=== PATIENT | male | born 2000 | race Caucasian/White ===

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

== ENCOUNTER → 2018-01-06 10:05 | Outpatient (CLI) | payer BC, SELFPAY ==
[2018-01-06 10:36] LABS: INR 2.11 (0.9-1.1)
== END ==
PROVIDERS: Visit Provider Pediatrics Pediatric Cardiology
DX: Z79.01 Long term (current) use of anticoagulants (principal); Z51.81 Encounter for therapeutic drug level monitoring; Z45.2 Encounter for adjustment and management of vascular access device; I35.9 Nonrheumatic aortic valve disorder, unspecified
CPT/HCPCS: 36415; 85610

== ENCOUNTER → 2018-01-20 10:30 | Outpatient (CLI) | payer BC, SELFPAY ==
[2018-01-20 11:11] LABS: Prothrombin Time 17.4 seconds (9.4-11.8)
== END ==
PROVIDERS: Visit Provider Pediatrics Pediatric Cardiology
DX: Z79.01 Long term (current) use of anticoagulants (principal); Z51.81 Encounter for therapeutic drug level monitoring; Z95.2 Presence of prosthetic heart valve; I35.9 Nonrheumatic aortic valve disorder, unspecified
CPT/HCPCS: 36415; 85610

== ENCOUNTER → 2018-01-28 17:28 | Outpatient (CLI) | payer BC, SELFPAY ==
[2018-01-28 17:52] LABS: Prothrombin Time 22.8 seconds (9.4-11.8)
== END ==
PROVIDERS: Visit Provider Pediatrics Pediatric Cardiology
DX: Z79.01 Long term (current) use of anticoagulants (principal); Z51.81 Encounter for therapeutic drug level monitoring
CPT/HCPCS: 36415; 85610

== ENCOUNTER → 2018-02-08 14:43 | Outpatient (CLI) | payer BC, SELFPAY ==
[2018-02-08 15:35] LABS: INR 2.66 (0.9-1.1)
== END ==
PROVIDERS: Visit Provider Pediatrics Pediatric Cardiology
DX: Z79.01 Long term (current) use of anticoagulants (principal); Z51.81 Encounter for therapeutic drug level monitoring; Z95.2 Presence of prosthetic heart valve; I35.9 Nonrheumatic aortic valve disorder, unspecified
CPT/HCPCS: 36415; 85610

== ENCOUNTER → 2018-03-03 15:31 | Outpatient (CLI) | payer BC, SELFPAY ==
[2018-03-03 16:21] LABS: INR 1.18 (0.9-1.1); Prothrombin Time 12.8 seconds (9.4-11.8)
== END ==
PROVIDERS: Visit Provider Pediatrics Pediatric Cardiology
DX: Z79.01 Long term (current) use of anticoagulants (principal); Z51.81 Encounter for therapeutic drug level monitoring; Z95.2 Presence of prosthetic heart valve; I35.9 Nonrheumatic aortic valve disorder, unspecified
CPT/HCPCS: 36415; 85610

== ENCOUNTER → 2018-03-11 11:19 | Outpatient (CLI) | payer BC, SELFPAY ==
[2018-03-11 11:47] LABS: INR 1.99 (0.9-1.1); Prothrombin Time 21.6 seconds (9.4-11.8)
== END ==
PROVIDERS: Visit Provider Pediatrics Pediatric Cardiology
DX: Z79.01 Long term (current) use of anticoagulants (principal); Z51.81 Encounter for therapeutic drug level monitoring; Z95.2 Presence of prosthetic heart valve; I35.9 Nonrheumatic aortic valve disorder, unspecified
CPT/HCPCS: 36415; 85610

== ENCOUNTER → 2018-03-23 12:51 | Outpatient (CLI) | payer BC, SELFPAY ==
[2018-03-23 13:13] LABS: INR 3.16 (0.9-1.1); Prothrombin Time 34.5 seconds (9.4-11.8)
== END ==
PROVIDERS: Visit Provider Pediatrics Pediatric Cardiology
DX: Z79.01 Long term (current) use of anticoagulants (principal); Z51.81 Encounter for therapeutic drug level monitoring; Z95.2 Presence of prosthetic heart valve; I35.9 Nonrheumatic aortic valve disorder, unspecified
CPT/HCPCS: 36415; 85610

== ENCOUNTER → 2018-04-06 08:01 | Outpatient (CLI) | payer BC, SELFPAY ==
[2018-04-06 08:20] LABS: INR 2.84 (0.9-1.1); Prothrombin Time 28.4 seconds (9.4-11.8)
== END ==
PROVIDERS: Visit Provider Pediatrics Pediatric Cardiology
DX: Z79.01 Long term (current) use of anticoagulants (principal)
CPT/HCPCS: 36415; 85610

== ENCOUNTER → 2018-04-29 09:30 | Outpatient (CLI) | payer BC, SELFPAY ==
[2018-04-29 10:05] LABS: INR 2.14 (0.9-1.1); Prothrombin Time 21.6 seconds (9.4-11.8)
== END ==
PROVIDERS: Visit Provider Pediatrics Pediatric Cardiology
DX: Z79.01 Long term (current) use of anticoagulants (principal); Z51.81 Encounter for therapeutic drug level monitoring; Z95.2 Presence of prosthetic heart valve; I35.9 Nonrheumatic aortic valve disorder, unspecified
CPT/HCPCS: 36415; 85610

== ENCOUNTER → 2018-05-26 16:01 | Outpatient (CLI) | payer BC, SELFPAY ==
[2018-05-26 16:22] LABS: INR 1.35 (0.9-1.1); Prothrombin Time 13.8 seconds (9.4-11.8)
== END ==
PROVIDERS: Visit Provider Pediatrics Pediatric Cardiology
DX: Z79.01 Long term (current) use of anticoagulants (principal); Z51.81 Encounter for therapeutic drug level monitoring
CPT/HCPCS: 36415; 85610

== ENCOUNTER → 2018-06-01 16:07 | Outpatient (CLI) | payer BC, SELFPAY ==
[2018-06-01 16:32] LABS: INR 2.87 (0.9-1.1); Prothrombin Time 28.7 seconds (9.4-11.8)
== END ==
PROVIDERS: Visit Provider Pediatrics Pediatric Cardiology
DX: Z79.01 Long term (current) use of anticoagulants (principal); Z51.81 Encounter for therapeutic drug level monitoring; Z95.2 Presence of prosthetic heart valve; I35.9 Nonrheumatic aortic valve disorder, unspecified
CPT/HCPCS: 36415; 85610

== ENCOUNTER → 2018-06-16 12:04 | Outpatient (CLI) | payer BC, SELFPAY ==
[2018-06-16 13:22] LABS: INR 2.26 (0.9-1.1); Prothrombin Time 22.7 seconds (9.4-11.8)
== END ==
PROVIDERS: PCP Internal Medicine Adolescent Medicine; Visit Provider Internal Medicine Adolescent Medicine
DX: Z79.01 Long term (current) use of anticoagulants (principal); Z51.81 Encounter for therapeutic drug level monitoring; I35.9 Nonrheumatic aortic valve disorder, unspecified
CPT/HCPCS: 36415; 85610

== ENCOUNTER → 2018-07-07 17:18 | Outpatient (CLI) | payer BC, SELFPAY ==
[2018-07-07 17:41] LABS: INR 2.47 (0.9-1.1); Prothrombin Time 24.8 seconds (9.4-11.8)
== END ==
PROVIDERS: PCP Pediatrics Pediatric Cardiology; Visit Provider Pediatrics Pediatric Cardiology
DX: Z51.81 Encounter for therapeutic drug level monitoring (principal); Z79.01 Long term (current) use of anticoagulants; Z95.2 Presence of prosthetic heart valve; I35.9 Nonrheumatic aortic valve disorder, unspecified
CPT/HCPCS: 36415; 85610

== ENCOUNTER → 2018-09-02 13:55 | Outpatient (CLI) | payer OTHER, BC, SELFPAY ==
[2018-09-02 14:32] LABS: INR 1.18 (0.9-1.1); Prothrombin Time 12.1 seconds (9.4-11.8)
== END ==
PROVIDERS: Visit Provider Pediatrics Pediatric Cardiology
DX: Z51.81 Encounter for therapeutic drug level monitoring (principal); Z79.01 Long term (current) use of anticoagulants; Z95.2 Presence of prosthetic heart valve; I35.9 Nonrheumatic aortic valve disorder, unspecified
CPT/HCPCS: 36415; 85610

== ENCOUNTER → 2018-09-09 09:52 | Outpatient (CLI) | payer OTHER, BC, SELFPAY ==
[2018-09-09 10:26] LABS: INR 1.71 (0.9-1.1); Prothrombin Time 17.3 seconds (9.4-11.8)
== END ==
PROVIDERS: Visit Provider Pediatrics Pediatric Cardiology
DX: Z51.81 Encounter for therapeutic drug level monitoring (principal); Z79.01 Long term (current) use of anticoagulants; Z95.2 Presence of prosthetic heart valve; I35.9 Nonrheumatic aortic valve disorder, unspecified
CPT/HCPCS: 36415; 85610

== ENCOUNTER → 2018-09-16 12:55 | Outpatient (CLI) | payer OTHER, BC, SELFPAY ==
[2018-09-16 13:23] LABS: INR 1.06 (0.9-1.1); Prothrombin Time 10.9 seconds (9.4-11.8)
== END ==
PROVIDERS: Visit Provider Pediatrics Pediatric Cardiology
DX: Z51.81 Encounter for therapeutic drug level monitoring (principal); Z79.01 Long term (current) use of anticoagulants
CPT/HCPCS: 36415; 85610

== ENCOUNTER → 2018-09-23 13:58 | Outpatient (CLI) | payer OTHER, BC, SELFPAY ==
[2018-09-23 14:25] LABS: INR 2.56 (0.9-1.1); Prothrombin Time 25.7 seconds (9.4-11.8)
== END ==
PROVIDERS: Visit Provider Pediatrics Pediatric Cardiology
DX: Z51.81 Encounter for therapeutic drug level monitoring (principal); Z79.01 Long term (current) use of anticoagulants
CPT/HCPCS: 36415; 85610

== ENCOUNTER → 2018-10-04 12:40 | Outpatient (CLI) | payer BC, SELFPAY ==
[2018-10-04 13:01] LABS: INR 1.76 (0.9-1.1); Prothrombin Time 17.8 seconds (9.4-11.8)
== END ==
PROVIDERS: Visit Provider Pediatrics Pediatric Cardiology
DX: Z51.81 Encounter for therapeutic drug level monitoring (principal); Z79.01 Long term (current) use of anticoagulants; Z95.2 Presence of prosthetic heart valve; I35.9 Nonrheumatic aortic valve disorder, unspecified
CPT/HCPCS: 36415; 85610

== ENCOUNTER → 2018-10-20 16:33 | Outpatient (CLI) | payer BC, SELFPAY ==
[2018-10-20 17:12] LABS: INR 3.01 (0.9-1.1)
== END ==
PROVIDERS: Visit Provider Pediatrics Pediatric Cardiology
DX: Z51.81 Encounter for therapeutic drug level monitoring (principal); Z79.01 Long term (current) use of anticoagulants; I35.9 Nonrheumatic aortic valve disorder, unspecified; Z95.2 Presence of prosthetic heart valve
CPT/HCPCS: 36415; 85610

== ENCOUNTER → 2018-10-27 12:14 | Outpatient (CLI) | payer BC, SELFPAY ==
[2018-10-27 12:41] LABS: INR 1.59 (0.9-1.1); Prothrombin Time 16.2 seconds (9.4-11.8)
== END ==
PROVIDERS: Visit Provider Pediatrics Pediatric Cardiology
DX: Z51.81 Encounter for therapeutic drug level monitoring (principal); Z79.01 Long term (current) use of anticoagulants; Z95.2 Presence of prosthetic heart valve; I35.9 Nonrheumatic aortic valve disorder, unspecified
CPT/HCPCS: 36415; 85610

== ENCOUNTER → 2018-11-03 08:58 | Outpatient (CLI) | payer BC, SELFPAY ==
[2018-11-03 09:19] LABS: Prothrombin Time 43.5 seconds (9.4-11.8)
[2018-11-03 10:05] LABS: INR 4.41 (0.9-1.1)
== END ==
PROVIDERS: Visit Provider Pediatrics Pediatric Cardiology
DX: Z51.81 Encounter for therapeutic drug level monitoring (principal); Z79.01 Long term (current) use of anticoagulants; Z95.2 Presence of prosthetic heart valve; I35.9 Nonrheumatic aortic valve disorder, unspecified
CPT/HCPCS: 36415; 85610

== ENCOUNTER → 2018-11-04 11:34 | Outpatient (CLI) | payer BC, SELFPAY ==
[2018-11-04 12:15] LABS: INR 2.62 (0.9-1.1); Prothrombin Time 26.2 seconds (9.4-11.8)
== END ==
PROVIDERS: Visit Provider Pediatrics Pediatric Cardiology
DX: Z51.81 Encounter for therapeutic drug level monitoring (principal); Z79.01 Long term (current) use of anticoagulants; Z95.2 Presence of prosthetic heart valve; I35.9 Nonrheumatic aortic valve disorder, unspecified
CPT/HCPCS: 36415; 85610

== ENCOUNTER → 2018-11-25 17:00 | Outpatient (CLI) | payer BC, SELFPAY ==
[2018-11-25 17:23] LABS: INR 1.24 (0.9-1.1); Prothrombin Time 12.7 seconds (9.4-11.8)
== END ==
PROVIDERS: Visit Provider Pediatrics Pediatric Cardiology
DX: Z51.81 Encounter for therapeutic drug level monitoring (principal); Z79.01 Long term (current) use of anticoagulants; Z95.2 Presence of prosthetic heart valve; I35.9 Nonrheumatic aortic valve disorder, unspecified
CPT/HCPCS: 36415; 85610

== ENCOUNTER → 2018-12-02 11:49 | Outpatient (CLI) | payer BC, SELFPAY ==
[2018-12-02 12:15] LABS: INR 3.58 (0.9-1.1); Prothrombin Time 35.5 seconds (9.4-11.8)
== END ==
PROVIDERS: Visit Provider Pediatrics Pediatric Cardiology
DX: Z51.81 Encounter for therapeutic drug level monitoring (principal); Z79.01 Long term (current) use of anticoagulants; Z95.2 Presence of prosthetic heart valve; I35.9 Nonrheumatic aortic valve disorder, unspecified
CPT/HCPCS: 36415; 85610

== ENCOUNTER → 2018-12-22 12:29 | Outpatient (CLI) | payer BC, SELFPAY ==
[2018-12-22 12:52] LABS: INR 3.85 (0.9-1.1); Prothrombin Time 38.1 seconds (9.4-11.8)
== END ==
PROVIDERS: Visit Provider Pediatrics Pediatric Cardiology
DX: Z51.81 Encounter for therapeutic drug level monitoring (principal); Z79.01 Long term (current) use of anticoagulants; Z95.2 Presence of prosthetic heart valve; I35.9 Nonrheumatic aortic valve disorder, unspecified
CPT/HCPCS: 36415; 85610

== ENCOUNTER → 2018-12-29 12:45 | Outpatient (CLI) | payer BC, SELFPAY ==
[2018-12-29 14:04] LABS: Prothrombin Time 42.2 seconds (9.4-11.8)
[2018-12-29 15:01] LABS: INR 4.27 (0.9-1.1)
== END ==
PROVIDERS: Visit Provider Pediatrics Pediatric Cardiology
DX: Z79.01 Long term (current) use of anticoagulants (principal); Z95.2 Presence of prosthetic heart valve; I35.9 Nonrheumatic aortic valve disorder, unspecified
CPT/HCPCS: 36415; 85610

== ENCOUNTER → 2018-12-30 11:09 | Outpatient (CLI) | payer BC, SELFPAY ==
[2018-12-30 11:38] LABS: INR 3.18 (0.9-1.1); Prothrombin Time 31.7 seconds (9.4-11.8)
== END ==
PROVIDERS: Visit Provider Pediatrics Pediatric Cardiology
DX: Z51.81 Encounter for therapeutic drug level monitoring (principal); Z79.01 Long term (current) use of anticoagulants; Z95.2 Presence of prosthetic heart valve; I35.9 Nonrheumatic aortic valve disorder, unspecified
CPT/HCPCS: 36415; 85610

== ENCOUNTER → 2019-01-05 10:40 | Outpatient (CLI) | payer BC, SELFPAY ==
[2019-01-05 11:26] LABS: INR 3.29 (0.9-1.1); Prothrombin Time 32.7 seconds (9.4-11.8)
== END ==
PROVIDERS: Visit Provider Pediatrics Pediatric Cardiology
DX: Z51.81 Encounter for therapeutic drug level monitoring (principal); Z79.01 Long term (current) use of anticoagulants; Z95.2 Presence of prosthetic heart valve; I35.9 Nonrheumatic aortic valve disorder, unspecified
CPT/HCPCS: 36415; 85610

== ENCOUNTER → 2019-01-09 14:41 | Outpatient (CLI) | payer OTHER, BC, SELFPAY ==
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
== END ==
PROVIDERS: PCP Internal Medicine Adolescent Medicine; Visit Provider Internal Medicine Adolescent Medicine
DX: M54.5 Low back pain (principal); V89.2XXD Person injured in unspecified motor-vehicle accident, traffic, subsequent encounter
CPT/HCPCS: 72072; 72110

== ENCOUNTER → 2019-01-11 13:51 | Outpatient (CLI) | payer BC, SELFPAY ==
[2019-01-11 14:26] LABS: INR 3.08 (0.9-1.1); Prothrombin Time 30.7 seconds (9.4-11.8)
== END ==
PROVIDERS: Visit Provider Pediatrics Pediatric Cardiology
DX: Z51.81 Encounter for therapeutic drug level monitoring (principal); Z79.01 Long term (current) use of anticoagulants; Z95.2 Presence of prosthetic heart valve; I35.9 Nonrheumatic aortic valve disorder, unspecified
CPT/HCPCS: 36415; 85610

== ENCOUNTER → 2019-01-24 09:16 | Outpatient (CLI) | payer BC, SELFPAY ==
[2019-01-24 09:36] LABS: INR 1.16 (0.9-1.1); Prothrombin Time 11.9 seconds (9.4-11.8)
== END ==
PROVIDERS: Visit Provider Pediatrics Pediatric Cardiology
DX: Z51.81 Encounter for therapeutic drug level monitoring (principal); Z79.01 Long term (current) use of anticoagulants; Z95.2 Presence of prosthetic heart valve; I35.9 Nonrheumatic aortic valve disorder, unspecified
CPT/HCPCS: 36415; 85610

== ENCOUNTER → 2019-02-03 14:24 | Outpatient (CLI) | payer BC, SELFPAY ==
[2019-02-03 15:46] LABS: INR 1.51 (0.9-1.1); Prothrombin Time 15.4 seconds (9.4-11.8)
== END ==
PROVIDERS: PCP Internal Medicine Adolescent Medicine; Visit Provider Pediatrics Pediatric Cardiology
DX: Z51.81 Encounter for therapeutic drug level monitoring (principal); Z79.01 Long term (current) use of anticoagulants; Z95.2 Presence of prosthetic heart valve; I35.9 Nonrheumatic aortic valve disorder, unspecified
CPT/HCPCS: 36415; 85610

== ENCOUNTER → 2019-02-13 13:15 | Outpatient (CLI) | payer BC, SELFPAY ==
[2019-02-13 14:30] LABS: INR 1.66 (0.9-1.1); Prothrombin Time 16.9 seconds (9.4-11.8)
== END ==
PROVIDERS: Visit Provider Pediatrics Pediatric Cardiology
DX: Z51.81 Encounter for therapeutic drug level monitoring (principal); Z79.01 Long term (current) use of anticoagulants; I35.9 Nonrheumatic aortic valve disorder, unspecified; Z95.2 Presence of prosthetic heart valve
CPT/HCPCS: 36415; 85610

== ENCOUNTER → 2019-02-22 08:44 | Outpatient (CLI) | payer BC, SELFPAY ==
[2019-02-22 09:27] LABS: INR 2.23 (0.9-1.1); Prothrombin Time 22.4 seconds (9.4-11.8)
== END ==
PROVIDERS: Visit Provider Pediatrics Pediatric Cardiology
DX: Z51.81 Encounter for therapeutic drug level monitoring (principal); Z79.01 Long term (current) use of anticoagulants
CPT/HCPCS: 36415; 85610

== ENCOUNTER → 2019-03-07 15:49 | Outpatient (CLI) | payer BC, SELFPAY ==
[2019-03-07 16:13] LABS: Prothrombin Time 25.8 seconds (9.4-11.8)
== END ==
PROVIDERS: PCP Internal Medicine Adolescent Medicine; Visit Provider Pediatrics Pediatric Cardiology
DX: Z51.81 Encounter for therapeutic drug level monitoring (principal); Z79.01 Long term (current) use of anticoagulants; I35.9 Nonrheumatic aortic valve disorder, unspecified; Z95.2 Presence of prosthetic heart valve
CPT/HCPCS: 36415; 85610

== ENCOUNTER → 2019-04-06 17:12 | Outpatient (CLI) | payer BC, SELFPAY ==
[2019-04-06 17:43] LABS: INR 2.85 (0.9-1.1); Prothrombin Time 28.2 seconds (9.4-11.8)
== END ==
PROVIDERS: Visit Provider Pediatrics Pediatric Cardiology
DX: Z51.81 Encounter for therapeutic drug level monitoring (principal); Z79.01 Long term (current) use of anticoagulants; Z95.2 Presence of prosthetic heart valve; I35.9 Nonrheumatic aortic valve disorder, unspecified
CPT/HCPCS: 36415; 85610

== ENCOUNTER → 2019-05-10 17:50 | Outpatient (CLI) | payer BC, SELFPAY ==
[2019-05-10 18:26] LABS: INR 3.36 (0.9-1.1)
== END ==
PROVIDERS: Visit Provider Pediatrics Pediatric Cardiology
DX: Z51.81 Encounter for therapeutic drug level monitoring (principal); Z79.01 Long term (current) use of anticoagulants; Z95.2 Presence of prosthetic heart valve; I35.9 Nonrheumatic aortic valve disorder, unspecified
CPT/HCPCS: 36415; 85610

== ENCOUNTER → 2019-05-15 18:14 | Outpatient (CLI) | payer BC, SELFPAY ==
[2019-05-15 18:39] LABS: INR 2.24 (0.9-1.1); Prothrombin Time 22.4 seconds (9.4-11.8)
== END ==
PROVIDERS: Visit Provider Pediatrics Pediatric Cardiology
DX: Z51.81 Encounter for therapeutic drug level monitoring (principal); Z79.01 Long term (current) use of anticoagulants; Z95.2 Presence of prosthetic heart valve; I35.9 Nonrheumatic aortic valve disorder, unspecified
CPT/HCPCS: 36415; 85610

== ENCOUNTER → 2019-05-30 18:24 | Outpatient (CLI) | payer BC, SELFPAY ==
[2019-05-30 18:56] LABS: INR 1.26 (0.9-1.1)
== END ==
PROVIDERS: Visit Provider Pediatrics Pediatric Cardiology
DX: Z51.81 Encounter for therapeutic drug level monitoring (principal); Z79.01 Long term (current) use of anticoagulants; Z95.2 Presence of prosthetic heart valve
CPT/HCPCS: 36415; 85610

== ENCOUNTER → 2019-06-05 16:37 | Outpatient (CLI) | payer BC, SELFPAY ==
[2019-06-05 17:11] LABS: INR 2.95 (0.9-1.1); Prothrombin Time 29.1 seconds (9.4-11.8)
== END ==
PROVIDERS: Visit Provider Pediatrics Pediatric Cardiology
DX: Z51.81 Encounter for therapeutic drug level monitoring (principal); Z79.01 Long term (current) use of anticoagulants; Z95.2 Presence of prosthetic heart valve; I35.9 Nonrheumatic aortic valve disorder, unspecified
CPT/HCPCS: 36415; 85610

== ENCOUNTER → 2019-07-06 13:46 | Outpatient (CLI) | payer BC, SELFPAY ==
[2019-07-06 14:54] LABS: INR 1.59 (0.9-1.1); Prothrombin Time 16.2 seconds (9.4-11.8)
== END ==
PROVIDERS: Visit Provider Pediatrics Pediatric Cardiology
DX: Z51.81 Encounter for therapeutic drug level monitoring (principal); Z79.01 Long term (current) use of anticoagulants; Z95.2 Presence of prosthetic heart valve
CPT/HCPCS: 36415; 85610

== ENCOUNTER → 2019-07-18 12:23 | Outpatient (CLI) | payer BC, SELFPAY ==
[2019-07-18 13:13] LABS: INR 1.32 (0.9-1.1); Prothrombin Time 13.5 seconds (9.4-11.8)
== END ==
PROVIDERS: Visit Provider Pediatrics Pediatric Cardiology
DX: Z51.81 Encounter for therapeutic drug level monitoring (principal); Z79.01 Long term (current) use of anticoagulants; Z95.2 Presence of prosthetic heart valve; I35.9 Nonrheumatic aortic valve disorder, unspecified
CPT/HCPCS: 36415; 85610

== ENCOUNTER → 2019-07-21 15:50 | Outpatient (CLI) | payer BC, SELFPAY ==
[2019-07-21 16:17] LABS: INR 2.55 (0.9-1.1); Prothrombin Time 25.4 seconds (9.4-11.8)
== END ==
PROVIDERS: Visit Provider Pediatrics Pediatric Cardiology
DX: Z51.81 Encounter for therapeutic drug level monitoring (principal); Z79.01 Long term (current) use of anticoagulants; Z95.2 Presence of prosthetic heart valve; I35.9 Nonrheumatic aortic valve disorder, unspecified
CPT/HCPCS: 36415; 85610

== ENCOUNTER → 2019-08-07 14:29 | Outpatient (CLI) | payer BC, SELFPAY ==
[2019-08-07 15:28] LABS: INR 2.66 (0.9-1.1); Prothrombin Time 26.4 seconds (9.4-11.8)
== END ==
PROVIDERS: Visit Provider Pediatrics Pediatric Cardiology
DX: Z51.81 Encounter for therapeutic drug level monitoring (principal); Z79.01 Long term (current) use of anticoagulants; Z95.2 Presence of prosthetic heart valve; I35.9 Nonrheumatic aortic valve disorder, unspecified
CPT/HCPCS: 36415; 85610

== ENCOUNTER → 2019-09-08 08:15 | Outpatient (CLI) | payer BC, SELFPAY ==
[2019-09-08 09:20] LABS: INR 2.25 (0.9-1.1); Prothrombin Time 22.5 seconds (9.4-11.8)
== END ==
PROVIDERS: Visit Provider Pediatrics Pediatric Cardiology
DX: Z51.81 Encounter for therapeutic drug level monitoring (principal); Z79.01 Long term (current) use of anticoagulants; Z95.2 Presence of prosthetic heart valve; I35.9 Nonrheumatic aortic valve disorder, unspecified
CPT/HCPCS: 36415; 85610

== ENCOUNTER → 2019-10-06 17:58 | Outpatient (CLI) | payer BC, SELFPAY ==
[2019-10-06 18:19] LABS: INR 1.81 (0.9-1.1); Prothrombin Time 18.3 seconds (9.4-11.8)
== END ==
PROVIDERS: Visit Provider Pediatrics Pediatric Cardiology
DX: Z51.81 Encounter for therapeutic drug level monitoring (principal); Z79.01 Long term (current) use of anticoagulants; Z95.2 Presence of prosthetic heart valve
CPT/HCPCS: 36415; 85610

== ENCOUNTER → 2019-11-16 12:44 | Outpatient (CLI) | payer BC, SELFPAY ==
[2019-11-16 13:11] LABS: INR 3.91 (0.9-1.1); Prothrombin Time 38.1 seconds (9.4-11.8)
== END ==
PROVIDERS: Visit Provider Pediatrics Pediatric Cardiology
DX: Z51.81 Encounter for therapeutic drug level monitoring (principal); Z79.01 Long term (current) use of anticoagulants; Z95.2 Presence of prosthetic heart valve; I35.9 Nonrheumatic aortic valve disorder, unspecified
CPT/HCPCS: 36415; 85610

== ENCOUNTER → 2019-11-20 10:28 | Outpatient (CLI) | payer BC, SELFPAY ==
[2019-11-20 11:24] LABS: INR 3.27 (0.9-1.1); Prothrombin Time 32.1 seconds (9.4-11.8)
== END ==
PROVIDERS: Visit Provider Pediatrics Pediatric Cardiology
DX: Z51.81 Encounter for therapeutic drug level monitoring (principal); Z79.01 Long term (current) use of anticoagulants; Z95.2 Presence of prosthetic heart valve; I35.9 Nonrheumatic aortic valve disorder, unspecified
CPT/HCPCS: 36415; 85610

== ENCOUNTER → 2019-11-28 13:35 | Outpatient (CLI) | payer BC, SELFPAY ==
[2019-11-28 14:30] LABS: INR 3.91 (0.9-1.1); Prothrombin Time 38.1 seconds (9.4-11.8)
== END ==
PROVIDERS: Visit Provider Pediatrics Pediatric Cardiology
DX: Z51.81 Encounter for therapeutic drug level monitoring (principal); Z79.01 Long term (current) use of anticoagulants; Z95.2 Presence of prosthetic heart valve; I35.9 Nonrheumatic aortic valve disorder, unspecified
CPT/HCPCS: 36415; 85610

== ENCOUNTER → 2019-12-07 08:23 | Outpatient (CLI) | payer BC, SELFPAY ==
[2019-12-07 08:50] LABS: INR 2.87 (0.9-1.1); Prothrombin Time 28.4 seconds (9.4-11.8)
== END ==
PROVIDERS: Visit Provider Pediatrics Pediatric Cardiology
DX: Z51.81 Encounter for therapeutic drug level monitoring (principal); Z79.01 Long term (current) use of anticoagulants; Z95.2 Presence of prosthetic heart valve; I35.9 Nonrheumatic aortic valve disorder, unspecified
CPT/HCPCS: 36415; 85610

== ENCOUNTER → 2019-12-29 11:50 | Outpatient (CLI) | payer BC, SELFPAY ==
[2019-12-29 12:20] LABS: INR 1.11 (0.9-1.1); Prothrombin Time 11.5 seconds (9.4-11.8)
== END ==
PROVIDERS: Visit Provider Pediatrics Pediatric Cardiology
DX: Z51.81 Encounter for therapeutic drug level monitoring (principal); Z79.01 Long term (current) use of anticoagulants; Z95.2 Presence of prosthetic heart valve; I35.9 Nonrheumatic aortic valve disorder, unspecified
CPT/HCPCS: 36415; 85610

== ENCOUNTER → 2020-01-01 13:19 | Outpatient (CLI) | payer BC, SELFPAY ==
[2020-01-01 16:17] LABS: INR 1.79 (0.9-1.1); Prothrombin Time 18.1 seconds (9.4-11.8)
== END ==
PROVIDERS: Visit Provider Pediatrics Pediatric Cardiology
DX: Z51.81 Encounter for therapeutic drug level monitoring (principal); Z79.01 Long term (current) use of anticoagulants; Z95.2 Presence of prosthetic heart valve; I35.9 Nonrheumatic aortic valve disorder, unspecified
CPT/HCPCS: 36415; 85610

== ENCOUNTER → 2020-01-05 10:15 | Outpatient (CLI) | payer BC, SELFPAY ==
[2020-01-05 10:57] LABS: INR 2.21 (0.9-1.1); Prothrombin Time 22.1 seconds (9.4-11.8)
== END ==
PROVIDERS: Visit Provider Pediatrics Pediatric Cardiology
DX: Z51.81 Encounter for therapeutic drug level monitoring (principal); Z79.01 Long term (current) use of anticoagulants; Z95.2 Presence of prosthetic heart valve; I35.9 Nonrheumatic aortic valve disorder, unspecified
CPT/HCPCS: 36415; 85610

== ENCOUNTER → 2020-01-18 18:28 | Outpatient (CLI) | payer BC, SELFPAY ==
[2020-01-18 18:47] LABS: INR 1.97 (0.9-1.1); Prothrombin Time 19.8 seconds (9.4-11.8)
== END ==
PROVIDERS: Visit Provider Pediatrics Pediatric Cardiology
DX: Z51.81 Encounter for therapeutic drug level monitoring (principal); Z79.01 Long term (current) use of anticoagulants; Z95.2 Presence of prosthetic heart valve; I35.9 Nonrheumatic aortic valve disorder, unspecified
CPT/HCPCS: 36415; 85610

== ENCOUNTER → 2020-02-08 19:20 | Outpatient (CLI) | payer BC, SELFPAY ==
[2020-02-08 19:54] LABS: Prothrombin Time 19.2 seconds (9.4-11.8)
== END ==
PROVIDERS: PCP Internal Medicine Adolescent Medicine; Visit Provider Pediatrics Pediatric Cardiology
DX: Z51.81 Encounter for therapeutic drug level monitoring (principal); Z79.01 Long term (current) use of anticoagulants; Z95.2 Presence of prosthetic heart valve; I35.9 Nonrheumatic aortic valve disorder, unspecified
CPT/HCPCS: 36415; 85610

== ENCOUNTER → 2020-02-29 19:53 | Outpatient (CLI) | payer BC, SELFPAY ==
[2020-02-29 20:26] LABS: INR 1.93 (0.9-1.1); Prothrombin Time 19.5 seconds (9.4-11.8)
== END ==
LOC: LAB.DROPOF 19:54 → LAB 20:04
PROVIDERS: Visit Provider Pediatrics Pediatric Cardiology
DX: Z51.81 Encounter for therapeutic drug level monitoring (principal); Z79.01 Long term (current) use of anticoagulants
CPT/HCPCS: 36415; 85610

== ENCOUNTER → 2020-03-28 17:17 | Outpatient (CLI) | payer BC, SELFPAY ==
[2020-03-28 17:48] LABS: INR 1.24 (0.9-1.1); Prothrombin Time 12.6 seconds (9.4-11.8)
== END ==
PROVIDERS: Visit Provider Pediatrics Pediatric Cardiology
DX: Z51.81 Encounter for therapeutic drug level monitoring (principal); Z79.01 Long term (current) use of anticoagulants; I35.9 Nonrheumatic aortic valve disorder, unspecified; Z95.2 Presence of prosthetic heart valve
CPT/HCPCS: 36415; 85610

== ENCOUNTER → 2020-04-04 17:16 | Outpatient (CLI) | payer BC, SELFPAY ==
[2020-04-04 17:55] LABS: INR 1.37 (0.9-1.1); Prothrombin Time 13.8 seconds (9.4-11.8)
== END ==
PROVIDERS: Visit Provider Pediatrics Pediatric Cardiology
DX: Z51.81 Encounter for therapeutic drug level monitoring (principal); Z79.01 Long term (current) use of anticoagulants; I35.9 Nonrheumatic aortic valve disorder, unspecified; Z95.2 Presence of prosthetic heart valve
CPT/HCPCS: 36415; 85610

== ENCOUNTER → 2020-04-10 17:24 | Outpatient (CLI) | payer BC, SELFPAY ==
[2020-04-10 17:49] LABS: INR 1.93 (0.9-1.1); Prothrombin Time 19.1 seconds (9.4-11.8)
== END ==
PROVIDERS: Visit Provider Pediatrics Pediatric Cardiology
DX: Z51.81 Encounter for therapeutic drug level monitoring (principal); Z79.01 Long term (current) use of anticoagulants; I35.9 Nonrheumatic aortic valve disorder, unspecified; Z95.2 Presence of prosthetic heart valve
CPT/HCPCS: 36415; 85610

== ENCOUNTER → 2020-04-24 17:13 | Outpatient (CLI) | payer BC, SELFPAY ==
[2020-04-24 17:57] LABS: INR 2.22 (0.9-1.1); Prothrombin Time 21.7 seconds (9.4-11.8)
== END ==
PROVIDERS: Visit Provider Pediatrics Pediatric Cardiology
DX: Z51.81 Encounter for therapeutic drug level monitoring (principal); Z79.01 Long term (current) use of anticoagulants; Z95.2 Presence of prosthetic heart valve; I35.9 Nonrheumatic aortic valve disorder, unspecified
CPT/HCPCS: 36415; 85610

== ENCOUNTER → 2020-05-16 11:08 | Outpatient (CLI) | payer BC, SELFPAY ==
[2020-05-16 12:24] LABS: INR 3.66 (0.9-1.1); Prothrombin Time 34.6 seconds (9.4-11.8)
== END ==
PROVIDERS: Visit Provider Pediatrics Pediatric Cardiology
DX: Z51.81 Encounter for therapeutic drug level monitoring (principal); Z79.01 Long term (current) use of anticoagulants; Z95.2 Presence of prosthetic heart valve; I35.9 Nonrheumatic aortic valve disorder, unspecified
CPT/HCPCS: 36415; 85610

== ENCOUNTER → 2020-05-22 17:19 | Outpatient (CLI) | payer BC, SELFPAY ==
[2020-05-22 18:13] LABS: INR 3.93 (0.9-1.1)
== END ==
PROVIDERS: Visit Provider Pediatrics Pediatric Cardiology
DX: Z51.81 Encounter for therapeutic drug level monitoring (principal); Z79.01 Long term (current) use of anticoagulants; I35.9 Nonrheumatic aortic valve disorder, unspecified; Z95.2 Presence of prosthetic heart valve
CPT/HCPCS: 36415; 85610

== ENCOUNTER → 2020-05-27 19:06 | Outpatient (CLI) | payer BC, SELFPAY ==
[2020-05-27 20:20] LABS: Prothrombin Time 17.4 seconds (9.4-11.8)
[2020-05-27 20:21] LABS: INR 1.75 (0.9-1.1)
== END ==
PROVIDERS: PCP Internal Medicine Adolescent Medicine; Visit Provider Pediatrics Pediatric Cardiology
DX: Z51.81 Encounter for therapeutic drug level monitoring (principal); Z79.01 Long term (current) use of anticoagulants; I35.9 Nonrheumatic aortic valve disorder, unspecified; Z95.2 Presence of prosthetic heart valve
CPT/HCPCS: 36415; 85610

== ENCOUNTER → 2020-06-03 18:00 | Outpatient (CLI) | payer BC, SELFPAY ==
[2020-06-03 20:18] LABS: INR 1.75 (0.9-1.1); Prothrombin Time 17.4 seconds (9.4-11.8)
== END ==
PROVIDERS: Visit Provider Pediatrics Pediatric Cardiology
DX: Z79.01 Long term (current) use of anticoagulants (principal)
CPT/HCPCS: 36415; 85610

== ENCOUNTER → 2020-06-13 17:18 | Outpatient (CLI) | payer BC, SELFPAY ==
[2020-06-13 18:30] LABS: INR 2.57 (0.9-1.1); Prothrombin Time 24.9 seconds (9.4-11.8)
== END ==
PROVIDERS: Visit Provider Pediatrics Pediatric Cardiology
DX: Z79.01 Long term (current) use of anticoagulants (principal)
CPT/HCPCS: 36415; 85610

== ENCOUNTER → 2020-07-01 17:14 | Outpatient (CLI) | payer BC, SELFPAY ==
[2020-07-01 22:06] LABS: INR 2.92 (0.9-1.1); Prothrombin Time 28.9 seconds (9.4-11.8)
== END ==
PROVIDERS: Visit Provider Pediatrics Pediatric Cardiology
DX: Z79.01 Long term (current) use of anticoagulants (principal); Z95.2 Presence of prosthetic heart valve; I35.9 Nonrheumatic aortic valve disorder, unspecified
CPT/HCPCS: 36415; 85610

== ENCOUNTER → 2020-07-31 17:19 | Outpatient (CLI) | payer BC, SELFPAY ==
[2020-07-31 18:50] LABS: INR 2.49 (0.9-1.1); Prothrombin Time 25.4 seconds (9.4-11.8)
== END ==
PROVIDERS: Visit Provider Pediatrics Pediatric Cardiology
DX: Z51.81 Encounter for therapeutic drug level monitoring (principal); Z79.01 Long term (current) use of anticoagulants; I35.9 Nonrheumatic aortic valve disorder, unspecified; Z95.2 Presence of prosthetic heart valve
CPT/HCPCS: 36415; 85610

== ENCOUNTER → 2020-09-04 17:15 | Outpatient (CLI) | payer BC, SELFPAY ==
[2020-09-04 18:48] LABS: Prothrombin Time 13.9 seconds (9.4-11.8)
[2020-09-04 18:49] LABS: INR 1.28 (0.9-1.1)
== END ==
PROVIDERS: Visit Provider Pediatrics Pediatric Cardiology
DX: Z51.81 Encounter for therapeutic drug level monitoring (principal); Z79.01 Long term (current) use of anticoagulants
CPT/HCPCS: 36415; 85610

== ENCOUNTER → 2020-09-10 17:24 | Outpatient (CLI) | payer BC, SELFPAY ==
[2020-09-10 18:13] LABS: INR 2.02 (0.9-1.1)
== END ==
PROVIDERS: Visit Provider Pediatrics Pediatric Cardiology
DX: Z51.81 Encounter for therapeutic drug level monitoring (principal); Z79.01 Long term (current) use of anticoagulants
CPT/HCPCS: 36415; 85610

== ENCOUNTER 2020-09-10 20:48 | Emergency (ER) | payer OTHER, SELFPAY ==
--- NOTE | 2020-09-10 20:53 | XR_ITS ---
PROCEDURE: XR COCCYX 2V CLINICAL INDICATION: FALL Pain COMPARISON: CR [id number] XR lumbar spine min 4V from 01/09/2019 FINDINGS: No fracture or dislocation. No lytic or blastic change. There is normal mineralization. The joint spaces are well-preserved. No significant degenerative/arthritic changes. No erosive changes evident. Other findings:None. IMPRESSION: No acute findings. Dictated by: Hemant Koch MD 09/10/2020 22:54 Hemant Koch MD in [place] 09/10/2020 22:54
[2020-09-10 21:05] VITALS: BP 135/88; PULSE 83; RESP 18; TEMP 36.9; O2SAT 100; BMI 33.4
--- NOTE | 2020-09-10 21:11 | HMH.EDUTC ---
[facility] Disposition Clinical Impression: Acute buttock pain Cellulitis Qualifiers: Site of cellulitis: unspecified site Qualified Code(s): L03.90 - Cellulitis, unspecified Disposition: Home, Self-Care Condition on Discharge: Good Instructions: DI for Cellulitis -- Adult, Cellulitis, DI for Skin Abscess Additional Instructions: Call Dr Hartley's office in the morning after 8am and inform them that you need an appointment to be seen tomorrow Follow up with Dr Hartley as advised Take medication as prescribed Warm compresses may help with pain and swelling Straight to ER if any life threatening symptoms Prescriptions: clindamycin HCL [Cleocin HCl] 300 mg PO TID 5 Days #15 cap Transmission Status: Pending to [id number] Referrals: Juan Rogers MD [Primary Care Provider] - As needed Ronni Hartley MD [Staff Physician] - (Call office in the morning after 8am for appointment, inform them you was seen in [facility] and spoke with Dr Hartley and he advised you to call for appointment tomorrow 09/11/20) Forms: Work/School Release Time of Disposition: 21:44 Medical Decision Making - Kemar Inquiry Pt receiving controlled substance: No Kemar was queried for this patient: No Vital Signs: 09/10/20 21:05 09/10/20 21:14 Temperature 98.4 F 98.4 F Temperature Source Oral Pulse Rate 83 Pulse Rate [Right Brachial] 83 Respiratory Rate 18 18 Blood Pressure 135/88 Blood Pressure [Right Arm] 135/88 Blood Pressure Mean [Right Arm] 103 Blood Pressure Source [Right Arm] Automatic Cuff Blood Pressure Position [Right Arm] Sitting 02 Sat by Pulse Oximetry 100 Oxygen Delivery Method Room Air Orders (Tests/Meds): ED MEDICATIONS Discontinued Medications Generic Name Dose Route Start Last Admin Trade Name Freq PRN Reason Stop Dose Admin Clindamycin HCl 300 mg 09/10/20 21:39 09/10/20 21:42 Clindamycin 150mg Capsule PO 09/10/20 21:40 300 mg ONCE ONE Administration Protocol ORDERS Category Date Time Status Coccyx XR 2 view [XR coccyx 2V] Stat Exams 09/10/20 20:53 Ordered - Radiology Data #1 Image(s): Other (coccyx) Image Reviewed: Yes I reviewed the patient's radiology image w/the ED provider - Physician Consults Physician Consulted: Naeem Time: 21:30 Reason -: Surgical Eval/Care Comment/Response: Spoke with Dr Hartley and informed him of finding on examination, red warm hard area on left buttock area and he advised to have patient call the office in the morning after 8am for appointment tomorrow for further evaluation and treatment Medical Decision Narrative: upon examination of buttock area noted on left lower buttock appeared warm to the touch, hard area noted with redness Patient reports tender when palpated Recommended transfer to ED and patient declined Spoke with Dr Hartley and informed him of finding and concern for ?hematoma/abscess and he advised that he was in the office in the morning and could see patient to have them call office after 8am Patient denies any problems or swelling prior to falling on Wednesday, States that pain has continued to get worse. Patient started on oral antibiotics and will have him follow up in the surgical clinic tomorrow for further evaluation and treatment if needed [facility] HPI - General Stated complaint: AO 09/06/20 injury to tail bone Time Seen by Provider: 09/10/20 21:11 Mode of Arrival: Ambulatory Source of Information: Patient Limitations: No Limitations Description of Symptoms (Recalled from Triage Doc. by RN): PATIENT FELL ON CONVEYER BELT AT WORK ON WEDNESDAY. C/O WORSENING PAIN TO COCCYX HEENT Symptoms (Recalled from RN notes): No Resp Symptoms (Recalled from RN notes): No Skin Symptoms (Recalled from RN notes): No MS Symptoms (Recalled from RN notes): Yes Functional Status (Recalled from RN notes): WNL - History of Present Illness Provider Complaint: Patient states that he fell on Wednesday and landed on his buttock area on conveyer belt States t
[2020-09-10 21:14] VITALS: BP 135/88; PULSE 83; RESP 18; TEMP 36.9; O2SAT 100
== END 2020-09-10 21:49 | disposition home or self-care (01) ==
PROVIDERS: Emergency Provider Nurse Practitioner; PCP Internal Medicine Adolescent Medicine
DX: S30.0XXA Contusion of lower back and pelvis, initial encounter (principal); W01.0XXA Fall on same level from slipping, tripping and stumbling without subsequent striking against object, initial encounter; Y92.63 Factory as the place of occurrence of the external cause; Y99.0 Civilian activity done for income or pay
CPT/HCPCS: 72220; 99201

== ENCOUNTER → 2020-09-17 09:25 | Outpatient (CLI) | payer OTHER, SELFPAY ==
[2020-09-17 11:34] LABS: INR 2.58 (0.9-1.1); Prothrombin Time 26.3 seconds (9.4-11.8)
== END ==
PROVIDERS: Visit Provider Pediatrics Pediatric Cardiology
DX: Z51.81 Encounter for therapeutic drug level monitoring (principal); Z79.01 Long term (current) use of anticoagulants
CPT/HCPCS: 36415; 85610

== ENCOUNTER → 2020-10-22 17:32 | Outpatient (CLI) | payer OTHER, SELFPAY ==
[2020-10-22 18:09] LABS: INR 2.11 (0.9-1.1); Prothrombin Time 21.9 seconds (9.4-11.8)
== END ==
PROVIDERS: Visit Provider Pediatrics Pediatric Cardiology
DX: Z51.81 Encounter for therapeutic drug level monitoring (principal); Z79.01 Long term (current) use of anticoagulants
CPT/HCPCS: 36415; 85610

== ENCOUNTER → 2020-11-19 17:48 | Outpatient (CLI) | payer OTHER, SELFPAY ==
[2020-11-19 18:41] LABS: INR 1.77 (0.9-1.1); Prothrombin Time 18.7 seconds (9.4-11.8)
== END ==
LOC: LAB 17:48
PROVIDERS: Visit Provider Pediatrics Pediatric Cardiology
DX: Z51.81 Encounter for therapeutic drug level monitoring (principal); Z79.01 Long term (current) use of anticoagulants
CPT/HCPCS: 36415; 85610

== ENCOUNTER → 2020-11-27 16:29 | Outpatient (CLI) | payer OTHER, SELFPAY ==
[2020-11-27 17:28] LABS: INR 3.82 (0.9-1.1); Prothrombin Time 37.5 seconds (9.4-11.8)
== END ==
PROVIDERS: PCP Internal Medicine Adolescent Medicine; Visit Provider Pediatrics Pediatric Cardiology
DX: Z51.81 Encounter for therapeutic drug level monitoring (principal); Z79.01 Long term (current) use of anticoagulants
CPT/HCPCS: 85610

== ENCOUNTER → 2020-12-03 12:06 | Outpatient (CLI) | payer OTHER, SELFPAY ==
[2020-12-03 12:46] LABS: INR 2.08 (0.9-1.1); Prothrombin Time 21.6 seconds (9.4-11.8)
== END ==
LOC: LAB 12:10
PROVIDERS: Visit Provider Pediatrics Pediatric Cardiology
DX: Z51.81 Encounter for therapeutic drug level monitoring (principal); Z79.01 Long term (current) use of anticoagulants
CPT/HCPCS: 36415; 85610

== ENCOUNTER → 2020-12-12 17:14 | Outpatient (CLI) | payer OTHER, SELFPAY ==
[2020-12-12 17:59] LABS: INR 2.92 (0.9-1.1); Prothrombin Time 29.4 seconds (9.4-11.8)
== END ==
LOC: LAB 17:15
PROVIDERS: Visit Provider Pediatrics Pediatric Cardiology
DX: Z51.81 Encounter for therapeutic drug level monitoring (principal); Z79.01 Long term (current) use of anticoagulants
CPT/HCPCS: 36415; 85610

== ENCOUNTER → 2020-12-26 17:24 | Outpatient (CLI) | payer OTHER, SELFPAY ==
[2020-12-26 18:11] LABS: Prothrombin Time 20.3 seconds (9.4-11.8)
== END ==
LOC: LAB 17:24
PROVIDERS: Visit Provider Pediatrics Pediatric Cardiology
DX: Z51.81 Encounter for therapeutic drug level monitoring (principal); Z79.01 Long term (current) use of anticoagulants
CPT/HCPCS: 36415; 85610

== ENCOUNTER → 2021-01-09 17:15 | Outpatient (CLI) | payer OTHER, SELFPAY ==
[2021-01-09 17:53] LABS: INR 1.48 (0.9-1.1)
== END ==
LOC: LAB 17:15
PROVIDERS: Visit Provider Pediatrics Pediatric Cardiology
DX: Z51.81 Encounter for therapeutic drug level monitoring (principal); Z79.01 Long term (current) use of anticoagulants
CPT/HCPCS: 36415; 85610

== ENCOUNTER → 2021-01-15 17:15 | Outpatient (CLI) | payer OTHER, SELFPAY ==
[2021-01-15 18:12] LABS: INR 2.25 (0.9-1.1)
== END ==
LOC: LAB 17:15
PROVIDERS: Visit Provider Pediatrics Pediatric Cardiology
DX: Z51.81 Encounter for therapeutic drug level monitoring (principal); Z79.01 Long term (current) use of anticoagulants
CPT/HCPCS: 36415; 85610

== ENCOUNTER → 2021-01-31 18:01 | Outpatient (CLI) | payer OTHER, SELFPAY ==
[2021-01-31 19:09] LABS: Prothrombin Time 20.3 seconds (10.1-12.5)
== END ==
LOC: LAB 18:02
PROVIDERS: Visit Provider Pediatrics Pediatric Cardiology
DX: Z51.81 Encounter for therapeutic drug level monitoring (principal); Z79.01 Long term (current) use of anticoagulants
CPT/HCPCS: 36415; 85610

== ENCOUNTER → 2021-02-17 17:20 | Outpatient (CLI) | payer OTHER, SELFPAY ==
[2021-02-17 17:56] LABS: INR 1.31 (0.9-1.1); Prothrombin Time 15.2 seconds (10.1-12.5)
== END ==
LOC: LAB 17:20
PROVIDERS: Visit Provider Pediatrics Pediatric Cardiology
DX: Z51.81 Encounter for therapeutic drug level monitoring (principal); Z79.01 Long term (current) use of anticoagulants
CPT/HCPCS: 36415; 85610

== ENCOUNTER → 2021-02-24 17:20 | Outpatient (CLI) | payer OTHER, SELFPAY ==
[2021-02-24 17:59] LABS: Prothrombin Time 14.1 seconds (10.1-12.5)
[2021-02-24 18:00] LABS: INR 1.21 (0.9-1.1)
== END ==
LOC: LAB 17:21
PROVIDERS: Visit Provider Pediatrics Pediatric Cardiology
DX: Z51.81 Encounter for therapeutic drug level monitoring (principal); Z79.01 Long term (current) use of anticoagulants
CPT/HCPCS: 36415; 85610

== ENCOUNTER → 2021-03-07 12:52 | Outpatient (CLI) | payer OTHER, SELFPAY ==
[2021-03-07 13:18] LABS: Prothrombin Time 22.4 seconds (10.1-12.5)
== END ==
LOC: LAB 12:52
PROVIDERS: Visit Provider Pediatrics Pediatric Cardiology
DX: Z51.81 Encounter for therapeutic drug level monitoring (principal); Z79.01 Long term (current) use of anticoagulants
CPT/HCPCS: 36415; 85610

== ENCOUNTER → 2021-03-28 17:18 | Outpatient (CLI) | payer OTHER, SELFPAY ==
[2021-03-28 17:41] LABS: INR 1.73 (0.9-1.1); Prothrombin Time 19.6 seconds (10.1-12.5)
== END ==
LOC: LAB 17:19
PROVIDERS: Visit Provider Pediatrics Pediatric Cardiology
DX: Z51.81 Encounter for therapeutic drug level monitoring (principal); Z79.01 Long term (current) use of anticoagulants
CPT/HCPCS: 36415; 85610

== ENCOUNTER → 2021-04-04 18:44 | Outpatient (CLI) | payer OTHER, SELFPAY ==
[2021-04-04 19:10] LABS: Prothrombin Time 26.6 seconds (10.1-12.5)
[2021-04-04 19:30] LABS: INR 2.41 (0.9-1.1)
== END ==
LOC: LAB 18:44
PROVIDERS: Visit Provider Pediatrics Pediatric Cardiology
DX: Z51.81 Encounter for therapeutic drug level monitoring (principal); Z79.01 Long term (current) use of anticoagulants
CPT/HCPCS: 36415; 85610

== ENCOUNTER → 2021-04-28 15:46 | Outpatient (CLI) | payer SELFPAY ==
[2021-04-28 16:28] LABS: Prothrombin Time 27.4 seconds (10.1-12.5)
[2021-04-28 16:56] LABS: INR 2.48 (0.9-1.1)
== END ==
PROVIDERS: Visit Provider Pediatrics Pediatric Cardiology
DX: Z51.81 Encounter for therapeutic drug level monitoring (principal); Z79.01 Long term (current) use of anticoagulants
CPT/HCPCS: 36415; 85610

== ENCOUNTER → 2021-05-30 16:49 | Outpatient (CLI) | payer SELFPAY ==
[2021-05-30 18:51] LABS: INR 2.64 (0.9-1.1)
== END ==
PROVIDERS: Visit Provider Pediatrics Pediatric Cardiology
DX: Z51.81 Encounter for therapeutic drug level monitoring (principal); Z79.01 Long term (current) use of anticoagulants
CPT/HCPCS: 85610

== ENCOUNTER → 2021-07-02 16:10 | Outpatient (CLI) | payer BC, SELFPAY ==
[2021-07-02 16:49] LABS: Prothrombin Time 33.1 seconds (10.1-12.5)
[2021-07-02 17:20] LABS: INR 3.05 (0.9-1.1)
== END ==
PROVIDERS: Visit Provider Pediatrics Pediatric Cardiology
DX: Z51.81 Encounter for therapeutic drug level monitoring (principal); Z79.01 Long term (current) use of anticoagulants
CPT/HCPCS: 36415; 85610

== ENCOUNTER → 2021-08-04 15:53 | Outpatient (CLI) | payer BC, SELFPAY ==
[2021-08-04 21:02] LABS: Prothrombin Time 57.3 seconds (10.1-12.5)
[2021-08-04 21:03] LABS: INR 5.77 (0.9-1.1)
== END ==
PROVIDERS: Visit Provider Pediatrics Pediatric Cardiology
DX: Z51.81 Encounter for therapeutic drug level monitoring (principal); Z79.01 Long term (current) use of anticoagulants
CPT/HCPCS: 36415; 85610

== ENCOUNTER → 2021-08-05 12:15 | Outpatient (CLI) | payer BC, SELFPAY ==
[2021-08-05 12:42] LABS: INR 3.69 (0.9-1.1); Prothrombin Time 37.9 seconds (10.1-12.5)
== END ==
PROVIDERS: Visit Provider Pediatrics Pediatric Cardiology
DX: Z51.81 Encounter for therapeutic drug level monitoring (principal); Z79.01 Long term (current) use of anticoagulants
CPT/HCPCS: 36415; 85610

== ENCOUNTER → 2021-08-08 15:44 | Outpatient (CLI) | payer BC, SELFPAY ==
[2021-08-08 16:18] LABS: INR 2.22 (0.9-1.1); Prothrombin Time 23.6 seconds (10.1-12.5)
== END ==
PROVIDERS: Visit Provider Pediatrics Pediatric Cardiology
DX: Z51.81 Encounter for therapeutic drug level monitoring (principal); Z79.01 Long term (current) use of anticoagulants
CPT/HCPCS: 36415; 85610

== ENCOUNTER → 2021-08-18 15:41 | Outpatient (CLI) | payer BC, SELFPAY ==
[2021-08-18 16:53] LABS: INR 3.41 (0.9-1.1); Prothrombin Time 35.2 seconds (10.1-12.5)
== END ==
PROVIDERS: Visit Provider Pediatrics Pediatric Cardiology
DX: Z51.81 Encounter for therapeutic drug level monitoring (principal); Z79.01 Long term (current) use of anticoagulants
CPT/HCPCS: 36415; 85610

== ENCOUNTER → 2021-08-25 16:04 | Outpatient (CLI) | payer BC, SELFPAY ==
[2021-08-25 16:46] LABS: INR 2.13 (0.9-1.1); Prothrombin Time 22.8 seconds (10.1-12.5)
== END ==
PROVIDERS: Visit Provider Pediatrics Pediatric Cardiology
DX: Z51.81 Encounter for therapeutic drug level monitoring (principal); Z79.01 Long term (current) use of anticoagulants
CPT/HCPCS: 36415; 85610

== ENCOUNTER → 2021-09-08 15:44 | Outpatient (CLI) | payer BC, SELFPAY ==
[2021-09-08 16:43] LABS: INR 2.42 (0.9-1.1); Prothrombin Time 25.6 seconds (10.1-12.5)
== END ==
PROVIDERS: Visit Provider Pediatrics Pediatric Cardiology
DX: Z51.81 Encounter for therapeutic drug level monitoring (principal); Z79.01 Long term (current) use of anticoagulants
CPT/HCPCS: 36415; 85610

== ENCOUNTER → 2021-09-29 15:45 | Outpatient (CLI) | payer BC, SELFPAY ==
[2021-09-29 16:51] LABS: INR 5.52 (0.9-1.1)
== END ==
PROVIDERS: Visit Provider Pediatrics Pediatric Cardiology
DX: R79.1 Abnormal coagulation profile (principal); Z79.01 Long term (current) use of anticoagulants
CPT/HCPCS: 36415; 85610

== ENCOUNTER → 2021-10-01 15:41 | Outpatient (CLI) | payer BC, SELFPAY ==
[2021-10-01 16:29] LABS: INR 3.19 (0.9-1.1); Prothrombin Time 33.1 seconds (10.1-12.5)
== END ==
PROVIDERS: Visit Provider Pediatrics Pediatric Cardiology
DX: Z51.81 Encounter for therapeutic drug level monitoring (principal); Z79.01 Long term (current) use of anticoagulants
CPT/HCPCS: 36415; 85610

== ENCOUNTER → 2021-10-07 15:59 | Outpatient (CLI) | payer BC, SELFPAY ==
[2021-10-07 16:53] LABS: INR 4.09 (0.9-1.1); Prothrombin Time 41.6 seconds (10.1-12.5)
== END ==
PROVIDERS: Visit Provider Pediatrics Pediatric Cardiology
DX: Z51.81 Encounter for therapeutic drug level monitoring (principal); Z79.01 Long term (current) use of anticoagulants
CPT/HCPCS: 36415; 85610

== ENCOUNTER → 2021-10-14 15:40 | Outpatient (CLI) | payer BC, SELFPAY ==
[2021-10-14 16:44] LABS: INR 3.17 (0.9-1.1); Prothrombin Time 32.9 seconds (10.1-12.5)
== END ==
PROVIDERS: Visit Provider Pediatrics Pediatric Cardiology
DX: Z51.81 Encounter for therapeutic drug level monitoring (principal); Z79.01 Long term (current) use of anticoagulants
CPT/HCPCS: 36415; 85610

== ENCOUNTER → 2021-10-22 12:36 | Outpatient (CLI) | payer BC, SELFPAY ==
[2021-10-22 13:03] LABS: INR 4.39 (0.9-1.1); Prothrombin Time 44.5 seconds (10.1-12.5)
== END ==
PROVIDERS: Visit Provider Pediatrics Pediatric Cardiology
DX: Z51.81 Encounter for therapeutic drug level monitoring (principal); Z79.01 Long term (current) use of anticoagulants
CPT/HCPCS: 36415; 85610

== ENCOUNTER → 2021-10-23 10:30 | Outpatient (CLI) | payer BC, SELFPAY ==
[2021-10-23 10:52] LABS: INR 3.51 (0.9-1.1); Prothrombin Time 36.1 seconds (10.1-12.5)
== END ==
PROVIDERS: Visit Provider Pediatrics Pediatric Cardiology
DX: Z51.81 Encounter for therapeutic drug level monitoring (principal); Z79.01 Long term (current) use of anticoagulants
CPT/HCPCS: 36415; 85610

== ENCOUNTER → 2021-10-29 15:41 | Outpatient (CLI) | payer BC, SELFPAY ==
[2021-10-29 16:33] LABS: INR 2.27 (0.9-1.1); Prothrombin Time 24.1 seconds (10.1-12.5)
== END ==
PROVIDERS: PCP Internal Medicine Adolescent Medicine; Visit Provider Pediatrics Pediatric Cardiology
DX: Z51.81 Encounter for therapeutic drug level monitoring (principal); Z79.01 Long term (current) use of anticoagulants
CPT/HCPCS: 36415; 85610

== ENCOUNTER → 2021-11-13 15:46 | Outpatient (CLI) | payer BC, SELFPAY ==
[2021-11-13 16:19] LABS: INR 3.12 (0.9-1.1); Prothrombin Time 32.4 seconds (10.1-12.5)
== END ==
PROVIDERS: Visit Provider Pediatrics Pediatric Cardiology
DX: Z51.81 Encounter for therapeutic drug level monitoring (principal); Z79.01 Long term (current) use of anticoagulants
CPT/HCPCS: 36415; 85610

== ENCOUNTER → 2021-12-04 15:40 | Outpatient (CLI) | payer BC, SELFPAY ==
[2021-12-04 16:17] LABS: INR 2.58 (0.9-1.1); Prothrombin Time 27.2 seconds (10.1-12.5)
== END ==
PROVIDERS: PCP Internal Medicine Adolescent Medicine; Visit Provider Pediatrics Pediatric Cardiology
DX: Z51.81 Encounter for therapeutic drug level monitoring (principal); Z79.01 Long term (current) use of anticoagulants
CPT/HCPCS: 36415; 85610

== ENCOUNTER → 2022-01-02 15:57 | Outpatient (CLI) | payer BC, SELFPAY ==
[2022-01-02 17:14] LABS: Prothrombin Time 22.5 seconds (10.1-12.5)
== END ==
PROVIDERS: Visit Provider Pediatrics Pediatric Cardiology
DX: Z51.81 Encounter for therapeutic drug level monitoring (principal); Z79.01 Long term (current) use of anticoagulants
CPT/HCPCS: 36415; 85610

== ENCOUNTER → 2022-01-29 16:36 | Outpatient (CLI) | payer BC, SELFPAY ==
[2022-01-29 17:16] LABS: INR 2.99 (0.9-1.1); Prothrombin Time 31.2 seconds (10.1-12.5)
== END ==
PROVIDERS: PCP Internal Medicine Adolescent Medicine; Visit Provider Pediatrics Pediatric Cardiology
DX: Z51.81 Encounter for therapeutic drug level monitoring (principal); Z79.01 Long term (current) use of anticoagulants
CPT/HCPCS: 36415; 85610

== ENCOUNTER → 2022-02-26 15:50 | Outpatient (CLI) | payer BC, SELFPAY ==
[2022-02-26 16:44] LABS: INR 1.83 (0.9-1.1); Prothrombin Time 19.8 seconds (10.1-12.5)
== END ==
PROVIDERS: Pediatrics Pediatric Cardiology; PCP Internal Medicine Adolescent Medicine
DX: Z51.81 Encounter for therapeutic drug level monitoring (principal); Z79.01 Long term (current) use of anticoagulants
CPT/HCPCS: 36415; 85610

== ENCOUNTER → 2022-03-26 15:48 | Outpatient (CLI) | payer BC, SELFPAY ==
[2022-03-26 16:52] LABS: INR 1.76 (0.9-1.1); Prothrombin Time 19.1 seconds (10.1-12.5)
== END ==
PROVIDERS: PCP Internal Medicine Adolescent Medicine; Visit Provider Pediatrics Pediatric Cardiology
DX: Z51.81 Encounter for therapeutic drug level monitoring (principal); Z79.01 Long term (current) use of anticoagulants
CPT/HCPCS: 36415; 85610

== ENCOUNTER → 2022-04-03 08:43 | Outpatient (CLI) | payer BC, SELFPAY ==
[2022-04-03 09:20] LABS: INR 1.95 (0.9-1.1)
== END ==
PROVIDERS: PCP Internal Medicine Adolescent Medicine; Visit Provider Pediatrics Pediatric Cardiology
DX: Z51.81 Encounter for therapeutic drug level monitoring (principal); Z79.01 Long term (current) use of anticoagulants
CPT/HCPCS: 36415; 85610

== ENCOUNTER → 2022-04-16 19:59 | Outpatient (CLI) | payer BC, SELFPAY ==
[2022-04-16 21:05] LABS: INR 2.91 (0.9-1.1); Prothrombin Time 30.4 seconds (10.1-12.5)
== END ==
PROVIDERS: PCP Internal Medicine Adolescent Medicine; Visit Provider Pediatrics Pediatric Cardiology
DX: Z51.81 Encounter for therapeutic drug level monitoring (principal); Z79.01 Long term (current) use of anticoagulants
CPT/HCPCS: 36415; 85610

== ENCOUNTER → 2022-05-14 16:27 | Outpatient (CLI) | payer BC, SELFPAY ==
[2022-05-14 17:25] LABS: INR 3.34 (0.9-1.1); Prothrombin Time 34.5 seconds (10.1-12.5)
== END ==
PROVIDERS: PCP Internal Medicine Adolescent Medicine; Visit Provider Pediatrics Pediatric Cardiology
DX: Z51.81 Encounter for therapeutic drug level monitoring (principal); Z79.01 Long term (current) use of anticoagulants
CPT/HCPCS: 36415; 85610

== ENCOUNTER → 2022-05-21 19:32 | Outpatient (CLI) | payer BC, SELFPAY ==
[2022-05-21 20:31] LABS: INR 3.17 (0.9-1.1); Prothrombin Time 32.9 seconds (10.1-12.5)
== END ==
PROVIDERS: PCP Internal Medicine Adolescent Medicine; Visit Provider Pediatrics Pediatric Cardiology
DX: Z51.81 Encounter for therapeutic drug level monitoring (principal); Z79.01 Long term (current) use of anticoagulants
CPT/HCPCS: 36415; 85610

== ENCOUNTER → 2022-06-04 15:46 | Outpatient (CLI) | payer BC, SELFPAY ==
[2022-06-04 17:25] LABS: INR 1.69 (0.9-1.1); Prothrombin Time 18.4 seconds (10.1-12.5)
== END ==
PROVIDERS: PCP Internal Medicine Adolescent Medicine; Visit Provider Pediatrics Pediatric Cardiology
DX: Z51.81 Encounter for therapeutic drug level monitoring (principal); Z79.01 Long term (current) use of anticoagulants; Z95.2 Presence of prosthetic heart valve
CPT/HCPCS: 36415; 85610

== ENCOUNTER → 2022-06-11 17:07 | Outpatient (CLI) | payer BC, SELFPAY ==
[2022-06-11 19:31] LABS: INR 2.56 (0.9-1.1)
== END ==
PROVIDERS: PCP Pediatrics Pediatric Cardiology; Visit Provider Pediatrics Pediatric Cardiology
DX: Z51.81 Encounter for therapeutic drug level monitoring (principal); Z79.01 Long term (current) use of anticoagulants; Z95.2 Presence of prosthetic heart valve
CPT/HCPCS: 36415; 85610

== ENCOUNTER → 2022-06-25 19:24 | Outpatient (CLI) | payer BC, SELFPAY ==
[2022-06-25 20:20] LABS: INR 3.28 (0.9-1.1); Prothrombin Time 33.1 seconds (10.1-12.5)
== END ==
PROVIDERS: PCP Internal Medicine Adolescent Medicine; Visit Provider Pediatrics Pediatric Cardiology
DX: Z51.81 Encounter for therapeutic drug level monitoring (principal); Z79.01 Long term (current) use of anticoagulants
CPT/HCPCS: 36415; 85610

== ENCOUNTER → 2022-07-02 20:56 | Outpatient (CLI) | payer BC, SELFPAY ==
[2022-07-02 21:37] LABS: INR 3.25 (0.9-1.1); Prothrombin Time 32.8 seconds (10.1-12.5)
== END ==
PROVIDERS: Pediatrics Pediatric Cardiology; PCP Internal Medicine Adolescent Medicine; Visit Provider Pediatrics Pediatric Cardiology
DX: Z51.81 Encounter for therapeutic drug level monitoring (principal); Z79.01 Long term (current) use of anticoagulants; Z95.2 Presence of prosthetic heart valve
CPT/HCPCS: 36415; 85610

== ENCOUNTER → 2022-07-09 15:48 | Outpatient (CLI) | payer BC, SELFPAY ==
[2022-07-09 16:50] LABS: INR 3.11 (0.9-1.1); Prothrombin Time 31.5 seconds (10.1-12.5)
== END ==
PROVIDERS: PCP Internal Medicine Adolescent Medicine; Visit Provider Pediatrics Pediatric Cardiology
DX: Z51.81 Encounter for therapeutic drug level monitoring (principal); Z79.01 Long term (current) use of anticoagulants
CPT/HCPCS: 36415; 85610

== ENCOUNTER → 2022-07-23 19:15 | Outpatient (CLI) | payer BC, SELFPAY ==
[2022-07-23 19:57] LABS: INR 3.17 (0.9-1.1); Prothrombin Time 32.1 seconds (10.1-12.5)
== END ==
PROVIDERS: PCP Internal Medicine Adolescent Medicine; Visit Provider Pediatrics Pediatric Cardiology
DX: Z51.81 Encounter for therapeutic drug level monitoring (principal); Z79.01 Long term (current) use of anticoagulants
CPT/HCPCS: 36415; 85610

== ENCOUNTER → 2022-08-03 18:24 | Outpatient (CLI) | payer BC, SELFPAY ==
[2022-08-03 18:59] LABS: INR 2.75 (0.9-1.1)
== END ==
PROVIDERS: Pediatrics Pediatric Cardiology; PCP Internal Medicine Adolescent Medicine; Visit Provider Pediatrics Pediatric Cardiology
DX: Z51.81 Encounter for therapeutic drug level monitoring (principal); Z79.01 Long term (current) use of anticoagulants
CPT/HCPCS: 36415; 85610

== ENCOUNTER → 2022-08-24 18:19 | Outpatient (CLI) | payer BC, SELFPAY ==
[2022-08-24 18:49] LABS: INR 1.88 (0.9-1.1); Prothrombin Time 19.6 seconds (10.1-12.5)
== END ==
PROVIDERS: PCP Internal Medicine Adolescent Medicine; Visit Provider Pediatrics Pediatric Cardiology
DX: Z51.81 Encounter for therapeutic drug level monitoring (principal); Z79.01 Long term (current) use of anticoagulants
CPT/HCPCS: 36415; 85610

== ENCOUNTER → 2022-09-21 19:37 | Outpatient (CLI) | payer BC, SELFPAY ==
[2022-09-21 20:13] LABS: INR 2.11 (0.9-1.1); Prothrombin Time 21.8 seconds (10.1-12.5)
== END ==
PROVIDERS: PCP Internal Medicine Adolescent Medicine; Visit Provider Pediatrics Pediatric Cardiology
DX: Z51.81 Encounter for therapeutic drug level monitoring (principal); Z79.01 Long term (current) use of anticoagulants
CPT/HCPCS: 36415; 85610

== ENCOUNTER → 2022-10-21 19:31 | Outpatient (CLI) | payer BC, SELFPAY ==
[2022-10-21 20:09] LABS: INR 1.87 (0.9-1.1); Prothrombin Time 19.5 seconds (10.1-12.5)
== END ==
PROVIDERS: PCP Internal Medicine Adolescent Medicine; Visit Provider Pediatrics Pediatric Cardiology
DX: Z51.81 Encounter for therapeutic drug level monitoring (principal); Z79.01 Long term (current) use of anticoagulants
CPT/HCPCS: 36415; 85610

== ENCOUNTER → 2022-11-18 15:45 | Outpatient (CLI) | payer BC, SELFPAY ==
[2022-11-18 17:57] LABS: INR 1.38 (0.9-1.1); Prothrombin Time 14.6 seconds (10.1-12.5)
== END ==
PROVIDERS: PCP Internal Medicine Adolescent Medicine; Visit Provider Pediatrics Pediatric Cardiology
DX: Z51.81 Encounter for therapeutic drug level monitoring (principal); Z79.01 Long term (current) use of anticoagulants
CPT/HCPCS: 36415; 85610

== ENCOUNTER → 2022-11-20 14:42 | Outpatient (CLI) | payer BC, SELFPAY ==
--- NOTE | 2022-11-20 14:42 | CT_ITS ---
FINAL REPORT CLINICAL HISTORY: scalp cyst FINDINGS: Axial images of the head were obtained without contrast. Coronal reformatted images were also obtained.This study was performed with techniques to keep radiation doses as low as reasonably achievable (ALARA). Individualized dose reduction techniques using automated exposure control or adjustment of mA and/or kV according to the patient''s size were employed. There is no evidence of intracranial hemorrhage or mass. The ventricular size is within normal limits. There is no evidence of shift of the midline structures. No abnormal extra axial fluid collection is identified. No skull abnormality is seen on the bone window images. There is a frontal scalp subcutaneous nodule in the midline measuring 13 mm. There is calcification within it centrally, may represent benign neoplasm versus complex fluid collection. IMPRESSION: No acute intracranial abnormality. Subcutaneous nodule in the frontal scalp as above. Reviewed, Interpreted and Dictated by Carson Jeffries III, MD Transcribed by Carol Palacios Authenticated and [facility]
== END ==
LOC: RAD 14:42
PROVIDERS: PCP Internal Medicine Adolescent Medicine; Visit Provider Surgery
DX: L72.9 Follicular cyst of the skin and subcutaneous tissue, unspecified (principal)
CPT/HCPCS: 70450

== ENCOUNTER → 2022-11-25 19:27 | Outpatient (CLI) | payer BC, SELFPAY ==
[2022-11-25 20:03] LABS: INR 2.24 (0.9-1.1); Prothrombin Time 23.1 seconds (10.1-12.5)
== END ==
PROVIDERS: PCP Internal Medicine Adolescent Medicine; Visit Provider Pediatrics Pediatric Cardiology
DX: Z51.81 Encounter for therapeutic drug level monitoring (principal); Z79.01 Long term (current) use of anticoagulants
CPT/HCPCS: 36415; 85610

== ENCOUNTER → 2022-12-07 19:10 | Outpatient (CLI) | payer BC, SELFPAY ==
[2022-12-07 19:36] LABS: Prothrombin Time 18.8 seconds (10.1-12.5)
== END ==
PROVIDERS: PCP Internal Medicine Adolescent Medicine; Visit Provider Pediatrics Pediatric Cardiology
DX: Z51.81 Encounter for therapeutic drug level monitoring (principal); Z79.01 Long term (current) use of anticoagulants
CPT/HCPCS: 36415; 85610

== ENCOUNTER → 2022-12-21 21:28 | Outpatient (CLI) | payer BC, SELFPAY ==
[2022-12-21 22:27] LABS: INR 1.95 (0.9-1.1); Prothrombin Time 20.3 seconds (10.1-12.5)
== END ==
PROVIDERS: PCP Internal Medicine Adolescent Medicine; Visit Provider Pediatrics Pediatric Cardiology
DX: Z51.81 Encounter for therapeutic drug level monitoring (principal); Z79.01 Long term (current) use of anticoagulants
CPT/HCPCS: 36415; 85610

== ENCOUNTER → 2023-01-18 20:30 | Outpatient (CLI) | payer BC, SELFPAY ==
[2023-01-18 21:04] LABS: INR 2.68 (0.9-1.1); Prothrombin Time 27.4 seconds (10.1-12.5)
== END ==
PROVIDERS: PCP Internal Medicine Adolescent Medicine; Visit Provider Internal Medicine
DX: Z51.81 Encounter for therapeutic drug level monitoring (principal); Z79.01 Long term (current) use of anticoagulants
CPT/HCPCS: 36415; 85610

== ENCOUNTER → 2023-01-26 13:34 | Outpatient (CLI) | payer BC, SELFPAY ==
[2023-01-26 14:19] LABS: Basophils % 0.6 % (0.1-2.0); Eosinophils % 0.7 % (0.1-12.0); Hematocrit 48.2 % (42.0-52.0); Lymphocytes # 1.7 K/mm3 (0.7-4.5); Lymphocytes % 26.8 % (10-50); Mean Corpuscular HGB Conc 33.3 g/dL (31.8-35.4); Mean Corpuscular Hemoglobin 29.7 pg (27.0-31.2); Mean Corpuscular Volume 89.3 fl (80-94); Mean Platelet Volume 8.4 fl (7.4-10.4); Monocytes # 0.4 K/mm3 (0.1-1.0); Neutrophils # 4.1 K/mm3 (1.8-7.8); Neutrophils % 66.1 % (37.0-80.0); Platelet Count 222 K/mm3 (142-424); Red Blood Count 5.39 M/mm3 (4.60-6.20); Red Cell Distribution Width 14.4 % (11.5-17.5); White Blood Count 6.3 K/mm3 (4.8-10.8)
[2023-01-26 14:52] LABS: Chloride 106 mmol/L (98-107)
[2023-01-26 14:53] LABS: Potassium 3.8 mmoL/L (3.5-5.1); Sodium 141 mmol/L (136-145)
[2023-01-26 14:55] LABS: Blood Urea Nitrogen 13 mg/dl (9-20); Estimated Glomerular Filt Rate 104 ml/min (>60); GFR (African American) 125 ML/MIN (>60)
[2023-01-26 14:56] LABS: Anion Gap 10.8 mEq/L (5-15); Calcium 9.1 mg/dl (8.4-10.2); Carbon Dioxide 28 mmol/L (22.0-30.0); Glucose 95 mg/dl (74-100)
== END ==
LOC: LAB 13:35
PROVIDERS: PCP Internal Medicine Adolescent Medicine; Visit Provider Surgery
DX: L72.9 Follicular cyst of the skin and subcutaneous tissue, unspecified (principal)
CPT/HCPCS: 36415; 80048; 85025

== ENCOUNTER 2023-02-01 06:08 | Day surgery (SDC) | payer BC, SELFPAY ==
[2023-01-29 14:07] VITALS: BMI 30.7
[2023-02-01] VITALS (9 sets, daily range): BP systolic 120–168; BP diastolic 72–91; PULSE 71–95; RESP 16–20; TEMP 36.3–36.6; O2SAT 93–98
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
--- NOTE | 2023-02-01 07:58 | EXP.OP.NOTE ---
Date of procedure: 02/01/23 Pre-op Diagnosis:: Scalp cyst Post-op Diagnosis:: Same Procedure performed:: Excision of cyst from the scalp (excisional length approximately 2.5 cm with simple closure Surgeon:: Carson Mckeon MD LEGAL EDITOR:: Other Anesthesia: LMA Estimated blood loss (mL): 20 Operative findings:: Consistent with well-circumscribed pilar cyst Operative note:: Patient was taken to the operating room. He was given preoperative intravenous antibiotic. In the operating room he was placed in a supine position. General anesthesia was induced via LMA. The area was prepped and draped. Boundaries of the palpable cyst at the frontal apex of the scalp were marked with a skin marker. Skin was marked with skin marker for planned incision. Local anesthetic consisting of Marcaine with epinephrine was infiltrated. Skin incision was made. Careful dissection was carried down to the cyst wall. This was dissected free from surrounding tissues with blunt and sharp scissor dissection. Cyst was passed off as a specimen. Hemostasis was achieved with liberal use of electrocautery. Wound was irrigated. Skin was closed with skin terrance. Dermabond and pressure dressing was applied. Condition: stable Disposition: PACU Complications:: None immediately apparent
--- NOTE | 2023-02-01 08:11 | P.PNANES_ITS ---
[facility] Anesthesia Record Part I Anesthesia Record I Intake, IV Amount: 600 Estimated blood loss (mL): 2 Urine output (mL): 0 Blood Products used (#): none Blood Pressure: 168/91 SaO2: 95 Pulse Rate: 95 Respiratory Rate: 20 Temperature: 97.3 F Patient is:: Drowsy and Stable Stable to PACU at:: 08:05
--- NOTE | 2023-02-01 09:36 | EXP.ANES.II ---
[facility] Anesthesia Record Part II Anesthesia Record Part II Discharge Time: 08:25 Destination: Surgical Day Care (OP Surgery) PACU nurse assessment reviewed?: Yes Patient Condition:: Good Anesthesia Complications:: None Swallowing reflex intact?: Yes Cyanosis?: No Blood Pressure: 162/78 Pulse Rate: 79 Temperature: 97.8 F Mental Status: Alert & Oriented Pain level:: 0 Nausea and/or vomitting:: None Intake, IV Amount: 0
== END 2023-02-01 09:00 | disposition home or self-care (01) ==
PROVIDERS: PCP Internal Medicine Adolescent Medicine; Visit Provider Surgery
PROC: (CPT 11422; principal; 2023-02-01 07:30)
DX: L72.12 Trichodermal cyst (principal); Z79.899 Other long term (current) drug therapy
CPT/HCPCS: 11422; 96374; J2405

== ENCOUNTER → 2023-02-09 11:16 | Outpatient (CLI) | payer BC, SELFPAY ==
[2023-02-09 11:54] LABS: Prothrombin Time 29.5 seconds (10.1-12.5)
== END ==
PROVIDERS: Internal Medicine; PCP Internal Medicine Adolescent Medicine; Visit Provider Pediatrics Pediatric Cardiology
DX: Z51.81 Encounter for therapeutic drug level monitoring (principal); Z79.01 Long term (current) use of anticoagulants
CPT/HCPCS: 36415; 85610

== ENCOUNTER → 2023-02-23 18:50 | Outpatient (CLI) | payer BC, SELFPAY ==
[2023-02-23 19:48] LABS: INR 1.95 (0.9-1.1); Prothrombin Time 20.3 seconds (10.1-12.5)
== END ==
LOC: INF 18:52 → LAB 18:55
PROVIDERS: PCP Internal Medicine Adolescent Medicine; Visit Provider Internal Medicine
DX: Z51.81 Encounter for therapeutic drug level monitoring (principal); Z79.01 Long term (current) use of anticoagulants
CPT/HCPCS: 36415; 85610

== ENCOUNTER → 2023-03-11 15:43 | Outpatient (CLI) | payer BC, SELFPAY ==
[2023-03-11 17:18] LABS: INR 2.52 (0.9-1.1); Prothrombin Time 25.8 seconds (10.1-12.5)
== END ==
PROVIDERS: PCP Internal Medicine Adolescent Medicine; Visit Provider Internal Medicine
DX: Z51.81 Encounter for therapeutic drug level monitoring (principal); Z79.01 Long term (current) use of anticoagulants
CPT/HCPCS: 36415; 85610

== ENCOUNTER → 2023-04-08 11:32 | Outpatient (CLI) | payer BC, SELFPAY ==
[2023-04-08 12:38] LABS: INR 2.23 (0.9-1.1)
== END ==
PROVIDERS: PCP Internal Medicine Adolescent Medicine; Visit Provider Internal Medicine
DX: Z51.81 Encounter for therapeutic drug level monitoring (principal); Z79.01 Long term (current) use of anticoagulants
CPT/HCPCS: 36415; 85610

== ENCOUNTER → 2023-05-06 16:23 | Outpatient (CLI) | payer BC, SELFPAY ==
[2023-05-06 17:27] LABS: INR 2.39 (0.9-1.1); Prothrombin Time 24.6 seconds (10.1-12.5)
== END ==
PROVIDERS: Internal Medicine; PCP Internal Medicine Adolescent Medicine; Visit Provider Pediatrics Pediatric Cardiology
DX: Z51.81 Encounter for therapeutic drug level monitoring (principal); Z79.01 Long term (current) use of anticoagulants
CPT/HCPCS: 36415; 85610

== ENCOUNTER → 2023-06-03 15:48 | Outpatient (CLI) | payer BC, SELFPAY ==
[2023-06-03 16:24] LABS: INR 2.05 (0.9-1.1); Prothrombin Time 21.1 seconds (10.1-12.5)
== END ==
PROVIDERS: Internal Medicine; PCP Internal Medicine Adolescent Medicine; Visit Provider Pediatrics Pediatric Cardiology
DX: Z51.81 Encounter for therapeutic drug level monitoring (principal); Z79.01 Long term (current) use of anticoagulants
CPT/HCPCS: 36415; 85610

== ENCOUNTER → 2023-07-06 15:40 | Outpatient (CLI) | payer BC, SELFPAY ==
[2023-07-06 16:28] LABS: INR 1.73 (0.9-1.1)
== END ==
PROVIDERS: PCP Internal Medicine Adolescent Medicine; Visit Provider Internal Medicine
DX: Z51.81 Encounter for therapeutic drug level monitoring (principal); Z79.01 Long term (current) use of anticoagulants
CPT/HCPCS: 85610

== ENCOUNTER → 2023-07-19 15:59 | Outpatient (CLI) | payer BC, SELFPAY ==
[2023-07-19 16:47] LABS: Prothrombin Time 17.7 seconds (10.1-12.5)
== END ==
PROVIDERS: Internal Medicine; PCP Internal Medicine Adolescent Medicine
DX: Z79.01 Long term (current) use of anticoagulants (principal)
CPT/HCPCS: 36415; 85610

== ENCOUNTER → 2023-07-29 12:39 | Outpatient (CLI) | payer BC, SELFPAY ==
[2023-07-29 13:42] LABS: INR 1.59 (0.9-1.1); Prothrombin Time 16.7 seconds (10.1-12.5)
== END ==
PROVIDERS: PCP Internal Medicine Adolescent Medicine; Visit Provider Pediatrics Pediatric Cardiology
DX: Z79.01 Long term (current) use of anticoagulants (principal)
CPT/HCPCS: 36415; 85610

== ENCOUNTER → 2023-08-06 15:37 | Outpatient (CLI) | payer BC, SELFPAY ==
[2023-08-06 17:20] LABS: INR 1.81 (0.9-1.1); Prothrombin Time 18.8 seconds (10.1-12.5)
== END ==
PROVIDERS: Internal Medicine; PCP Internal Medicine Adolescent Medicine; Visit Provider Pediatrics Pediatric Cardiology
DX: Z51.81 Encounter for therapeutic drug level monitoring (principal); Z79.01 Long term (current) use of anticoagulants
CPT/HCPCS: 36415; 85610

== ENCOUNTER → 2023-08-23 18:45 | Outpatient (CLI) | payer BC, SELFPAY ==
[2023-08-23 19:26] LABS: INR 2.72 (0.9-1.1); Prothrombin Time 27.5 seconds (10.1-12.5)
== END ==
PROVIDERS: Internal Medicine; PCP Internal Medicine Adolescent Medicine; Visit Provider Pediatrics Pediatric Cardiology
DX: Z51.81 Encounter for therapeutic drug level monitoring (principal); Z79.01 Long term (current) use of anticoagulants
CPT/HCPCS: 36415; 85610

== ENCOUNTER → 2023-09-20 15:41 | Outpatient (CLI) | payer BC, SELFPAY ==
[2023-09-20 16:23] LABS: INR 4.41 (0.9-1.1); Prothrombin Time 43.2 seconds (10.1-12.5)
== END ==
PROVIDERS: Internal Medicine; PCP Internal Medicine Adolescent Medicine; Visit Provider Pediatrics Pediatric Cardiology
DX: Z51.81 Encounter for therapeutic drug level monitoring (principal); Z79.01 Long term (current) use of anticoagulants
CPT/HCPCS: 85610

== ENCOUNTER → 2023-09-30 15:38 | Outpatient (CLI) | payer BC, SELFPAY ==
[2023-09-30 16:28] LABS: INR 2.61 (0.9-1.1); Prothrombin Time 26.5 seconds (10.1-12.5)
== END ==
PROVIDERS: Internal Medicine; PCP Internal Medicine Adolescent Medicine; Visit Provider Pediatrics Pediatric Cardiology
DX: Z51.81 Encounter for therapeutic drug level monitoring (principal); Z79.01 Long term (current) use of anticoagulants; Z95.2 Presence of prosthetic heart valve
CPT/HCPCS: 36415; 85610

== ENCOUNTER → 2023-10-14 13:37 | Outpatient (CLI) | payer BC, SELFPAY ==
[2023-10-14 14:44] LABS: INR 2.76 (0.9-1.1); Prothrombin Time 27.9 seconds (10.1-12.5)
== END ==
LOC: LAB 13:38
PROVIDERS: PCP Internal Medicine Adolescent Medicine; Visit Provider Pediatrics Pediatric Cardiology
DX: Z79.01 Long term (current) use of anticoagulants (principal)
CPT/HCPCS: 36415; 85610

== ENCOUNTER 2023-10-28 18:47 | Outpatient (CLI) | payer BC, SELFPAY ==
[2023-10-28 19:48] LABS: Prothrombin Time 18.9 seconds (10.1-12.5)
[2023-10-28 19:50] LABS: INR 1.82 (0.9-1.1)
== END 2023-10-28 23:59 ==
LOC: LAB 18:48
PROVIDERS: PCP Internal Medicine Adolescent Medicine; Visit Provider Pediatrics Pediatric Cardiology
DX: Z79.01 Long term (current) use of anticoagulants (principal)
CPT/HCPCS: 36415; 85610

== ENCOUNTER 2023-11-25 15:52 | Outpatient (CLI) | payer BC, SELFPAY ==
[2023-11-25 16:39] LABS: Prothrombin Time 24.5 seconds (10.1-12.5)
== END 2023-11-25 23:59 ==
LOC: LAB 15:54
PROVIDERS: Internal Medicine; PCP Internal Medicine Adolescent Medicine; Visit Provider Pediatrics Pediatric Cardiology
DX: Z79.01 Long term (current) use of anticoagulants (principal)
CPT/HCPCS: 36415; 85610

== ENCOUNTER 2023-12-14 08:24 | Outpatient (CLI) | payer BC, SELFPAY ==
[2023-12-14 08:54] LABS: INR 2.23 (0.9-1.1); Prothrombin Time 22.9 seconds (10.1-12.5)
== END 2023-12-14 23:59 ==
PROVIDERS: PCP Internal Medicine Adolescent Medicine; Visit Provider Internal Medicine
DX: Z51.81 Encounter for therapeutic drug level monitoring (principal); Z79.01 Long term (current) use of anticoagulants; Z95.2 Presence of prosthetic heart valve
CPT/HCPCS: 36415; 85610

== ENCOUNTER 2024-01-12 20:27 | Outpatient (CLI) | payer BC, SELFPAY ==
[2024-01-12 21:11] LABS: INR 2.38 (0.9-1.1); Prothrombin Time 24.3 seconds (10.1-12.5)
== END 2024-01-12 23:59 ==
LOC: LAB 20:31
PROVIDERS: PCP Internal Medicine Adolescent Medicine; Visit Provider Internal Medicine
DX: Z79.01 Long term (current) use of anticoagulants (principal)
CPT/HCPCS: 36415; 85610

== ENCOUNTER 2024-02-09 19:25 | Outpatient (CLI) | payer BC, SELFPAY ==
[2024-02-09 20:33] LABS: INR 1.86 (0.9-1.1); Prothrombin Time 19.3 seconds (10.1-12.5)
== END 2024-02-09 23:59 | disposition home or self-care (01) ==
LOC: LAB 19:29
PROVIDERS: Internal Medicine; PCP Internal Medicine Adolescent Medicine; Visit Provider Pharmacist
DX: Z51.81 Encounter for therapeutic drug level monitoring (principal); Z79.01 Long term (current) use of anticoagulants
CPT/HCPCS: 36415; 85610

== ENCOUNTER 2024-03-07 14:40 | Outpatient (CLI) | payer BC, SELFPAY ==
[2024-03-07 15:20] LABS: INR 2.08 (0.9-1.1); Prothrombin Time 21.4 seconds (10.1-12.5)
== END 2024-03-07 23:59 | disposition home or self-care (01) ==
PROVIDERS: PCP Internal Medicine Adolescent Medicine; Visit Provider Internal Medicine
DX: Z51.81 Encounter for therapeutic drug level monitoring (principal); Z79.01 Long term (current) use of anticoagulants
CPT/HCPCS: 36415; 85610

== ENCOUNTER 2024-04-05 13:17 | Outpatient (CLI) | payer BC, SELFPAY ==
[2024-04-05 14:09] LABS: Prothrombin Time 14.8 seconds (10.1-12.5)
== END 2024-04-05 23:59 | disposition home or self-care (01) ==
PROVIDERS: PCP Internal Medicine Adolescent Medicine; Visit Provider Internal Medicine
DX: Z51.81 Encounter for therapeutic drug level monitoring (principal); Z79.01 Long term (current) use of anticoagulants; R71.8 Other abnormality of red blood cells
CPT/HCPCS: 36415; 85610

== ENCOUNTER 2024-04-12 09:13 | Outpatient (CLI) | payer BC, SELFPAY ==
[2024-04-12 09:52] LABS: INR 2.48 (0.9-1.1); Prothrombin Time 25.2 seconds (10.1-12.5)
== END 2024-04-12 23:59 | disposition home or self-care (01) ==
PROVIDERS: PCP Internal Medicine Adolescent Medicine; Visit Provider Internal Medicine
DX: Z51.81 Encounter for therapeutic drug level monitoring (principal); Z79.01 Long term (current) use of anticoagulants
CPT/HCPCS: 36415; 85610

== ENCOUNTER 2024-05-11 15:44 | Outpatient (CLI) | payer BC, SELFPAY ==
[2024-05-11 16:14] LABS: INR 2.79 (0.9-1.1); Prothrombin Time 28.2 seconds (10.1-12.5)
== END 2024-05-11 23:59 | disposition home or self-care (01) ==
PROVIDERS: PCP Internal Medicine Adolescent Medicine; Visit Provider Pediatrics Pediatric Cardiology
DX: Z79.01 Long term (current) use of anticoagulants (principal)
CPT/HCPCS: 36415; 85610

== ENCOUNTER 2024-05-18 15:42 | Outpatient (CLI) | payer BC, SELFPAY ==
[2024-05-18 16:26] LABS: INR 2.75 (0.9-1.1); Prothrombin Time 27.9 seconds (10.1-12.5)
== END 2024-05-18 23:59 | disposition home or self-care (01) ==
LOC: LAB 15:44
PROVIDERS: PCP Internal Medicine Adolescent Medicine; Visit Provider Pediatrics Pediatric Cardiology
DX: Z79.01 Long term (current) use of anticoagulants (principal)
CPT/HCPCS: 36415; 85610

== ENCOUNTER 2024-05-25 13:53 | Outpatient (CLI) | payer BC, SELFPAY ==
[2024-05-25 14:25] LABS: INR 1.87 (0.9-1.1); Prothrombin Time 19.7 seconds (10.1-12.5)
== END 2024-05-25 23:59 | disposition home or self-care (01) ==
LOC: LAB 13:54
PROVIDERS: PCP Internal Medicine Adolescent Medicine; Visit Provider Pediatrics Pediatric Cardiology
DX: Z79.01 Long term (current) use of anticoagulants (principal); Z95.2 Presence of prosthetic heart valve
CPT/HCPCS: 36415; 85610

== ENCOUNTER 2024-06-06 15:52 | Outpatient (CLI) | payer BC, SELFPAY ==
[2024-06-06 16:34] LABS: INR 2.44 (0.9-1.1)
== END 2024-06-06 23:59 | disposition home or self-care (01) ==
LOC: LAB 15:54
PROVIDERS: PCP Internal Medicine Adolescent Medicine; Visit Provider Pediatrics Pediatric Cardiology
DX: Z79.01 Long term (current) use of anticoagulants (principal)
CPT/HCPCS: 36415; 85610

== ENCOUNTER 2024-07-04 15:42 | Outpatient (CLI) | payer BC, SELFPAY ==
[2024-07-04 16:14] LABS: INR 3.12 (0.9-1.1); Prothrombin Time 31.2 seconds (10.1-12.5)
== END 2024-07-04 23:59 | disposition home or self-care (01) ==
PROVIDERS: PCP Internal Medicine Adolescent Medicine; Visit Provider Pediatrics Pediatric Cardiology
DX: Z79.01 Long term (current) use of anticoagulants (principal)
CPT/HCPCS: 36415; 85610

== ENCOUNTER 2024-07-11 15:46 | Outpatient (CLI) | payer BC, SELFPAY ==
[2024-07-11 16:19] LABS: INR 2.38 (0.9-1.1); Prothrombin Time 24.5 seconds (10.1-12.5)
== END 2024-07-11 23:59 | disposition home or self-care (01) ==
LOC: LAB 15:47
PROVIDERS: PCP Internal Medicine Adolescent Medicine; Visit Provider Pediatrics Pediatric Cardiology
DX: Z79.01 Long term (current) use of anticoagulants (principal)
CPT/HCPCS: 36415; 85610

== ENCOUNTER 2024-08-01 15:40 | Outpatient (CLI) | payer BC, SELFPAY ==
[2024-08-01 16:25] LABS: INR 1.53 (0.9-1.1); Prothrombin Time 16.4 seconds (10.1-12.5)
== END 2024-08-01 23:59 | disposition home or self-care (01) ==
LOC: LAB 15:44
PROVIDERS: PCP Internal Medicine Adolescent Medicine; Visit Provider Pediatrics Pediatric Cardiology
DX: Z79.01 Long term (current) use of anticoagulants (principal)
CPT/HCPCS: 36415; 85610

== ENCOUNTER 2024-08-29 19:22 | Outpatient (CLI) | payer BC, SELFPAY ==
[2024-08-29 21:48] LABS: INR 2.07 (0.9-1.1); Prothrombin Time 21.6 seconds (10.1-12.5)
== END 2024-08-29 23:59 | disposition home or self-care (01) ==
LOC: LAB 19:33
PROVIDERS: PCP Internal Medicine Adolescent Medicine; Visit Provider Pharmacist
DX: Z79.01 Long term (current) use of anticoagulants (principal)
CPT/HCPCS: 85610

== ENCOUNTER 2024-09-26 15:38 | Outpatient (CLI) | payer BC, SELFPAY ==
[2024-09-26 16:27] LABS: INR 2.18 (0.9-1.1); Prothrombin Time 22.6 seconds (10.1-12.5)
== END 2024-09-26 23:59 | disposition home or self-care (01) ==
LOC: LAB 15:39
PROVIDERS: PCP Internal Medicine Adolescent Medicine; Visit Provider Pharmacist
DX: Z79.01 Long term (current) use of anticoagulants (principal)
CPT/HCPCS: 36415; 85610

== ENCOUNTER 2024-10-25 16:18 | Outpatient (CLI) | payer BC, SELFPAY ==
[2024-10-25 17:20] LABS: INR 1.58 (0.9-1.1); Prothrombin Time 16.9 seconds (10.1-12.5)
== END 2024-10-25 23:59 | disposition home or self-care (01) ==
LOC: LAB 16:19
PROVIDERS: PCP Internal Medicine Adolescent Medicine; Visit Provider Internal Medicine
DX: Z79.01 Long term (current) use of anticoagulants (principal); Z95.2 Presence of prosthetic heart valve
CPT/HCPCS: 36415; 85610

== ENCOUNTER 2024-11-24 11:26 | Outpatient (CLI) | payer BC, SELFPAY ==
[2024-11-24 11:57] LABS: INR 1.55 (0.9-1.1); Prothrombin Time 16.3 seconds (9.2-12.1)
== END 2024-11-24 23:59 | disposition home or self-care (01) ==
LOC: LAB 11:27
PROVIDERS: PCP Internal Medicine Adolescent Medicine; Visit Provider Internal Medicine
DX: Z79.01 Long term (current) use of anticoagulants (principal)
CPT/HCPCS: 36415; 85610

== ENCOUNTER 2024-12-22 09:41 | Outpatient (CLI) | payer BC, SELFPAY ==
[2024-12-22 10:32] LABS: Prothrombin Time 20.6 seconds (9.2-12.1)
== END 2024-12-22 23:59 | disposition home or self-care (01) ==
LOC: LAB 09:43
PROVIDERS: PCP Internal Medicine Adolescent Medicine; Visit Provider Internal Medicine
DX: Z79.01 Long term (current) use of anticoagulants (principal)
CPT/HCPCS: 36415; 85610

== ENCOUNTER 2025-01-18 21:22 | Outpatient (CLI) | payer BC, SELFPAY ==
[2025-01-18 21:56] LABS: INR 1.94 (0.9-1.1); Prothrombin Time 20.3 seconds (10.1-12.5)
== END 2025-01-18 23:59 | disposition home or self-care (01) ==
LOC: LAB 21:23
PROVIDERS: PCP Internal Medicine Adolescent Medicine; Visit Provider Internal Medicine Adolescent Medicine
DX: Z79.01 Long term (current) use of anticoagulants (principal)
CPT/HCPCS: 85610

== ENCOUNTER 2025-02-16 15:18 | Outpatient (CLI) | payer BC, SELFPAY ==
[2025-02-16 16:59] LABS: INR 1.87 (0.9-1.1); Prothrombin Time 19.7 seconds (10.1-12.5)
== END 2025-02-16 23:59 | disposition home or self-care (01) ==
LOC: LAB 15:19
PROVIDERS: PCP Internal Medicine Adolescent Medicine; Visit Provider Internal Medicine
DX: Z79.01 Long term (current) use of anticoagulants (principal)
CPT/HCPCS: 36415; 85610

== ENCOUNTER 2025-03-20 14:46 | Outpatient (CLI) | payer BC, SELFPAY ==
[2025-03-20 15:25] LABS: INR 2.89 (0.9-1.1); Prothrombin Time 29.7 seconds (10.1-12.5)
== END 2025-03-20 23:59 | disposition home or self-care (01) ==
LOC: LAB 14:48
PROVIDERS: PCP Internal Medicine Adolescent Medicine; Visit Provider Internal Medicine
DX: Z79.01 Long term (current) use of anticoagulants (principal)
CPT/HCPCS: 36415; 85610

== ENCOUNTER 2025-03-30 14:56 | Outpatient (CLI) | payer SELFPAY ==
--- OUTSIDE RECORDS SUMMARY | 2025-03-30 14:58 | XMS_ITS | Clinical Summary ---
Author Organization Healthcare Address [address] [place] [address] Care Team Providers Care Registered Dietetic Technician Name Role Phone Unavailable Primary Care Provider Unavailabl e Social History Tobacco Use Types Packs/Day Years Used Date Smoking Tobacco: Never Assessed Sex and Gender Information Value Date Recorded Sex Assigned at Not on file Legal Sex Male 6:46 PM EDT Gender Identity Not on file Sexual Orientation Not on file Plan of Treatment Not on file
[2025-03-30 15:38] LABS: INR 2.14 (0.9-1.1); Prothrombin Time 22.5 seconds (10.1-12.5)
== END 2025-03-30 23:59 | disposition home or self-care (01) ==
PROVIDERS: PCP Internal Medicine Adolescent Medicine; Visit Provider Internal Medicine
DX: Z79.01 Long term (current) use of anticoagulants (principal); Z95.2 Presence of prosthetic heart valve
CPT/HCPCS: 36415; 85610

== ENCOUNTER 2025-04-16 15:33 | Outpatient (CLI) | payer BC, SELFPAY ==
--- OUTSIDE RECORDS SUMMARY | 2025-04-16 15:36 | XMS_ITS | Clinical Summary ---
Author Organization Healthcare Address [address] [place] [address] Care Team Providers Care Welder Apprentice Arc Name Role Phone Unavailable Primary Care Provider [...]
[2025-04-16 16:17] LABS: INR 2.39 (0.9-1.1); Prothrombin Time 24.9 seconds (10.1-12.5)
== END 2025-04-16 23:59 | disposition home or self-care (01) ==
LOC: LAB 15:34
PROVIDERS: PCP Internal Medicine Adolescent Medicine; Visit Provider Internal Medicine
DX: Z79.01 Long term (current) use of anticoagulants (principal)
CPT/HCPCS: 36415; 85610

== ENCOUNTER 2025-05-15 14:28 | Outpatient (CLI) | payer BC, SELFPAY ==
--- OUTSIDE RECORDS SUMMARY | 2005-06-25 | XMS_ITS | Encounter Summary ---
Author Organization [facility] Address [address] [place] [address] Care Team Providers Care Motorcycle Mechanic Apprentice Name Role Phone Unavailable Primary Care Provider Unavailabl e Encounter Details Date Type Department Care Team (Late st Contact Info) Description 06/25/2005 Hospital Encounter [facility] Division of Cardiology [address] [place] [phone] Social History Tobacco Use Types Packs/Day [...]
--- OUTSIDE RECORDS SUMMARY | 2006-03-31 | XMS_ITS | Encounter Summary ---
Author Organization [facility] Address [address] [place] [address] Care Team Providers Care Rug Repairer Name Role Phone Unavailable Primary Care Provider Unavailabl e Encounter Details Date Type Department Care Team (Late st Contact Info) Description 03/31/2006 Hospital Encounter [facility] Division of Cardiology [address] [place] [phone] Social History Tobacco Use Types Packs/Day [...]
--- OUTSIDE RECORDS SUMMARY | 2006-09-15 01:00 | XMS_ITS | Encounter Summary ---
Author Organization [facility] Address [address] [place] [address] Care Team Providers Care Perfect Binder Operator Name Role Phone Unavailable Primary Care Provider Unavailabl e Encounter Details Date Type Department Care Team (Late st Contact Info) Description 09/15/2006 Hospital Encounter [facility] Division of Cardiology [address] [place] [phone] Social History Tobacco Use Types Packs/Day [...] this encounter Procedure Notes * Edt, Audit [place] - 01/28/2009 8:12 AM EDT documented in this encounter Plan of Treatment Not on file documented as of this encounter Visit Diagnoses Not on filedocumented in this encounter
--- OUTSIDE RECORDS SUMMARY | 2006-11-18 01:00 | XMS_ITS | Encounter Summary ---
Author Organization [facility] Address [address] [place] [address] Care Team Providers Care Workers Compensation Legal Secretary Name Role Phone Unavailable Primary Care Provider Unavailabl e Encounter Details Date Type Department Care Team (Late st Contact Info) Description 11/18/2006 Hospital Encounter [facility] Division of Cardiology [address] [place] [phone] Social History Tobacco Use Types Packs/Day [...]
--- OUTSIDE RECORDS SUMMARY | 2006-11-18 01:00 | XMS_ITS | Encounter Summary ---
Author Organization [facility] Address [address] [place] [address] Care Team Providers Care Surgery Specialist Name Role Phone Unavailable Primary Care Provider Unavailabl e Encounter Details Date Type Department Care Team (Late st Contact Info) Description 11/18/2006 Hospital Encounter [facility] Department of Radiology [address] [place] [phone] Social History Tobacco Use Types Packs/Day [...] Notes * Consent Other - Edt, Audit [place] - 05/02/2008 11:16 AM EDT documented in this encounter Plan of Treatment Not on file documented as of this encounter Visit Diagnoses Not on filedocumented in this encounter
--- OUTSIDE RECORDS SUMMARY | 2006-11-19 01:00 | XMS_ITS | Encounter Summary ---
Author Organization [facility] Address [address] [place] [address] Care Team Providers Care Fresh Foods Clerk Name Role Phone Unavailable Primary Care Provider Unavailabl e Encounter Details Date Type Department Care Team (Late st Contact Info) Description 11/19/2006 Hospital Encounter [facility] Division of Cardiology [address] [place] [phone] Social History Tobacco Use Types Packs/Day [...]
--- OUTSIDE RECORDS SUMMARY | 2007-03-16 | XMS_ITS | Encounter Summary ---
Author Organization [facility] Address [address] [place] [address] Care Team Providers Care Health Program Director Name Role Phone Unavailable Primary Care Provider Unavailabl e Encounter Details Date Type Department Care Team (Late st Contact Info) Description 03/16/2007 Hospital Encounter [facility] Division of Cardiology [address] [place] [phone] Social History Tobacco Use Types Packs/Day [...] Miscellaneous Notes * Orders - Edt, Audit [place] - 08/16/2011 5:45 PM EDT documented in this encounter Plan of Treatment Not on file documented as of this encounter Visit Diagnoses Not on filedocumented in this encounter
--- OUTSIDE RECORDS SUMMARY | 2025-05-15 14:30 | XMS_ITS | Clinical Summary ---
Author Organization Healthcare Address [address] [place] [address] Care Team Providers Care Harness Brusher Name Role Phone Unavailable Primary Care Provider [...]
--- OUTSIDE RECORDS SUMMARY | 2025-05-15 14:30 | XMS_ITS | Encounter Summary ---
Author Organization [facility] Address [address] [place] [address] Care Team Providers Care External Relations Director Name Role Phone Juan Rogers M.D. Primary Care Provider +1 [phone] Encounter Details Date Type Department Care Team (Late st Contact Info) Description 07/19/2019 Anticoag Therapy [facility] Division of Cardiology [address] [place] [phone] Roselia Poe, Pharm.D. Cardiology [address] [place] [phone] Social History Tobacco Use Types Packs/Day Years Used Date Smoking Tobacco: Never Smokeless Tobacco: Current Chew Alcohol Use Standard Drinks/Week Comments Yes 0 (1 standard drink = 0.6 oz pur e alcohol) weekend social Sex and Gender Information Value Date Recorded Sex Assigned at Not on file Legal Sex Male 5:17 AM EST Gender Identity Not on file Sexual Orientation Not on file documented as of this encounter Progress Notes * Roselia Adkins, Pharm.D. - 07/19/2019 1:19 PM EDT Spoke with Arnold during his clinic visit today. He informed me that he took warfarin 14 mg PO last night instead of the 15 mg PO as he was instructed because he did not stay at his house and only had access to warfarin 14 mg at the time. Confirmed plan for repeat INR on Wednesday (07/21). Arnold hadno further questions. Discussed with Audra Crain PharmD documented in this encounter Plan of Treatment Not on file documented as of this encounter Visit Diagnoses Not on filedocumented in this encounter Care Teams External Relations Director Relationship Specialty Start Date End Date Juan Rogers M.D. [address] [address] [address] [place] [address] PCP - General 04/18/08 documented as of this encounter
--- OUTSIDE RECORDS SUMMARY | 2025-05-15 14:30 | XMS_ITS | Encounter Summary ---
Author Organization [facility] Address [address] [place] [address] Care Team Providers Care Curing Finisher Name Role Phone Juan Rogers M.D. Primary Care Provider +1 [phone] Encounter Details Date Type Department Care Team (Latest Contact Info) Description 01/12/2019 Anticoag Therapy [facility] Division of Cardiology [address] [place] [phone] Carly Moore R.N. Anticoagulated on warfarin; S/P aortic valve replacement; Aortic valve disorder Social History Tobacco Use Types Packs/Day Years [...] on file documented as of this encounter Procedures Procedure Name Priority Date/Time Associated Diagnosis Comments PT & INR (PATIENT ON WARFARIN THERAPY) Routine 01/11/2019 documented in this encounter Results * PT & INR (Patient on Warfarin Therapy) (01/11/2019) INR EXT 3.08 Blood specimen (specimen) 01/11/2019 us Historical Provider HEMATOLOGY ORDERABLES Final Result documented in this encounter Visit Diagnoses Diagnosis Anticoagulated on warfarin Encounter for long-term (current) use of anticoagulants S/P aortic valve replacement Heart valve replaced by other means Aortic valve disorder Aortic valve disorders documented in this encounter Care Teams Curing Finisher Relationship Specialty Start Date End Date Juan Rogers M.D. [facility] [address] [address] [place] [address] PCP - General 04/18/08 documented as of this encounter
--- OUTSIDE RECORDS SUMMARY | 2025-05-15 14:30 | XMS_ITS | Encounter Summary ---
Author Organization [facility] Address [facility] [place] [address] Care Team Providers Care Client Experience Manager Name Role Phone Juan Rogers M.D. Primary Care Provider +1 [phone] Encounter Details Date Type Department Care Team (Late st Contact Info) Description 12/10/2011 Abstract [facility] Division of Pediatric General and Thoracic Surgery [address] [place] [phone] Provider, Historical Social History Tobacco Use Types Packs/Day Years [...] on filedocumented in this encounter Care Teams Client Experience Manager Relationship Specialty Start Date End Date Juan Rogers M.D. [facility] [address] [place] [address] PCP - General 04/18/08 documented as of this encounter
--- OUTSIDE RECORDS SUMMARY | 2025-05-15 14:30 | XMS_ITS | Encounter Summary ---
Author Organization [facility] Address [address] [place] [address] Care Team Providers Care Patient Financial Specialist Name Role Phone Juan Rogers M.D. Primary Care Provider +1 [phone] Reason for Visit * Reason Comments Medication Refill Encounter Details Date Type Department Care Team (Late st Contact Info) Description 10/12/2016 Refill [facility] Division of Cardiology [address] [place] [phone] Timbo Last II, M.D. Cardiology [address] [place] [address] [address] [place] [phone] Medication Refill Social History Tobacco Use Types Packs/Day Years Used Date Smoking Tobacco: Never Smokeless Tobacco: Former Alcohol Use Standard Drinks/Week Comments No 0 (1 standard drink = 0.6 oz pur e alcohol) Sex and Gender Information Value Date Recorded Sex Assigned at Not on file Legal Sex Male 5:17 AM EST Gender Identity Not on file Sexual Orientation Not on file documented as of this encounter Plan of Treatment Not on file documented as of this encounter Visit Diagnoses Diagnosis Anticoagulated on warfarin Encounter for long-term (current) use of anticoagulants S/P aortic valve replacement Heart valve replaced by other means Aortic valve disorder Aortic valve disorders documented in this encounter Care Teams Patient Financial Specialist Relationship Specialty Start Date End Date Juan Rogers M.D. [address] [facility] [address] [place] [id number] PCP - General 04/18/08 documented as of this encounter
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
--- OUTSIDE RECORDS SUMMARY | 2025-05-15 14:31 | XMS_ITS | Clinical Summary ---
Author Organization [facility] Address [address] [place] [address] Care Team Providers Care Procurement Analyst Name Role Phone Juan Rogers M.D. Primary Care Provider +1 -[phone] Source Comments [facility] is fully rolled out with thefollowing exceptions:General Clinical Research [facility] Allergies Active Allergy Reactions Criticality Noted Date Comments Acetic Acid Blisters 09/23/2023 Medications aspirin (ASA) 81 MG tablet Take 1 tablet by mouth 1 time a day. 04/16/2015 Active warfarin (COUMADIN) 5 MG tabletIndicatio ns:Aortic valve disorder,S/P aortic valve replacement,Ant icoagulated on warfarin Take 7.5 mg (1.5 x 5 mg tab) PO Wed/Wed and take 10 mg (2 x 5 mg tab) PO all other days of the week 60 tablet 11 08/09/2024 Active amoxicillin (AMOXIL) 500 MG capsule Take 1 capsule by mouth. Take 4 capsules by mouth 06/08/2024 Active Active Problems Problem Noted Date Diagnosed Date Anticoagulated on warfarin 09/27/2013 S/P aortic valve replacement 07/11/2013 Aortic valve disorder 10/29/2010 Overview (09/23/2023): CATH balloon valvuloplasty (11/19/2006) CATH repeat balloon valvuloplasty x2 (01/26/2013) SURG On-X aortic valve replacement (06/06/13, Greg) INR Goal 2.0-3.0 INR Goal adjusted to 1.5-2.5 (09/23/2023) Adult patient with history of congenital heart d isease Bicuspid aortic valve Anticoagulation goal of INR 1.5 to 2.5 Resolved Problems Problem Noted Date Diagnosed Date Resolved Date Aortic valve regurgitation 10/29/2010 0 01/03/2014 Encounters Date Type Department Care Team Description 04/18/2025 Anticoag Therapy [facility] Division of Cardiology [address] [place] [phone] Khushi Johnson R.N. S/P aortic valve replacement (Primary Dx); Anticoagulated on warfarin 04/09/2025 Orders Only [facility] Division of Cardiology [address] [place] [phone] Carly Moore, R.NVladimir Anticoagulated on warfarin (Primary Dx) 03/31/2025 Clinical Note [facility] Division of Cardiology [address] [place] [phone] Leilani Crain, Pharm.D. 03/30/2025 Anticoag Therapy [facility] Division of Cardiology [address] [place] [phone] Carly Moore, R.N. S/P aortic valve replacement (Primary Dx); Anticoagulated on warfarin 03/21/2025 Anticoag Therapy [facility] Division of Cardiology [address] [place] [phone] Khushi Johnson R.N. S/P aortic valve replacement (Primary Dx); Anticoagulated on warfarin 02/19/2025 Anticoag Therapy [facility] Division of Cardiology [address] [place] [phone] Carly Moore R.N. S/P aortic valve replacement (Primary Dx); Anticoagulated on warfarin 02/19/2025 Clinical Note [facility] Division of Cardiology [address] [place] [phone] Carly Moore R.N. Anticoagulation Management (Overdue labs) from Last 3 Months Immunizations Immunization Administration Dates Next Due Influenza Vaccine 0.5 mL - f or patients 6 months and older 07/20/2011 Family History Medical History Relation Name Comments Hypertension Father ismael Diabetes Mellitus Paternal Grandfather Arrhythmia Neg Hx Cerebrovascular Accident Neg Hx Congenital Heart Defect Neg Hx Heart Surgery Neg Hx Hypercholesterolemia Neg Hx ICD (Defibrillator) Neg Hx Irregular heartbeat Neg Hx Myocardial Infarction Neg Hx Pacemaker Neg Hx Sudden Neg Hx Relation Name Status Comments Father ismael Alive Maternal Grandfather Alive Maternal Grandmother Alive Mother lisa Alive Paternal Grandfather Alive Paternal Grandmother Alive Sister Alive Social History Tobacco Use Types Packs/Day Years [...] on file Sexual Orientation Not on file Last Filed Vital Signs Vital Sign Reading Time Taken Comments Blood Pressure 123/90 08/31/2024 12:31 PM EST Pulse 87 08/31/2024 12:31 PM EST Temperature 36.9 C (98.4 F) 06/10/2013 8:20 AM EDT Respiratory Rate 18 08/31/2024 12:3 1 PM EST Oxygen Saturation 97% 08/31/2024 12: 31 PM EST Inhaled Oxygen Concentration - - Weight 108.9 kg (240 lb 1.3 oz) 024 12:31 PM EST Height 177.8 cm (5' 10 ) 08/31/2024 12: 31 PM EST Body Mass Index 34.45 08/31/2024 12:31 PM EST Plan of Treatment Health Maintenance Due Date Last Done Comments MMR IMMUNIZATION (1 of 1 - Standard series) 1999 DTAP/Tdap/Td IMMUNIZATION (1 - Tdap) 2005 VARICELLA IMMUNIZATION (1 of 2 - 13+ 2-dose series) 2011 HEPATITIS B IMMUNIZATION (1 of 3 - 19+ 3-dose series) 2017 COVID-19 Vaccine (1 - 2023-2 5 season) 2024 HPV IMMUNIZATION (1 - 3-dose SCDM series) 2025 AMB SEASONAL FLU VACCINE (#1) 06/18/2025 07/20/2011 HIB IMMUNIZATION Aged Out No longer e ligible based on patient's age to complete this topic IPV IMMUNIZATION Aged Out No longer e ligible based on patient's age to complete this topic MCV4 IMMUNIZATION Aged Out No longer eligible based on patient's age to complete this topic MENINGOCOCCAL B VACCINE Aged Out No l onger eligible based on patient's age to complete this topic PNEUMOCOCCAL IMMUNIZATION Aged Out No longer eligible based on patient's age to complete this topic Respiratory Syncytial Virus (RSV) <20mo Aged Out No longer eligible b ased on patient's age to complete this topic Medical Devices Implanted Type Area Shipwright Apprentice Device Identifier Shelf Expiration Date Model / Serial / Lot Valve 21mm Ao W/Ext Hldr Cmft-X - [id number] Implanted:Qt y: 1 on 06/06/2013 by Patrick Garza III, M.D. at [facility] Cardiovascular N/A: Heart 10/06/2017 / [id number] / N/A [employer]ip Hem[employer] [place] - [id number] Implanted:Qt y: 1 on 06/06/2013 at [facility] Cardiovascular [facility] [employer] [facility] [id number] / / Procedures Procedure Name Priority Date/Time Associated Diagnosis Comments PT & INR (PATIENT ON WARFARIN THERAPY) Routine 04/16/2025 PT & INR (PATIENT ON WARFARIN THERAPY) Routine 03/30/2025 PT & INR (PATIENT ON WARFARIN THERAPY) Routine 03/20/2025 PT & INR (PATIENT ON WARFARIN THERAPY) Routine 02/16/2025 from Last 3 Months Results * PT & INR (Patient on Warfarin Therapy) (04/16/2025) Only the most recent of4 resultswithin the time period is included. INR EXT 2.39 Blood Historical Provider HEMATOLOGY ORDERABLES Final Result from Last 3 Months Insurance [employer]ANE NON-TRADITIONAL W [place] [id number] Care Teams Procurement Analyst Relationship Specialty Start Date End Date Juan Rogers M.D. [address] [address] [address] [place] [address] PCP - General 04/18/08
--- OUTSIDE RECORDS SUMMARY | 2025-05-15 14:31 | XMS_ITS | Encounter Summary ---
Author Organization [facility] Address [address] [place] [address] Care Team Providers Care Literacy Coordinator Name Role Phone Juan Rogers M.D. Primary Care Provider +1 [phone] Encounter Details Date Type Department Care Team (Late st Contact Info) Description 03/30/2025 Anticoag Therapy [facility] Division of Cardiology [address] [place] [phone] Carly Moore, RVladiimrN. S/P aortic valve replacement (Primary Dx); Anticoagulated on warfarin Social History Tobacco Use Types Packs/Day Years [...] No 08/31/2024 Adult hurting you or family (-) Not on file 08/31/2024 Someone touched you in a sexual way? (-) Not on file 08/31/2024 Is someone hurting [...] of this encounter Progress Notes * Roselia Poe, Pharm.D. - 03/30/2025 4:18 PM EDT Warfarin Management - Arnold Bryan Indication: On-X Aortic Valve Replacement Carburizer: Dr. Marr Lab Location: [facility] Current Dose: 7.5 mg PO Tue/Makayla and 10 mg PO AOD's Goal INR: 1.5 to 2.5 (goal changed 09/23/23) Previous INR: 2.89 (03/20/25) Current INR: 2.14 (03/30/25) Assessment: No changes in diet or medications reported. No illness or signs of bleeding reported. Confirmed current dose of warfarin and that he took decreased dose as advised on 03/21. Plan: INR is within goal range. Per Roselia Poe PharmD, continue current dose of warfarin. Repeat an INR in two weeks on 04/13. Arnold agreed with the plan via text message. I have discussed and reviewed the nurse's note for Arnold Bryan and agree with the assessment and plan as documented. Roselia Poe, Pharm.D. documented in this encounter Plan of Treatment Not on file documented as of this encounter Procedures Procedure Name Priority Date/Time Associated Diagnosis Comments PT & INR (PATIENT ON WARFARIN THERAPY) Routine 03/30/2025 documented in this encounter Results * PT & INR (Patient on Warfarin Therapy) (03/30/2025) INR EXT 2.14 Blood 03/30/2025 Historical Provider HEMATOLOGY ORDERABLES Final Result documented in this encounter Visit Diagnoses Diagnosis S/P aortic valve replacement- Primary Heart valve replaced by other means Anticoagulated on warfarin Encounter for long-term (current) use of anticoagulants documented in this encounter Care Teams Literacy Coordinator Relationship Specialty Start Date End Date Juan Rogers M.D. [address] [place] [address] [address] [place] [address] PCP - General 04/18/08 documented as of this encounter
--- OUTSIDE RECORDS SUMMARY | 2025-05-15 14:31 | XMS_ITS | Encounter Summary ---
Author Organization [facility] Address [address] [place] [address] Care Team Providers Care Microfilm Processor Name Role Phone Juan Rogers M.D. Primary Care Provider +1 -[phone] Encounter Details Date Type Department Care Team (Late st Contact Info) Description 04/18/2025 Anticoag Therapy [facility] Division of Cardiology [address] [place] [phone] Khushi Johnson, R.N. S/P aortic valve replacement (Primary Dx); [...] Progress Notes * Roselia Poe, Pharm.D. - 04/18/2025 8:43 AM EDT Warfarin Management - Arnold Bryan Indication: On-X Aortic Valve Replacement Trust Accounts Supervisor: Dr. Marr Lab Location: [facility] Current Dose: 7.5 mg PO Tue/Makayla and 10 mg PO AOD's Goal INR: 1.5 to 2.5 (goal changed 09/23/23) Previous INR: 2.14 (03/30/25) Current INR: 2.39 (04/16/25) Assessment: No changes in diet or medications reported. No illness or signs of bleeding reported. Confirmed current dose of warfarin. Plan: INR is within goal range. Per Roselia Poe PharmD, continue current dose of warfarin. Repeat an INR in 4 weeks on 05/14. Arnold agreed to plan via text message. I have discussed and reviewed the nurse's note for Arnold Bryan and agree with the assessment and plan as documented. Roselia Poe, Pharm.D. documented in this encounter Plan of Treatment Not on file documented as of this encounter Procedures Procedure Name Priority Date/Time Associated Diagnosis Comments PT & INR (PATIENT ON WARFARIN THERAPY) Routine 04/16/2025 documented in this encounter Results * PT & INR (Patient on Warfarin Therapy) (04/16/2025) INR EXT 2.39 Blood Historical Provider HEMATOLOGY ORDERABLES Final Result documented in this encounter Visit Diagnoses Diagnosis S/P aortic valve replacement- Primary Heart valve replaced by other means Anticoagulated on warfarin Encounter for long-term (current) use of anticoagulants documented in this encounter Care Teams Microfilm Processor Relationship Specialty Start Date End Date Juan Rogers M.D. [address] [place] [address] [address] [place] [address] PCP - General 04/18/08 documented as of this encounter
--- OUTSIDE RECORDS SUMMARY | 2025-05-15 14:31 | XMS_ITS | Encounter Summary ---
Author Organization [facility] Address [address] [place] [address] Care Team Providers Care Blade Groover Name Role Phone Juan Rogers M.D. Primary Care Provider +1 -[phone] Encounter Details Date Type Department Care Team (Late st Contact Info) Description 03/31/2025 Clinical Note [facility] Division of Cardiology [address] [place] [phone] Leilani Crain, Pharm.D. Cardiology [address] [place] [address] [address] [place] [address] Social History Tobacco Use Types Packs/Day [...] as of this encounter Progress Notes * Leilani Crain, Pharm.D. - 03/31/2025 7:00 AM EDT I will be ending my consult agreement with Arnold Bryan effective 04/12/25 and will not longer be prescribing and/or managing medications for this patient. Primary cardiology attending is aware. documented in this encounter Plan of Treatment Not on file documented as of this encounter Visit Diagnoses Not on filedocumented in this encounter Care Teams Blade Groover Relationship Specialty Start Date End Date Juan Rogers M.D. SHAN: [id number] [address] [place] [address] [address] [place] [id number] PCP - General 04/18/08 documented as of this encounter
--- OUTSIDE RECORDS SUMMARY | 2025-05-15 14:31 | XMS_ITS | Encounter Summary ---
Author Organization [facility] Address [address] [place] [address] Care Team Providers Care Director Life Sciences Name Role Phone Juan Rogers M.D. Primary Care Provider +1 -[phone] Encounter Details Date Type Department Care Team (Late st Contact Info) Description 03/21/2025 Anticoag Therapy [facility] Division of Cardiology [address] [place] [phone] Khushi Johnson, R.N. S/P aortic valve [...] Progress Notes * Roselia Poe, Pharm.D. - 03/21/2025 11:32 AM EDT Warfarin Management - Arnold Bryan Indication: On-X Aortic Valve Replacement Regulatory Internship: Dr. Marr Lab Location: [facility] Current Dose: 7.5 mg PO Tue/Makayla and 10 mg PO AOD's Goal INR: 1.5 to 2.5 (goal changed 09/23/23) Previous INR: 1.87 (02/16/25) Current INR: 2.89 (03/20/25) Assessment: No changes in diet or medications reported. No illness or signs of bleeding reported. Confirmed current dose of warfarin. Plan: INR is above goal range. Per Roselia Poe PharmD, take 5 mg tonight then resume normal dose tomorrow. Repeat an INR in one week on 03/28. Plan sent to Arnold via text message. I have discussed and reviewed the nurse's note for Arnold Bryan and agree with the assessment and plan as documented. Roselia Poe, Pharm.D. documented in this encounter Plan of Treatment Not on file documented as of this encounter Procedures Procedure Name Priority Date/Time Associated Diagnosis Comments PT & INR (PATIENT ON WARFARIN THERAPY) Routine 03/20/2025 documented in this encounter Results * PT & INR (Patient on Warfarin Therapy) (03/20/2025) INR EXT 2.89 Blood Historical Provider HEMATOLOGY ORDERABLES Final Result documented in this encounter Visit Diagnoses Diagnosis S/P aortic valve replacement- Primary Heart valve replaced by other means Anticoagulated on warfarin Encounter for long-term (current) use of anticoagulants documented in this encounter Care Teams Director Life Sciences Relationship Specialty Start Date End Date Juan Rogers M.D. JAIROI: [id number] [address] [place] [address] [address] [place] [address] PCP - General 04/18/08 documented as of this encounter
[2025-05-15 15:23] LABS: INR 2.91 (0.9-1.1); Prothrombin Time 29.8 seconds (10.1-12.5)
== END 2025-05-15 23:59 | disposition home or self-care (01) ==
LOC: LAB 14:28
PROVIDERS: PCP Internal Medicine Adolescent Medicine; Visit Provider Internal Medicine
DX: Z79.01 Long term (current) use of anticoagulants (principal)
CPT/HCPCS: 36415; 85610

== ENCOUNTER 2025-05-23 14:36 | Outpatient (CLI) | payer BC, SELFPAY ==
--- OUTSIDE RECORDS SUMMARY | 2005-06-25 | XMS_ITS | Encounter Summary ---
Author Organization [facility] Address [address] [place] [address] Care Team Providers Care Beater And Pulper Feeder Name Role Phone Unavailable Primary Care Provider Unavailabl e Encounter Details Date Type Department Care Team (Late st Contact Info) Description 06/25/2005 Hospital Encounter [facility] Division of Cardiology [address] [place] [phone] Social History Tobacco Use Types Packs/Day [...]
--- OUTSIDE RECORDS SUMMARY | 2006-03-31 | XMS_ITS | Encounter Summary ---
Author Organization [facility] Address [address] [place] [address] Care Team Providers Care Healthcare Sales Representative Name Role Phone Unavailable Primary Care Provider Unavailabl e Encounter Details Date Type Department Care Team (Late st Contact Info) Description 03/31/2006 Hospital Encounter [facility] Division of Cardiology [address] [place] [phone] Social History Tobacco Use Types Packs/Day [...]
--- OUTSIDE RECORDS SUMMARY | 2006-09-15 01:00 | XMS_ITS | Encounter Summary ---
Author Organization [facility] Address [address] [place] [address] Care Team Providers Care Plaster Tender Name Role Phone Unavailable Primary Care Provider Unavailabl e Encounter Details Date Type Department Care Team (Late st Contact Info) Description 09/15/2006 Hospital Encounter [facility] Division of Cardiology [address] [place] [phone] Social History Tobacco Use Types Packs/Day [...] this encounter Procedure Notes * Edt, Audit [place] - 01/28/2009 8:12 AM EDT documented in this encounter Plan of Treatment Not on file documented as of this encounter Visit Diagnoses Not on filedocumented in this encounter
--- OUTSIDE RECORDS SUMMARY | 2006-11-18 01:00 | XMS_ITS | Encounter Summary ---
Author Organization [facility] Address [address] [place] [address] Care Team Providers Care Airport Electrician Name Role Phone Unavailable Primary Care Provider Unavailabl e Encounter Details Date Type Department Care Team (Late st Contact Info) Description 11/18/2006 Hospital Encounter [facility] Division of Cardiology [address] [place] [phone] Social History Tobacco Use Types Packs/Day [...]
--- OUTSIDE RECORDS SUMMARY | 2006-11-18 01:00 | XMS_ITS | Encounter Summary ---
Author Organization [facility] Address [address] [place] [address] Care Team Providers Care Service Attendant Name Role Phone Unavailable Primary Care Provider Unavailabl e Encounter Details Date Type Department Care Team (Late st Contact Info) Description 11/18/2006 Hospital Encounter [facility] Department of Radiology [address] [place] [phone] Social History Tobacco Use Types Packs/Day [...] Notes * Consent Other - Edt, Audit [place] - 05/02/2008 11:16 AM EDT documented in this encounter Plan of Treatment Not on file documented as of this encounter Visit Diagnoses Not on filedocumented in this encounter
--- OUTSIDE RECORDS SUMMARY | 2006-11-19 01:00 | XMS_ITS | Encounter Summary ---
Author Organization [facility] Address [address] [place] [address] Care Team Providers Care Panel Machine Tender Name Role Phone Unavailable Primary Care Provider Unavailabl e Encounter Details Date Type Department Care Team (Late st Contact Info) Description 11/19/2006 Hospital Encounter [facility] Division of Cardiology [address] [place] [phone] Social History Tobacco Use Types Packs/Day [...]
--- OUTSIDE RECORDS SUMMARY | 2007-03-16 | XMS_ITS | Encounter Summary ---
Author Organization [facility] Address [address] [place] [address] Care Team Providers Care Mineral Engineer Name Role Phone Unavailable Primary Care Provider Unavailabl e Encounter Details Date Type Department Care Team (Late st Contact Info) Description 03/16/2007 Hospital Encounter [facility] Division of Cardiology [address] [place] [phone] Social History Tobacco Use Types Packs/Day [...] Miscellaneous Notes * Orders - Edt, Audit [place] - 08/16/2011 5:45 PM EDT documented in this encounter Plan of Treatment Not on file documented as of this encounter Visit Diagnoses Not on filedocumented in this encounter
--- OUTSIDE RECORDS SUMMARY | 2025-05-23 14:39 | XMS_ITS | Clinical Summary ---
Author Organization [facility] Address [address] [place] [address] Care Team Providers Care Hotel Maid Name Role Phone Unavailable Primary Care Provider [...]
--- OUTSIDE RECORDS SUMMARY | 2025-05-23 14:39 | XMS_ITS | Encounter Summary ---
Author Organization [facility] Address [address] [place] [address] Care Team Providers Care Tobacco Blender Name Role Phone Juan Rogers M.D. Primary Care Provider +1 -[phone] Encounter Details Date Type Department Care Team (Late st Contact Info) Description 03/31/2025 Clinical Note [facility] Division of Cardiology [address] [place] [phone] Leilani Crain, Pharm.D. Cardiology [address] [place] [address] [address] [place] [address] Social History Tobacco Use Types [...] on filedocumented in this encounter Care Teams Tobacco Blender Relationship Specialty Start Date End Date Juan Rogers M.D. SHAN: [id number] [address] [place] [address] [address] [place] [id number] PCP - General 04/18/08 documented as of this encounter
--- OUTSIDE RECORDS SUMMARY | 2025-05-23 14:39 | XMS_ITS | Encounter Summary ---
Author Organization [facility] Address [address] [place] [address] Care Team Providers Care Displayer Merchandise Name Role Phone Juan Rogers M.D. Primary Care Provider +1 -[phone] Encounter Details Date Type Department Care Team (Latest Contact Info) Description 01/12/2019 Anticoag Therapy [facility] Division of Cardiology [address] [place] [phone] Carly Moore R.N. Anticoagulated on warfarin; [...] disorders documented in this encounter Care Teams Displayer Merchandise Relationship Specialty Start Date End Date Juan Rogers M.D. Counts include 234 beds at the [facility] [address] [address] [place] [address] PCP - General 04/18/08 documented as of this encounter
--- OUTSIDE RECORDS SUMMARY | 2025-05-23 14:39 | XMS_ITS | Encounter Summary ---
Author Organization [facility] Address [address] [place] [address] Care Team Providers Care Photo Offset Printer Name Role Phone Juan Rogers M.D. Primary Care Provider +1 -[phone] Encounter Details Date Type Department Care Team (Late st Contact Info) Description 07/19/2019 Anticoag Therapy [facility] Division of Cardiology [address] [place] [phone] Roselia Poe, Pharm.D. Cardiology [address] [place] [phone] Social History Tobacco Use Types Packs/Day [...] on filedocumented in this encounter Care Teams Photo Offset Printer Relationship Specialty Start Date End Date Juan Rogers M.D. [address] [address] [address] [place] [address] PCP - General 04/18/08 documented as of this encounter
--- OUTSIDE RECORDS SUMMARY | 2025-05-23 14:39 | XMS_ITS | Clinical Summary ---
Author Organization [facility] Address [address] [place] [address] Care Team Providers Care Oyster Picker Name Role Phone Juan Rogers M.D. Primary Care Provider +1 -[phone] [facility] is fully rolled out with thefollowing exceptions:General Clinical Research [facility] Allergies Active Allergy Reactions Criticality Noted [...] Encounters Date Type Department Care Team Description 05/16/2025 Anticoag Therapy [facility] Division of Cardiology [address] [place] [phone] Khushi Johnson, R.N. S/P aortic valve replacement (Primary Dx); Anticoagulated on warfarin 04/18/2025 [address]ticoag [address] [facility] Division of Cardiology [address] [place] [phone] Khushi Johnson, R.N. S/P aortic valve replacement (Primary Dx); Anticoagulated on warfarin 04/09/2025 Orders Only [facility] Division of Cardiology [address] [place] [phone] Carly Moore, R.N. Anticoagulated on warfarin (Primary Dx) 03/31/[address] [facility] Division of Cardiology [address] [place] [phone] Leilani Crain, Pharm.D. 03/30/2025 Anticoag [address] [facility] Division of Cardiology [address] [place] [phone] Carly Moore, DioneN. S/P aortic valve replacement (Primary Dx); Anticoagulated on warfarin 03/21/2025 Anticoag Therapy [facility] Division of Cardiology [address] [place] [phone] Khushi Johnson RVladimirNVladimir S/P aortic valve replacement (Primary Dx); Anticoagulated on warfarin from Last 3 Months Immunizations Immunization Administration [...] this topic Medical Devices Implanted Type Area Decaler Device Identifier Shelf Expiration Date Model / Serial / Lot Valve 21mm Ao W/Ext Hldr Cmft-X - [id number] Implanted:Qt y: 1 on 06/06/2013 by Patrick Garza III, M.D. at [facility] Cardiovascular N/A: Heart 10/06/2017 / [id number] / N/A Clip Hemo Lg [place] - [id number] Implanted:Qt y: 1 on 06/06/2013 at [facility] [id number] / / Procedures Procedure Name Priority Date/Time Associated Diagnosis Comments PT & INR (PATIENT ON WARFARIN THERAPY) Routine 05/15/2025 PT & INR (PATIENT ON WARFARIN THERAPY) Routine 04/16/2025 PT & INR (PATIENT ON WARFARIN THERAPY) Routine 03/30/2025 PT & INR (PATIENT ON WARFARIN THERAPY) Routine 03/20/2025 from Last 3 Months Results * PT & INR (Patient on Warfarin Therapy) (05/15/2025) Only the most recent of4 resultswithin the time period is included. INR EXT 2.91 Blood us Historical Provider HEMATOLOGY ORDERABLES Final Result from Last 3 Months Insurance FRAN[employer] JANE NON-TRADITIONAL Care Teams Oyster Picker Relationship Specialty Start Date End Date Juan Rogers M.D. [address] [facility] [address] [place] [address] PCP - General 04/18/08
--- OUTSIDE RECORDS SUMMARY | 2025-05-23 14:39 | XMS_ITS | Encounter Summary ---
Author Organization [facility] Address [address] [place] [address] Care Team Providers Care Roll Icer Name Role Phone Juan Rogers M.D. Primary Care Provider +1 -[phone] Encounter Details Date Type Department Care Team (Late st Contact Info) Description 04/18/2025 Anticoag Therapy [facility] Division of Cardiology [address] [place] [phone] Khushi Johnson, R.N. S/P aortic valve [...] Arnold Bryan Indication: On-X Aortic Valve Replacement Leather Skinner: Dr. Marr Lab Location: [facility] Current Dose: 7.5 mg PO Tue/Makayla and [...] anticoagulants documented in this encounter Care Teams Roll Icer Relationship Specialty Start Date End Date Juan Rogers M.D. [address] [place] [address] [address] [place] [address] PCP - General 04/18/08 documented as of this encounter
--- OUTSIDE RECORDS SUMMARY | 2025-05-23 14:39 | XMS_ITS | Encounter Summary ---
Author Organization [facility] Address [facility] [place] [address] Care Team Providers Care Airplane Designer Name Role Phone Juan Rogers M.D. Primary Care Provider +1 -[phone] Encounter Details Date Type Department Care Team (Late st Contact Info) Description 12/10/2011 Abstract [facility] Division of Pediatric General and Thoracic Surgery [address] [place] [phone] Provider, Historical Social History Tobacco Use [...] on filedocumented in this encounter Care Teams Airplane Designer Relationship Specialty Start Date End Date Juan Rogers M.D. [facility] [address] [place] [address] PCP - General 04/18/08 documented as of this encounter
--- OUTSIDE RECORDS SUMMARY | 2025-05-23 14:39 | XMS_ITS | Encounter Summary ---
Author Organization [facility] Address [address] [place] [address] Care Team Providers Care Associate Juvenile Court Judge Name Role Phone Juan Rogers M.D. Primary Care Provider +1 -[phone] Reason for Visit * Reason Comments Medication Refill Encounter Details Date Type Department Care Team (Late st Contact Info) Description 10/12/2016 Refill [facility] Division of Cardiology [address] [place] [phone] Timbo Last II, M.D. Cardiology [address] [place] [address] [address] [place] [phone] Medication Refill Social History Tobacco [...] disorders documented in this encounter Care Teams Associate Juvenile Court Judge Relationship Specialty Start Date End Date Juan Rogers M.D. [address] [facility] [address] [place] [id number] PCP - General 04/18/08 documented as of this encounter
--- OUTSIDE RECORDS SUMMARY | 2025-05-23 14:39 | XMS_ITS | Encounter Summary ---
Author Organization [facility] Address [address] [place] [address] Care Team Providers Care Endocrinologist Name Role Phone Juan Rogers M.D. Primary Care Provider +1 -[phone] Encounter Details Date Type Department Care Team (Late st Contact Info) Description 05/16/2025 Anticoag Therapy [facility] Division of Cardiology [address] [place] [phone] Khushi Johnson, R.N. S/P aortic valve [...] Progress Notes * Roselia Poe, Pharm.D. - 05/16/2025 12:27 PM EDT Warfarin Management - Arnold Bryan Indication: On-X Aortic Valve Replacement Lime Boiler: Dr. Marr Lab Location: [facility] Current Dose: 7.5 mg PO Tue/Makayla and 10 mg PO AOD's Goal INR: 1.5 to 2.5 (goal changed 09/23/23) Previous INR: 2.39 (04/16/25) Current INR: 2.91 (04/16/25) Assessment: No changes in diet or medications reported. No illness or signs of bleeding reported. Confirmed current dose of warfarin. Arnold reports he can't remember if he's missed a dose or not. Plan: INR is above goal range. Per Roselia Poe PharmD, take 7.5 mg today and then resume normaldose tomorrow. Repeat an INR in one week on 05/23. Plan sent to Arnold via text message. I have discussed and reviewed the nurse's note for Arnold Bryan and agree with the assessment and plan as documented. Roselia Poe Pharm.D. documented in this encounter Plan of Treatment Not on file documented as of this encounter Procedures Procedure Name Priority Date/Time Associated Diagnosis Comments PT & INR (PATIENT ON WARFARIN THERAPY) Routine 05/15/2025 documented in this encounter Results * PT & INR (Patient on Warfarin Therapy) (05/15/2025) INR EXT 2.91 Blood [facility] Provider HEMATOLOGY ORDERABLES Final Result documented in this encounter Visit Diagnoses Diagnosis S/P aortic valve replacement- Primary Heart valve replaced by other means Anticoagulated on warfarin Encounter for long-term (current) use of anticoagulants documented in this encounter Care Teams Endocrinologist Relationship Specialty Start Date End Date Juan Rogers M.D. [address] [place] [address] [address] [place] [address] PCP - General 04/18/08 documented as of this encounter
--- OUTSIDE RECORDS SUMMARY | 2025-05-23 14:39 | XMS_ITS | Encounter Summary ---
Author Organization [facility] Address [facility] [place] [address] Care Team Providers Care Diamond Saw Operator Name Role Phone Juan Rogers M.D. Primary Care Provider +1 -[phone] Encounter Details Date Type Department Care Team (Late st Contact Info) Description 04/09/2025 Orders Only [facility] Division of Cardiology [address] [place] [phone] Carly Moore RAdri Anticoagulated on warfarin [...] anticoagulants documented in this encounter Care Teams Diamond Saw Operator Relationship Specialty Start Date End Date Juan Rogers M.D. JAIROI: [id number] [address] [place] [address] [address] [place] [address] PCP - General 04/18/08 documented as of this encounter
--- OUTSIDE RECORDS SUMMARY | 2025-05-23 14:39 | XMS_ITS | Encounter Summary ---
Author Organization [facility] Address [address] [place] [address] Care Team Providers Care Pig Breeder Name Role Phone Juan Rogers M.D. Primary Care Provider +1 -[phone] Encounter Details Date Type Department Care Team (Late st Contact Info) Description 03/30/2025 Anticoag Therapy [facility] Division of Cardiology [address] [place] [phone] Carly Moore, RVladimirN. S/P aortic valve replacement (Primary Dx); Anticoagulated [...] Arnold Bryan Indication: On-X Aortic Valve Replacement Log Hauler: Dr. Marr Lab Location: [facility] Current Dose: 7.5 mg PO [...] anticoagulants documented in this encounter Care Teams Pig Breeder Relationship Specialty Start Date End Date Juan Rogers M.D. [address] [place] [address] [address] [place] [address] PCP - General 04/18/08 documented as of this encounter
[2025-05-23 15:33] LABS: INR 1.38 (0.9-1.1); Prothrombin Time 15.0 seconds (10.1-12.5)
== END 2025-05-23 23:59 | disposition home or self-care (01) ==
LOC: LAB 14:37
PROVIDERS: PCP Internal Medicine Adolescent Medicine; Visit Provider Internal Medicine
DX: Z79.01 Long term (current) use of anticoagulants (principal)
CPT/HCPCS: 36415; 85610

== ENCOUNTER 2025-05-29 15:30 | Outpatient (CLI) | payer BC, SELFPAY ==
--- OUTSIDE RECORDS SUMMARY | 2005-06-25 | XMS_ITS | Encounter Summary ---
Author Organization [facility] Address [address] [place] [address] Care Team Providers Care Retail Pharmacy Technician Name Role Phone Unavailable Primary Care Provider Unavailabl e Encounter Details Date Type Department Care Team (Late st Contact Info) Description 06/25/2005 Hospital Encounter [facility] Division of Cardiology [address] [place] [phone] Social History Tobacco Use Types Packs/Day [...] as of this encounter Plan of Treatment Not on file documented as of this encounter Visit Diagnoses Not on filedocumented in this encounter
--- OUTSIDE RECORDS SUMMARY | 2006-03-31 | XMS_ITS | Encounter Summary ---
Author Organization [facility] Address [address] [place] [address] Care Team Providers Care Mails Supervisor Name Role Phone Unavailable Primary Care Provider Unavailabl e Encounter Details Date Type Department Care Team (Late st Contact Info) Description 03/31/2006 Hospital Encounter [facility] Division of Cardiology [address] [place] [phone] Social History Tobacco Use Types Packs/Day [...]
--- OUTSIDE RECORDS SUMMARY | 2006-09-15 01:00 | XMS_ITS | Encounter Summary ---
Author Organization [facility] Address [address] [place] [address] Care Team Providers Care Warning Analyst Name Role Phone Unavailable Primary Care Provider Unavailabl e Encounter Details Date Type Department Care Team (Late st Contact Info) Description 09/15/2006 Hospital Encounter [facility] [place] Division of Cardiology [address] [place] [phone] Social History Tobacco Use Types Packs/Day [...] this encounter Procedure Notes * Edt, Audit [place]ie - 01/28/2009 8:12 AM EDT documented in this encounter Plan of Treatment Not on file documented as of this encounter Visit Diagnoses Not on filedocumented in this encounter
--- OUTSIDE RECORDS SUMMARY | 2006-11-18 01:00 | XMS_ITS | Encounter Summary ---
Author Organization [facility] Address [address] [place] [address] Care Team Providers Care Machining Associate Name Role Phone Unavailable Primary Care Provider Unavailabl e Encounter Details Date Type Department Care Team (Late st Contact Info) Description 11/18/2006 Hospital Encounter [facility] Department of Radiology [address] [place] [phone] Social History Tobacco Use Types Packs/Day [...] Notes * Consent Other - Edt, Audit [place] - 05/02/2008 11:16 AM EDT documented in this encounter Plan of Treatment Not on file documented as of this encounter Visit Diagnoses Not on filedocumented in this encounter
--- OUTSIDE RECORDS SUMMARY | 2006-11-18 01:00 | XMS_ITS | Encounter Summary ---
Author Organization [facility] Address [address] [place] [address] Care Team Providers Care Drink Box Mechanic Name Role Phone Unavailable Primary Care Provider Unavailabl e Encounter Details Date Type Department Care Team (Late st Contact Info) Description 11/18/2006 Hospital Encounter [facility] Division of Cardiology [address] [place] [phone] Social History Tobacco Use Types Packs/Day [...]
--- OUTSIDE RECORDS SUMMARY | 2006-11-19 01:00 | XMS_ITS | Encounter Summary ---
Author Organization [facility] Address [address] [place] [address] Care Team Providers Care Business Practices Officer Name Role Phone Unavailable Primary Care Provider Unavailabl e Encounter Details Date Type Department Care Team (Late st Contact Info) Description 11/19/2006 Hospital Encounter [facility] Division of Cardiology [address] [place] [phone] Social History Tobacco Use Types Packs/Day [...]
--- OUTSIDE RECORDS SUMMARY | 2007-03-16 | XMS_ITS | Encounter Summary ---
Author Organization [facility] Address [address] [place] [address] Care Team Providers Care Metal Weigher Name Role Phone Unavailable Primary Care Provider Unavailabl e Encounter Details Date Type Department Care Team (Late st Contact Info) Description 03/16/2007 Hospital Encounter [facility] Division of Cardiology [address] [place] [phone] Social History Tobacco Use Types Packs/Day [...] Miscellaneous Notes * Orders - Edt, Audit [place] - 08/16/2011 5:45 PM EDT documented in this encounter Plan of Treatment Not on file documented as of this encounter Visit Diagnoses Not on filedocumented in this encounter
--- OUTSIDE RECORDS SUMMARY | 2025-05-29 15:32 | XMS_ITS | Encounter Summary ---
Author Organization [facility] Address [address] [place] [address] Care Team Providers Care Acute Care Nurse Practitioner Name Role Phone Juan Rogers M.D. Primary Care Provider +1 -[phone] Encounter Details Date Type Department Care Team (Late st Contact Info) Description 07/19/2019 Anticoag Therapy [facility] Division of Cardiology [address] [place] [phone] Roselia Poe, Pharm.D. Cardiology [address] [place] [phone] Social History Tobacco Use Types Packs/Day [...] on filedocumented in this encounter Care Teams Acute Care Nurse Practitioner Relationship Specialty Start Date End Date Juan Rogers M.D. [address] [address] [address] [place] [address] PCP - General 04/18/08 documented as of this encounter
--- OUTSIDE RECORDS SUMMARY | 2025-05-29 15:32 | XMS_ITS | Encounter Summary ---
Author Organization [facility] Address [address] [place] [address] Care Team Providers Care Legal Services Professional Name Role Phone Juan Rogers M.D. Primary Care Provider +1 -[phone] Encounter Details Date Type Department Care Team (Latest Contact Info) Description 01/12/2019 Anticoag Therapy [facility] Division of Cardiology [address] [place] [phone] Carly Moore R.N. Anticoagulated on warfarin; [...] disorders documented in this encounter Care Teams Legal Services Professional Relationship Specialty Start Date End Date Juan Rogers M.D. [facility] [address] [address] [place] [address] PCP - General 04/18/08 documented as of this encounter
--- OUTSIDE RECORDS SUMMARY | 2025-05-29 15:32 | XMS_ITS | Clinical Summary ---
Author Organization [facility] Address [address] [place] [address] Care Team Providers Care Safety Trainer Name Role Phone Unavailable Primary Care Provider [...]
--- OUTSIDE RECORDS SUMMARY | 2025-05-29 15:32 | XMS_ITS | Encounter Summary ---
Author Organization [facility] Address [facility] [place] [address] Care Team Providers Care Carbon Sequestration Plant Engineer Name Role Phone Juan Rogers M.D. Primary Care Provider +1 -[phone] Encounter Details Date Type Department Care Team (Late st Contact Info) Description 12/10/2011 Abstract [facility] Division of Pediatric General and Thoracic Surgery [address] [place] [phone] Provider, Historical Social History Tobacco Use [...] on filedocumented in this encounter Care Teams Carbon Sequestration Plant Engineer Relationship Specialty Start Date End Date Juan Rogers M.D. [facility] [address] [place] [address] PCP - General 04/18/08 documented as of this encounter
--- OUTSIDE RECORDS SUMMARY | 2025-05-29 15:32 | XMS_ITS | Encounter Summary ---
Author Organization [facility] Address [address] [place] [address] Care Team Providers Care Law Tutor Name Role Phone Juan Rogers M.D. Primary Care Provider +1 -[phone] Encounter Details Date Type Department Care Team (Late st Contact Info) Description 05/16/2025 Anticoag Therapy [facility] Division of Cardiology [address] [place] [phone] Khushi Johnson, R.N. S/P aortic valve [...] Arnold Bryan Indication: On-X Aortic Valve Replacement Carpenter Assistant Installer: Dr. Marr Lab Location: [facility] Current Dose: 7.5 mg PO Tue/Makayla [...] Warfarin Therapy) (05/15/2025) INR EXT 2.91 Blood [facility] Provider HEMATOLOGY ORDERABLES Final Result documented in this encounter Visit Diagnoses Diagnosis S/P aortic valve replacement- Primary Heart valve replaced by other means Anticoagulated on warfarin Encounter for long-term (current) use of anticoagulants documented in this encounter Care Teams Law Tutor Relationship Specialty Start Date End Date Juan Rogers M.D. [address] [place] [address] [address] [place] [address] PCP - General 04/18/08 documented as of this encounter
--- OUTSIDE RECORDS SUMMARY | 2025-05-29 15:32 | XMS_ITS | Encounter Summary ---
Author Organization [facility] Address [address] [place] [address] Care Team Providers Care Ball Points Inspector Name Role Phone Juan Rogers M.D. Primary Care Provider +1 -[phone] Reason for Visit * Reason Comments Medication Refill Encounter Details Date Type Department Care Team (Late st Contact Info) Description 10/12/2016 Refill [facility] Division of Cardiology [address] [place] [phone] Timbo Last II, M.D. Cardiology [address] [place] [address] [address] [place] [address] Medication Refill Social History Tobacco [...] disorders documented in this encounter Care Teams Ball Points Inspector Relationship Specialty Start Date End Date Juan Rogers M.D. [address] [facility] [address] [place] [id number] PCP - General 04/18/08 documented as of this encounter
--- OUTSIDE RECORDS SUMMARY | 2025-05-29 15:33 | XMS_ITS | Encounter Summary ---
Author Organization [facility] Address [address] [place] [address] Care Team Providers Care Associate Counsel Name Role Phone Juan Rogers M.D. Primary Care Provider +1 -[phone] Encounter Details Date Type Department Care Team (Late st Contact Info) Description 04/18/2025 Anticoag Therapy [facility] Division of Cardiology [address] [place] [phone] Khushi Johnson, R.N. S/P aortic valve [...] 04/18/2025 8:43 AM EDT Warfarin Management - Arnodl Bryan Indication: On-X Aortic Valve Replacement Type Copyist: Dr. Marr Lab Location: [facility] Current Dose: 7.5 mg PO Tue/Makayla [...] anticoagulants documented in this encounter Care Teams Associate Counsel Relationship Specialty Start Date End Date Juan Rogers M.D. [address] [place] [address] [address] [place] [address] PCP - General 04/18/08 documented as of this encounter
--- OUTSIDE RECORDS SUMMARY | 2025-05-29 15:33 | XMS_ITS | Encounter Summary ---
Author Organization [facility] Address [address] [place] [address] Care Team Providers Care Dispatch Machine Runner Name Role Phone Juan Rogers M.D. Primary Care Provider +1 -[phone] Encounter Details Date Type Department Care Team (Late st Contact Info) Description 05/24/2025 Anticoag Therapy [facility] Division of Cardiology [address] [place] [phone] Carly Moore, RVladimirN. S/P aortic valve [...] Progress Notes * Roselia Poe, Pharm.D. - 05/24/2025 11:02 AM EDT Warfarin Management - Arnold Bryan Indication: On-X Aortic Valve Replacement Industrial Hire Sales Assistant: Dr. Marr Lab Location: [facility] Current Dose: 7.5 mg PO Tue/Makayla and 10 mg PO AOD's Goal INR: 1.5 to 2.5 (goal changed 09/23/23) Previous INR: 2.91 (05/15/25) Current INR: 1.38 (05/23/25) Assessment: No changes in diet or medications. Arnold states, ???no changes?? . Confirmed current dose of warfarin and that he took 7.5 mg last Wednesday as advised. Arnold says that he can't remember if he has missed any doses of warfarin with the hours he has been working but it is quite possible that he has Plan: INR is below goal range. Per Roselia Poe PharmD, take 10 mg of warfarin of warfarin todayand resume current dose tomorrow. Repeat INR on 05/29. Plan sent to Arnold via text message. I have discussed and reviewed the nurse's note for Arnold Bryan and agree with the assessment and plan as documented. Roselia Poe, Pharm.D. documented in this encounter Plan of Treatment Not on file documented as of this encounter Procedures Procedure Name Priority Date/Time Associated Diagnosis Comments PT & INR (PATIENT ON WARFARIN THERAPY) Routine 05/23/2025 documented in this encounter Results * PT & INR (Patient on Warfarin Therapy) (05/23/2025) INR EXT 1.38 Blood 05/23/2025 Historical Provider HEMATOLOGY ORDERABLES Final Result documented in this encounter Visit Diagnoses Diagnosis S/P aortic valve replacement- Primary Heart valve replaced by other means Anticoagulated on warfarin Encounter for long-term (current) use of anticoagulants documented in this encounter Care Teams Dispatch Machine Runner Relationship Specialty Start Date End Date Juan Rogers M.D. [address] [address] [address] [place] [address] PCP - General 04/18/08 documented as of this encounter
--- OUTSIDE RECORDS SUMMARY | 2025-05-29 15:33 | XMS_ITS | Encounter Summary ---
Author Organization [facility] Address [address] [place] [address] Care Team Providers Care Whitewasher Name Role Phone Juan Rogers M.D. Primary Care Provider +1 -[phone] Encounter Details Date Type Department Care Team (Late st Contact Info) Description 03/31/2025 Clinical Note [facility] Division of Cardiology [address] [place] [phone] Leilani Crain, Pharm.D. Cardiology [address] [place] [address] [address] [place] [address] Social History Tobacco Use Types [...] on filedocumented in this encounter Care Teams Whitewasher Relationship Specialty Start Date End Date Juan Rogers M.D. SHAN: [id number] [address] [place] [address] [address] [place] [id number] PCP - General 04/18/08 documented as of this encounter
--- OUTSIDE RECORDS SUMMARY | 2025-05-29 15:33 | XMS_ITS | Encounter Summary ---
Author Organization [facility] Address [facility]ly [facility] [place] [address] Care Team Providers Care Band Salvager Name Role Phone Juan Rogers M.D. Primary Care Provider +1 -[phone] Encounter Details Date Type Department Care Team (Late st Contact Info) Description 04/09/2025 Orders Only [facility] Division of Cardiology [address] [place] [phone] Carly Moore RAdri Anticoagulated on warfarin [...] anticoagulants documented in this encounter Care Teams Band Salvager Relationship Specialty Start Date End Date Juan Rogers M.D. JAIROI: [id number] [address] [place] [address] [address] [place] [address] PCP - General 04/18/08 documented as of this encounter
--- OUTSIDE RECORDS SUMMARY | 2025-05-29 15:33 | XMS_ITS | Encounter Summary ---
Author Organization [facility] Address [address] [place] [address] Care Team Providers Care Sed Special Education Teacher Name Role Phone Juan Rogers M.D. Primary Care Provider +1 -[phone] Encounter Details Date Type Department Care Team (Late st Contact Info) Description 03/30/2025 Anticoag Therapy [facility] Division of Cardiology [address] [place] [phone] Carly Moore, RVladimirN. S/P aortic valve [...] Arnold Bryan Indication: On-X Aortic Valve Replacement Photographic Intelligence Officer: Dr. Marr Lab Location: [facility] Current Dose: 7.5 mg PO [...] anticoagulants documented in this encounter Care Teams Sed Special Education Teacher Relationship Specialty Start Date End Date Juan Rogers M.D. [address] [place] [address] [address] [place] [address] PCP - General 04/18/08 documented as of this encounter
--- OUTSIDE RECORDS SUMMARY | 2025-05-29 15:33 | XMS_ITS | Clinical Summary ---
Author Organization [facility] Address [address] [place] [address] Care Team Providers Care Oracle Applications Developer Name Role Phone Juan Rogers M.D. Primary Care Provider +1 -[phone] Source Comments [facility] is fully rolled out with thefollowing exceptions:General Clinical Research [facility] Allergies Active Allergy Reactions Criticality Noted [...] Encounters Date Type Department Care Team Description 05/24/2025 Anticoag Therapy [facility] Division of Cardiology [address] [place] [phone] Carly oMore, R.N. S/P aortic valve replacement (Primary Dx); Anticoagulated on warfarin 05/16/2025 Anticoag Therapy [facility] Division of Cardiology [address] [place] [phone] Khushi Johnson SVladimir, R.N. S/P aortic valve replacement (Primary Dx); Anticoagulated on warfarin 04/18/2025 Anticoag Therapy [facility] Division of Cardiology [address] [place] [phone] Khushi Johnson SVladimir, R.N. S/P aortic valve replacement (Primary Dx); Anticoagulated on warfarin 04/09/2025 Orders Only [facility] Division of Cardiology [address] [place] [phone] Carly Moore, R.N. Anticoagulated on warfarin (Primary Dx) 03/31/2025 Clinical Note [facility] Division of Cardiology [address] [place] [phone] Leilani Crain, Pharm.D. 03/30/2025 Anticoag Therapy [facility] Division of Cardiology [address] [place] [phone] Carly Moore R.N. S/P aortic valve replacement (Primary Dx); Anticoagulated on warfarin 03/21/2025 Anticoag Therapy [facility] Division of Cardiology [address] [place] [phone] Khushi Johnson R.N. S/P aortic valve replacement [...] - 19+ 3-dose series) 2017 COVID-19 Vaccine ( - 2023-2 5 season) 2024 HPV IMMUNIZATION [...] this topic Medical Devices Implanted Type Area Manufacturing Advisor Device Identifier Shelf Expiration Date Model / Serial / Lot Valve 21mm Ao W/Ext Hldr Cmft-X - [id number] Implanted:Qt y: 1 on 06/06/2013 by Patrick Garza III, M.D. at [facility] Cardiovascular N/A: Heart 10/06/2017 / [id number] / N/A Clip Hemo Lg [place] - [id number] Implanted:Qt y: 1 on 06/06/2013 at [facility] Cardiovascular [facility] [id number] [facility] [id number] / / Procedures Procedure Name Priority Date/Time Associated Diagnosis Comments PT & INR (PATIENT ON WARFARIN THERAPY) Routine 05/23/2025 PT & INR (PATIENT ON WARFARIN THERAPY) Routine 05/15/2025 PT & INR (PATIENT ON WARFARIN THERAPY) Routine 04/16/2025 PT & INR (PATIENT ON WARFARIN THERAPY) Routine 03/30/2025 PT & INR (PATIENT ON WARFARIN THERAPY) Routine 03/20/2025 from Last 3 Months Results * PT & INR (Patient on Warfarin Therapy) (05/23/2025) Only the most recent of5 resultswithin the time period is included. INR EXT 1.38 Blood 05/23/2025 Historical Provider HEMATOLOGY ORDERABLES Final Result from Last 3 Months Insurance FRAN[employer] [place] [id number] Care Teams Oracle Applications Developer Relationship Specialty Start Date End Date Juan Rogers M.D. [address] [address] [address] [place] [address] PCP - General 04/18/08
[2025-05-29 16:07] LABS: INR 2.44 (0.9-1.1); Prothrombin Time 25.4 seconds (10.1-12.5)
== END 2025-05-29 23:59 | disposition home or self-care (01) ==
LOC: LAB 15:31
PROVIDERS: PCP Internal Medicine Adolescent Medicine; Visit Provider Internal Medicine
DX: Z79.01 Long term (current) use of anticoagulants (principal)
CPT/HCPCS: 36415; 85610

== ENCOUNTER 2025-06-14 16:38 | Outpatient (CLI) | payer BC, SELFPAY ==
--- OUTSIDE RECORDS SUMMARY | 2005-06-25 | XMS_ITS | Encounter Summary ---
Author Organization [facility] Address [address] [place] [address] Care Team Providers Care Clinical Trials Data Coordinator Name Role Phone Unavailable Primary Care Provider Unavailabl e Encounter Details Date Type Department Care Team (Late st Contact Info) Description 06/25/2005 Hospital Encounter [facility] Division of Cardiology [address] [place] [phone] Social History Tobacco Use Types Packs/Day [...]
--- OUTSIDE RECORDS SUMMARY | 2006-03-31 | XMS_ITS | Encounter Summary ---
Author Organization [facility] Address [address] [place] [address] Care Team Providers Care Ice Cream Scooper Name Role Phone Unavailable Primary Care Provider Unavailabl e Encounter Details Date Type Department Care Team (Late st Contact Info) Description 03/31/2006 Hospital Encounter [facility] Division of Cardiology [address] [place] [phone] Social History Tobacco Use Types Packs/Day [...]
--- OUTSIDE RECORDS SUMMARY | 2006-09-15 01:00 | XMS_ITS | Encounter Summary ---
Author Organization [facility] Address [address] [place] [address] Care Team Providers Care Night Auditor Name Role Phone Unavailable Primary Care Provider Unavailabl e Encounter Details Date Type Department Care Team (Late st Contact Info) Description 09/15/2006 Hospital Encounter [facility] Division of Cardiology [address] [place] [phone] Social History Tobacco Use Types Packs/Day [...] this encounter Procedure Notes * Edt, Audit [place] - 01/28/2009 8:12 AM EDT documented in this encounter Plan of Treatment Not on file documented as of this encounter Visit Diagnoses Not on filedocumented in this encounter
--- OUTSIDE RECORDS SUMMARY | 2006-11-18 01:00 | XMS_ITS | Encounter Summary ---
Author Organization [facility] Address [address] [place] [address] Care Team Providers Care Astro Technician Name Role Phone Unavailable Primary Care Provider Unavailabl e Encounter Details Date Type Department Care Team (Late st Contact Info) Description 11/18/2006 Hospital Encounter [facility] Department of Radiology [address] [place] [phone] Social History Tobacco Use Types Packs/Day [...] Notes * Consent Other - Edt, Audit [place] - 05/02/2008 11:16 AM EDT documented in this encounter Plan of Treatment Not on file documented as of this encounter Visit Diagnoses Not on filedocumented in this encounter
--- OUTSIDE RECORDS SUMMARY | 2006-11-18 01:00 | XMS_ITS | Encounter Summary ---
Author Organization [facility] Address [address] [place] [address] Care Team Providers Care Board Machine Set Up Operator Name Role Phone Unavailable Primary Care Provider Unavailabl e Encounter Details Date Type Department Care Team (Late st Contact Info) Description 11/18/2006 Hospital Encounter [facility] Division of Cardiology [address] [place] [phone] Social History Tobacco Use Types Packs/Day [...]
--- OUTSIDE RECORDS SUMMARY | 2006-11-19 01:00 | XMS_ITS | Encounter Summary ---
Author Organization [facility] Address [address] [place] [address] Care Team Providers Care Inspector Toys Name Role Phone Unavailable Primary Care Provider Unavailabl e Encounter Details Date Type Department Care Team (Late st Contact Info) Description 11/19/2006 Hospital Encounter [facility] Division of Cardiology [address] [place] [phone] Social History Tobacco Use Types Packs/Day [...]
--- OUTSIDE RECORDS SUMMARY | 2007-03-16 | XMS_ITS | Encounter Summary ---
Author Organization [facility] Address [address] [place] [address] Care Team Providers Care Chief Accountant Name Role Phone Unavailable Primary Care Provider Unavailabl e Encounter Details Date Type Department Care Team (Late st Contact Info) Description 03/16/2007 Hospital Encounter [facility] Division of Cardiology [address] [place] [phone] Social History Tobacco Use Types Packs/Day [...] Miscellaneous Notes * Orders - Edt, Audit [place] - 08/16/2011 5:45 PM EDT documented in this encounter Plan of Treatment Not on file documented as of this encounter Visit Diagnoses Not on filedocumented in this encounter
--- OUTSIDE RECORDS SUMMARY | 2025-06-14 16:41 | XMS_ITS | Encounter Summary ---
Author Organization [facility] Address [address] [place] [address] Care Team Providers Care Street Commissioner Name Role Phone Juan Rogers M.D. Primary Care Provider +1 -[phone] Encounter Details Date Type Department Care Team (Late st Contact Info) Description 07/19/2019 Anticoag Therapy [facility] Division of Cardiology [address] [place] [phone] Roselia Poe, Pharm.D. Cardiology [address] [place] [phone] Social History Tobacco Use Types Packs/Day [...] on filedocumented in this encounter Care Teams Street Commissioner Relationship Specialty Start Date End Date Juan Rogers M.D. [address] [address] [address] [place] [address] PCP - General 04/18/08 documented as of this encounter
--- OUTSIDE RECORDS SUMMARY | 2025-06-14 16:41 | XMS_ITS | Clinical Summary ---
Author Organization [facility] Address [address] [place] [address] Care Team Providers Care Parker Name Role Phone Unavailable Primary Care Provider [...]
--- OUTSIDE RECORDS SUMMARY | 2025-06-14 16:42 | XMS_ITS | Encounter Summary ---
Author Organization [facility] Address [address] [place] [address] Care Team Providers Care Baggage Smasher Name Role Phone Juan Rogers M.D. Primary Care Provider +1 -[phone] Encounter Details Date Type Department Care Team (Late st Contact Info) Description 05/24/2025 Anticoag Therapy [facility] Division of Cardiology [address] [place] [phone] Carly Moore, RVladimirN. S/P aortic valve [...] Arnold Bryan Indication: On-X Aortic Valve Replacement Rubber Goods Inspector Tester: Dr. Marr Lab Location: [place] [facility] Current Dose: 7.5 mg PO Tue/Makayla [...] anticoagulants documented in this encounter Care Teams Baggage Smasher Relationship Specialty Start Date End Date Juan Rogers M.D. [address] [address] [address] [place] [address] PCP - General 04/18/08 documented as of this encounter
--- OUTSIDE RECORDS SUMMARY | 2025-06-14 16:42 | XMS_ITS | Clinical Summary ---
Author Organization [facility] Address [address] [place] [address] Care Team Providers Care Teller Supervisor Name Role Phone Juan Rogers M.D. Primary Care Provider +1 -[phone] Source Comments [facility] is fully rolled out with thefollowing exceptions:General Clinical Research [facility] Allergies Active Allergy Reactions Criticality Noted [...] Encounters Date Type Department Care Team Description 05/31/2025 Anticoag Therapy [facility] Division of Cardiology [address] [place] [phone] Carly Moore, Prakash.N. S/P aortic valve replacement (Primary Dx); Anticoagulated on warfarin 05/24/2025 Anticoag Therapy [facility] Division of Cardiology [address] [place] [phone] Carly Moore, R.N. S/P aortic valve replacement (Primary Dx); Anticoagulated on warfarin 05/16/2025 Anticoag Therapy [facility] Division of Cardiology [address] [place] [phone] Khushi Johnson S., R.N. S/P aortic valve replacement (Primary Dx); Anticoagulated on warfarin 04/18/2025 Anticoag Therapy [facility] Division of Cardiology [address] [place] [phone] Khushi Johnson S., R.N. S/P aortic valve replacement (Primary Dx); Anticoagulated on warfarin 04/09/2025 Orders Only [facility] Division of Cardiology [address] [place] [phone] Carly Moore, R.N. Anticoagulated on warfarin (Primary Dx) 03/31/2025 Clinical Note [facility] Division of Cardiology [address] [place] [phone] Leilani Crain, Pharm.D. 03/30/2025 Anticoag Therapy [facility] Division of Cardiology [address] [place] [phone] Carly Moore R.N. S/P aortic valve replacement (Primary Dx); Anticoagulated on warfarin 03/21/2025 Anticoag Therapy [facility] Division of Cardiology [address] [place] [phone] Khushi Johnson R.N. S/P aortic valve replacement [...] series) 2025 AMB SEASONAL FLU VACCINE (#1) 08/18/2025 07/20/2011 HIB IMMUNIZATION Aged Out No longer [...] this topic Medical Devices Implanted Type Area Senior Bioinformatics Scientist Device Identifier Shelf Expiration Date Model / Serial / Lot Valve 21mm Ao W/Ext Hldr Cmft-X - [id number] Implanted:Qt y: 1 on 06/06/2013 by Patrick Garza III, M.D. at [facility] Cardiovascular N/A: Heart 10/06/2017 / [id number] / N/A Clip Hemo Lg [place] - [id number] Implanted:Qt y: 1 on 06/06/2013 at [facility] Cardiovascular [employer] [id number] / / Procedures Procedure Name Priority Date/Time Associated Diagnosis Comments PT & INR (PATIENT ON WARFARIN THERAPY) Routine 05/29/2025 PT & INR (PATIENT ON WARFARIN THERAPY) Routine 05/23/2025 PT & INR (PATIENT ON WARFARIN THERAPY) Routine 05/15/2025 PT & INR (PATIENT ON WARFARIN THERAPY) Routine 04/16/2025 PT & INR (PATIENT ON WARFARIN THERAPY) Routine 03/30/2025 PT & INR (PATIENT ON WARFARIN THERAPY) Routine 03/20/2025 from Last 3 Months Results * PT & INR (Patient on Warfarin Therapy) (05/29/2025) Only the most recent of6 resultswithin the time period is included. INR EXT 2.44 Blood 05/29/2025 us Historical Provider HEMATOLOGY ORDERABLES Final Result from Last 3 Months Insurance FRANCO JANE NON-TRADITIONAL [facility] Address: [facility] [id number] [place] [address] [place] [id number] Care Teams Teller Supervisor Relationship Specialty Start Date End Date Juan Rogers M.D. [address] [address] [address] [place] [address] PCP - General 04/18/08
--- OUTSIDE RECORDS SUMMARY | 2025-06-14 16:42 | XMS_ITS | Encounter Summary ---
Author Organization [facility] Address [facility] [place] [address] Care Team Providers Care Orchestra Conductor Name Role Phone Juan Rogers M.D. Primary Care Provider +1 -[phone] Encounter Details Date Type Department Care Team (Late st Contact Info) Description 12/10/2011 Abstract [facility] Division of Pediatric General and Thoracic Surgery [address] [place] [phone] Provider, Historical Social History Tobacco Use [...] on filedocumented in this encounter Care Teams Orchestra Conductor Relationship Specialty Start Date End Date Juan Rogers M.D. [facility] [address] [place] [address] PCP - General 04/18/08 documented as of this encounter
--- OUTSIDE RECORDS SUMMARY | 2025-06-14 16:42 | XMS_ITS | Encounter Summary ---
Author Organization [facility] Address [address] [place] [address] Care Team Providers Care Polymer Specialist Name Role Phone Juan Rogers M.D. Primary Care Provider +1 -[phone] Reason for Visit * Reason Comments Medication Refill Encounter Details Date Type Department Care Team (Late st Contact Info) Description 10/12/2016 Refill [facility] Division of Cardiology [address] [place] [phone] Timbo Last II, M.D. Cardiology [address] [place] [address] [address] [place] [address] Medication Refill Social History Tobacco [...] disorders documented in this encounter Care Teams Polymer Specialist Relationship Specialty Start Date End Date Juan Rogers M.D. [address] [facility] [address] [place] [id number] PCP - General 04/18/08 documented as of this encounter
--- OUTSIDE RECORDS SUMMARY | 2025-06-14 16:42 | XMS_ITS | Encounter Summary ---
Author Organization [facility] Address [address] [place] [address] Care Team Providers Care Cap Parts Cutter Name Role Phone Juan Rogers M.D. Primary Care Provider +1 -[phone] Encounter Details Date Type Department Care Team (Late st Contact Info) Description 04/18/2025 Anticoag Therapy [facility] Division of Cardiology [address] [place] [phone] Khushi Johnson, R.N. S/P aortic valve [...] Arnold Bryan Indication: On-X Aortic Valve Replacement Towboat Engineer: Dr. Marr Lab Location: [facility] Current Dose: 7.5 mg PO Tue/Makayla [...] anticoagulants documented in this encounter Care Teams Cap Parts Cutter Relationship Specialty Start Date End Date Juan Rogers M.D. [address] [place] [address] [address] [place] [address] PCP - General 04/18/08 documented as of this encounter
--- OUTSIDE RECORDS SUMMARY | 2025-06-14 16:42 | XMS_ITS | Encounter Summary ---
Author Organization [facility] Address [address] [place] [address] Care Team Providers Care Fuel Dock Attendant Name Role Phone Juan Rogers M.D. Primary Care Provider +1 -[phone] Encounter Details Date Type Department Care Team (Late st Contact Info) Description 05/31/2025 Anticoag Therapy [facility] Division of Cardiology [address] [place] [phone] Carly Moore, RVladimirN. S/P aortic valve [...] Progress Notes * Roselia Poe, Pharm.D. - 05/31/2025 8:32 AM EDT Warfarin Management - Arnold Bryan Indication: On-X Aortic Valve Replacement Cooker Cleaner: Dr. Marr Lab Location: [facility] Current Dose: 7.5 mg PO Tue/Makayla and 10 mg PO AOD's Goal INR: 1.5 to 2.5 (goal changed 09/23/23) Previous INR: 1.38 (05/23/25) Current INR: 2.44 (05/29/25) Assessment: No changes in diet or medications reported. Arnold confirmed current dose of warfarin and that he took 10 mg last as advised. Plan: INR is within goal range. Per Roselia Poe PharmD, continue current dose of warfarin. Repeat INR in 2 weeks on 06/13. Arnold agreed with the plan via text message. I have discussed and reviewed the nurse's note for Arnold Bryan and agree with the assessment and plan as documented. Roselia Poe, Pharm.D. documented in this encounter Plan of Treatment Not on file documented as of this encounter Procedures Procedure Name Priority Date/Time Associated Diagnosis Comments PT & INR (PATIENT ON WARFARIN THERAPY) Routine 05/29/2025 documented in this encounter Results * PT & INR (Patient on Warfarin Therapy) (05/29/2025) INR EXT 2.44 Blood 05/29/2025 us Historical Provider HEMATOLOGY ORDERABLES Final Result documented in this encounter Visit Diagnoses Diagnosis S/P aortic valve replacement- Primary Heart valve replaced by other means Anticoagulated on warfarin Encounter for long-term (current) use of anticoagulants documented in this encounter Care Teams Fuel Dock Attendant Relationship Specialty Start Date End Date Juan Rogers M.D. [address] [place] [address] [address] [place] [address] PCP - General 04/18/08 documented as of this encounter
--- OUTSIDE RECORDS SUMMARY | 2025-06-14 16:42 | XMS_ITS | Encounter Summary ---
Author Organization [facility] Address [address] [place] [address] Care Team Providers Care Seo Engineer Name Role Phone Juan Rogers M.D. Primary Care Provider +1 -[phone] Encounter Details Date Type Department Care Team (Late st Contact Info) Description 05/16/2025 Anticoag Therapy [facility] Division of Cardiology [address] [place] [phone] Khushi Johnson, R.N. S/P aortic valve [...] Arnold Bryan Indication: On-X Aortic Valve Replacement Concrete Block Layer: Dr. Marr Lab Location: [facility] Current Dose: 7.5 mg PO [...] anticoagulants documented in this encounter Care Teams Seo Engineer Relationship Specialty Start Date End Date Juan Rogers M.D. [address] [place] [address] [address] [place] [address] PCP - General 04/18/08 documented as of this encounter
--- OUTSIDE RECORDS SUMMARY | 2025-06-14 16:42 | XMS_ITS | Encounter Summary ---
Author Organization [facility] Address [address] [place] [address] Care Team Providers Care Rn Neonatal Name Role Phone Juan Rogers M.D. Primary Care Provider +1 -[phone] Encounter Details Date Type Department Care Team (Latest Contact Info) Description 01/12/2019 Anticoag Therapy [facility] Division of Cardiology [address] [place] [phone] Carly Moore R.N. Anticoagulated on warfarin; [...] disorders documented in this encounter Care Teams Rn Neonatal Relationship Specialty Start Date End Date Juan Rogers M.D. [facility] [address] [address] [place] [address] PCP - General 04/18/08 documented as of this encounter
[2025-06-14 17:33] LABS: INR 1.31 (0.9-1.1); Prothrombin Time 14.3 seconds (10.1-12.5)
== END 2025-06-14 23:59 | disposition home or self-care (01) ==
LOC: LAB 16:39
PROVIDERS: PCP Internal Medicine Adolescent Medicine; Visit Provider Internal Medicine
DX: Z79.01 Long term (current) use of anticoagulants (principal)
CPT/HCPCS: 36415; 85610

== ENCOUNTER 2025-06-21 16:33 | Outpatient (CLI) | payer BC, SELFPAY ==
--- OUTSIDE RECORDS SUMMARY | 2005-06-25 | XMS_ITS | Encounter Summary ---
Author Organization [facility] Address [address] [place] [address] Care Team Providers Care Field Property Loss Specialist Name Role Phone Unavailable Primary Care Provider Unavailabl e Encounter Details Date Type Department Care Team (Late st Contact Info) Description 06/25/2005 Hospital Encounter [facility] Division of Cardiology [address] [place] [phone] Social History Tobacco Use Types Packs/Day [...]
--- OUTSIDE RECORDS SUMMARY | 2006-03-31 | XMS_ITS | Encounter Summary ---
Author Organization [facility] Address [address] [place] [address] Care Team Providers Care Snow Blower Name Role Phone Unavailable Primary Care Provider Unavailabl e Encounter Details Date Type Department Care Team (Late st Contact Info) Description 03/31/2006 Hospital Encounter [facility] Division of Cardiology [address] [place] [phone] Social History Tobacco Use Types Packs/Day [...]
--- OUTSIDE RECORDS SUMMARY | 2006-09-15 01:00 | XMS_ITS | Encounter Summary ---
Author Organization [facility] Address [address] [place] [address] Care Team Providers Care Kindergartner Name Role Phone Unavailable Primary Care Provider Unavailabl e Encounter Details Date Type Department Care Team (Late st Contact Info) Description 09/15/2006 Hospital Encounter [facility] Division of Cardiology [address] [place] [phone] Social History Tobacco Use Types Packs/Day [...] this encounter Procedure Notes * Edt, Audit [place] - 01/28/2009 8:12 AM EDT documented in this encounter Plan of Treatment Not on file documented as of this encounter Visit Diagnoses Not on filedocumented in this encounter
--- OUTSIDE RECORDS SUMMARY | 2006-11-18 01:00 | XMS_ITS | Encounter Summary ---
Author Organization [facility] Address [address] [place] [address] Care Team Providers Care Pvc Loader Name Role Phone Unavailable Primary Care Provider Unavailabl e Encounter Details Date Type Department Care Team (Late st Contact Info) Description 11/18/2006 Hospital Encounter [facility] Division of Cardiology [address] [place] [phone] Social History Tobacco Use Types Packs/Day [...]
--- OUTSIDE RECORDS SUMMARY | 2006-11-18 01:00 | XMS_ITS | Encounter Summary ---
Author Organization [facility] Address [address] [place] [address] Care Team Providers Care Industrial Arts Teacher Name Role Phone Unavailable Primary Care Provider Unavailabl e Encounter Details Date Type Department Care Team (Late st Contact Info) Description 11/18/2006 Hospital Encounter [facility] Department of Radiology [address] [place] [phone] Social History Tobacco Use Types Packs/Day [...] Notes * Consent Other - Edt, Audit [place] - 05/02/2008 11:16 AM EDT documented in this encounter Plan of Treatment Not on file documented as of this encounter Visit Diagnoses Not on filedocumented in this encounter
--- OUTSIDE RECORDS SUMMARY | 2006-11-19 01:00 | XMS_ITS | Encounter Summary ---
Author Organization [facility] Address [address] [place] [address] Care Team Providers Care Parts Delivery Driver Name Role Phone Unavailable Primary Care Provider Unavailabl e Encounter Details Date Type Department Care Team (Late st Contact Info) Description 11/19/2006 Hospital Encounter [facility] Division of Cardiology [address] [place] [phone] Social History Tobacco Use Types Packs/Day [...]
--- OUTSIDE RECORDS SUMMARY | 2007-03-16 | XMS_ITS | Encounter Summary ---
Author Organization [facility] Address [address] [place] [address] Care Team Providers Care Car Spotter Name Role Phone Unavailable Primary Care Provider Unavailabl e Encounter Details Date Type Department Care Team (Late st Contact Info) Description 03/16/[address] [facility] Division of Cardiology [address] [place] [phone] Social History Tobacco Use Types Packs/Day [...] Miscellaneous Notes * Orders - Edt, Audit [place] - 08/16/2011 5:45 PM EDT documented in this encounter Plan of Treatment Not on file documented as of this encounter Visit Diagnoses Not on filedocumented in this encounter
--- OUTSIDE RECORDS SUMMARY | 2025-06-21 16:35 | XMS_ITS | Clinical Summary ---
Author Organization [facility] Address [address] [place] [address] Care Team Providers Care Armature Repairer Name Role Phone Unavailable Primary Care [...]
--- OUTSIDE RECORDS SUMMARY | 2025-06-21 16:36 | XMS_ITS | Encounter Summary ---
Author Organization [facility] Address [address] [place] [address] Care Team Providers Care Mail Distribution Clerk Name Role Phone Juan Rogers M.D. Primary Care Provider +1 -[phone] Encounter Details Date Type Department Care Team (Late st Contact Info) Description 05/24/2025 Anticoag Therapy [facility] Division of Cardiology [address] [place] [phone] Carly Moore, RVladimirN. S/P aortic valve [...] Arnold Bryan Indication: On-X Aortic Valve Replacement Supervisor Case Loading: Dr. Marr Lab Location: [facility] Current Dose: 7.5 mg PO [...] discussed and reviewed the nurse's note for Arnlod Bryan and agree with the assessment and [...] anticoagulants documented in this encounter Care Teams Mail Distribution Clerk Relationship Specialty Start Date End Date Juan Rogers M.D. [address] [address] [address] [place] [address] PCP - General 04/18/08 documented as of this encounter
--- OUTSIDE RECORDS SUMMARY | 2025-06-21 16:36 | XMS_ITS | Encounter Summary ---
Author Organization [facility] Address [address] [place] [address] Care Team Providers Care Forming Press Operator Name Role Phone Juan Rogers M.D. Primary Care Provider +1 -[phone] Encounter Details Date Type Department Care Team (Late st Contact Info) Description 07/19/2019 Anticoag Therapy [facility] Division of Cardiology [address] [place] [phone] Roselia Poe, Pharm.D. Cardiology [address] [place] [phone] Social History Tobacco Use Types Packs/Day [...] on filedocumented in this encounter Care Teams Forming Press Operator Relationship Specialty Start Date End Date Juan [place] M.D. [address] [address] [address] [place] [address] PCP - General 04/18/08 documented as of this encounter
--- OUTSIDE RECORDS SUMMARY | 2025-06-21 16:36 | XMS_ITS | Encounter Summary ---
Author Organization [facility] Address [address] [place] [address] Care Team Providers Care Academic Affairs Specialist Name Role Phone Juan Rogers M.D. Primary Care Provider +1 -[phone] Encounter Details Date Type Department Care Team (Late st Contact Info) Description 05/16/2025 Anticoag Therapy [facility] Division of Cardiology [address] [place] [phone] Khushi Johnson, R.N. S/P aortic valve [...] Arnold Bryan Indication: On-X Aortic Valve Replacement Sap Portal Architect: Dr. Marr Lab Location: [facility] Current Dose: 7.5 mg PO [...] Warfarin Therapy) (05/15/2025) INR EXT 2.91 Blood [facility] Provider HEMATOLOGY ORDERABLES Final Result documented in this encounter Visit Diagnoses Diagnosis S/P aortic valve replacement- Primary Heart valve replaced by other means Anticoagulated on warfarin Encounter for long-term (current) use of anticoagulants documented in this encounter Care Teams Academic Affairs Specialist Relationship Specialty Start Date End Date Juan [place] M.D. [address] [place] [address] [address] [place] [address] PCP - General 04/18/08 documented as of this encounter
--- OUTSIDE RECORDS SUMMARY | 2025-06-21 16:36 | XMS_ITS | Encounter Summary ---
Author Organization [facility] Address [address] [place] [address] Care Team Providers Care Asbestos Surveyor Name Role Phone Juan [place] M.D. Primary Care Provider +1 -[phone] Encounter Details Date Type Department Care Team (Latest Contact Info) Description 01/12/2019 Anticoag Therapy [facility] Division of Cardiology [address] [place] [phone] Carly Moore R.N. Anticoagulated on warfarin; [...] disorders documented in this encounter Care Teams Asbestos Surveyor Relationship Specialty Start Date End Date Juan [place] M.D. [facility] [address] [address] [place] [address] PCP - General 04/18/08 documented as of this encounter
--- OUTSIDE RECORDS SUMMARY | 2025-06-21 16:36 | XMS_ITS | Encounter Summary ---
Author Organization [facility] Address [address] [place] [address] Care Team Providers Care Film Rental Clerk Name Role Phone Juan [place] M.D. Primary Care Provider +1 -[phone] Reason for Visit * Reason Comments Medication Refill Encounter Details Date Type Department Care Team (Late st Contact Info) Description 10/12/2016 Refill [facility] Division of Cardiology [address] [place] [phone] Timbo Last II, M.D. Cardiology [address] [place] [address] [address] [place] [address] Medication Refill Social History Tobacco [...] disorders documented in this encounter Care Teams Film Rental Clerk Relationship Specialty Start Date End Date Juan [place] M.D. [address] [facility] [address] [place] [id number] PCP - General 04/18/08 documented as of this encounter
--- OUTSIDE RECORDS SUMMARY | 2025-06-21 16:36 | XMS_ITS | Encounter Summary ---
Author Organization [facility] Address [address] [place] [address] Care Team Providers Care Rooms Director Name Role Phone Juan [place] M.D. Primary Care Provider +1 -[phone] Encounter Details Date Type Department Care Team (Late st Contact Info) Description 05/31/2025 Anticoag Therapy [facility] Division of Cardiology [address] [place] [phone] Carly Moore, RVladimirN. S/P aortic valve [...] Arnold Bryan Indication: On-X Aortic Valve Replacement Business Operations Coordinator: Dr. Marr Lab Location: [facility] Current Dose: 7.5 mg PO Tue/Makayla and [...] anticoagulants documented in this encounter Care Teams Rooms Director Relationship Specialty Start Date End Date Juan [place] M.D. [address] [place] [address] [address] [place] [address] PCP - General 04/18/08 documented as of this encounter
--- OUTSIDE RECORDS SUMMARY | 2025-06-21 16:36 | XMS_ITS | Clinical Summary ---
Author Organization [facility] Address [address] [place] [address] Care Team Providers Care Engineering Patternmaker Name Role Phone Juan [place] M.D. Primary Care Provider +1 -[phone] Source Comments [facility] is fully rolled out with thefollowing exceptions:General Clinical Research [facility] Allergies Active Allergy Reactions Criticality Noted [...] Encounters Date Type Department Care Team Description 06/15/2025 Anticoag Therapy [facility] Division of Cardiology [address] [place] [phone] Carly Moore, Prakash.N. S/P aortic valve replacement (Primary Dx); Anticoagulated on warfarin 05/31/2025 Anticoag Therapy [facility] Division of Cardiology [address] [place] [phone] Carly Moore, Prakash.N. S/P aortic valve replacement (Primary Dx); Anticoagulated on warfarin 05/24/2025 Anticoag Therapy [facility] Division of Cardiology [address] [place] [phone] Carly Moore, Prakash.N. S/P aortic valve replacement (Primary Dx); Anticoagulated on warfarin 05/16/2025 Anticoag Therapy [facility] Division of Cardiology [address] [place] [phone] Khushi Johnson S., R.N. S/P aortic valve replacement (Primary Dx); Anticoagulated on warfarin 04/18/2025 Anticoag Therapy [facility] Division of Cardiology [address] [place] [phone] Khushi Johnson S., R.N. S/P aortic valve replacement (Primary Dx); Anticoagulated on warfarin 04/09/2025 Orders Only [facility] Division of Cardiology [address] [place] [phone] Carly Moore, R.Eyal. Anticoagulated on warfarin (Primary Dx) 03/31/2025 Clinical Note [facility] Division of Cardiology [address] [place] [phone] Leilani Crain, Pharm.D. 03/30/2025 Anticoag Therapy [facility] Division of Cardiology [address] [place] [phone] Carly Moore, RVladimirN. S/P aortic valve replacement (Primary Dx); Anticoagulated on warfarin 03/21/2025 Anticoag Therapy [facility] Division of Cardiology [address] [place] [phone] Khushi Johnson, RVladimirN. S/P aortic valve replacement (Primary Dx); [...] of 3 - 19+ 3-dose series) 2017 HPV IMMUNIZATION (1 - 3-dose SCDM series) 2025 COVID-19 Vaccine (1 - 2023-2 5 season) 2025 AMB SEASONAL FLU VACCINE (#1) 08/18/2025 [...] this topic Medical Devices Implanted Type Area Metaphysics Teacher Device Identifier Shelf Expiration Date Model / Serial / Lot Valve 21mm Ao W/Ext Hldr Cmft-X - [id number] Implanted:Qt y: 1 on 06/06/2013 by Patrick Garza III, M.D. at [facility] Cardiovascular N/A: Heart 10/06/2017 / [id number] / N/A Clip Hemo Lg Cooper - [id number] Implanted:Qt y: 1 on 06/06/2013 at [facility] Cardiovascular [employer] [id number] / / Procedures Procedure Name Priority Date/Time Associated Diagnosis Comments PT & INR (PATIENT ON WARFARIN THERAPY) Routine 06/14/2025 PT & INR (PATIENT ON WARFARIN THERAPY) Routine 05/29/2025 PT & INR (PATIENT ON WARFARIN THERAPY) Routine 05/23/2025 PT & INR (PATIENT ON WARFARIN THERAPY) Routine 05/15/2025 PT & INR (PATIENT ON WARFARIN THERAPY) Routine 04/16/2025 PT & INR (PATIENT ON WARFARIN THERAPY) Routine 03/30/2025 from Last 3 Months Results * PT & INR (Patient on Warfarin Therapy) (06/14/2025) Only the most recent of6 resultswithin the time period is included. INR EXT 1.31 Blood 06/14/2025 us Historical Provider HEMATOLOGY ORDERABLES Final Result from Last 3 Months Insurance [employer]-TRADITIONAL [place] [employer] [id number] Care Teams Engineering Patternmaker Relationship Specialty Start Date End Date Juan [place] M.D. [address] [address] [address] [place] [address] PCP - General 04/18/08
--- OUTSIDE RECORDS SUMMARY | 2025-06-21 16:36 | XMS_ITS | Encounter Summary ---
Author Organization [facility] Address [address] [place] [address] Care Team Providers Care Dray Truck Driver Name Role Phone Juan [place] M.D. Primary Care Provider +1 -[phone] Encounter Details Date Type Department Care Team (Late st Contact Info) Description 06/15/2025 Anticoag Therapy [facility] Division of Cardiology [address] [place] [phone] Carly Moore, RVladimirN. S/P aortic valve [...] Progress Notes * Roselia Poe, Pharm.D. - 06/15/2025 11:30 AM EDT Warfarin Management - Arnold Bryan Indication: On-X Aortic Valve Replacement Pharmacy Informatics Manager: Dr. Marr Lab Location: [facility] Current Dose: 7.5 mg PO Tue/Makayla and 10 mg PO AOD's Goal INR: 1.5 to 2.5 (goal changed 09/23/23) Previous INR: 2.44 (05/29/25) Current INR: 1.31 ) Assessment: No changes in diet or medications reported. No recent illness or signs of bleeding. Arnold reports that he thinks he missed his dose of warfarin on 06/11, so he took 10 mg of warfarin on 06/12. Confirmed current dose of warfarin. Plan: INR is below goal range. Per Roselia Poe PharmD, take 12.5 mg of warfarin today and resume current dose tomorrow. Repeat INR on 06/20. Plan sent to Arnold via text message. I have discussed and reviewed the nurse's note for Arnold Bryan and agree with the assessment and plan as documented. Rsoelia Poe, Pharm.D. documented in this encounter Plan of Treatment Not on file documented as of this encounter Procedures Procedure Name Priority Date/Time Associated Diagnosis Comments PT & INR (PATIENT ON WARFARIN THERAPY) Routine 06/14/2025 documented in this encounter Results * PT & INR (Patient on Warfarin Therapy) (06/14/2025) INR EXT 1.31 Blood 06/14/2025 [facility] Provider HEMATOLOGY ORDERABLES Final Result documented in this encounter Visit Diagnoses Diagnosis S/P aortic valve replacement- Primary Heart valve replaced by other means Anticoagulated on warfarin Encounter for long-term (current) use of anticoagulants documented in this encounter Care Teams Dray Truck Driver Relationship Specialty Start Date End Date Juan [place] M.D. [address] [address] [address] [place] [id number] PCP - General 04/18/08 documented as of this encounter
--- OUTSIDE RECORDS SUMMARY | 2025-06-21 16:36 | XMS_ITS | Encounter Summary ---
Author Organization [facility] Address [facility] [place] [address] Care Team Providers Care Box Builder Name Role Phone Juan [place] M.D. Primary Care Provider +1 -[phone] Encounter Details Date Type Department Care Team (Late st Contact Info) Description 12/10/2011 Abstract [facility] Division of Pediatric General and Thoracic Surgery [address] [place] [phone] Provider, Historical Social History Tobacco Use [...] on filedocumented in this encounter Care Teams Box Builder Relationship Specialty Start Date End Date Juan [place] M.D. [facility] [address] [place] [address] PCP - General 04/18/08 documented as of this encounter
[2025-06-21 17:42] LABS: INR 1.92 (0.9-1.1); Prothrombin Time 20.3 seconds (10.1-12.5)
== END 2025-06-21 23:59 | disposition home or self-care (01) ==
LOC: LAB 16:34
PROVIDERS: PCP Internal Medicine Adolescent Medicine; Visit Provider Internal Medicine
DX: Z79.01 Long term (current) use of anticoagulants (principal)
CPT/HCPCS: 36415; 85610

== ENCOUNTER 2025-07-12 15:38 | Outpatient (CLI) | payer BC, SELFPAY ==
[2025-07-12 17:00] LABS: INR 2.56 (0.9-1.1); Prothrombin Time 26.5 seconds (10.1-12.5)
== END 2025-07-12 23:59 | disposition home or self-care (01) ==
LOC: LAB 15:39
PROVIDERS: PCP Internal Medicine Adolescent Medicine; Visit Provider Internal Medicine
DX: Z79.01 Long term (current) use of anticoagulants (principal)
CPT/HCPCS: 36415; 85610

== ENCOUNTER 2025-08-03 13:50 | Outpatient (CLI) | payer BC, SELFPAY ==
--- OUTSIDE RECORDS SUMMARY | 2005-06-25 | XMS_ITS | Encounter Summary ---
Author Organization [facility] Address [address] [place] [address] Care Team Providers Care Scarfer Name Role Phone Unavailable Primary Care Provider Unavailabl e Encounter Details Date Type Department Care Team (Late st Contact Info) Description 06/25/2005 Hospital Encounter [facility] Division of Cardiology [address] [place] [phone] Social History Tobacco Use Types Packs/Day [...] Info) Description 11/12/2025 9:00 AM EST Appointment [facility] Division of Cardiology [address] [place] [phone] Ulises Marr MD/MPH Cardiology [facility] Roni Christine [address] [place] [phone] 11/12/2025 10:10 AM EST Cardiology Testing [facility] Division of Cardiology [address] [place] [phone] Ulises Marr MD/MPH Cardiology [facility] Roni Christine [address] [place] [address] Discharge Disposition: Home or Self Care 11/12/2025 10:45 AM EST Appointment [facility] Division of Cardiology [address] [place] [phone] Ulises Marr MD/MPH Cardiology [facility] Roni Christine [address] [place] [address] Discharge Disposition: Home or Self Care documented as of this encounter Visit Diagnoses Not on filedocumented in this encounter
--- OUTSIDE RECORDS SUMMARY | 2006-03-31 | XMS_ITS | Encounter Summary ---
Author Organization [facility] Address [address] [place] [address] Care Team Providers Care Color Drum Worker Name Role Phone Unavailable Primary Care Provider Unavailabl e Encounter Details Date Type Department Care Team (Late st Contact Info) Description 03/31/2006 Hospital Encounter [facility] Division of Cardiology [address] [place] [phone] Social History Tobacco Use Types Packs/Day [...] Info) Description 11/12/2025 9:00 AM EST Appointment [facility] Division of Cardiology [address] [place] [phone] Ulises Marr MD/MPH Cardiology [facility] Roni [address] [place] [address] 11/12/2025 10:10 AM EST Cardiology Testing [facility] Division of Cardiology [address] [place] [phone] Ulises Marr MD/MPH Cardiology [facility] Roni Christine [address] [place] [address] Discharge Disposition: Home or Self Care 11/12/2025 10:45 AM EST Appointment [facility] Division of Cardiology [address] [place] [phone] Ulises Marr MD/MPH Cardiology [facility] Roni Christine [address] [place] [address] Discharge Disposition: Home or Self Care documented as of this encounter Visit Diagnoses Not on filedocumented in this encounter
--- OUTSIDE RECORDS SUMMARY | 2006-09-15 01:00 | XMS_ITS | Encounter Summary ---
Author Organization [facility] Address [address] [place] [address] Care Team Providers Care Quality Control Auditor Name Role Phone Unavailable Primary Care Provider Unavailabl e Encounter Details Date Type Department Care Team (Late st Contact Info) Description 09/15/2006 Hospital Encounter [facility] Division of Cardiology [address] [place] [phone] Social History Tobacco Use Types Packs/Day [...] this encounter Procedure Notes * Edt, Audit [place] - 01/28/2009 8:12 AM EDT documented in this encounter Plan of Treatment Upcoming Encounters Date Type Department Care Team (Late st Contact Info) Description 11/12/2025 9:00 AM EST Appointment [facility] Division of Cardiology [address] [place] [phone] Ulises Marr MD/MPH Cardiology [facility] Roni Christine [address] [place] [phone] 11/12/2025 10:10 AM EST Cardiology Testing [facility] Division of Cardiology [address] [place] [phone] Ulises Marr MD/MPH [facility] [address] [place] [phone] Discharge Disposition: Home or Self Care 11/12/2025 10:45 AM EST Appointment [facility] Division of Cardiology [address] [place] [phone] Ulises Marr MD/MPH [facility] [address] [place] [phone] Discharge Disposition: Home or Self Care documented as of this encounter Visit Diagnoses Not on filedocumented in this encounter
--- OUTSIDE RECORDS SUMMARY | 2006-11-18 01:00 | XMS_ITS | Encounter Summary ---
Author Organization [facility] Address [address] [place] [address] Care Team Providers Care Nutrition Services Manager Name Role Phone Unavailable Primary Care Provider Unavailabl e Encounter Details Date Type Department Care Team (Late st Contact Info) Description 11/18/2006 Hospital Encounter [facility] Division of Cardiology [address] [place] [phone] Social History Tobacco Use Types Packs/Day [...] [facility] Division of Cardiology [address] [place] [phone] Ulises Marr MD/MPH Cardiology [facility] Roni Christine [address] [place] [address] 11/12/2025 10:10 AM EST Cardiology Testing [facility] Division of Cardiology [address] [place] [phone] Ulises Marr MD/MPH Cardiology [facility] Roni Christine [address] [place] [address] Discharge Disposition: Home or Self Care 11/12/2025 10:45 AM EST Appointment [facility] Division of Cardiology [address] [place] [phone] Ulises Marr MD/MPH Cardiology [facility] Roni Christine [address] [place] [address] Discharge Disposition: Home or Self Care documented as of this encounter Visit Diagnoses Not on filedocumented in this encounter
--- OUTSIDE RECORDS SUMMARY | 2006-11-18 01:00 | XMS_ITS | Encounter Summary ---
Author Organization [facility] Address [address] [place] [address] Care Team Providers Care Hitcher Name Role Phone Unavailable Primary Care Provider Unavailabl e Encounter Details Date Type Department Care Team (Late st Contact Info) Description 11/18/[address] En[address] [facility] Department of Radiology [address] [place] [phone] Social History Tobacco Use Types Packs/Day [...] Notes * Consent Other - Edt, Audit [place] - 05/02/2008 11:16 AM EDT documented in this encounter Plan of Treatment Upcoming Encounters Date Type Department Care Team (Late st Contact Info) Description 11/12/2025 9:00 AM EST Appointment [facility] Division of Cardiology [address] [place] [phone] Ulises Marr MD/MPH Cardiology NATALIE Alexandra [address] [place] [phone] 11/12/2025 10:10 AM EST Cardiology Testing [facility] Division of Cardiology [address] [place] [phone] Ulises Marr MD/MPH Cardiology [address] [place] [address] Discharge Disposition: Home or Self Care 11/12/2025 10:45 AM EST Appointment [facility] Division of Cardiology [address] [place] [phone] Ulises Marr MD/MPH Cardiology [address] [place] [phone] Discharge Disposition: Home or Self Care documented as of this encounter Visit Diagnoses Not on filedocumented in this encounter
--- OUTSIDE RECORDS SUMMARY | 2006-11-19 01:00 | XMS_ITS | Encounter Summary ---
Author Organization [facility] Address [address] [place] [address] Care Team Providers Care Aircraft Mechanic Structures Name Role Phone Unavailable Primary Care Provider Unavailabl e Encounter Details Date Type Department Care Team (Late st Contact Info) Description 11/19/2006 Hospital Encounter [facility] Division of Cardiology [address] [place] [phone] Social History Tobacco Use Types Packs/Day [...] Info) Description 11/12/2025 9:00 AM EST Appointment [facility] Division of Cardiology [address] [place] [phone] Ulises Marr MD/MPH Cardiology [facility], [facility] [address] [place] [address] 11/12/2025 10:10 AM EST Cardiology Testing [facility] Division of Cardiology [address] [place] [phone] Ulises Marr MD/MPH Cardiology [facility] [address] [place] [phone] Discharge Disposition: Home or Self Care 11/12/2025 10:45 AM EST Appointment [facility] Division of Cardiology [address] [place] [phone] Ulises Marr MD/MPH Cardiology [facility] [address] [place] [phone] Discharge Disposition: Home or Self Care documented as of this encounter Visit Diagnoses Not on filedocumented in this encounter
--- OUTSIDE RECORDS SUMMARY | 2007-03-16 | XMS_ITS | Encounter Summary ---
Author Organization [facility] Address [address] [place] [address] Care Team Providers Care Dish Up Person Name Role Phone Unavailable Primary Care Provider Unavailabl e Encounter Details Date Type Department Care Team (Late st Contact Info) Description 03/16/2007 Hospital Encounter [facility] Division of Cardiology [address] [place] [phone] Social History Tobacco Use Types Packs/Day [...] Miscellaneous Notes * Orders - Edt, Audit [place] - 08/16/2011 5:45 PM EDT documented in this encounter Plan of Treatment Upcoming Encounters Date Type Department Care Team (Late st Contact Info) Description 11/12/2025 9:00 AM EST Appointment [facility] Division of Cardiology [address] [place] [phone] Ulises Marr MD/MPH Cardiology NATALIE Alex[address] [place] [phone] 11/12/2025 10:10 AM EST Cardiology Testing [facility] Division of Cardiology [address] [place] [phone] Ulises Marr MD/MPH Cardiology NATALIE [address] [place] [phone] Discharge Disposition: Home or Self Care 11/12/2025 10:45 AM EST Appointment [facility] Division of Cardiology [address] [place] [phone] Ulises Marr MD/MPH Cardiology [address] [place] [phone] Discharge Disposition: Home or Self Care documented as of this encounter Visit Diagnoses Not on filedocumented in this encounter
--- OUTSIDE RECORDS SUMMARY | 2025-08-03 13:52 | XMS_ITS | Encounter Summary ---
Author Organization [facility] Address [address] [place] [address] Care Team Providers Care Application Security Architect Name Role Phone Juan [place] MD Primary Care Provider Encounter Details Date Type Department Care Team (Late st Contact Info) Description 12/10/[address] [facility] Division of Pediatric General and Thoracic Surgery [address] [place] [phone] Provider, Historical Social History Tobacco Use Types Packs/Day Years Used Date Smoking Tobacco: Never Assessed Intimate Partner Violence Answer Date R ecorded [...] 9:00 AM EST Appointment [facility] Division of Cardiology [address] [place] [phone] Ulises Marr MD/MPH Cardiology [facility] [address] [place] [phone] 11/12/2025 10:10 AM EST Cardiology Testing [facility] Division of Cardiology [address] [place] [phone] Ulises Marr MD/MPH Cardiology [facility] [address] [place] [address] Discharge Disposition: Home or Self Care 11/12/2025 10:45 AM EST Appointment [facility] Division of Cardiology [address] [place] [phone] Ulises Marr MD/MPH Cardiology [facility] [address] [place] [address] Discharge Disposition: Home or Self Care documented as of this encounter Visit Diagnoses Not on filedocumented in this encounter Care Teams Application Security Architect Relationship Specialty Start Date End Date Juan [place] MD [address] [place] [address] [address] [place] [address] PCP - General 04/18/08 documented as of this encounter
--- OUTSIDE RECORDS SUMMARY | 2025-08-03 13:52 | XMS_ITS | Encounter Summary ---
Author Organization [facility] Address [address] [place] [address] Care Team Providers Care Analysis Analyst Name Role Phone Juan [place] MD Primary Care Provider +1 [phone] Encounter Details Date Type Department Care Team (Late st Contact Info) Description 07/19/2019 Anticoag Therapy [facility] Division of Cardiology [address] [place] [phone] Roselia Poe, PHARMD Cardiology [address] [place] [phone] Social History Tobacco Use Types Packs/Day [...] this encounter Progress Notes * Roselia Adkins, PHARMD - 07/19/2019 1:19 PM EDT Spoke with [...] 11/12/2025 9:00 AM EST Appointment [facility] Division of Cardiology [address] [place] [phone] Ulises Marr MD/MPH Cardiology [address] [place] [phone] 11/12/2025 10:10 AM EST Cardiology Testing [facility] Division of Cardiology [address] [place] [phone] Ulises Marr MD/MPH Cardiology [address] [place] [phone] Discharge Disposition: Home or Self Care 11/12/2025 10:45 AM EST Appointment [facility] Division of Cardiology [address] [place] [phone] Ulises Marr MD/MPH Cardiology [address] [place] [phone] Discharge Disposition: Home or Self Care documented as of this encounter Visit Diagnoses Not on filedocumented in this encounter Care Teams Analysis Analyst Relationship Specialty Start Date End Date Juan [place] MD [facility] [address] [place] [address] PCP - General 04/18/08 documented as of this encounter
--- OUTSIDE RECORDS SUMMARY | 2025-08-03 13:52 | XMS_ITS | Encounter Summary ---
Author Organization [facility] Address [address] [place] [address] Care Team Providers Care Manager Physical Name Role Phone Juan [place] MD Primary Care Provider Reason for Visit * Reason Comments Medication Refill Encounter Details Date Type Department Care Team (Late st Contact Info) Description 10/12/2016 Refill [facility] Division of Cardiology [address] [place] [phone] Timbo Last II, MD Cardiology [address] [place] [phone] Medication Refill Social History Tobacco Use [...] Description 11/12/2025 9:[address] [facility] Division of Cardiology [address] [place] [phone] Ulises Marr MD/MPH Cardiology [address] [place] [address] 11/12/2025 10:10 AM EST Cardiology Testing [facility] Division of Cardiology [address] [place] [address] Ulises Marr MD/MPH Cardiology [facility] [place] [address] Discharge Disposition: Home or Self Care 11/12/2025 10:[address] [facility] Division of Cardiology [address] [place] [address] Ulises Marr MD/MPH Cardiology [facility] [address], [address] [place] [address] Discharge Disposition: Home or Self Care documented as of this encounter Visit Diagnoses Diagnosis Anticoagulated on warfarin Encounter for long-term (current) use of anticoagulants S/P aortic valve replacement Heart valve replaced by other means Aortic valve disorder Aortic valve disorders documented in this encounter Care Teams Manager Physical Relationship Specialty Start Date End Date Juan [place] MD [address] [place] [address] [address] [place] [address] PCP - General 04/18/08 documented as of this encounter
--- OUTSIDE RECORDS SUMMARY | 2025-08-03 13:52 | XMS_ITS | Clinical Summary ---
Author Organization [facility] Address [address] [place] [address] Care Team Providers Care Cuff Setter Lockstitch Name Role Phone Unavailable Primary Care Provider [...]
--- OUTSIDE RECORDS SUMMARY | 2025-08-03 13:52 | XMS_ITS | Encounter Summary ---
Author Organization [facility] Address [address] [place] [address] Care Team Providers Care Ribbon Inker Name Role Phone Juan [place] MD Primary Care Provider +1 [phone] Encounter Details Date Type Department Care Team (Late st Contact Info) Description 06/25/2025 Anticoag Therapy [facility] Division of Cardiology [address] [place] [phone] Carly Moore RN S/P aortic valve replacement (Primary Dx); Anticoagulated [...] this encounter Progress Notes * Roselia Poe, PHARMD - 06/25/2025 3:42 PM EDT Warfarin Management - Arnold Bryan Indication: On-X Aortic Valve Replacement Rug Repairer: Dr. Marr Lab Location: [facility] Current Dose: 7.5 mg PO Tue/Makayla and 10 mg PO AOD's Goal INR: 1.5 to 2.5 (goal changed 09/23/23) Previous INR: 1.31 (06/14/25) Current INR: 1.92 (06/21/25) Assessment: No changes in diet or medications. No recent illness or signs of bleeding. No missed doses of warfarin. Confirmed current dose of warfarin. Plan: INR is within goal range. Per Roselia Poe PharmD, continue current dose of warfarin. Repeat INR on 07/12. Plan sent to Arnold via text message. I have discussed and reviewed the nurse's note for Arnold Bryan and agree with the assessment and plan as documented. Roselia Poe, Pharm.D. documented in this encounter Plan of Treatment Upcoming Encounters Date Type Department Care Team (Late st Contact Info) Description 11/12/2025 9:00 AM EST Appointment [facility] Division of Cardiology [address] [place] [phone] Ulises Marr MD/MPH Cardiology [address] [place] [address] 11/12/2025 10:10 AM EST Cardiology Testing [facility] Division of Cardiology [address] [place] [phone] Ulises Marr MD/MPH Cardiology [address] [place] [address] Discharge Disposition: Home or Self Care 11/12/2025 10:45 AM EST Appointment [facility] Division of Cardiology [address] [place] [phone] Ulises Marr MD/MPH Cardiology [address] [place] [phone] Discharge Disposition: Home or Self Care documented as of this encounter Procedures Procedure Name Priority Date/Time Associated Diagnosis Comments PT & INR (PATIENT ON WARFARIN THERAPY) Routine 06/21/2025 documented in this encounter Results * PT & INR (Patient on Warfarin Therapy) (06/21/2025) INR EXT 1.92 Blood 06/21/2025 us Historical Provider HEMATOLOGY ORDERABLES Final Result documented in this encounter Visit Diagnoses Diagnosis S/P aortic valve replacement- Primary Heart valve replaced by other means Anticoagulated on warfarin Encounter for long-term (current) use of anticoagulants documented in this encounter Care Teams Ribbon Inker Relationship Specialty Start Date End Date Juan [place] MD [address] [facility] [address] [place] [id number] PCP - General 04/18/08 documented as of this encounter
--- OUTSIDE RECORDS SUMMARY | 2025-08-03 13:53 | XMS_ITS | Encounter Summary ---
Author Organization [facility] Address [address] [place] [address] Care Team Providers Care Child Caregiver Name Role Phone Juan Rogers MD Primary Care Provider [phone] Encounter Details Date Type Department Care Team (Late st Contact Info) Description 07/13/2025 Anticoag Therapy [facility] Division of Cardiology [address] [place] [phone] Maureen Rodas, ANOOP S/P aortic valve replacement (Primary Dx); Anticoagulated [...] this encounter Progress Notes * Roselia Poe, MADAYD - 07/13/2025 12:17 PM EDT Warfarin Management - Arnold Bryan Indication: On-X Aortic Valve Replacement Post Acute Care Nurse: Dr. Marr Lab Location: [facility] Current Dose: 7.5 mg PO Tue/Makayla and 10 mg PO AOD's Goal INR: 1.5 to 2.5 (goal changed 09/23/23) Previous INR: 1.92 (06/21/25) Current INR: 2.56 (07/12/25) Assessment: No changes in diet or medications. No recent illness or signs of bleeding. No missed doses of warfarin. Confirmed current dose of warfarin. Plan: INR is within goal range. Per Roselia Poe PharmD, continue current dose and recheck in 3 weeks on 08/02. Plan sent to Arnold via text. I have discussed and reviewed the nurse's note for Arnold Bryan and agree with the assessment and plan as documented. Roselia Poe, Pharm.D. documented in this encounter Plan of Treatment Upcoming Encounters Date Type Department Care Team (Late st Contact Info) Description 11/12/2025 9:00 AM EST Appointment [facility] Division of Cardiology [address] [place] [phone] Ulises Marr MD/MPH Cardiology [address] [place] [address] 11/12/2025 10:10 AM EST Cardiology Testing [facility] Division of Cardiology [address] [place] [phone] Ulises Marr MD/MPH Cardiology [address] [place] [address] Discharge Disposition: Home or Self Care 11/12/2025 10:45 AM EST Appointment [facility] Division of Cardiology [address] [place] [phone] Ulises Marr MD/MPH Cardiology [address] [place] [phone] Discharge Disposition: Home or Self Care documented as of this encounter Procedures Procedure Name Priority Date/Time Associated Diagnosis Comments PT & INR (PATIENT ON WARFARIN THERAPY) Routine 07/12/2025 documented in this encounter Results * PT & INR (Patient on Warfarin Therapy) (07/12/2025) INR EXT 2.56 Blood us Historical Provider HEMATOLOGY ORDERABLES Final Result documented in this encounter Visit Diagnoses Diagnosis S/P aortic valve replacement- Primary Heart valve replaced by other means Anticoagulated on warfarin Encounter for long-term (current) use of anticoagulants documented in this encounter Care Teams Child Caregiver Relationship Specialty Start Date End Date Juan Rogers MD [address] [address] [address] [place] [address] PCP - General 04/18/08 documented as of this encounter
--- OUTSIDE RECORDS SUMMARY | 2025-08-03 13:53 | XMS_ITS | Encounter Summary ---
Author Organization [facility] Address [address] [place] [address] Care Team Providers Care Chronic Care Nurse Name Role Phone Juan oRgers MD Primary Care Provider [phone] Encounter Details Date Type Department Care Team (Latest Contact Info) Description 01/12/2019 Anticoag Therapy [facility] Division of Cardiology [address] [place] [phone] Carly Moore RN Anticoagulated on warfarin; S/P aortic valve replacement; [...] Description 11/12/2025 9:00 AM EST Appointment [facility] Division of Cardiology [address] [place] [address] Ulises Marr MD/MPH Cardiology [address] [place] [address] [address] [place] [phone] 11/12/2025 10:10 AM EST Cardiology Testing [facility] Division of Cardiology [address] [place] [address] Ulises Marr MD/MPH Cardiology [address] [place] [address] Discharge Disposition: Home or Self Care 11/12/2025 10:45 AM EST Appointment [facility] Division of Cardiology [address] [place] [address] Ulises Marr MD/MPH Cardiology [address] [place] [address] Discharge Disposition: Home or Self Care documented as of this encounter Procedures Procedure Name Priority Date/Time Associated Diagnosis Comments PT & INR (PATIENT ON WARFARIN THERAPY) Routine 01/11/2019 documented in this encounter Results * PT & INR (Patient on Warfarin Therapy) (01/11/2019) INR EXT 3.08 Blood specimen (specimen) 01/11/2019 Historical Provider HEMATOLOGY ORDERABLES Final Result documented in this encounter Visit Diagnoses Diagnosis Anticoagulated on warfarin Encounter for long-term (current) use of anticoagulants S/P aortic valve replacement Heart valve replaced by other means Aortic valve disorder Aortic valve disorders documented in this encounter Care Teams Chronic Care Nurse Relationship Specialty Start Date End Date Juan Rogers MD [address] [place] [address] [address] [place] [address] PCP - General 04/18/08 documented as of this encounter
--- OUTSIDE RECORDS SUMMARY | 2025-08-03 13:53 | XMS_ITS | Encounter Summary ---
Author Organization [facility] Address [address] [place] [address] Care Team Providers Care Heavy Forging Machine Operator Name Role Phone Juan Rogers MD Primary Care Provider [phone] Encounter Details Date Type Department Care Team (Late st Contact Info) Description 06/15/2025 Anticoag Therapy [facility] Division of Cardiology [address] [place] [phone] Carly Moore RN S/P aortic valve [...] Progress Notes * Roselia Poe, PHARMD - 06/15/2025 11:30 AM EDT Warfarin Management - Arnold Bryan Indication: On-X Aortic Valve Replacement Physician Primary Care Sports Medicine: Dr. Marr Lab Location: [facility] Current Dose: 7.5 mg PO [...] assessment and plan as documented. Roselia Poe PharmVladimirD. documented in this encounter Plan of Treatment Upcoming Encounters Date Type Department Care Team (Late st Contact Info) Description 11/12/2025 9:00 AM EST Appointment [facility] Division of Cardiology [address] [place] [phone] Ulises Marr MD/MPH Cardiology [facility] [address] [place] [phone] 11/12/2025 10:10 AM EST Cardiology Testing [facility] Division of Cardiology [address] [place] [phone] Ulises Marr MD[facility]MPH [facility] [address] [place] [phone] Discharge Disposition: Home or Self Care 11/12/2025 10:45 AM EST Appointment [facility] Division of Cardiology [address] [place] [phone] Ulises Marr MD/MPH Cardiology [facility] [address] [place] [phone] Discharge Disposition: Home or Self Care documented as of this encounter Procedures Procedure Name Priority Date/Time Associated Diagnosis Comments PT & INR (PATIENT ON WARFARIN THERAPY) Routine 06/14/2025 documented in this encounter Results * PT & INR (Patient on Warfarin Therapy) (06/14/2025) INR EXT 1.31 Blood 06/14/2025 us Historical Provider HEMATOLOGY ORDERABLES Final Result documented in this encounter Visit Diagnoses Diagnosis S/P aortic valve replacement- Primary Heart valve replaced by other means Anticoagulated on warfarin Encounter for long-term (current) use of anticoagulants documented in this encounter Care Teams Heavy Forging Machine Operator Relationship Specialty Start Date End Date Juan Rogers MD [address] [address] [address] [place] [address] PCP - General 04/18/08 documented as of this encounter
--- OUTSIDE RECORDS SUMMARY | 2025-08-03 13:53 | XMS_ITS | Patient Health Record ---
Author Organization [facility] Address [address] [place] [id number] Care Team Providers Care Wringer Operator Name Role Phone Freddy Reid Primary Care Provider Medications Medication SIG (Take, Route, Frequency, Duration) Notes Start Date End Date Status predniSONE 5 MG 1 tab(s) orally tid 05/21/2007 Active Childrens Chewable Multi Vits MULTIPLE VITAMINS 1 TAB(S) CHEWED ONCE A DAY *Please review and pick correct strength-formulation from Medispan options. If intended option is not shown, discontinue and re-order from Quick Search* Active Plan Of Treatment No Information Insurance Providers Payer Name Payer Address Payer Phone Subscriber Number Group Number Insured Name Patient Relationship to Insured Coverage Start Date Coverage End Date [employer] [address] [address] [place] [address] [id number] COTY VERAS Child - Insured has Financial Responsibility Medications Administered Medication Instructions Date of Administration Dosage Notes Bicillin LA 1,200,000 12/31/2005 0.5 mL Medical (General) History Medical History History ICD Code heart murmur Aortic Valve Stenosis Surgical History Surgery Date(Month/Year) Stent placed in heart for aortic valve s tenosis 11/2006 Hospitalization History Reason Date(Month/Year) none
--- OUTSIDE RECORDS SUMMARY | 2025-08-03 13:53 | XMS_ITS | Clinical Summary ---
Author Organization [facility] Address [address] [place] [address] Care Team Providers Care Printed Circuit Boards Laminator Name Role Phone Juan Rogers MD Primary Care Provider Source Comments [facility] is fully rolled out with thefollowing exceptions:General Clinical Research [facility] Allergies Active Allergy Reactions Criticality Noted Date [...] Encounters Date Type Department Care Team Description 07/27/2025 Telephone [facility] Division of Cardiology [address] [place] [phone] Ulises Marr MD/MPH Scheduling Appointment (Spoke withFran and Transferred call to complete scheduling request ) 07/13/2025 Anticoag Therapy [facility] Division of Cardiology [address] [place] [phone] Maureen Rodas RN S/P aortic valve replacement (Primary Dx); Anticoagulated on warfarin 06/25/2025 Anticoag Therapy [facility] Division of Cardiology [address] [place] [phone] Carly Moore RN S/P aortic valve replacement (Primary Dx); Anticoagulated on warfarin 06/15/2025 Anticoag Therapy [facility] Division of Cardiology [address] [place] [phone] Carly Moore RN S/P aortic valve replacement (Primary Dx); Anticoagulated on warfarin 05/31/2025 Anticoag Therapy [facility] Division of Cardiology [address] [place] [phone] Carly Moore RN S/P aortic valve replacement (Primary Dx); Anticoagulated on warfarin 05/24/2025 Anticoag Therapy [facility] Division of Cardiology [address] [place] [phone] Carly Moore RN S/P aortic valve replacement (Primary Dx); Anticoagulated on warfarin 05/16/2025 Anticoag Therapy [facility] Division of Cardiology [address] [place] [phone] Khushi Johnson RN S/P aortic valve replacement (Primary Dx); [...] 08/31/2024 12:31 PM EST Plan of Treatment Upcoming Encounters Date Type Department Care Team (Late st Contact Info) Description 11/12/2025 9:00 AM EST Appointment [facility] Division of Cardiology [address] [place] [phone] Ulises Marr MD/MPH Cardiology [address] [place] [phone] 11/12/2025 10:10 AM EST Cardiology Testing [facility] Division of Cardiology [address] [place] [phone] Ulises Marr MD/MPH Cardiology [address] [place] [phone] Discharge Disposition: Home or Self Care 11/12/2025 10:45 AM EST Appointment [facility] Division of Cardiology [address] [place] [address] Ulises Marr MD/MPH Cardiology [address] [place] [phone] Discharge Disposition: Home or Self Care Health Maintenance Due Date Last Done Comments MMR IMMUNIZATION (1 of 1 - Standard series) 1999 DTAP/Tdap/Td IMMUNIZATION (1 - Tdap) 2005 VARICELLA IMMUNIZATION (1 of 2 - 13+ 2-dose series) 2011 HEPATITIS B IMMUNIZATION (1 of 3 - 19+ 3-dose series) 2017 HPV IMMUNIZATION (1 - 3-dose SCDM series) 2025 AMB SEASONAL FLU VACCINE (#1) 06/18/2025 07/20/2011 COVID-19 Vaccine (1 - 2023-2 5 season) 2025 HIB IMMUNIZATION Aged Out No longer e [...] this topic Medical Devices Implanted Type Area Mother'S Helper Device Identifier Shelf Expiration Date Model / Serial / Lot Valve 21mm Ao W/Ext Hldr Cmft-X - [id number] Implanted:Qt y: 1 on 06/06/2013 by Patrick Garza III, MD at [facility] Cardiovascular N/A: Heart 10/06/2017 / [id number] / N/A Clip Hemo Lg [place] - [id number] Implanted:Qt y: 1 on 06/06/2013 at [facility] Cardiovascular Studio Bloomed [id number] / / Procedures Procedure Name Priority Date/Time Associated Diagnosis Comments PT & INR (PATIENT ON WARFARIN THERAPY) Routine 07/12/2025 PT & INR (PATIENT ON WARFARIN THERAPY) Routine 06/21/2025 PT & INR (PATIENT ON WARFARIN THERAPY) Routine 06/14/2025 PT & INR (PATIENT ON WARFARIN THERAPY) Routine 05/29/2025 PT & INR (PATIENT ON WARFARIN THERAPY) Routine 05/23/2025 PT & INR (PATIENT ON WARFARIN THERAPY) Routine 05/15/2025 from Last 3 Months Results * PT & INR (Patient on Warfarin Therapy) (07/12/2025) Only the most recent of6 resultswithin the time period is included. INR EXT 2.56 Blood Historical Provider HEMATOLOGY ORDERABLES Final Result from Last 3 Months Insurance [employer] JANE NON-TRADITIONAL W [place] [id number] Care Teams Printed Circuit Boards Laminator Relationship Specialty Start Date End Date Juan Rogers MD [address] [address] [address] [place] [address] [facility] - General 04/18/08
--- OUTSIDE RECORDS SUMMARY | 2025-08-03 13:53 | XMS_ITS | Encounter Summary ---
Author Organization [facility] Address [address] [place] [address] Care Team Providers Care Termite Exterminator Helper Name Role Phone Juan Rogers MD Primary Care Provider [phone] Reason for Visit * Reason Onset Date Comments Scheduling Appointment 07/27/2025 Spoke anny Wilson and Transferred call to complete scheduling request Encounter Details Date Type Department Care Team (Late st Contact Info) Description 07/27/[address] [facility] Division of Cardiology [address] [place] [phone] Ulises Marr MD/MPH Cardiology [address] [place] [phone] Scheduling Appointment (Spoke withJaciel and Transferred call to complete scheduling request ) Social History Tobacco Use Types Packs/Day Years [...] as of this encounter Miscellaneous Notes * Telephone Encounter - Candace Guido - 07/27/2025 12:00 PM EDT Reached out to Arnold Bryan to get scheduled with Tejinder as patient is due for follow up. Last visit was with Tejinder on 09/01/2024. Spoke with patient requesting follow-up visit be scheduled with Ulises Marr MD . Informed patient that follow-up visit with shortage worker is required to remain enrolled in the [place] [facility]tico[facility]. Call was transferred to scheduling ( Jaciel) to schedule appointment with testing Candace Guido documented in this encounter Plan of Treatment Upcoming Encounters Date Type Department Care Team (Late st Contact Info) Description 11/12/2025 9:00 AM EST Appointment [facility] Division of Cardiology [address] [place] [address] Ulises Marr MD/MPH Cardiology [facility] [address] [place] [phone] 11/12/2025 10:10 AM EST Cardiology Testing [facility] Division of Cardiology [address] [place] [address] Ulises Marr MD/MPH Cardiology [address] [place], [place] [address] [place] [address] Discharge Disposition: Home or Self Care 11/12/2025 10:45 AM EST Appointment [facility] Division of Cardiology [address] [place] [address] Ulises Marr MD/MPH Cardiology [facility] [address] [place] [address] Discharge Disposition: Home or Self Care documented as of this encounter Visit Diagnoses Not on filedocumented in this encounter Care Teams Termite Exterminator Helper Relationship Specialty Start Date End Date Juan Rogers MD [address] [place] [address] [address] [place] [address] PCP - General 04/18/08 documented as of this encounter
[2025-08-03 14:25] LABS: INR 1.30 (0.9-1.1); Prothrombin Time 14.2 seconds (10.1-12.5)
== END 2025-08-03 23:59 | disposition home or self-care (01) ==
LOC: LAB 13:51
PROVIDERS: PCP Internal Medicine Adolescent Medicine; Visit Provider Internal Medicine
DX: Z79.01 Long term (current) use of anticoagulants (principal)
CPT/HCPCS: 36415; 85610

== ENCOUNTER 2025-08-08 20:05 | Outpatient (CLI) | payer BC, SELFPAY ==
--- OUTSIDE RECORDS SUMMARY | 2005-06-25 | XMS_ITS | Encounter Summary ---
Author Organization [facility] Address [address] [place] [address] Care Team Providers Care Telecom Specialist Name Role Phone Unavailable Primary Care Provider Unavailabl e Encounter Details Date Type Department Care Team (Late st Contact Info) Description 06/25/2005 Hospital Encounter [facility] Division of Cardiology [address] [place] [phone] Social History Tobacco Use Types Packs/Day [...] 11/12/2025 9:00 AM EST Appointment [facility] Division of Cardiology [address] [place] [phone] Ulises Marr MD/MPH Cardiology [facility] Roni Christine [address] [place] [phone] 11/12/2025 10:10 AM EST Cardiology Testing [facility] Division of Cardiology [address] [place] [phone] Ulises Marr MD/MPH Cardiology [facility] Roni Christnie [address] [place] [address] Discharge Disposition: Home or Self Care 11/12/2025 10:45 AM EST Appointment [facility] Division of Cardiology [address] [place] [phone] Ulises Marr MD/MPH Cardiology [facility] Roni Christine [address] [place] [phone] Discharge Disposition: Home or Self Care documented as of this encounter Visit Diagnoses Not on filedocumented in this encounter
--- OUTSIDE RECORDS SUMMARY | 2006-03-31 | XMS_ITS | Encounter Summary ---
Author Organization [facility] Address [address] [place] [address] Care Team Providers Care Senior Piping Designer Name Role Phone Unavailable Primary Care Provider Unavailabl e Encounter Details Date Type Department Care Team (Late st Contact Info) Description 03/31/2006 Hospital Encounter [facility] Division of Cardiology [address] [place] [phone] Social History Tobacco Use Types Packs/Day [...] Description 11/12/2025 9:00 AM EST Appointment [facility] Division of Cardiology [address] [place] [phone] Ulises Marr MD/MPH Cardiology [facility] Roni Christine [address] [place] [address] 11/12/2025 10:10 AM EST Cardiology Testing [facility] Division of Cardiology [address] [place] [phone] Ulises Marr MD/MPH Cardiology [facility] Roni Christine [address] [place] [address] Discharge Disposition: Home or Self Care 11/12/2025 10:45 AM EST Appointment [facility] Division of Cardiology [address] [place] [phone] Ulises Marr MD/MPH Cardiology [facility] Roni Christine [address] [place] [phone] Discharge Disposition: Home or Self Care documented as of this encounter Visit Diagnoses Not on filedocumented in this encounter
--- OUTSIDE RECORDS SUMMARY | 2006-09-15 01:00 | XMS_ITS | Encounter Summary ---
Author Organization [facility] Address [address] [place] [address] Care Team Providers Care Stain Sprayer Name Role Phone Unavailable Primary Care Provider Unavailabl e Encounter Details Date Type Department Care Team (Late st Contact Info) Description 09/15/2006 Hospital Encounter [facility] Division of Cardiology [address] [place] [phone] Social History Tobacco Use Types Packs/Day [...] this encounter Procedure Notes * Edt, Audit [place] - 01/28/2009 8:12 AM EDT documented in this encounter Plan of Treatment Upcoming Encounters Date Type Department Care Team (Late st Contact Info) Description 11/12/2025 9:00 AM EST Appointment [facility] Division of Cardiology [address] [place] [phone] Ulises Marr MD/MPH Cardiology [facility] Roni Christine [address] [place] [address] 11/12/2025 10:10 AM EST Cardiology Testing [facility] Division of Cardiology [address] [place] [phone] Ulises Marr MD/MPH [facility] [address] [place] [address] Discharge Disposition: Home or Self Care 11/12/2025 10:45 AM EST Appointment [facility] Division of Cardiology [address] [place] [phone] Ulises Marr MD/MPH [facility] [address] [place] [phone] Discharge Disposition: Home or Self Care documented as of this encounter Visit Diagnoses Not on filedocumented in this encounter
--- OUTSIDE RECORDS SUMMARY | 2006-11-18 01:00 | XMS_ITS | Encounter Summary ---
Author Organization [facility] Address [address] [place] [address] Care Team Providers Care Knife Setter Grinder Machine Name Role Phone Unavailable Primary Care Provider Unavailabl e Encounter Details Date Type Department Care Team (Late st Contact Info) Description 11/18/2006 Hospital Encounter [facility] Division of Cardiology [address] [place] [phone] Social History Tobacco Use Types Packs/Day [...] [facility] Division of Cardiology [address] [place] [phone] Ulises Marr MD/MPH Cardiology [facility] [address]oni [address] [place] [address] 11/12/2025 10:10 AM EST Cardiology Testing [facility] Division of Cardiology [address] [place] [phone] Ulises Marr MD/MPH Cardiology [facility] [address]oni Christine [address] [place] [address] Discharge Disposition: Home or Self Care 11/12/2025 10:45 AM EST Appointment [facility] Division of Cardiology [address] [place] [phone] Ulises Marr MD/MPH Cardiology [facility] [address]oni Christine [address] [place] [address] Discharge Disposition: Home or Self Care documented as of this encounter Visit Diagnoses Not on filedocumented in this encounter
--- OUTSIDE RECORDS SUMMARY | 2006-11-18 01:00 | XMS_ITS | Encounter Summary ---
Author Organization [facility] Address [address] [place] [address] Care Team Providers Care Software Clerk Name Role Phone Unavailable Primary Care Provider Unavailabl e Encounter Details Date Type Department Care Team (Late st Contact Info) Description 11/18/[address] [facility] Department of Radiology [address] [place] [phone] Social History Tobacco Use Types Packs/Day [...] Notes * Consent Other - Edt, Audit [place] - 05/02/2008 11:16 AM EDT documented in this encounter Plan of Treatment Upcoming Encounters Date Type Department Care Team (Late st Contact Info) Description 11/12/2025 9:00 AM EST Appointment [facility] Division of Cardiology [address] [place] [phone] Ulises Marr MD/MPH Cardiology NATALIE Alexandra [address] [place] [phone] 11/12/2025 10:10 AM EST Cardiology Testing [facility] Division of Cardiology [address] [place] [phone] Ulises Marr MD/MPH Cardiology [address] [place] [address] Discharge Disposition: Home or Self Care 11/12/2025 10:45 AM EST Appointment [facility] Division of Cardiology [address] [place] [phone] Ulises Marr MD/MPH Cardiology [address] [place] [phone] Discharge Disposition: Home or Self Care documented as of this encounter Visit Diagnoses Not on filedocumented in this encounter
--- OUTSIDE RECORDS SUMMARY | 2006-11-19 01:00 | XMS_ITS | Encounter Summary ---
Author Organization [facility] Address [address] [place] [address] Care Team Providers Care Teletypewriter Operator Name Role Phone Unavailable Primary Care Provider Unavailabl e Encounter Details Date Type Department Care Team (Late st Contact Info) Description 11/19/[address] [facility] Division of Cardiology [address] [place] [phone] Social History Tobacco Use Types Packs/Day [...] Info) Description 11/12/2025 9:00 AM EST Appointment [facility] Division of Cardiology [address] [place] [phone] Ulises Marr MD/MPH Cardiology [facility] [address] [place] [phone] 11/12/2025 10:10 AM EST Cardiology Testing [facility] Division of Cardiology [address] [place] [phone] Ulises Marr MD/MPH Cardiology [facility] [address] [place] [phone] Discharge Disposition: Home or Self Care 11/12/2025 10:45 AM EST Appointment [facility] Division of Cardiology [address] [place] [phone] Ulises Marr MD/MPH Cardiology [facility] [address] [place] [phone] Discharge Disposition: Home or Self Care documented as of this encounter Visit Diagnoses Not on filedocumented in this encounter
--- OUTSIDE RECORDS SUMMARY | 2007-03-16 | XMS_ITS | Encounter Summary ---
Author Organization [facility] Address [address] [place] [address] Care Team Providers Care Metal Moulder Name Role Phone Unavailable Primary Care Provider Unavailabl e Encounter Details Date Type Department Care Team (Late st Contact Info) Description 03/16/2007 Hospital Encounter [facility] Division of Cardiology [address] [place] [phone] Social History Tobacco Use Types Packs/Day [...] Miscellaneous Notes * Orders - Edt, Audit [place] - 08/16/2011 5:45 PM EDT documented in this encounter Plan of Treatment Upcoming Encounters Date Type Department Care Team (Late st Contact Info) Description 11/12/2025 9:00 AM EST Appointment [facility] Division of Cardiology [address] [place] [phone] Ulises Marr MD/MPH Cardiology NATALIE Alexandra [address] [place] [phone] 11/12/2025 10:10 AM EST Cardiology Testing [facility] Division of Cardiology [address] [place] [phone] Ulises Marr MD/MPH Cardiology NATALIE [address] [place] [phone] Discharge Disposition: Home or Self Care 11/12/2025 10:45 AM EST Appointment [facility] Division of Cardiology [address] [place] [phone] Ulises Marr MD/MPH Cardiology [address] [place] [phone] Discharge Disposition: Home or Self Care documented as of this encounter Visit Diagnoses Not on filedocumented in this encounter
--- OUTSIDE RECORDS SUMMARY | 2025-08-08 20:09 | XMS_ITS | Encounter Summary ---
Author Organization [facility] Address [address] [place] [address] Care Team Providers Care Paint Stock Clerk Name Role Phone Juan Rogers MD Primary Care Provider [phone] Encounter Details Date Type Department Care Team (Late st Contact Info) Description 07/19/2019 Anticoag Therapy [facility] Division of Cardiology [address] [place] [phone] Roselia Poe, PHARMD Cardiology [address] [place] [phone] Social History Tobacco Use Types Packs/Day [...] Info) Description 11/12/2025 9:00 AM EST Appointment [facility] Division of Cardiology [address] [place] [phone] Ulises Marr MD/MPH Cardiology [address] [place] [phone] 11/12/2025 10:10 AM EST Cardiology Testing [facility] Division of Cardiology [address] [place] [phone] Ulises Marr MD/MPH Cardiology [address] [place] [phone] Discharge Disposition: Home or Self Care 11/12/2025 10:45 AM EST Appointment [facility] Division of Cardiology [address] [place] [phone] Ulises Marr MD/MPH Cardiology [address] [place] [phone] Discharge Disposition: Home or Self Care documented as of this encounter Visit Diagnoses Not on filedocumented in this encounter Care Teams Paint Stock Clerk Relationship Specialty Start Date End Date Juan Rogers MD Replaced by [facility] [address] [place] [address] PCP - General 04/18/08 documented as of this encounter
--- OUTSIDE RECORDS SUMMARY | 2025-08-08 20:09 | XMS_ITS | Clinical Summary ---
Author Organization [facility] Address [address] [place] [address] Care Team Providers Care Manufacturing Accountant Name Role Phone Unavailable Primary Care [...]
--- OUTSIDE RECORDS SUMMARY | 2025-08-08 20:09 | XMS_ITS | Encounter Summary ---
Author Organization [facility] Address [address] [place] [address] Care Team Providers Care Fabric Stretcher Name Role Phone Juan Rogers MD Primary Care Provider [phone] Encounter Details Date Type Department Care Team (Late st Contact Info) Description 06/25/2025 Anticoag Therapy [facility] Division of Cardiology [address] [place] [phone] Carly Moore RN S/P aortic valve [...] Arnold Bryan Indication: On-X Aortic Valve Replacement Facilities Locator: Dr. Marr Lab Location: [facility] Current Dose: 7.5 mg PO [...] [facility] Division of Cardiology [address] [place] [phone] Ulises Marr MD/MPH Cardiology [address] [place] [address] 11/12/2025 10:10 AM EST Cardiology Testing [facility] Division of Cardiology [address] [place] [phone] Ulises Marr MD/MPH Cardiology [address] [place] [address] Discharge Disposition: Home or Self Care 11/12/2025 10:[address] [facility] Division of Cardiology [address] [place] [phone] Ulises Marr MD/MPH Cardiology [address] [place] [phone] Discharge Disposition: Home or Self Care documented [...] anticoagulants documented in this encounter Care Teams Fabric Stretcher Relationship Specialty Start Date End Date Juan Rogers MD [address] [facility] [address] [place] [id number] PCP - General 04/18/08 documented as of this encounter
--- OUTSIDE RECORDS SUMMARY | 2025-08-08 20:09 | XMS_ITS | Encounter Summary ---
Author Organization [facility] Address [address] [place] [address] Care Team Providers Care Pipe Insulator Helper Name Role Phone Juan Rogers MD Primary Care Provider Reason for Visit * Reason Comments Medication Refill Encounter Details Date Type Department Care Team (Late st Contact Info) Description 10/12/2016 Refill [facility] Division of Cardiology [address] [place] [phone] Timbo Last II, MD Cardiology [address] [place] [phone] Medication Refill Social History Tobacco Use [...] Appointment [facility] Division of Cardiology [address] [place] [phone] Ulises Marr MD/MPH Cardiology [address] [place] [address] 11/12/2025 10:10 AM EST Cardiology Testing [facility] Division of Cardiology [address] [place] [address] Ulises Marr MD/MPH Cardiology [facility] [place] [address] Discharge Disposition: Home or Self Care 11/12/2025 10:45 AM EST Appointment [facility] Division of Cardiology [address] [place] [address] Ulises Marr MD/MPH Cardiology [facility] [place] [address] Discharge Disposition: Home or Self Care documented as of this encounter Visit Diagnoses Diagnosis Anticoagulated on warfarin Encounter for long-term (current) use of anticoagulants S/P aortic valve replacement Heart valve replaced by other means Aortic valve disorder Aortic valve disorders documented in this encounter Care Teams Pipe Insulator Helper Relationship Specialty Start Date End Date Juan Rogers MD [address] [place] [address] [address] [place] [address] PCP - General 04/18/08 documented as of this encounter
--- OUTSIDE RECORDS SUMMARY | 2025-08-08 20:10 | XMS_ITS | Encounter Summary ---
Author Organization [facility] Address [address] [place] [address] Care Team Providers Care Well Puller Name Role Phone Juan Rogers MD Primary Care Provider [phone] Encounter Details Date Type Department Care Team (Late st Contact Info) Description 07/13/2025 Anticoag Therapy [facility] Division of Cardiology [address] [place] [phone] Maureen Rodas, ANOOP S/P aortic valve [...] Arnold Bryan Indication: On-X Aortic Valve Replacement Air Brake Tester: Dr. Marr Lab Location: [facility] Current Dose: 7.5 mg PO Tue/Makayla [...] Info) Description 11/12/2025 9:00 AM EST Appointment [facility] Division of Cardiology [address] [place] [phone] Ulises Marr MD/MPH Cardiology [address] [place] [address] 11/12/2025 10:10 AM EST Cardiology Testing [facility] Division of Cardiology [address] [place] [phone] Ulises Marr MD/MPH Cardiology [address] [place] [address] Discharge Disposition: Home or Self Care 11/12/2025 10:45 AM EST Appointment [facility] Division of Cardiology [address] [place] [phone] Ulises Marr MD/MPH Cardiology [address] [place] [phone] Discharge Disposition: Home or Self Care documented [...] anticoagulants documented in this encounter Care Teams Well Puller Relationship Specialty Start Date End Date Juan Rogers MD [address] [address] [address] [place] [address] PCP - General 04/18/08 documented as of this encounter
--- OUTSIDE RECORDS SUMMARY | 2025-08-08 20:10 | XMS_ITS | Encounter Summary ---
Author Organization [facility] Address [address] [place] [address] Care Team Providers Care Intellectual Property Lawyer Name Role Phone Juan Rogers MD Primary Care Provider [phone] Encounter Details Date Type Department Care Team (Latest Contact Info) Description 01/12/2019 Anticoag Therapy [facility] Division of Cardiology [address] [place] [phone] Carly Moore RN Anticoagulated on warfarin; [...] EST Appointment [facility] Division of Cardiology [address] [place] [address] Ulises Marr MD/MPH Cardiology [address] [place] [address] [address] [place] [phone] 11/12/2025 10:10 AM EST Cardiology Testing [facility] Division of Cardiology [address] [place] [address] Ulises Marr MD/MPH Cardiology [address] [place] [address] Discharge Disposition: Home or Self Care 11/12/2025 10:45 AM EST Appointment [facility] Division of Cardiology [address] [place] [address] Ulises Marr MD/MPH Cardiology [address] [place] [address] Discharge Disposition: Home or Self [...] disorders documented in this encounter Care Teams Intellectual Property Lawyer Relationship Specialty Start Date End Date Juan Rogers MD [address] [place] [address] [address] [place] [address] PCP - General 04/18/08 documented as of this encounter
--- OUTSIDE RECORDS SUMMARY | 2025-08-08 20:10 | XMS_ITS | Patient Health Record ---
[facility] Organization [facility] Address [address] [place] [id number] Care Team Providers Care Customer Service Technician Name Role Phone Freddy Reid Primary Care [...] Coverage End Date [employer] [address] [address] [place] [address] [phone] [id number] COTY VERAS Child - Insured has Financial Responsibility Medications Administered Medication Instructions Date of Administration Dosage Notes Bicillin LA 1,200,000 12/31/2005 0.5 mL Medical (General) History Medical History History ICD Code heart murmur Aortic Valve Stenosis Surgical History Surgery Date(Month/Year) Stent placed in heart for aortic valve s tenosis 11/2006 Hospitalization History Reason Date(Month/Year) none
--- OUTSIDE RECORDS SUMMARY | 2025-08-08 20:10 | XMS_ITS | Encounter Summary ---
Author Organization [facility] Address [address] [place] [address] Care Team Providers Care Tyre Builder Name Role Phone Juan Rogers MD Primary Care Provider [phone] Reason for Visit * Reason Onset Date Comments Scheduling Appointment 07/27/2025 Spoke anny Wilson and Transferred call to complete scheduling request Encounter Details Date Type Department Care Team (Late st Contact Info) Description 07/27/2025 Telephone [facility] Division of Cardiology [address] [place] [phone] Ulises Marr MD/MPH Cardiology [address] [place] [phone] Scheduling Appointment (Spoke withJaciel and Transferred [...] encounter Miscellaneous Notes * Telephone Encounter - Candcae Guido - 07/27/2025 12:00 PM EDT Reached out to Arnold Bryan to get scheduled with Tejinder as patient is due for follow up. Last visit was with Tejinder on 09/01/2024. Spoke with patient requesting follow-up visit be scheduled with Ulises Marr MD . Informed patient that follow-up visit with sql engineer is required to remain enrolled in the [place] [facility]. Call was transferred to scheduling ( Jaciel) to schedule appointment with testing Candace Guido documented in this encounter Plan of Treatment Upcoming Encounters Date Type Department Care Team (Late st Contact Info) Description 11/12/2025 9:00 AM EST Appointment [facility] Division of Cardiology [address] [place] [address] Ulises Marr MD/MPH Cardiology [facility] NATALIE Vega [address] [place] [address] 11/12/2025 10:10 AM EST Cardiology Testing [facility] Division of Cardiology [address] [place] [address] Ulises Marr MD/MPH Cardiology [address] [place], [place] [address]jose g Christine [address] [place] [address] Discharge Disposition: Home or Self Care 11/12/2025 10:45 AM EST Appointment [facility] Division of Cardiology [address] [place] [address] Ulises Marr MD/MPH Cardiology [facility] Roni [address] [place] [address] Discharge Disposition: Home or Self Care documented as of this encounter Visit Diagnoses Not on filedocumented in this encounter Care Teams Tyre Builder Relationship Specialty Start Date End Date Juan Rogers MD [address] [place] [address] [address] [place] [address] PCP - General 04/18/08 documented as of this encounter
--- OUTSIDE RECORDS SUMMARY | 2025-08-08 20:10 | XMS_ITS | Encounter Summary ---
Author Organization [facility] Address [address] [place] [address] Care Team Providers Care Documentation Spec Name Role Phone Juan Rogers MD Primary Care Provider [phone] Encounter Details Date Type Department Care Team (Late st Contact Info) Description 06/15/2025 Anticoag Therapy [facility] Division of Cardiology [address] [place] [phone] Carly Moore RN S/P aortic valve [...] Arnold Bryan Indication: On-X Aortic Valve Replacement Housekeeping Manager: Dr. Marr Lab Location: [facility] Current Dose: 7.5 mg [...] 11/12/2025 9:00 AM EST Appointment [facility] Division of Cardiology [address] [place] [phone] Ulises Marr MD/MPH Cardiology [facility] [address] [place] [phone] 11/12/2025 10:10 AM EST Cardiology Testing [facility] Division of Cardiology [address] [place] [phone] Ulises Marr MD/MPH [facility] [address] [place] [phone] Discharge Disposition: Home or Self Care 11/12/2025 10:45 AM EST Appointment [facility] Division of Cardiology [address] [place] [phone] Ulises Marr MD/MPH Cardiology [facility] NATALIE Vega [address] [place] [phone] Discharge Disposition: Home or Self Care documented [...] anticoagulants documented in this encounter Care Teams Documentation Spec Relationship Specialty Start Date End Date Juan Rogers MD [address] [address] [address] [place] [address] PCP - General 04/18/08 documented as of this encounter
--- OUTSIDE RECORDS SUMMARY | 2025-08-08 20:10 | XMS_ITS | Clinical Summary ---
Author Organization [facility] Address [address] [place] [address] Care Team Providers Care Varnish Maker Helper Name Role Phone Juan Rogers MD Primary Care Provider [phone] Source Comments [facility] is fully rolled out with thefollowing exceptions:General Clinical Research [facility] Allergies Active Allergy Reactions Criticality Noted [...] Encounters Date Type Department Care Team Description 08/03/2025 Anticoag Therapy [facility] Division of Cardiology [address] [place] [phone] Carly Moore RN 07/27/2025 Telephone [facility] Division of Cardiology [address] [place] [phone] Ulises Marr MD/MPH Scheduling Appointment (Spoke withFran and Transferred call to complete scheduling request ) 07/13/2025 Anticoag Therapy [facility] Division of Cardiology [address] [place] [phone] Maureen Rodas RN S/P aortic valve replacement (Primary Dx); Anticoagulated on warfarin 06/25/2025 Anticoag Therapy [facility] Division of Cardiology [address] [place] [phone] Carly Moore, ANOOP S/P aortic valve replacement (Primary Dx); Anticoagulated on warfarin 06/15/2025 Anticoag Therapy [facility] Division of Cardiology [address] [place] [phone] Carly Moore, ANOOP S/P aortic valve replacement (Primary Dx); Anticoagulated on warfarin 05/31/2025 Anticoag Therapy [facility] Division of Cardiology [address] [place] [phone] Carly Moore, ANOOP S/P aortic valve replacement (Primary Dx); Anticoagulated on warfarin 05/24/2025 Anticoag Therapy [facility] Division of Cardiology [address] [place] [phone] Carly Moore RN S/P aortic valve replacement (Primary Dx); Anticoagulated on warfarin 05/16/2025 Anticoag Therapy [facility] Division of Cardiology [address] [place] [phone] Khushi Johnson RN S/P aortic valve [...] 11/12/2025 9:00 AM EST Appointment [facility] Division of Cardiology [address] [place] [phone] Ulises Marr MD/MPH Cardiology [address] [place] [address] 11/12/2025 10:10 AM EST Cardiology Testing [facility] Division of Cardiology [address] [place] [phone] Ulises Marr MD/MPH Cardiology NATALIE Alexandra [address] [place] [address] Discharge Disposition: Home or Self Care 11/12/2025 10:45 AM EST Appointment [facility] Division of Cardiology [address] [place] [address] Ulises Marr MD/MPH Cardiology [address], [address] [place] [address] Discharge Disposition: Home or Self [...] this topic Medical Devices Implanted Type Area Reinsurance Accountant Device Identifier Shelf Expiration Date Model / Serial / Lot Valve 21mm Ao W/Ext Hldr Cmft-X - [id number] Implanted:Qt y: 1 on 06/06/2013 by Patrick Garza III, MD at [facility] [place] [facility] Cardiovascular N/A: Heart 10/06/2017 / [id number] / N/A Clip Hemo Lg [place] - [id number] Implanted:Qt y: 1 on 06/06/[address] [facility] [place] Cardiovascular [facility] [id number] / / Procedures Procedure Name Priority Date/Time Associated Diagnosis Comments PT & INR (PATIENT ON WARFARIN THERAPY) Routine 08/03/2025 PT & INR (PATIENT ON WARFARIN THERAPY) [...] PT & INR (Patient on Warfarin Therapy) (08/03/2025) Only the most recent of7 resultswithin the time period is included. INR EXT 1.30 Blood 08/03/2025 Historical Provider HEMATOLOGY ORDERABLES Final Result from Last 3 Months Insurance [id number] Care Teams Varnish Maker Helper Relationship Specialty Start Date End Date Juan Rogers MD [address] [address] [address] [place] [address] PCP - General 04/18/08
--- OUTSIDE RECORDS SUMMARY | 2025-08-08 20:10 | XMS_ITS | Encounter Summary ---
Author Organization [facility] Address [address] [place] [address] Care Team Providers Care Management Professionals Name Role Phone Juan Rogers MD Primary Care Provider [phone] Encounter Details Date Type Department Care Team (Late st Contact Info) Description 12/10/2011 Abstract [facility] Division of Pediatric General and Thoracic Surgery [address] [place] [phone] Provider, Historical Social History Tobacco Use [facility] [address] [place] [phone] Ulises Marr MD/MPH Cardiology [facility] Roni Christine [address] [place] [address] 11/12/2025 10:10 AM EST Cardiology Testing [facility] Division of Cardiology [address] [place] [phone] Ulises Marr MD[facility]MPH [facility] [address] [place] [address] Discharge Disposition: Home or Self Care 11/12/2025 10:45 AM EST Appointment [facility] Division of Cardiology [address] [place] [phone] Ulises Marr MD/MPH [facility] [address] [place] [address] Discharge Disposition: Home or Self Care documented as of this encounter Visit Diagnoses Not on filedocumented in this encounter Care Teams Management Professionals Relationship Specialty Start Date End Date Juan Rogers MD [address] [place] [address] [address] [place] [address] PCP - General 04/18/08 documented as of this encounter
--- OUTSIDE RECORDS SUMMARY | 2025-08-08 20:10 | XMS_ITS | Encounter Summary ---
Author Organization [facility] Address [address] [place] [address] Care Team Providers Care Planning Rn Name Role Phone Juan Rogers MD Primary Care Provider [phone] Encounter Details Date Type Department Care Team (Late st Contact Info) Description 08/03/2025 Anticoag Therapy [facility] Division of Cardiology [address] [place] [phone] Carly Moore RN Social History Tobacco Use Types Packs/Day Years [...] Progress Notes * Roselia Poe, PHARMD - 08/03/2025 4:10 PM EDT Warfarin Management - Arnold Bryan Indication: On-X Aortic Valve Replacement Senior Product Engineer: Dr. Marr Lab Location: [facility] Current Dose: 7.5 mg PO Tue/Makayla and 10 mg PO AOD's Goal INR: 1.5 to 2.5 (goal changed 09/23/23) Previous INR: 2.56 (07/12/25) Current INR: 1.30 (08/03/25) Assessment: No changes in diet or medications. No recent illness or signs of bleeding. Arnold reports that he missed his warfarin dose last night. Confirmed current dose of warfarin. Plan: INR is below goal range. Per Roselia Poe PharmD, take 12.5 mg of warfarin tonight and resume current dose tomorrow. Repeat INR on 08/08. Arnold agreed with the plan via text message. I have discussed and reviewed the nurse's note for Arnold Bryan and agree with the assessment and plan as documented. Roselia Poe PHARMD documented in this encounter Plan of Treatment Upcoming Encounters Date Type Department Care Team (Late st Contact Info) Description 11/12/2025 9:00 AM EST Appointment [facility] Division of Cardiology [address] [place] [phone] Ulises Marr MD/MPH Cardiology [facility] [address] [place] [address] 11/12/2025 10:10 AM EST Cardiology Testing [facility] Division of Cardiology [address] [place] [phone] Ulises Marr MD/MPH Cardiology [address] [place] [address] Discharge Disposition: Home or Self Care 11/12/2025 10:45 AM EST Appointment [facility] Division of Cardiology [address] [place] [phone] Ulises Marr MD/MPH Cardiology [facility] [place] [phone] Discharge Disposition: Home or Self Care documented as of this encounter Procedures Procedure Name Priority Date/Time Associated Diagnosis Comments PT & INR (PATIENT ON WARFARIN THERAPY) Routine 08/03/2025 documented in this encounter Results * PT & INR (Patient on Warfarin Therapy) (08/03/2025) INR EXT 1.30 Blood 08/03/2025 us Historical Provider HEMATOLOGY ORDERABLES Final Result documented in this encounter Visit Diagnoses Not on filedocumented in this encounter Care Teams Planning Rn Relationship Specialty Start Date End Date Juan Rogers MD [address] [facility] [address] [place] [address] PCP - General 04/18/08 documented as of this encounter
[2025-08-08 20:37] LABS: INR 1.40 (0.9-1.1); Prothrombin Time 15.2 seconds (10.1-12.5)
== END 2025-08-08 23:59 | disposition home or self-care (01) ==
LOC: LAB 20:07
PROVIDERS: PCP Internal Medicine Adolescent Medicine; Visit Provider Internal Medicine
DX: Z79.01 Long term (current) use of anticoagulants (principal)
CPT/HCPCS: 36415; 85610

== ENCOUNTER 2025-08-16 12:04 | Outpatient (CLI) | payer BC, SELFPAY ==
--- OUTSIDE RECORDS SUMMARY | 2025-08-16 12:06 | XMS_ITS | Patient Health Record ---
[facility] Address [address] [place] [id number] Care Team Providers Care Cork Molder Name Role Phone Freddy Reid Primary Care [...] Coverage End Date [employer] [address] [address] [place] [address] [id number] COTY VERAS Child - Insured has Financial Responsibility Medications Administered Medication Instructions Date of Administration Dosage Notes Bicillin LA 1,200,000 12/31/2005 0.5 mL Medical (General) History Medical History History ICD Code heart murmur Aortic Valve Stenosis Surgical History Surgery Date(Month/Year) Stent placed in heart for aortic valve s tenosis 11/2006 Hospitalization History Reason Date(Month/Year) none
--- OUTSIDE RECORDS SUMMARY | 2025-08-16 12:06 | XMS_ITS | Clinical Summary ---
Author Organization [facility] Address [address] [place] [address] Care Team Providers Care Bear Keeper Name Role Phone Unavailable Primary Care Provider [...]
[2025-08-16 12:44] LABS: INR 1.57 (0.9-1.1); Prothrombin Time 16.9 seconds (10.1-12.5)
== END 2025-08-16 23:59 | disposition home or self-care (01) ==
LOC: LAB 12:04
PROVIDERS: PCP Internal Medicine Adolescent Medicine; Visit Provider Internal Medicine
DX: Z79.01 Long term (current) use of anticoagulants (principal)
CPT/HCPCS: 36415; 85610

== ENCOUNTER 2025-08-28 15:47 | Outpatient (CLI) | payer BC, SELFPAY ==
--- OUTSIDE RECORDS SUMMARY | 2005-06-24 23:00 | XMS_ITS | Encounter Summary ---
Author Organization [facility] Address [address] [place] [address] Care Team Providers Care Floor Person Name Role Phone Unavailable Primary Care Provider Unavailabl e Encounter Details Date Type Department Care Team (Late st Contact Info) Description 06/25/2005 Hospital Encounter [facility] Division of Cardiology [address] [place] [phone] Social History Tobacco Use Types Packs/Day Years Used Date Smoking Tobacco: Never Passive Smoke Exposure: Current Smokeless Tobacco: Current Chew Comments:3-4x daily Alcohol Use Standard Drinks/Week Comments Yes 0 (1 standard drink = 0.6 oz pur e alcohol) weekend social Intimate Partner Violence Answer Date R ecorded If you are in a relationship , do you feel safe in that relationship? Not currently in a relationship 08/31/2024 If you are in a relationship , do you feel safe in that relationship? Not currently in a relationship 08/31/2024 Financial Resource Strain Answer Date R ecorded Financial benefits problems Not on file 01/17 Trouble paying for things you need Not on file 02/09/2023 Trouble paying for things you need (Other) Not o n file 02/09/2023 Safety and Environment Answer Date Kvng rded Do you have any concerns of physical abuse, sexual abuse, or neglect of your child? No 08/31/2024 Adult hurting you or family (11-18) Not on file 08/31/2024 Someone touched you in a sexual way? (11-18) Not on file 08/31/2024 Is someone hurting your or your family? No 08/31/2024 Historical abuse worry Not on file If you have firearms in the home, are they all in locked storage AND unloaded? Not on file 08/31/2024 Sex and Gender Information Value Date Recorded Sex Assigned at Not on file Legal Sex Male 5:17 AM EST Gender Identity Not on file Sexual Orientation Not on file documented as of this encounter Plan of Treatment Upcoming Encounters Date Type Department Care Team (Late st Contact Info) Description 11/12/2025 9:00 AM EST Appointment [facility] Division of Cardiology [address] [place] [phone] Ulises Marr MD/MPH Cardiology [facility] [address] [place] [phone] 11/12/2025 10:10 AM EST Cardiology Testing [facility] Division of Cardiology [address] [place] [phone] Ulises Marr MD/MPH Cardiology [facility] Roni Christine [address] [place] [address] Discharge Disposition: Home or Self Care 11/12/2025 10:45 AM EST Appointment [facility] Division of Cardiology [address] [place] [phone] Ulises Marr MD/MPH Cardiology [facility] Roni Christine [address] [place] [address] Discharge Disposition: Home or Self Care documented as of this encounter Visit Diagnoses Not on filedocumented in this encounter
--- OUTSIDE RECORDS SUMMARY | 2006-03-30 23:00 | XMS_ITS | Encounter Summary ---
Author Organization [facility] Address [address] [place] [address] Care Team Providers Care Burial Vault Maker Name Role Phone Unavailable Primary Care Provider Unavailabl e Encounter Details Date Type Department Care Team (Late st Contact Info) Description 03/31/2006 Hospital Encounter [facility] Division of Cardiology [address] [place] [phone] Social History Tobacco Use Types Packs/Day [...] Info) Description 11/12/2025 9:00 AM EST Appointment [facility] Division of Cardiology [address] [place] [phone] Ulises Marr MD/MPH Cardiology [facility] Roni Christine [address] [place] [phone] 11/12/2025 10:10 AM EST Cardiology Testing [facility] Division of Cardiology [address] [place] [phone] Ulises Marr MD/MPH Cardiology [facility] Roni Christine [address] [place] [address] Discharge Disposition: Home or Self Care 11/12/2025 10:45 AM EST Appointment [facility] Division of Cardiology [address] [place] [phone] Ulises Marr MD/MPH Cardiology [facility] Roni Christine [address] [place] [phone] Discharge Disposition: Home or Self Care documented as of this encounter Visit Diagnoses Not on filedocumented in this encounter
--- OUTSIDE RECORDS SUMMARY | 2006-09-15 | XMS_ITS | Encounter Summary ---
Author Organization [facility] Address [address] [place] [address] Care Team Providers Care Machine Farmworker Name Role Phone Unavailable Primary Care Provider Unavailabl e Encounter Details Date Type Department Care Team (Late st Contact Info) Description 09/15/2006 Hospital Encounter [facility] Division of Cardiology [address] [place] [phone] Social History Tobacco Use Types Packs/Day [...] this encounter Procedure Notes * Edt, Audit [place] - 01/28/2009 8:12 AM EDT documented in this encounter Plan of Treatment Upcoming Encounters Date Type Department Care Team (Late st Contact Info) Description 11/12/2025 9:00 AM EST Appointment [facility] Division of Cardiology [address] [place] [phone] Ulises Marr MD/MPH Cardiology [facility] Roni Christine [address] [place] [address] 11/12/2025 10:10 AM EST Cardiology Testing [facility] Division of Cardiology [address] [place] [phone] Ulises Marr MD/MPH [facility]iology [facility] [address] [place] [phone] Discharge Disposition: Home or Self Care 11/12/2025 10:45 AM EST Appointment [facility] Division of Cardiology [address] [place] [phone] Ulises Marr MD/MPH Cardiology [facility] [address] [place] [phone] Discharge Disposition: Home or Self Care documented as of this encounter Visit Diagnoses Not on filedocumented in this encounter
--- OUTSIDE RECORDS SUMMARY | 2006-11-18 | XMS_ITS | Encounter Summary ---
Author Organization [facility] Address [address] [place] [address] Care Team Providers Care Tax Appraiser Name Role Phone Unavailable Primary Care Provider Unavailabl e Encounter Details Date Type Department Care Team (Late st Contact Info) Description 11/18/2006 Hospital Encounter [facility] Department of Radiology [address] [place] [phone] Social History Tobacco Use Types Packs/Day [...] on file documented as of this encounter Miscellaneous Notes * Consent Other - Edt, Audit [place] - 05/02/2008 11:16 AM EDT documented in this encounter Plan of Treatment Upcoming Encounters Date Type Department Care Team (Late st Contact Info) Description 11/12/2025 9:00 AM EST Appointment [facility] Division of Cardiology [address] [place] [phone] Ulises Marr MD/MPH Cardiology NATALIE Alexandra [address] [place] [address] 11/12/2025 10:10 AM EST Cardiology Testing [facility] Division of Cardiology [address] [place] [phone] Ulises Marr MD/MPH Cardiology [address] [place] [address] Discharge Disposition: Home or Self Care 11/12/2025 10:45 AM EST Appointment [facility] Division of Cardiology [address] [place] [phone] Ulises Marr MD/MPH Cardiology [address] [place] [phone] Discharge Disposition: Home or Self Care documented as of this encounter Visit Diagnoses Not on filedocumented in this encounter
--- OUTSIDE RECORDS SUMMARY | 2006-11-18 | XMS_ITS | Encounter Summary ---
Author Organization [facility] Address [address] [place] [address] Care Team Providers Care Sourcing Intern Name Role Phone Unavailable Primary Care Provider Unavailabl e Encounter Details Date Type Department Care Team (Late st Contact Info) Description 11/18/2006 Hospital Encounter [facility] Division of Cardiology [address] [place] [phone] Social History Tobacco Use Types Packs/Day [...] 11/12/2025 9:00 AM EST Appointment [facility] Division of Cardiology [address] [place] [phone] Ulises Marr MD/MPH Cardiology [facility] Roni Christine [address] [place] [address] 11/12/2025 10:10 AM EST Cardiology Testing [facility] Division of Cardiology [address] [place] [phone] Ulises Marr MD/MPH Cardiology [facility] [address]oni [address] [place] [address] Discharge Disposition: Home or Self Care 11/12/2025 10:45 AM EST Appointment [facility] Division of Cardiology [address] [place] [phone] Ulises Marr MD/MPH Cardiology [facility] Roni Christine [address] [place] [address] Discharge Disposition: Home or Self Care documented as of this encounter Visit Diagnoses Not on filedocumented in this encounter
--- OUTSIDE RECORDS SUMMARY | 2006-11-19 | XMS_ITS | Encounter Summary ---
Author Organization [facility] Address [address] [place] [address] Care Team Providers Care System Planning Engineer Name Role Phone Unavailable Primary Care Provider Unavailabl e Encounter Details Date Type Department Care Team (Late st Contact Info) Description 11/19/2006 Hospital Encounter [facility] Division of Cardiology [address] [place] [phone] Social History Tobacco Use Types Packs/Day [...] Info) Description 11/12/2025 9:00 AM EST Appointment [facility] Division of Cardiology [address] [place] [phone] Ulises Marr MD/MPH Cardiology [facility] Roni Christine [address] [place] [address] 11/12/2025 10:10 AM EST Cardiology Testing [facility] Division of Cardiology [address] [place] [phone] Ulises Marr MD/MPH Cardiology [facility] Roni Christine [address] [place] [address] Discharge Disposition: Home or Self Care 11/12/2025 10:45 AM EST Appointment [facility] Division of Cardiology [address] [place] [phone] Ulises Marr MD/MPH Cardiology [facility] Roni [address] [place] [address] Discharge Disposition: Home or Self Care documented as of this encounter Visit Diagnoses Not on filedocumented in this encounter
--- OUTSIDE RECORDS SUMMARY | 2007-03-15 23:00 | XMS_ITS | Encounter Summary ---
Author Organization [facility] Address [address] [place] [address] Care Team Providers Care Executive Secretary Name Role Phone Unavailable Primary Care Provider Unavailabl e Encounter Details Date Type Department Care Team (Late st Contact Info) Description 03/16/2007 Hospital Encounter [place] [facility] Division of Cardiology [address] [place] [phone] Social History Tobacco Use Types Packs/Day [...] Miscellaneous Notes * Orders - Edt, Audit [place] - 08/16/2011 5:45 PM EDT documented in this encounter Plan of Treatment Upcoming Encounters Date Type Department Care Team (Late st Contact Info) Description 11/12/2025 9:[address] [facility] Division of Cardiology [address] [place] [phone] Ulises Marr MD/MPH Cardiology [address] [place] [phone] 11/12/2025 10:10 AM EST Cardiology Testing [facility] Division of Cardiology [address] [place] [phone] Ulises Marr MD/MPH Cardiology [address] [place] [phone] Discharge Disposition: Home or Self Care 11/12/2025 10:[address] [facility] Division of Cardiology [address] [place] [phone] Ulises Marr MD/MPH Cardiology [address] [place] [phone] Discharge Disposition: Home or Self Care documented as of this encounter Visit Diagnoses Not on filedocumented in this encounter
--- OUTSIDE RECORDS SUMMARY | 2025-08-28 15:49 | XMS_ITS | Encounter Summary ---
Author Organization [facility] Address [address] [place] [address] Care Team Providers Care Banquet Line Cook Name Role Phone Juan Rogers MD Primary Care Provider [phone] Encounter Details Date Type Department Care Team (Latest Contact Info) Description 01/12/2019 Anticoag Therapy [facility] Division of Cardiology [address] [place] [phone] Carly Moore RN Anticoagulated on warfarin; [...] Info) Description 11/12/2025 9:00 AM EST Appointment [facility] Division of Cardiology [address] [place] [address] Ulises Marr MD/MPH Cardiology [address] [place] [address] [address] [place] [phone] 11/12/2025 10:10 AM EST Cardiology Testing [facility] Division of Cardiology [address] [place] [address] Ulises Marr MD/MPH Cardiology [address] [place] [address] Discharge Disposition: Home or Self Care 11/12/2025 10:45 AM EST Appointment [facility] Division of Cardiology [address] [place] [address] Ulises Marr MD/MPH Cardiology [address], [address] [place] [address] Discharge Disposition: Home or Self [...] disorders documented in this encounter Care Teams Banquet Line Cook Relationship Specialty Start Date End Date Juan Rogers MD [address] [place] [address] [address] [place] [address] PCP - General 04/18/08 documented as of this encounter
--- OUTSIDE RECORDS SUMMARY | 2025-08-28 15:49 | XMS_ITS | Encounter Summary ---
Author Organization [facility] Address [address] [place] [address] Care Team Providers Care Fast Brim Pouncer Name Role Phone Juan Rogers MD Primary Care Provider [phone] Encounter Details Date Type Department Care Team (Late st Contact Info) Description 07/19/2019 Anticoag Therapy [facility] Division of Cardiology [address] [place] [phone] Roselia Poe, PHARMD Cardiology [address] [place] [phone] Social History Tobacco Use Types Packs/Day [...] [facility] Division of Cardiology [address] [place] [phone] Ulises Marr MD/MPH Cardiology [address], [address] [place] [phone] 11/12/2025 10:10 AM EST Cardiology Testing [facility] Division of Cardiology [address] [place] [phone] Ulises Marr MD/MPH Cardiology [address], [address] [place] [phone] Discharge Disposition: Home or Self Care 11/12/2025 10:45 AM EST Appointment [facility] Division of Cardiology [address] [place] [phone] Ulises Marr MD/MPH Cardiology [address], [address] [place] [phone] Discharge Disposition: Home or Self Care documented as of this encounter Visit Diagnoses Not on filedocumented in this encounter Care Teams Fast Brim Pouncer Relationship Specialty Start Date End Date Juan Rogers MD [facility] [address] [place] [address] PCP - General 04/18/08 documented as of this encounter
--- OUTSIDE RECORDS SUMMARY | 2025-08-28 15:49 | XMS_ITS | Clinical Summary ---
Author Organization [facility] Address [address] [place] [address] Care Team Providers Care Quality Control Auditor Name Role Phone Juan Rogers MD Primary Care Provider Source Comments [facility] is fully rolled out with thefollowing exceptions:General Clinical Research [facility] Allergies Active Allergy Reactions Criticality Noted Date [...] Encounters Date Type Department Care Team Description 08/16/2025 Anticoag Therapy [facility] Division of Cardiology [address] [place] [phone] Carly Moore, ANOOP S/P aortic valve replacement (Primary Dx); Anticoagulated on warfarin 08/09/2025 Anticoag Therapy [facility] Division of Cardiology [address] [place] [phone] Carly Moore RN 08/03/2025 Anticoag Therapy [facility] Division of Cardiology [address] [place] [phone] Carly Moore RN 07/27/2025 Telephone [facility] Division of Cardiology [address] [place] [phone] Ulises Marr MD/MPH Scheduling Appointment (Spoke withFran and Transferred call to complete scheduling request ) 07/13/2025 Anticoag Therapy [facility] Division of Cardiology [address] [place] [phone] Maureen Rodas RN S/P aortic valve replacement (Primary Dx); Anticoagulated on warfarin 06/25/2025 Anticoag Therapy [facility] Division of Cardiology [address] [place] [phone] Carly Moore, ANOOP S/P aortic valve replacement (Primary Dx); Anticoagulated on warfarin 06/15/2025 Anticoag Therapy [facility] Division of Cardiology [address] [place] [phone] Carly Moore RN S/P aortic valve replacement (Primary Dx); Anticoagulated on warfarin 05/31/2025 Anticoag Therapy [facility] Division of Cardiology [address] [place] [phone] Carly Moore RN S/P aortic valve replacement [...] Info) Description 11/12/2025 9:00 AM EST Appointment [facility] Division of Cardiology [address] [place] [address] Ulises Marr MD/MPH Cardiology [address] [place] [address] 11/12/2025 10:10 AM EST Cardiology Testing [facility] Division of Cardiology [address] [place] [address] Ulises aMrr MD/MPH Cardiology NATALIE Alexandra [address] [place] [address] Discharge Disposition: Home or Self Care 11/12/2025 10:45 AM EST Appointment [facility] Division of Cardiology [address] [place] [address] Ulises Marr MD/MPH Cardiology [address] [place] [address] Discharge Disposition: Home or Self [...] this topic Medical Devices Implanted Type Area Computer Hardware Engineer Device Identifier Shelf Expiration Date Model / Serial / Lot Valve 21mm Ao W/Ext Hldr Cmft-X - [id number] Implanted:Qt y: 1 on 06/06/2013 by Patrick Garza III, MD at [facility] Cardiovascular N/A: Heart 10/06/2017 / [id number] / N/A Clip Hemo Lg [place] - [id number] Implanted:Qt y: 1 on 06/06/2013 at [facility] Cardiovascular [facility] [place] [facility] [id number] / / Procedures Procedure Name Priority Date/Time Associated Diagnosis Comments PT & INR (PATIENT ON WARFARIN THERAPY) Routine 08/16/2025 PT & INR (PATIENT ON WARFARIN THERAPY) Routine 08/08/2025 PT & INR (PATIENT ON WARFARIN THERAPY) Routine 08/03/2025 PT & INR (PATIENT ON WARFARIN THERAPY) Routine 07/12/2025 PT & INR (PATIENT ON WARFARIN THERAPY) Routine 06/21/2025 PT & INR (PATIENT ON WARFARIN THERAPY) Routine 06/14/2025 PT & INR (PATIENT ON WARFARIN THERAPY) Routine 05/29/2025 from Last 3 Months Results * PT & INR (Patient on Warfarin Therapy) (08/16/2025) Only the most recent of7 resultswithin the time period is included. INR EXT 1.57 Blood 08/16/2025 Historical Provider HEMATOLOGY ORDERABLES Final Result from Last 3 Months Insurance [place] [id number] Care Teams Quality Control Auditor Relationship Specialty Start Date End Date Juan Rogers MD [address] [address] [address] [place] [address] PCP - General 04/18/08
--- OUTSIDE RECORDS SUMMARY | 2025-08-28 15:49 | XMS_ITS | Encounter Summary ---
Author Organization [facility] Address [address] [place] [address] Care Team Providers Care Inspector Shells Name Role Phone Juan Rogers MD Primary Care Provider +1 [phone] Encounter Details Date Type Department Care Team (Late st Contact Info) Description 08/09/2025 Anticoag Therapy [facility] Division of Cardiology [address] [place] [phone] Carly Moore RN Social History Tobacco [...] as of this encounter Progress Notes * Vanessa Boston PHARMD - 08/09/2025 9:57 AM EDT Warfarin Management - Arnold Bryan Indication: On-X Aortic Valve Replacement Cardiovascular Disease Specialist: Dr. Marr Lab Location: [facility] Current Dose: 7.5 mg PO Tue/Makayla and 10 mg PO AOD's Goal INR: 1.5 to 2.5 (goal changed 09/23/23) Previous INR: 1.30 (08/03/25) Current INR: 1.40 (08/08/25) Assessment: No changes in diet or medications reported. No recent illness or signs of bleeding. Confirmed current dose of warfarin and that he took boost dose as advised on 08/03. Plan: INR is below goal range. Per Vanessa JonesD, take 10 mg of warfarin tonight and resume current dose tomorrow. Repeat INR on 08/14. Plan sent to Arnold via text message. I have discussed and reviewed the nurse's note for Arnold Bryan and agree with the assessment and plan as documented. Vanessa Boston PHARMD documented in this encounter Plan of Treatment Upcoming Encounters Date Type Department Care Team (Late st Contact Info) Description 11/12/2025 9:00 AM EST Appointment [facility] Cardiology [address] [place] [phone] Ulises Marr MD/MPH Cardiology [facility] Roni Christine, [address] [place] [address] 11/12/2025 10:10 AM EST Cardiology Testing [facility] Cardiology [address] [place] [phone] Ulises Marr MD/MPH Cardiology [facility] Roni Christine [address] [place] [address] Discharge Disposition: Home or Self Care 11/12/2025 10:45 AM EST Appointment [facility] Division of Cardiology [address] [place] [phone] Ulises Marr MD/MPH Cardiology [facility] Roni Christine [address] [place] [address] Discharge Disposition: Home or Self Care documented as of this encounter Procedures Procedure Name Priority Date/Time Associated Diagnosis Comments PT & INR (PATIENT ON WARFARIN THERAPY) Routine 08/08/2025 documented in this encounter Results * PT & INR (Patient on Warfarin Therapy) (08/08/2025) INR EXT 1.40 Blood 08/08/2025 us Historical Provider HEMATOLOGY ORDERABLES Final Result documented in this encounter Visit Diagnoses Not on filedocumented in this encounter Care Teams Inspector Shells Relationship Specialty Start Date End Date Juan Rogers MD [address] [facility] [address] [place] [address] PCP - General 04/18/08 documented as of this encounter
--- OUTSIDE RECORDS SUMMARY | 2025-08-28 15:49 | XMS_ITS | Encounter Summary ---
Author Organization [facility] Address [address] [place] [address] Care Team Providers Care Wheat Buyer Name Role Phone Juan Rogers MD Primary Care Provider Reason for Visit * Reason Comments Medication Refill Encounter Details Date Type Department Care Team (Late st Contact Info) Description 10/12/[address] [facility] Division of Cardiology [address] [place] [phone] Timbo Last II, MD Cardiology [address] [place] [phone] Medication Refill Social History Tobacco Use [...] Info) Description 11/12/2025 9:00 AM EST Appointment [facility] Division of Cardiology [address] [place] [phone] Ulises Marr MD/MPH Cardiology [address] [place] [address] 11/12/2025 10:10 AM EST Cardiology Testing [facility] Division of Cardiology [address] [place] [address] Ulises Marr MD/MPH Cardiology [facility] [place] [address] Discharge Disposition: Home or Self Care 11/12/2025 10:45 AM EST Appointment [facility] Division of Cardiology [address] [place] [address] Ulises Marr MD/MPH Cardiology [facility] Roni Christine, [address] [place] [address] Discharge Disposition: Home or Self Care documented as of this encounter Visit Diagnoses Diagnosis Anticoagulated on warfarin Encounter for long-term (current) use of anticoagulants S/P aortic valve replacement Heart valve replaced by other means Aortic valve disorder Aortic valve disorders documented in this encounter Care Teams Wheat Buyer Relationship Specialty Start Date End Date Juan Rogers MD [address] [place] [address] [address] [place] [address] PCP - General 04/18/08 documented as of this encounter
--- OUTSIDE RECORDS SUMMARY | 2025-08-28 15:49 | XMS_ITS | Encounter Summary ---
Author Organization [facility] Address [address] [place] [address] Care Team Providers Care Public Opinion Survey Taker Name Role Phone Juan Rogers MD Primary Care Provider [phone] Encounter Details Date Type Department Care Team (Late st Contact Info) Description 08/03/2025 Anticoag Therapy [facility] Division of Cardiology [address] [place] [phone] Carly Moore RN Social History Tobacco [...] Bryan Indication: On-X Aortic Valve Replacement Post Office Clerk: Dr. Marr Lab Location: [facility] Current Dose: 7.5 mg PO Tue/Makayla [...] Info) Description 11/12/2025 9:00 AM EST Appointment [facility] Division of Cardiology [address] [place] [phone] Ulises Marr MD/MPH Cardiology [facility] [address]oni [address] [place] [address] 11/12/2025 10:10 AM EST Cardiology Testing [facility] Division of Cardiology [address] [place] [phone] Ulises Marr MD/MPH Cardiology [address] [place] [address] Discharge Disposition: Home or Self Care 11/12/2025 10:45 AM EST Appointment [facility] Division of Cardiology [address] [place] [phone] Ulises Marr MD/MPH Cardiology [facility] [address] [place] [phone] Discharge Disposition: Home or Self Care documented [...] on filedocumented in this encounter Care Teams Public Opinion Survey Taker Relationship Specialty Start Date End Date Juan Rogers MD 12[address] [facility] [address] [place] [address] PCP - General 04/18/08 documented as of this encounter
--- OUTSIDE RECORDS SUMMARY | 2025-08-28 15:49 | XMS_ITS | Encounter Summary ---
Author Organization [facility] Address [address] [place] [address] Care Team Providers Care Black Top Raker Name Role Phone Juan Rogers MD Primary Care Provider Reason for Visit * Reason Onset Date Comments Scheduling Appointment 07/27/2025 Spoke anny Wilson and Transferred call to complete scheduling request Encounter Details Date Type Department Care Team (Late st Contact Info) Description 07/27/2025 Telephone [facility] Division of Cardiology [address] [place] [phone] Ulises Marr MD/MPH Cardiology [address] [place] [phone] Scheduling Appointment (Spoke withJaciel and Transferred [...] . Informed patient that follow-up visit with core winding operator is required to remain [place]. Call was transferred to scheduling ( Jaciel) to schedule appointment with testing Candace Guido documented in this encounter Plan of Treatment Upcoming Encounters Date Type Department Care Team (Late st Contact Info) Description 11/12/2025 9:00 AM EST Appointment [facility] Division of Cardiology [address] [place] [address] Ulises Marr MD/MPH Cardiology [facility] NATALIE Vega [address] [place] [address] 11/12/2025 10:10 AM EST Cardiology Testing [facility] Division of Cardiology [address] [place] [address] Ulises Marr MD/MPH Cardiology [address] [place], [place] [address]jose g Christine [address] [place] [address] Discharge Disposition: Home or Self Care 11/12/2025 10:45 AM EST Appointment [facility] Division of Cardiology [address] [place] [address] Ulises Marr MD/MPH Cardiology [facility] Roni Christine [address] [place] [address] Discharge Disposition: Home or Self Care documented as of this encounter Visit Diagnoses Not on filedocumented in this encounter Care Teams Black Top Raker Relationship Specialty Start Date End Date Juan Rogers MD [address] [place] [address] [address] [place] [address] PCP - General 04/18/08 documented as of this encounter
--- OUTSIDE RECORDS SUMMARY | 2025-08-28 15:49 | XMS_ITS | Patient Health Record ---
Author [facility] Address [address] [place] [id number] Care Team Providers Care Clerk Telegraph Service Name Role Phone Freddy Reid Primary Care Provider [phone] Medications Medication SIG (Take, Route, Frequency, Duration) [...] Coverage End Date [employer] [address] [address] [place] [address] [phone] [id number] COTY VERAS Child - Insured has Financial Responsibility Medications Administered Medication Instructions Date of Administration Dosage Notes Bicillin LA 1,200,000 12/31/2005 0.5 mL Medical (General) History Medical History History ICD Code heart murmur Aortic Valve Stenosis Surgical History Surgery Date(Month/Year) Stent placed in heart for aortic valve s tenosis 11/2006 Hospitalization History Reason Date(Month/Year) none
--- OUTSIDE RECORDS SUMMARY | 2025-08-28 15:49 | XMS_ITS | Encounter Summary ---
Author Organization [facility] Address [address] [place] [address] Care Team Providers Care Rubber Engraver Name Role Phone Juan Rogers MD Primary Care Provider [phone] Encounter Details Date Type Department Care Team (Late st Contact Info) Description 07/13/2025 Anticoag Therapy [facility] Division of Cardiology [address] [place] [phone] Maureen Rodas, ANOOP S/P aortic valve [...] Arnold Bryan Indication: On-X Aortic Valve Replacement Architect Marine: Dr. Marr Lab Location: [facility] Current Dose: 7.5 mg PO Tue/Makayla and [...] EST Appointment [facility] Division of Cardiology [address] [place] [phone] Ulises Marr MD/MPH Cardiology [address] [place] [address] 11/12/2025 10:10 AM EST Cardiology Testing [facility] Division of Cardiology [address] [place] [phone] Ulises Marr MD/MPH Cardiology [address] [place] [address] Discharge Disposition: Home or Self Care 11/12/2025 10:45 AM EST Appointment [facility] Division of Cardiology [address] [place] [phone] Ulises Marr MD/MPH Cardiology [address] [place] [phone] Discharge Disposition: Home or Self Care documented [...] anticoagulants documented in this encounter Care Teams Rubber Engraver Relationship Specialty Start Date End Date Juan Rogers MD [address] [place] [address] [address] [place] [address] PCP - General 04/18/08 documented as of this encounter
--- OUTSIDE RECORDS SUMMARY | 2025-08-28 15:49 | XMS_ITS | Encounter Summary ---
Author Organization [facility] Address [address] [place] [address] Care Team Providers Care Senior Java J2Ee Developer Name Role Phone Juan Rogers MD Primary Care Provider [phone] Encounter Details Date Type Department Care Team (Late st Contact Info) Description 08/16/2025 Anticoag Therapy [facility] Division of Cardiology [address] [place] [phone] Carly Moore RN S/P aortic valve [...] Progress Notes * Roselia Poe, PHARMD - 08/16/2025 3:25 PM EDT Warfarin Management - Arnold Bryan Indication: On-X Aortic Valve Replacement Grader Meat: Dr. Marr Lab Location: [facility] Current Dose: 7.5 mg PO Tue/Maakyla and 10 mg PO AOD's Goal INR: 1.5 to 2.5 (goal changed 09/23/23) Previous INR: 1.40 (08/08/25) Current INR: 1.57 (08/16/25) Assessment: No changes in diet or medications reported. No recent illness or signs of bleeding. Confirmed current dose of warfarin and that he took boost dose as advised on 08/09 Plan: INR is within goal range. Per Roselia Poe PharmD, continue current dose of warfarin. Repeat INR on 08/28. Arnold agreed with the plan via text message. I have discussed and reviewed the nurse's note for Arnold Bryan and agree with the assessment and plan as documented. Roselia Poe, MADAYD documented in this encounter Plan of Treatment Upcoming Encounters Date Type Department Care Team (Late st Contact Info) Description 11/12/2025 9:00 AM EST Appointment [facility] Division of Cardiology [address] [place] [address] Ulises Marr MD/MPH Cardiology [address] [place] [address] 11/12/2025 10:10 AM EST Cardiology Testing [facility] Division Cardiology [address] [place] [phone] Ulises Marr MD/MPH Cardiology [address] [place] [address] Discharge Disposition: Home or Self Care 11/12/2025 10:45 AM EST Appointment [facility] Division of Cardiology [address] [place] [phone] Ulises Marr MD/MPH Cardiology [address] [place] [phone] Discharge Disposition: Home or Self Care documented as of this encounter Procedures Procedure Name Priority Date/Time Associated Diagnosis Comments PT & INR (PATIENT ON WARFARIN THERAPY) Routine 08/16/2025 documented in this encounter Results * PT & INR (Patient on Warfarin Therapy) (08/16/2025) INR EXT 1.57 Blood 08/16/2025 us Historical Provider HEMATOLOGY ORDERABLES Final Result documented in this encounter Visit Diagnoses Diagnosis S/P aortic valve replacement- Primary Heart valve replaced by other means Anticoagulated on warfarin Encounter for long-term (current) use of anticoagulants documented in this encounter Care Teams Senior Java J2Ee Developer Relationship Specialty Start Date End Date Juan Rogers MD 1210 [facility] [address] [place] [id number] PCP - General 04/18/08 documented as of this encounter
--- OUTSIDE RECORDS SUMMARY | 2025-08-28 15:49 | XMS_ITS | Encounter Summary ---
Author Organization [facility] Address [address] [place] [address] Care Team Providers Care Knockout Machine Operator Name Role Phone Juan Rogers MD Primary Care Provider [phone] Encounter Details Date Type Department Care Team (Late st Contact Info) Description 12/10/2011 Abstract [facility] Division of Pediatric General and Thoracic Surgery [address] [place] [phone] Provider, Historical Social History Tobacco Use [...] Info) Description 11/12/2025 9:00 AM EST Appointment [facility] Division of Cardiology [address] [place] [phone] Ulises Marr MD/MPH Cardiology [facility] Roni Christine [address] [place] [address] 11/12/2025 10:10 AM EST Cardiology Testing [facility] Division of Cardiology [address] [place] [phone] Ulises Marr MD/MPH [facility] [address] [place] [address] Discharge Disposition: Home or Self Care 11/12/2025 10:45 AM EST Appointment [facility] Division of Cardiology [address] [place] [phone] Ulises Marr MD/MPH [facility] [address] [place] [address] Discharge Disposition: Home or Self Care documented as of this encounter Visit Diagnoses Not on filedocumented in this encounter Care Teams Knockout Machine Operator Relationship Specialty Start Date End Date Juan Rogers MD [address] [place] [address] [address] [place] [address] PCP - General 04/18/08 documented as of this encounter
--- OUTSIDE RECORDS SUMMARY | 2025-08-28 15:49 | XMS_ITS | Clinical Summary ---
Author Organization [facility] Address [address] [place] [address] Care Team Providers Care Air Antisubmarine Officer Name Role Phone Unavailable Primary Care [...]
[2025-08-28 17:42] LABS: INR 2.01 (0.9-1.1); Prothrombin Time 21.2 seconds (10.1-12.5)
== END 2025-08-28 23:59 | disposition home or self-care (01) ==
LOC: LAB 15:47
PROVIDERS: PCP Internal Medicine Adolescent Medicine; Visit Provider Internal Medicine
DX: Z79.01 Long term (current) use of anticoagulants (principal)
CPT/HCPCS: 36415; 85610

== ENCOUNTER 2025-09-11 11:41 | Outpatient (CLI) | payer BC, SELFPAY ==
--- OUTSIDE RECORDS SUMMARY | 2005-06-24 23:00 | XMS_ITS | Encounter Summary ---
Author Organization [facility] Address [address] [place] [address] Care Team Providers Care Soft Shoe Dancer Name Role Phone Unavailable Primary Care Provider Unavailabl e Encounter Details Date Type Department Care Team (Late st Contact Info) Description 06/25/2005 Hospital Encounter [facility] Division of Cardiology [address] [place] [phone] Social History Tobacco Use Types Packs/Day [...] Info) Description 11/12/2025 9:00 AM EST Appointment [facility] Division of Cardiology [address] [place] [phone] Ulises Marr MD/MPH Cardiology [facility] Roni Christine [address] [place] [address] 11/12/2025 10:10 AM EST Cardiology Testing [facility] Division of Cardiology [address] [place] [phone] Ulises Marr MD/MPH Cardiology [facility] Roni Christine [address] [place] [address] Discharge Disposition: Home or Self Care 11/12/2025 10:45 AM EST Appointment [facility] Division of Cardiology [address] [place] [phone] Ulises Marr MD/MPH Cardiology [facility] Roni Christine [address] [place] [address] Discharge Disposition: Home or Self Care documented as of this encounter Visit Diagnoses Not on filedocumented in this encounter
--- OUTSIDE RECORDS SUMMARY | 2006-03-30 23:00 | XMS_ITS | Encounter Summary ---
Author Organization [facility] Address [address] [place] [address] Care Team Providers Care Car Rental Manager Name Role Phone Unavailable Primary Care Provider Unavailabl e Encounter Details Date Type Department Care Team (Late st Contact Info) Description 03/31/2006 Hospital Encounter [facility] Division of Cardiology [address] [place] [phone] Social History Tobacco Use Types Packs/Day [...] Info) Description 11/12/2025 9:00 AM EST Appointment [facility] Division of Cardiology [address] [place] [phone] Ulises Marr MD/MPH Cardiology [facility] Roni Christine [address] [place] [address] 11/12/2025 10:10 AM EST Cardiology Testing [facility] Division of Cardiology [address] [place] [phone] Ulises Marr MD/MPH Cardiology [facility] Roni Christine [address] [place] [address] Discharge Disposition: Home or Self Care 11/12/2025 10:45 AM EST Appointment [facility] Division of Cardiology [address] [place] [phone] Ulises Marr MD/MPH Cardiology [facility] Roni Christine [address] [place] [address] Discharge Disposition: Home or Self Care documented as of this encounter Visit Diagnoses Not on filedocumented in this encounter
--- OUTSIDE RECORDS SUMMARY | 2006-09-15 | XMS_ITS | Encounter Summary ---
Author Organization [facility] Address [address] [place] [address] Care Team Providers Care Auto Service Dispatcher Name Role Phone Unavailable Primary Care Provider Unavailabl e Encounter Details Date Type Department Care Team (Late st Contact Info) Description 09/15/2006 Hospital Encounter [facility] Division of Cardiology [address] [place] [phone] Social History Tobacco Use Types Packs/Day [...] this encounter Procedure Notes * Edt, Audit [place] - 01/28/2009 8:12 AM EDT documented in this encounter Plan of Treatment Upcoming Encounters Date Type Department Care Team (Late st Contact Info) Description 11/12/2025 9:00 AM EST Appointment [facility] Division of Cardiology [address] [place] [phone] Ulises Marr MD/MPH Cardiology [facility] Roni Christine [address] [place] [address] 11/12/2025 10:10 AM EST Cardiology Testing [facility] Division of Cardiology [address] [place] [phone] Ulises Marr MD/MPH Cardiology [facility] Roni Christine [address] [place] [address] Discharge Disposition: Home or Self Care 11/12/2025 10:45 AM EST Appointment [facility] Division of Cardiology [address] [place] [phone] Ulises Marr MD/MPH Cardiology [facility] Roni Christine [address] [place] [address] Discharge Disposition: Home or Self Care documented as of this encounter Visit Diagnoses Not on filedocumented in this encounter
--- OUTSIDE RECORDS SUMMARY | 2006-11-18 | XMS_ITS | Encounter Summary ---
Author Organization [facility] Address [address] [place] [address] Care Team Providers Care Occupational Therapist Aide Name Role Phone Unavailable Primary Care Provider Unavailabl e Encounter Details Date Type Department Care Team (Late st Contact Info) Description 11/18/2006 Hospital Encounter [facility] Department of Radiology [address] [place] [phone] Social History Tobacco Use Types Packs/Day [...] Notes * Consent Other - Edt, Audit [place] - 05/02/2008 11:16 AM EDT documented in this encounter Plan of Treatment Upcoming Encounters Date Type Department Care Team (Late st Contact Info) Description 11/12/2025 9:00 AM EST Appointment [facility] Division of Cardiology [address] [place] [phone] Ulises Marr MD/MPH Cardiology [address] [place] [address] 11/12/2025 10:10 AM EST Cardiology Testing [facility] Division of Cardiology [address] [place] [phone] Ulises Marr MD/MPH Cardiology [address] [place] [address] Discharge Disposition: Home or Self Care 11/12/2025 10:45 AM EST Appointment [facility] Division of Cardiology [address] [place] [phone] Ulises Marr MD/MPH Cardiology [address] [place] [address] Discharge Disposition: Home or Self Care documented as of this encounter Visit Diagnoses Not on filedocumented in this encounter
--- OUTSIDE RECORDS SUMMARY | 2006-11-18 | XMS_ITS | Encounter Summary ---
Author Organization [facility] [place] [facility] Address [address] [place] [address] Care Team Providers Care Feed Management Advisor Name Role Phone Unavailable Primary Care Provider Unavailabl e Encounter Details Date Type Department Care Team (Late st Contact Info) Description 11/18/2006 Hospital Encounter [facility] Division of Cardiology [address] [place] [phone] Social History Tobacco Use Types Packs/Day [...] Info) Description 11/12/2025 9:00 AM EST Appointment [facility] Division of Cardiology [address] [place] [phone] Ulises Marr MD/MPH Cardiology [facility] Roni Christine [address] [place] [address] 11/12/2025 10:10 AM EST Cardiology Testing [facility] Division of Cardiology [address] [place] [phone] Ulises Marr MD/MPH Cardiology [facility] Roni Christine [address] [place] [address] Discharge Disposition: Home or Self Care 11/12/2025 10:45 AM EST Appointment [facility] Division of Cardiology [address] [place] [phone] Ulises Marr MD/MPH Cardiology [facility] Roin Christine [address] [place] [address] Discharge Disposition: Home or Self Care documented as of this encounter Visit Diagnoses Not on filedocumented in this encounter
--- OUTSIDE RECORDS SUMMARY | 2006-11-19 | XMS_ITS | Encounter Summary ---
Author Organization [facility] Address [address] [place] [address] Care Team Providers Care Beer Cooler Name Role Phone Unavailable Primary Care Provider Unavailabl e Encounter Details Date Type Department Care Team (Late st Contact Info) Description 11/19/2006 Hospital Encounter [facility] Division of Cardiology [address] [place] [phone] Social History Tobacco Use Types Packs/Day [...] Info) Description 11/12/2025 9:00 AM EST Appointment [facility] Division of Cardiology [address] [place] [phone] Ulises Marr MD/MPH Cardiology [facility] Roni [address] [place] [address] 11/12/2025 10:10 AM EST Cardiology Testing [facility] Division of Cardiology [address] [place] [phone] Ulises Marr MD/MPH Cardiology [facility] Roni Christine [address] [place] [address] Discharge Disposition: Home or Self Care 11/12/2025 10:45 AM EST Appointment [facility] Division of Cardiology [address] [place] [phone] Ulises Marr MD/MPH Cardiology [facility] Roni [address] [place] [address] Discharge Disposition: Home or Self Care documented as of this encounter Visit Diagnoses Not on filedocumented in this encounter
--- OUTSIDE RECORDS SUMMARY | 2007-03-15 23:00 | XMS_ITS | Encounter Summary ---
Author Organization [facility] Address [address] [place] [address] Care Team Providers Care Oceanology Teacher Name Role Phone Unavailable Primary Care Provider Unavailabl e Encounter Details Date Type Department Care Team (Late st Contact Info) Description 03/16/2007 Hospital Encounter [facility] Division of Cardiology [address] [place] [phone] Social History Tobacco Use Types Packs/Day [...] Miscellaneous Notes * Orders - Edt, Audit [place] - 08/16/2011 5:45 PM EDT documented in this encounter Plan of Treatment Upcoming Encounters Date Type Department Care Team (Late st Contact Info) Description 11/12/2025 9:00 AM EST Appointment [facility] Division of Cardiology [address] [place] [phone] Ulises Marr MD/MPH Cardiology [address] [place] [address] 11/12/2025 10:10 AM EST Cardiology Testing [facility] Division of Cardiology [address] [place] [phone] Ulises Marr MD/MPH Cardiology [address] [place] [address] Discharge Disposition: Home or Self Care 11/12/2025 10:45 AM EST Appointment [facility] Division of Cardiology [address] [place] [phone] Ulises Marr MD/MPH Cardiology [address] [place] [address] Discharge Disposition: Home or Self Care documented as of this encounter Visit Diagnoses Not on filedocumented in this encounter
--- OUTSIDE RECORDS SUMMARY | 2025-09-11 11:43 | XMS_ITS | Clinical Summary ---
Author Organization [facility] Address [address] [place] [address] Care Team Providers Care Terrazzo Supervisor Name Role Phone Unavailable Primary Care [...]
--- OUTSIDE RECORDS SUMMARY | 2025-09-11 11:43 | XMS_ITS | Encounter Summary ---
Author Organization [facility] Address [address] [place] [address] Care Team Providers Care Mathematician Name Role Phone Juan Rogers MD Primary Care Provider Encounter Details Date Type Department Care Team (Late st Contact Info) Description 12/10/2011 Abstract [facility] Division of Pediatric General and Thoracic Surgery [address] [place] [phone] Provider, Historical Social History Tobacco Use [...] 11/12/2025 9:00 AM EST Appointment [facility] Division of Cardiology [address] [place] [phone] Ulises Marr MD/MPH [facility]iology [facility] [address] [place] [address] 11/12/2025 10:10 AM EST Cardiology Testing [facility] Division of Cardiology [address] [place] [phone] Ulises Marr MD/MPH [facility]iology [facility] [address] [place] [address] Discharge Disposition: Home or Self Care 11/12/2025 10:45 AM EST Appointment [facility] Division of Cardiology [address] [place] [phone] Ulises Marr MD/MPH Cardiology NATALIE Alexandra [address] [place] [address] Discharge Disposition: Home or Self Care documented as of this encounter Visit Diagnoses Not on filedocumented in this encounter Care Teams Mathematician Relationship Specialty Start Date End Date Juan Rogers MD [address] [place] [address] [address] [place] [address] PCP - General 04/18/08 documented as of this encounter
--- OUTSIDE RECORDS SUMMARY | 2025-09-11 11:43 | XMS_ITS | Encounter Summary ---
Author Organization [facility] Address [address] [place] [address] Care Team Providers Care Goat Farmer Name Role Phone Juan Rogers MD Primary Care Provider [phone] [phone] Encounter Details Date Type Department Care Team (Late st Contact Info) Description 08/09/2025 Anticoag Therapy [facility] Division of Cardiology [address] [place] [phone] Carly Moore RN Social History Tobacco [...] Arnold Bryan Indication: On-X Aortic Valve Replacement Timber Repairer: Dr. Marr Lab Location: [facility] Current Dose: 7.5 mg PO Tue/Makayla [...] Repeat INR on 08/14. Plan sent to Arnodl via text message. I have discussed and reviewed the nurse's note for Arnold Bryan and agree with the assessment and plan as documented. Vanessa Boston PHARMD documented in this encounter Plan of Treatment Upcoming Encounters Date Type Department Care Team (Late st Contact Info) Description 11/12/2025 9:00 AM EST Appointment [facility] Cardiology [address] [place] [phone] Ulises Marr MD/MPH Cardiology [facility] Roni Christine [address] [place] [address] 11/12/2025 10:10 AM EST Cardiology Testing [facility] Division of Cardiology [address] [place] [phone] Ulises Marr MD/MPH Cardiology [facility] Roni Christine [address] [place] [address] Discharge Disposition: Home or Self Care 11/12/2025 10:45 AM EST Appointment [facility] Division of Cardiology [address] [place] [phone] Ulises Marr MD/MPH Cardiology [facility] Roni Christine [address] [place] [address] Discharge Disposition: Home or Self Care documented [...] on filedocumented in this encounter Care Teams Goat Farmer Relationship Specialty Start Date End Date Juan Rogers MD [address] [facility] [address] [place] [address] PCP - General 04/18/08 documented as of this encounter
--- OUTSIDE RECORDS SUMMARY | 2025-09-11 11:43 | XMS_ITS | Encounter Summary ---
Author Organization [facility] Address [address] [place] [address] Care Team Providers Care Printer'S Devil Name Role Phone Juan Rogers MD Primary Care Provider [phone] Encounter Details Date Type Department Care Team (Latest Contact Info) Description 01/12/[address] [facility] Division of Cardiology [address] [place] [phone] Carly Moore RN Anticoagulated on warfarin; [...] Info) Description 11/12/2025 9:00 AM EST Appointment [facility] Division of Cardiology [address] [place] [address] Ulises Marr MD/MPH Cardiology [address] [place] [address] 11/12/2025 10:10 AM EST Cardiology Testing [facility] Division of Cardiology [address] [place] [address] Ulises Marr MD/MPH Cardiology [address] [place] [address] Discharge Disposition: Home or Self Care 11/12/2025 10:45 AM EST Appointment [facility] Division Cardiology [address] [place] [address] Ulises Marr MD/MPH Cardiology [address] [place] [address] Discharge Disposition: Home or Self Care documented [...] disorders documented in this encounter Care Teams Printer'S Devil Relationship Specialty Start Date End Date Juan Rogers MD [facility] [address] [place] [address] PCP - General 04/18/08 documented as of this encounter
--- OUTSIDE RECORDS SUMMARY | 2025-09-11 11:43 | XMS_ITS | Encounter Summary ---
Author Organization [facility] Address [address] [place] [address] Care Team Providers Care Door Closer Name Role Phone Juan Rogers MD Primary Care Provider Reason for Visit * Reason Comments Medication Refill Encounter Details Date Type Department Care Team (Late st Contact Info) Description 10/12/2016 Refill [facility] Division of Cardiology [address] [place] [phone] Timbo Last II, MD Cardiology [address] [place] [address] [address] [place] [address] Medication Refill Social History Tobacco Use Types [...] Info) Description 11/12/2025 9:00 AM EST Appointment [facility] Division of Cardiology [address] [place] [phone] Ulises Marr MD/MPH Cardiology [address], [address] [place] [address] 11/12/2025 10:10 AM EST Cardiology Testing [facility] Division of Cardiology [address] [place] [address] Ulises Marr MD/MPH Cardiology [facility] Christine, [address] [place] [address] Discharge Disposition: Home or Self Care 11/12/2025 10:45 AM EST Appointment [facility] Division of Cardiology [address] [place] [address] Ulises Marr MD/MPH Cardiology [facility] Roni Christine [address] [place] [address] Discharge Disposition: Home or Self Care documented as of this encounter Visit Diagnoses Diagnosis Anticoagulated on warfarin Encounter for long-term (current) use of anticoagulants S/P aortic valve replacement Heart valve replaced by other means Aortic valve disorder Aortic valve disorders documented in this encounter Care Teams Door Closer Relationship Specialty Start Date End Date Juan Rogers MD [address] [place] [address] [address] [place] [address] PCP - General 04/18/08 documented as of this encounter
--- OUTSIDE RECORDS SUMMARY | 2025-09-11 11:43 | XMS_ITS | Encounter Summary ---
Author Organization [facility] Address [address] [place] [address] Care Team Providers Care Airbrush Artist Photography Name Role Phone Juan Rogers MD Primary Care Provider [phone] [phone] Encounter Details Date Type Department Care Team (Late st Contact Info) Description 07/19/2019 Anticoag Therapy [facility] Division of Cardiology [address] [place] [phone] Roselia Poe, PHARMD Cardiology [address] [place] [phone] Social History Tobacco Use Types Packs/Day [...] Description 11/12/2025 9:00 AM EST Appointment [facility] Division of Cardiology [address] [place] [phone] Ulises Marr MD/MPH Cardiology [facility], [address] [place] [address] 11/12/2025 10:10 AM EST Cardiology Testing [facility] Division of Cardiology [address] [place] [phone] Ulises Marr MD/MPH Cardiology [facility] [place] [address] Discharge Disposition: Home or Self Care 11/12/2025 10:45 AM EST Appointment [facility] Division of Cardiology [address] [place] [phone] Ulises Marr MD/MPH Cardiology [address], [address] [place] [address] Discharge Disposition: Home or Self Care documented as of this encounter Visit Diagnoses Not on filedocumented in this encounter Care Teams Airbrush Artist Photography Relationship Specialty Start Date End Date Juan Rogers MD [address] [facility] [address] [place] [address] PCP - General 04/18/08 documented as of this encounter
--- OUTSIDE RECORDS SUMMARY | 2025-09-11 11:44 | XMS_ITS | Encounter Summary ---
Author Organization [facility] Address [address] [place] [address] Care Team Providers Care Otolaryngology Teacher Name Role Phone Juan Rogers MD Primary Care Provider [phone] Encounter Details Date Type Department Care Team (Late st Contact Info) Description 08/16/2025 Anticoag Therapy [facility] Division of Cardiology [address] [place] [phone] Carly Moore RN S/P aortic valve [...] Arnold Bryan Indication: On-X Aortic Valve Replacement Health Lead: Dr. Marr Lab Location: [facility] Current [...] Info) Description 11/12/2025 9:00 AM EST Appointment [facility] Division of Cardiology [address] [place] [phone] Ulises Marr MD/MPH Cardiology [facility] Roni Christine [address] [place] [address] 11/12/2025 10:10 AM EST Cardiology Testing [facility] Division of Cardiology [address] [place] [phone] Ulises Marr MD/MPH Cardiology [facility] Roni Christine [address] [place] [address] Discharge Disposition: Home or Self Care 11/12/2025 10:45 AM EST Appointment [facility] Division Cardiology [address] [place] [phone] Ulises Marr MD/MPH Cardiology [facility] Roni Christine [address] [place] [address] Discharge Disposition: Home or Self Care documented [...] anticoagulants documented in this encounter Care Teams Otolaryngology Teacher Relationship Specialty Start Date End Date Juan Rogers MD [address] [facility] [address] [place] [address] PCP - General 04/18/08 documented as of this encounter
--- OUTSIDE RECORDS SUMMARY | 2025-09-11 11:44 | XMS_ITS | Encounter Summary ---
Author Organization [facility] Address [address] [place] [address] Care Team Providers Care Car Oiler Name Role Phone Juan Rogers MD Primary Care Provider [phone] Encounter Details Date Type Department Care Team (Late st Contact Info) Description 08/29/2025 Anticoag Therapy [facility] Division of Cardiology [address] [place] [phone] Khushi Johnson RN S/P aortic valve [...] of this encounter Progress Notes * Vanessa Boston, JESI - 08/29/2025 9:50 AM EST Warfarin Management - Arnold Bryan Indication: On-X Aortic Valve Replacement Post Doc Fellowship: Dr. Marr Lab Location: [facility] Current Dose: 7.5 mg PO Tue/Makayla and 10 mg PO AOD's Goal INR: 1.5 to 2.5 (goal changed 09/23/23) Previous INR: 1.57 (08/16/25) Current INR: 2.01 (08/28/25) Assessment: No changes in diet or medications reported. No recent illness or signs of bleeding. Confirmed current dose of warfarin. Plan: INR is within goal range. Per Vanessa Boston PharmD, continue current dose of warfarin. Repeat INR in 2 weeks on 09/11. Arnold agreed to plan via text message. I have discussed and reviewed the nurse's note for Arnold Bryan and agree with the assessment and plan as documented. Vanessa Boston PHARMD documented in this encounter Plan of Treatment Upcoming Encounters Date Type Department Care Team (Late st Contact Info) Description 11/12/2025 9:00 AM EST Appointment [facility] Cardiology [address] [place] [phone] Ulises Marr MD/MPH Cardiology [address] [place] [address] Vincent [address] [place] [address] 11/12/2025 10:10 AM EST Cardiology Testing [facility] Division of Cardiology [address] [place] [phone] Ulises Marr MD/MPH Cardiology [address] [place] [address] Nanci [address] [place] [address] Discharge Disposition: Home or Self Care 11/12/2025 10:45 AM EST Appointment [facility] Division of Cardiology [address] [place] [phone] Ulises Marr MD/MPH Cardiology [address] [place] [address] Nanci [address] [place] [address] Discharge Disposition: Home or Self Care documented as of this encounter Procedures Procedure Name Priority Date/Time Associated Diagnosis Comments PT & INR (PATIENT ON WARFARIN THERAPY) Routine 08/28/2025 documented in this encounter Results * PT & INR (Patient on Warfarin Therapy) (08/28/2025) INR EXT 2.01 Blood us Historical Provider HEMATOLOGY ORDERABLES Final Result documented in this encounter Visit Diagnoses Diagnosis S/P aortic valve replacement- Primary Heart valve replaced by other means Anticoagulated on warfarin Encounter for long-term (current) use of anticoagulants documented in this encounter Care Teams Car Oiler Relationship Specialty Start Date End Date Juan Rogers MD [address] [facility] [address] [place] [address] PCP - General 04/18/08 documented as of this encounter
--- OUTSIDE RECORDS SUMMARY | 2025-09-11 11:44 | XMS_ITS | Patient Health Record ---
Author Organization [facility] Address [address] [place] [id number] Care Team Providers Care Cardiology Consultants Name Role Phone Freddy Reid Primary Care Provider [phone] Medications Medication SIG (Take, Route, Frequency, Duration) [...] Coverage End Date [employer] [address] [address] [place] [address] [phone] [id number] COTY VERAS Child - Insured has Financial Responsibility Medications Administered Medication Instructions Date of Administration Dosage Notes Bicillin LA 1,200,000 12/31/2005 0.5 mL Medical (General) History Medical History History ICD Code heart murmur Aortic Valve Stenosis Surgical History Surgery Date(Month/Year) Stent placed in heart for aortic valve s tenosis 11/2006 Hospitalization History Reason Date(Month/Year) none
--- OUTSIDE RECORDS SUMMARY | 2025-09-11 11:44 | XMS_ITS | Encounter Summary ---
Author Organization [facility] Address [address] [place] [address] Care Team Providers Care Histologist Technologist Name Role Phone Juan Rogers MD Primary Care Provider [phone] Reason for Visit * Reason Onset Date Comments Medication Refill 09/11/2025 Encounter Details Date Type Department Care Team (Late st Contact Info) Description 09/11/2025 Refill [facility] Division of Cardiology [address] [place] [phone] Khushi Johnson RN Medication Refill Social History Tobacco Use Types [...] Description 11/12/2025 9:00 AM EST Appointment [facility] Division of Cardiology [address] [place] [phone] Ulises Marr MD/MPH Cardiology NATALIE Alexandra [address] [place] [address] 11/12/2025 10:10 AM EST Cardiology Testing [facility] Division of Cardiology [address] [place] [phone] Ulises Marr MD/MPH Cardiology NATALIE Alexandra [address] [place] [address] Discharge Disposition: Home or Self Care 11/12/2025 10:45 AM EST Appointment [facility] Division of Cardiology [address] [place] [phone] Ulises Marr MD/MPH Cardiology NATALIE Alexandra [address] [place] [address] Discharge Disposition: Home or Self Care documented as of this encounter Visit Diagnoses Not on filedocumented in this encounter Care Teams Histologist Technologist Relationship Specialty Start Date End Date Juan Rogers MD 12[address] [facility] [address] [place] [address] PCP - General 04/18/08 documented as of this encounter
--- OUTSIDE RECORDS SUMMARY | 2025-09-11 11:44 | XMS_ITS | Encounter Summary ---
Author Organization [facility] Address [address] [place] [address] Care Team Providers Care Cna Caregiver Name Role Phone Juan Rogers MD Primary Care Provider [phone] Encounter Details Date Type Department Care Team (Late st Contact Info) Description 07/13/2025 Anticoag Therapy [facility] Division of Cardiology [address] [place] [phone] Maureen Rodas, ANOOP S/P aortic valve [...] Arnold Bryan Indication: On-X Aortic Valve Replacement Cathode Builder: Dr. Marr Lab Location: [facility] [...] Info) Description 11/12/2025 9:00 AM EST Appointment [facility] Division of Cardiology [address] [place] [phone] Ulises Marr MD/MPH Cardiology [facility] Roni Christine [address] [place] [address] 11/12/2025 10:10 AM EST Cardiology Testing [facility] Division of Cardiology [address] [place] [phone] Ulises Marr MD/MPH Cardiology [facility] Roni Christine [address] [place] [address] Discharge Disposition: Home or Self Care 11/12/2025 10:45 AM EST Appointment [facility] Division of Cardiology [address] [place] [phone] Ulises Marr MD/MPH Cardiology [facility] Roni Christine [address] [place] [address] Discharge Disposition: Home or Self Care documented [...] anticoagulants documented in this encounter Care Teams Cna Caregiver Relationship Specialty Start Date End Date Juan Rogers MD [address] [facility] [address] [place] [address] PCP - General 04/18/08 documented as of this encounter
--- OUTSIDE RECORDS SUMMARY | 2025-09-11 11:44 | XMS_ITS | Encounter Summary ---
Author Organization [facility] Address [address] [place] [address] Care Team Providers Care Emergency Medical Services Coordinator Name Role Phone Juan Rogers MD Primary Care Provider [phone] Reason for Visit * Reason Comments Medication Refill Encounter Details Date Type Department Care Team (Late st Contact Info) Description 09/11/2025 Refill [facility] Division of Cardiology [address] [place] [phone] Ulises Marr MD/MPH Cardiology [address] [place] [address] Medication Refill Social History Tobacco Use Types [...] [facility] Division of Cardiology [address] [place] [phone] Ulises Marr MD/MPH Cardiology NATALIE Alexandra [address] [place] [address] 11/12/2025 10:10 AM EST Cardiology Testing [facility] Division of Cardiology [address] [place] [phone] Ulises Marr MD/MPH Cardiology NATALIE Alexandra [address] [place] [address] Discharge Disposition: Home or Self Care 11/12/2025 10:45 AM EST Appointment [facility] Division of Cardiology [address] [place] [phone] Ulises Marr MD/MPH Cardiology NATALIE Alexandra [address] [place] [address] Discharge Disposition: Home or Self Care documented as of this encounter Visit Diagnoses Diagnosis Aortic valve disorder Aortic valve disorders S/P aortic valve replacement Heart valve replaced by other means Anticoagulated on warfarin Encounter for long-term (current) use of anticoagulants documented in this encounter Care Teams Emergency Medical Services Coordinator Relationship Specialty Start Date End Date Juan Rogers MD [facility] [address] [address] [address] [place] [address] PCP - General 04/18/08 documented as of this encounter
--- OUTSIDE RECORDS SUMMARY | 2025-09-11 11:44 | XMS_ITS | Encounter Summary ---
Author Organization [facility] Address [address] [place] [address] Care Team Providers Care Quantitative Developer Name Role Phone Juan Rogers MD Primary Care Provider Reason for Visit * Reason Onset Date Comments Scheduling Appointment 07/27/2025 Spoke anny Wilson and Transferred call to complete scheduling request Encounter Details Date Type Department Care Team (Late st Contact Info) Description 07/27/2025 Telephone [facility] Division of Cardiology [address] [place] [phone] Ulises Marr MD/MPH Cardiology [address] [place] [address] Scheduling Appointment (Spoke Jesus and Transferred call to complete scheduling request [...] . Informed patient that follow-up visit with wild life manager is required to remain enrolled in the [place] [facility]tico[facility] Program. Call was transferred to scheduling ( Jaciel) to schedule appointment with testing Candace Guido documented in this encounter Plan of Treatment Upcoming Encounters Date Type Department Care Team (Late st Contact Info) Description 11/12/2025 9:00 AM EST Appointment [facility] Division of Cardiology [address] [place] [phone] Ulises Marr MD/MPH Cardiology [facility] NATALIE Vega [address] [place] [address] 11/12/2025 10:10 AM EST Cardiology Testing [facility] Division of Cardiology [address] [place] [address] Ulises Marr MD/MPH Cardiology [facility] Roni Christine [address] [place] [address] Discharge Disposition: Home or Self Care 11/12/2025 10:45 AM EST Appointment [facility] Division of Cardiology [address] [place] [address] Ulises Marr MD/MPH Cardiology [facility] Roni Christine [address] [place] [address] Discharge Disposition: Home or Self Care documented as of this encounter Visit Diagnoses Not on filedocumented in this encounter Care Teams Quantitative Developer Relationship Specialty Start Date End Date Juan Rogers MD [address] [place] [address] [address] [place] [address] PCP - General 04/18/08 documented as of this encounter
--- OUTSIDE RECORDS SUMMARY | 2025-09-11 11:44 | XMS_ITS | Clinical Summary ---
Author Organization [facility] Address [address] [place] [address] Care Team Providers Care Automatic Lehr Operator Name Role Phone Juan Rogers MD Primary Care Provider Source Comments [facility] is fully rolled out with thefollowing exceptions:General Clinical Research [facility] Allergies Active Allergy Reactions Criticality Noted [...] Encounters Date Type Department Care Team Description 09/11/2025 Refill [facility] Division of Cardiology [address] [place] [phone] Khushi Johnson, reporting consultant Refill 09/11/2025 Refill [facility] Division of Cardiology [address] [place] [phone] Ulises Marr MD/MPH Medication Refill 08/29/2025 Anticoag Therapy [facility] Division of Cardiology [address] [place] [phone] Khushi Johnson RN S/P aortic valve replacement (Primary Dx); Anticoagulated on warfarin 08/16/2025 Anticoag Therapy [facility] Division of Cardiology [address] [place] [phone] Carly Moore, ANOOP S/P aortic valve replacement (Primary Dx); Anticoagulated on warfarin 08/09/2025 Anticoag Therapy [facility] Division of Cardiology [address] [place] [phone] Carly Moore RN 08/03/2025 Anticoag Therapy [facility] Division of Cardiology [address] [place] [phone] Carly Moore RN 07/27/2025 Telephone [facility] Division of Cardiology [address] [place] [phone] Ulises Marr MD/MPH Scheduling Appointment (Spoke withFran and Transferred call to complete scheduling request ) 07/13/2025 Anticoag Therapy [facility] Division of Cardiology [address] [place] [phone] Maureen Rodas RN S/P aortic valve replacement (Primary Dx); Anticoagulated on warfarin 06/25/2025 Anticoag Therapy [facility] Division of Cardiology [address] [place] [phone] Carly Moore RN S/P aortic valve replacement (Primary Dx); Anticoagulated on warfarin 06/15/2025 Anticoag Therapy [facility] Division of Cardiology [address] [place] [phone] Carly Moore RN S/P aortic valve replacement [...] 11/12/2025 9:00 AM EST Appointment [facility] Division of Cardiology [address] [place] [phone] Ulises Marr MD/MPH Cardiology [address] [place], [place] [id number] 11/12/2025 10:10 AM EST Cardiology Testing [facility] Division of Cardiology [address] [place] [phone] Ulises Marr MD/MPH Cardiology [address] [place] [address], [address] [place] [address] Discharge Disposition: Home or Self Care 11/12/2025 10:45 AM EST Appointment [facility] Division of Cardiology [address] [place] [phone] Ulises Marr MD/MPH Cardiology [address] [place] [address] Nanci, [address] [place] [address] Discharge Disposition: Home or Self Care Health [...] FLU VACCINE (#1) 06/18/2025 07/20/2011 COVID-19 Vaccine ( - 2024-2 6 season) 2025 HIB IMMUNIZATION Aged Out No [...] this topic Medical Devices Implanted Type Area Ply Splicer Device Identifier Shelf Expiration Date Model / Serial / Lot Valve 21mm Ao W/Ext Hldr Cmft-X - [id number] Implanted:Qt y: 1 on 06/06/2013 by Patrick Garza III, MD at [facility] Cardiovascular N/A: Heart 10/06/2017 / [id number] / N/A Clip Hemo Lg [place] - [id number] Implanted:Qt y: 1 on 06/06/2013 at [facility] [employer] [facility] [id number] / / Procedures Procedure Name Priority Date/Time Associated Diagnosis Comments PT & INR (PATIENT ON WARFARIN THERAPY) Routine 08/28/2025 PT & INR (PATIENT ON WARFARIN THERAPY) Routine 08/16/2025 PT & INR (PATIENT ON WARFARIN THERAPY) Routine 08/08/2025 PT & INR (PATIENT ON WARFARIN THERAPY) Routine 08/03/2025 PT & INR (PATIENT ON WARFARIN THERAPY) Routine 07/12/2025 PT & INR (PATIENT ON WARFARIN THERAPY) Routine 06/21/2025 PT & INR (PATIENT ON WARFARIN THERAPY) Routine 06/14/2025 from Last 3 Months Results * PT & INR (Patient on Warfarin Therapy) (08/28/2025) Only the most recent of7 resultswithin the time period is included. INR EXT 2.01 Blood us Historical Provider HEMATOLOGY ORDERABLES Final Result from Last 3 Months Insurance [place] [id number] Care Teams Automatic Lehr Operator Relationship Specialty Start Date End Date Juan Rogers MD [address] [address] [address] [place] [address] PCP - General 04/18/08
--- OUTSIDE RECORDS SUMMARY | 2025-09-11 11:44 | XMS_ITS | Encounter Summary ---
Author Organization [facility] Address [address] [place] [address] Care Team Providers Care Switchgear Repairer Name Role Phone Juan Rogers MD Primary Care Provider [phone] [phone] Encounter Details Date Type Department Care Team (Late st Contact Info) Description 08/03/2025 Anticoag Therapy [facility] Division of Cardiology [address] [place] [phone] Carly Moore RN Social History Tobacco [...] Arnold Bryan Indication: On-X Aortic Valve Replacement Hop Farm Worker: Dr. Marr Lab Location: [facility] [...] Appointment [facility] Division of Cardiology [address] [place] [phone] Ulises Marr MD/MPH Cardiology [facility] Roni Christine [address] [place] [address] 11/12/2025 10:10 AM EST Cardiology Testing [facility] Division of Cardiology [address] [place] [phone] Ulises Marr MD/MPH Cardiology [facility] Roni Christine [address] [place] [address] Discharge Disposition: Home or Self Care 11/12/2025 10:45 AM EST Appointment [facility] Division of Cardiology [address] [place] [phone] Ulises Marr MD/MPH Cardiology [facility] Roni Christine [address] [place] [address] Discharge Disposition: Home or Self Care documented [...] on filedocumented in this encounter Care Teams Switchgear Repairer Relationship Specialty Start Date End Date Juan Rogers MD [address] [facility] [address] [place] [address] PCP - General 04/18/08 documented as of this encounter
[2025-09-11 12:17] LABS: INR 2.79 (0.9-1.1); Prothrombin Time 28.7 seconds (10.1-12.5)
== END 2025-09-11 23:59 | disposition home or self-care (01) ==
LOC: LAB 11:41
PROVIDERS: PCP Internal Medicine Adolescent Medicine; Visit Provider Internal Medicine
DX: Z79.01 Long term (current) use of anticoagulants (principal)
CPT/HCPCS: 36415; 85610

== ENCOUNTER 2025-09-18 13:23 | Outpatient (CLI) | payer BC, SELFPAY ==
--- OUTSIDE RECORDS SUMMARY | 2025-09-18 13:26 | XMS_ITS | Clinical Summary ---
Author Organization [facility] Address [address] [place] [address] Care Team Providers Care Judicial Clerk Name Role Phone Unavailable Primary Care [...]
[2025-09-18 14:07] LABS: INR 1.26 (0.9-1.1); Prothrombin Time 13.7 seconds (10.1-12.5)
== END 2025-09-18 23:59 | disposition home or self-care (01) ==
LOC: LAB 13:24
PROVIDERS: PCP Internal Medicine Adolescent Medicine; Visit Provider Internal Medicine
DX: Z79.01 Long term (current) use of anticoagulants (principal)
CPT/HCPCS: 36415; 85610

== ENCOUNTER 2025-09-26 10:06 | Outpatient (CLI) | payer BC, SELFPAY ==
[2025-09-26 11:07] LABS: INR 3.40 (0.9-1.1); Prothrombin Time 34.5 seconds (10.1-12.5)
== END 2025-09-26 23:59 | disposition home or self-care (01) ==
LOC: LAB 10:06
PROVIDERS: PCP Internal Medicine Adolescent Medicine; Visit Provider Internal Medicine
DX: Z79.01 Long term (current) use of anticoagulants (principal)
CPT/HCPCS: 36415; 85610

== ENCOUNTER 2025-10-03 16:08 | Outpatient (CLI) | payer BC, SELFPAY ==
[2025-10-03 16:47] LABS: INR 4.13 (0.9-1.1); Prothrombin Time 41.3 seconds (10.1-12.5)
--- OUTSIDE RECORDS SUMMARY | 2025-10-03 17:17 | XMS_ITS | Patient Health Record ---
Author Organization [facility] Address [address] [place] [id number] Care Team Providers Care Electrical Electronics Engineer Name Role Phone Freddy Reid Primary Care [...] Coverage End Date [employer] [address] [address] [place] [address] [id number] COTY VERAS Child - Insured has Financial Responsibility Medications Administered Medication Instructions Date of Administration Dosage Notes Bicillin LA 1,200,000 12/31/2005 0.5 mL Medical (General) History Medical History History ICD Code heart murmur Aortic Valve Stenosis Surgical History Surgery Date(Month/Year) Stent placed in heart for aortic valve s tenosis 11/2006 Hospitalization History Reason Date(Month/Year) none
--- OUTSIDE RECORDS SUMMARY | 2025-10-03 17:17 | XMS_ITS | Clinical Summary ---
Author Organization Healthcare Address [address] [place] [address] Care Team Providers Care Studio Technician Name Role Phone Unavailable Primary Care [...]
== END 2025-10-03 23:59 | disposition home or self-care (01) ==
LOC: LAB 16:09
PROVIDERS: PCP Internal Medicine Adolescent Medicine; Visit Provider Internal Medicine
DX: Z79.01 Long term (current) use of anticoagulants (principal)
CPT/HCPCS: 36415; 85610

== ENCOUNTER 2025-10-08 14:02 | Outpatient (CLI) | payer BC, SELFPAY ==
--- OUTSIDE RECORDS SUMMARY | 2005-06-24 23:00 | XMS_ITS | Encounter Summary ---
Author Organization [facility] Address [address] [place] [address] Care Team Providers Care Candy Butcher Name Role Phone Unavailable Primary Care Provider Unavailabl e Encounter Details Date Type Department Care Team (Late st Contact Info) Description 06/25/2005 Hospital Encounter [facility] Division of Cardiology [address] [place] [phone] Social History Tobacco Use Types Packs/Day [...] 11/12/2025 9:00 AM EST Appointment [facility] Division of Cardiology [address] [place] [phone] Ulises Marr MD/MPH Cardiology [facility] Roni Christine [address] [place] [address] 11/12/2025 10:10 AM EST Cardiology Testing [facility] Division of Cardiology [address] [place] [phone] Ulises Marr MD/MPH Cardiology [facility] Roni Christine [address] [place] [address] Discharge Disposition: Home or Self Care 11/12/2025 10:45 AM EST Appointment [facility] Division of Cardiology [address] [place] [phone] Ulises Marr MD/MPH Cardiology [facility] Roni Christine [address] [place] [address] Discharge Disposition: Home or Self Care documented as of this encounter Visit Diagnoses Not on filedocumented in this encounter
--- OUTSIDE RECORDS SUMMARY | 2006-03-30 23:00 | XMS_ITS | Encounter Summary ---
Author Organization [facility] Address [address] [place] [address] Care Team Providers Care Rig Hand Name Role Phone Unavailable Primary Care Provider Unavailabl e Encounter Details Date Type Department Care Team (Late st Contact Info) Description 03/31/2006 Hospital Encounter [facility] Division of Cardiology [address] [place] [phone] Social History Tobacco Use Types Packs/Day [...] Info) Description 11/12/2025 9:00 AM EST Appointment [facility] Division of Cardiology [address] [place] [phone] Ulises Marr MD/MPH Cardiology [facility] Roni Christine [address] [place] [address] 11/12/2025 10:10 AM EST Cardiology Testing [facility] Division of Cardiology [address] [place] [phone] Ulises Marr MD/MPH Cardiology [facility] Roni Christine [address] [place] [address] Discharge Disposition: Home or Self Care 11/12/2025 10:45 AM EST Appointment [facility] Division of Cardiology [address] [place] [phone] Ulises Marr MD/MPH Cardiology [facility] Roni Christine [address] [place] [address] Discharge Disposition: Home or Self Care documented as of this encounter Visit Diagnoses Not on filedocumented in this encounter
--- OUTSIDE RECORDS SUMMARY | 2006-09-15 | XMS_ITS | Encounter Summary ---
Author Organization [facility] Address [address] [place] [address] Care Team Providers Care Bowling Ball Weigher And Packer Name Role Phone Unavailable Primary Care Provider Unavailabl e Encounter Details Date Type Department Care Team (Late st Contact Info) Description 09/15/2006 Hospital Encounter [facility] Division of Cardiology [address] [place] [phone] Social History Tobacco Use Types Packs/Day [...] this encounter Procedure Notes * Edt, Audit [place] - 01/28/2009 8:12 AM EDT documented in this encounter Plan of Treatment Upcoming Encounters Date Type Department Care Team (Late st Contact Info) Description 11/12/2025 9:00 AM EST Appointment [facility] Division of Cardiology [address] [place] [phone] Ulises Marr MD/MPH Cardiology [facility] Roni Christine [address] [place] [address] 11/12/2025 10:10 AM EST Cardiology Testing [facility] Division of Cardiology [address] [place] [phone] Ulises Marr MD/MPH Cardiology [facility] Roni Christine [address] [place] [address] Discharge Disposition: Home or Self Care 11/12/2025 10:45 AM EST Appointment [facility] Division of Cardiology [address] [place] [phone] Ulises Marr MD/MPH Cardiology [facility] Roni Christine [address] [place] [address] Discharge Disposition: Home or Self Care documented as of this encounter Visit Diagnoses Not on filedocumented in this encounter
--- OUTSIDE RECORDS SUMMARY | 2006-11-18 | XMS_ITS | Encounter Summary ---
Author Organization [facility] Address [address] [place] [address] Care Team Providers Care Manager Pricing Name Role Phone Unavailable Primary Care Provider Unavailabl e Encounter Details Date Type Department Care Team (Late st Contact Info) Description 11/18/2006 Hospital Encounter [facility] Department of Radiology [address] [place] [phone] Social History Tobacco Use Types Packs/Day [...] Notes * Consent Other - Edt, Audit [place] - 05/02/2008 11:16 AM EDT documented in this encounter Plan of Treatment Upcoming Encounters Date Type Department Care Team (Late st Contact Info) Description 11/12/2025 9:00 AM EST Appointment [facility] Division of Cardiology [address] [place] [phone] Ulises Marr MD/MPH Cardiology [address] [place] [address] 11/12/2025 10:10 AM EST Cardiology Testing [facility] Division of Cardiology [address] [place] [phone] Ulises Marr MD/MPH Cardiology [address] [place] [address] Discharge Disposition: Home or Self Care 11/12/2025 10:45 AM EST Appointment [facility] Division of Cardiology [address] [place] [phone] Ulises Marr MD/MPH Cardiology [address] [place] [address] Discharge Disposition: Home or Self Care documented as of this encounter Visit Diagnoses Not on filedocumented in this encounter
--- OUTSIDE RECORDS SUMMARY | 2006-11-18 | XMS_ITS | Encounter Summary ---
Author Organization [facility] Address [address] [place] [address] Care Team Providers Care Safety Lead Name Role Phone Unavailable Primary Care Provider Unavailabl e Encounter Details Date Type Department Care Team (Late st Contact Info) Description 11/18/2006 Hospital Encounter [facility] Division of Cardiology [address] [place] [phone] Social History Tobacco Use Types Packs/Day [...] Info) Description 11/12/2025 9:00 AM EST Appointment [facility] Division of Cardiology [address] [place] [phone] Ulises Marr MD/MPH Cardiology [facility] Roni [address] [place] [address] 11/12/2025 10:10 AM EST Cardiology Testing [facility] Division of Cardiology [address] [place] [phone] Ulises Marr MD/MPH Cardiology [facility] [address]oni [address] [place] [address] Discharge Disposition: Home or Self Care 11/12/2025 10:45 AM EST Appointment [facility] Division of Cardiology [address] [place] [phone] Ulises Marr MD/MPH Cardiology [facility] Roni Christine [address] [place] [address] Discharge Disposition: Home or Self Care documented as of this encounter Visit Diagnoses Not on filedocumented in this encounter
--- OUTSIDE RECORDS SUMMARY | 2006-11-19 | XMS_ITS | Encounter Summary ---
Author Organization [facility] Address [address] [place] [address] Care Team Providers Care Planned Giving Officer Name Role Phone Unavailable Primary Care Provider Unavailabl e Encounter Details Date Type Department Care Team (Late st Contact Info) Description 11/19/2006 Hospital Encounter [facility] Division of Cardiology [address] [place] [phone] Social History Tobacco Use Types Packs/Day [...] Info) Description 11/12/2025 9:00 AM EST Appointment [facility] Division of Cardiology [address] [place] [phone] Ulises Marr MD/MPH Cardiology [facility] Roni Christine [address] [place] [address] 11/12/2025 10:10 AM EST Cardiology Testing [facility] Division of Cardiology [address] [place] [phone] Ulises Marr MD/MPH Cardiology [facility] Roni Christine [address] [place] [address] Discharge Disposition: Home or Self Care 11/12/2025 10:45 AM EST Appointment [facility] Division of Cardiology [address] [place] [phone] Ulises Marr MD/MPH Cardiology [facility] Roni Christine [address] [place] [address] Discharge Disposition: Home or Self Care documented as of this encounter Visit Diagnoses Not on filedocumented in this encounter
--- OUTSIDE RECORDS SUMMARY | 2007-03-15 23:00 | XMS_ITS | Encounter Summary ---
Author Organization [facility] Address [address] [place] [address] Care Team Providers Care Music Supervisor Name Role Phone Unavailable Primary Care Provider Unavailabl e Encounter Details Date Type Department Care Team (Late st Contact Info) Description 03/16/2007 Hospital Encounter [facility] Division of Cardiology [address] [place] [phone] Social History Tobacco Use Types Packs/Day [...] Miscellaneous Notes * Orders - Edt, Audit [place] - 08/16/2011 5:45 PM EDT documented in this encounter Plan of Treatment Upcoming Encounters Date Type Department Care Team (Late st Contact Info) Description 11/12/2025 9:00 AM EST Appointment [facility] Division of Cardiology [address] [place] [phone] Ulises Marr MD/MPH Cardiology [address] [place] [address] 11/12/2025 10:10 AM EST Cardiology Testing [facility] Division of Cardiology [address] [place] [phone] Ulises Marr MD/MPH Cardiology [address] [place] [address] Discharge Disposition: Home or Self Care 11/12/2025 10:45 AM EST Appointment [facility] Division of Cardiology [address] [place] [phone] Ulises Marr MD/MPH Cardiology [address] [place] [address] Discharge Disposition: Home or Self Care documented as of this encounter Visit Diagnoses Not on filedocumented in this encounter
--- OUTSIDE RECORDS SUMMARY | 2025-10-08 14:14 | XMS_ITS | Encounter Summary ---
Author Organization [facility] Address [address] [place] [address] Care Team Providers Care Lead Systems Developer Name Role Phone Juan Rogers MD Primary Care Provider +1 [phone] Encounter Details Date Type Department Care Team (Late st Contact Info) Description 08/09/2025 Anticoag Therapy [facility] Division of Cardiology [address] [place] [phone] Carly Moore RN Social History Tobacco [...] Arnold Bryan Indication: On-X Aortic Valve Replacement Yard Switcher: Dr. Marr Lab Location: [facility] [...] Info) Description 11/12/2025 9:00 AM EST Appointment [facility] Cardiology [address] [place] [phone] Ulises Marr MD/MPH Cardiology [facility] Roni Christine [address] [place] [address] 11/12/2025 10:10 AM EST Cardiology Testing [facility] Division of Cardiology [address] [place] [phone] Ulises Marr MD/MPH Cardiology [facility] Roni Christine [address] [place] [address] Discharge Disposition: Home or Self Care 11/12/2025 10:45 AM EST Appointment [facility] Division of Cardiology [address] [place] [phone] lUises Marr MD/MPH Cardiology [facility] Roni Christine [address] [place] [address] Discharge Disposition: Home or Self Care documented [...] on filedocumented in this encounter Care Teams Lead Systems Developer Relationship Specialty Start Date End Date Juan Rogers MD [address] [facility] [address] [place] [address] PCP - General 04/18/08 documented as of this encounter
--- OUTSIDE RECORDS SUMMARY | 2025-10-08 14:14 | XMS_ITS | Encounter Summary ---
Author Organization [facility] Address [address] [place] [address] Care Team Providers Care Registered Nurse Fetal Name Role Phone Juan Rogers MD Primary Care Provider Reason for Visit * Reason Onset Date Comments Anticoagulation Management 09/20/2025 Encounter Details Date Type Department Care Team (Latest Contact Info) Description 09/20/2025 Clinical Note [facility] Division of Cardiology [address] [place] [phone] Carly Moore RN Anticoagulation Management Social History Tobacco Use Types Packs/Day Years [...] this encounter Progress Notes * Carly Moore RN - 09/20/2025 2:36 PM EST Arnold notified the anticoagulation team that 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 I advised him per Roselia Poe PharmD, take 12.5 mg of warfarin tonight and tomorrow and then resume his current dose on 09/22. Repeat INR on 09/26. Arnold verbalized understanding of the plan. documented in this encounter Plan of Treatment Upcoming Encounters Date Type Department Care Team (Late st Contact Info) Description 11/12/2025 9:00 AM EST Appointment [facility] Division of Cardiology [address] [place] [phone] Ulises Marr MD/MPH [facility]iology [facility] [address] [place] [address] 11/12/2025 10:10 AM EST Cardiology Testing [facility] Division of Cardiology [address] [place] [phone] Ulises Marr MD/MPH Cardiology [address] [place] [address] Discharge Disposition: Home or Self Care 11/12/2025 10:45 AM EST Appointment [facility] Division of Cardiology [address] [place] [phone] Ulises Marr MD/MPH Cardiology [facility] NATALIE Vega [address] [place] [address] Discharge Disposition: Home or Self Care documented as of this encounter Visit Diagnoses Not on filedocumented in this encounter Care Teams Registered Nurse Fetal Relationship Specialty Start Date End Date Juan Rogers MD [address] [place] [address] [address] [place] [address] PCP - General 04/18/08 documented as of this encounter
--- OUTSIDE RECORDS SUMMARY | 2025-10-08 14:14 | XMS_ITS | Encounter Summary ---
Author Organization [facility] Address [address] [place] [address] Care Team Providers Care Deck And Hull Assembler Name Role Phone Juan Rogers MD Primary Care Provider +1 [phone] Encounter Details Date Type Department Care Team (Late st Contact Info) Description 08/29/2025 Anticoag Therapy [facility] Division of Cardiology [address] [place] [phone] Khushi Johnson RN S/P aortic valve [...] Arnold Bryan Indication: On-X Aortic Valve Replacement Childbirth And Infant Care Teacher: Dr. Marr Lab Location: [facility] [...] Info) Description 11/12/2025 9:00 AM EST Appointment [facility] Cardiology [address] [place] [phone] Ulises Marr MD/MPH Cardiology [address] [place] [address] Vincent [address] [place] [address] 11/12/2025 10:10 AM EST Cardiology Testing [facility] Division of Cardiology [address] [place] [phone] Ulises Marr MD/MPH Cardiology [address] [place] [address] Nanci [address] [place] [address] Discharge Disposition: Home or Self Care 11/12/2025 10:45 AM EST Appointment [facility] Division of Cardiology [address] [place] [phone] Ulises Marr MD/MPH Cardiology [address] [place] [address] Nanci [address] [place] [address] Discharge Disposition: Home or Self Care documented [...] anticoagulants documented in this encounter Care Teams Deck And Hull Assembler Relationship Specialty Start Date End Date Juan Rogers MD [address] [facility] [address] [place] [address] PCP - General 04/18/08 documented as of this encounter
--- OUTSIDE RECORDS SUMMARY | 2025-10-08 14:14 | XMS_ITS | Encounter Summary ---
Author Organization [facility] Address [address] [place] [address] Care Team Providers Care Equipment Lead Name Role Phone Juan Rogers MD Primary Care Provider Reason for Visit * Reason Onset Date Comments Medication Refill 09/11/2025 Encounter Details Date Type Department Care Team (Late st Contact Info) Description 09/11/2025 Refill [facility] Division of Cardiology [address] [place] [phone] Khushi Johnson RN Medication Refill Social [...] encounter Miscellaneous Notes * Telephone Encounter - Khushi Johnson RN - 09/11/2025 11:38 AM EST Warfarin refill request documented in this encounter Plan of Treatment Upcoming Encounters Date Type Department Care Team (Late st Contact Info) Description 11/12/2025 9:00 AM EST Appointment [facility] Division of Cardiology [address] [place] [phone] Ulises Marr MD/MPH [facility] [address] [place] [address] 11/12/2025 10:10 AM EST Cardiology Testing [facility] [place] [facility] Division of Cardiology [address] [place] [phone] Ulises Marr MD/MPH [facility] [address] [place] [address] Discharge Disposition: Home or Self Care 11/12/2025 10:45 AM EST Appointment [facility] Division of Cardiology [address] [place] [phone] Ulises Marr MD/MPH Cardiology [address] [place] [address] Discharge Disposition: Home or Self Care documented as of this encounter Visit Diagnoses Diagnosis Aortic valve disorder Aortic valve disorders S/P aortic valve replacement Heart valve replaced by other means Anticoagulated on warfarin Encounter for long-term (current) use of anticoagulants documented in this encounter Care Teams Equipment Lead Relationship Specialty Start Date End Date Juan Rogers MD On license of [facility] [place] [address] [address] [place] [address] PCP - General 04/18/08 documented as of this encounter
--- OUTSIDE RECORDS SUMMARY | 2025-10-08 14:14 | XMS_ITS | Encounter Summary ---
Author Organization [facility] Address [address] [place] [address] Care Team Providers Care Tearoom Host/Hostess Name Role Phone Juan Rogers MD Primary Care Provider [phone] Encounter Details Date Type Department Care Team (Late st Contact Info) Description 09/12/2025 Anticoag Therapy [facility] Division of Cardiology [address] [place] [phone] Khushi Johnson RN S/P aortic valve [...] this encounter Progress Notes * Roselia Poe, JESI - 09/12/2025 12:59 PM EST Warfarin Management - Arnold Bryan Indication: On-X Aortic Valve Replacement Control Systems Drafting Officer: Dr. Marr Lab Location: [facility] Current Dose: 7.5 mg PO Tue/Makayla and 10 mg PO AOD's Goal INR: 1.5 to 2.5 (goal changed 09/23/23) Previous INR: 2.01 (08/28/25) Current INR: 2.79 (09/11/25) Assessment: No changes in diet or medications reported. Confirmed current dose of warfarin. Plan: INR is above goal range. Per Roselia Poe PharmD, take 7.5 mg tonight then resume normal dose tomorrow. Repeat INR in one week on 09/18. Plan sent to Arnold via text message. I have discussed and reviewed the nurse's note for Arnold Bryan and agree with the assessment and plan as documented. Roselia Poe PHARMD documented in this encounter Plan of Treatment Upcoming Encounters Date Type Department Care Team (Late st Contact Info) Description 11/12/2025 9:00 AM EST Appointment [facility] Division of Cardiology [address] [place] [phone] Ulises Marr MD/MPH Cardiology [facility] Roni Christine [address] [place] [address] 11/12/2025 10:10 AM EST Cardiology Testing [facility] Division of Cardiology [address] [place] [phone] Ulises Marr MD/MPH Cardiology [facility] Roni Christine [address] [place] [address] Discharge Disposition: Home or Self Care 11/12/2025 10:45 AM EST Appointment [facility] Division of Cardiology [address] [place] [phone] Ulises Marr MD/MPH Cardiology [facility] Roni Christine [address] [place] [address] Discharge Disposition: Home or Self Care documented as of this encounter Procedures Procedure Name Priority Date/Time Associated Diagnosis Comments PT & INR (PATIENT ON WARFARIN THERAPY) Routine 09/11/2025 documented in this encounter Results * PT & INR (Patient on Warfarin Therapy) (09/11/2025) INR EXT 2.79 Blood us Historical Provider HEMATOLOGY ORDERABLES Final Result documented in this encounter Visit Diagnoses Diagnosis S/P aortic valve replacement- Primary Heart valve replaced by other means Anticoagulated on warfarin Encounter for long-term (current) use of anticoagulants documented in this encounter Care Teams Tearoom Host/Hostess Relationship Specialty Start Date End Date Juan Rogers MD 12[address] [facility] [address] [place] [address] PCP - General 04/18/08 documented as of this encounter
--- OUTSIDE RECORDS SUMMARY | 2025-10-08 14:14 | XMS_ITS | Encounter Summary ---
Author Organization [facility] Address [address] [place] [address] Care Team Providers Care Flare Maker Name Role Phone Juan Rogers MD Primary Care Provider [phone] Encounter Details Date Type Department Care Team (Late st Contact Info) Description 09/26/2025 Anticoag Therapy [facility] Division of Cardiology [address] [place] [phone] Khushi Johnson RN S/P aortic valve [...] Progress Notes * Roselia Poe, PHARMD - 09/26/2025 4:15 PM EST Warfarin Management - Arnold Bryan Indication: On-X Aortic Valve Replacement Laboratory Tech: Dr. Marr Lab Location: [facility] Current Dose: 7.5 mg PO e/Makayla and 10 mg PO AOD's Goal INR: 1.5 to 2.5 (goal changed 09/23/23) Previous INR: 1.26 (09/18/25) Current INR: 3.40 (09/26/25) Assessment: No changes in diet or medications reported. Arnold missed his warfarin dose last Wednesday. Confirmed current dose of warfarin and that he took 12.5 mg on and Wednesday as advised. Plan: INR is above goal range. Per Roselia Poe PharmD, take 7.5 mg tonight then resume normal dose tomorrow. Repeat INR in one week on 10/03. Plan sent to Arnold via text message. I have discussed and reviewed the nurse's note for Arnold Bryan and agree with the assessment and plan as documented. Roselia Poe PHARMD documented in this encounter Plan of Treatment Upcoming Encounters Date Type Department Care Team (Late st Contact Info) Description 11/12/2025 9:00 AM EST Appointment [facility] Division of Cardiology [address] [place] [phone] Ulises Marr MD/MPH Cardiology [facility] [address] [place] [address] 11/12/2025 10:10 AM EST Cardiology Testing [facility] Division of Cardiology [address] [place] [phone] Ulises Marr MD/MPH Cardiology [facility] [address] [place] [address] Discharge Disposition: Home or Self Care 11/12/2025 10:45 AM EST Appointment [facility] Division Cardiology [address] [place] [phone] Ulises Marr MD/MPH Cardiology [facility] Roni Christine [address] [place] [address] Discharge Disposition: Home or Self Care documented as of this encounter Procedures Procedure Name Priority Date/Time Associated Diagnosis Comments PT & INR (PATIENT ON WARFARIN THERAPY) Routine 09/26/2025 documented in this encounter Results * PT & INR (Patient on Warfarin Therapy) (09/26/2025) INR EXT 3.40 Blood Historical Provider HEMATOLOGY ORDERABLES Final Result documented in this encounter Visit Diagnoses Diagnosis S/P aortic valve replacement- Primary Heart valve replaced by other means Anticoagulated on warfarin Encounter for long-term (current) use of anticoagulants documented in this encounter Care Teams Flare Maker Relationship Specialty Start Date End Date Juan Rogers MD [address] [facility] [address] [place] [address] PCP - General 04/18/08 documented as of this encounter
--- OUTSIDE RECORDS SUMMARY | 2025-10-08 14:14 | XMS_ITS | Encounter Summary ---
Author Organization [facility] Address [address] [place] [address] Care Team Providers Care Crop Grain Or Livestock Farmer Name Role Phone Juan Rogers MD Primary Care Provider Reason for Visit * Reason Comments Medication Refill Encounter Details Date Type Department Care Team (Late st Contact Info) Description 10/12/2016 Refill [facility] Division of Cardiology [address] [place] [phone] Timbo Last II, MD Cardiology [address] [place] [address] [address] [place] [address] Medication Refill Social History Tobacco Use Types [...] Description 11/12/2025 9:[address] [facility] Division of Cardiology [address] [place] [phone] Ulsies Marr MD/MPH Cardiology [address], [address] [place] [address] 11/12/2025 10:10 AM EST Cardiology Testing [facility] Division of Cardiology [address] [place] [phone] Ulises Marr MD/MPH Cardiology [facility] Roni Christine, [address] [place] [address] Discharge Disposition: Home or Self Care 11/12/2025 10:[address] [facility] Division of Cardiology [address] [place] [address] Ulises Marr MD/MPH Cardiology [facility] Roni Christine [address] [place] [address] Discharge Disposition: Home or Self Care documented as of this encounter Visit Diagnoses Diagnosis Anticoagulated on warfarin Encounter for long-term (current) use of anticoagulants S/P aortic valve replacement Heart valve replaced by other means Aortic valve disorder Aortic valve disorders documented in this encounter Care Teams Crop Grain Or Livestock Farmer Relationship Specialty Start Date End Date Juan Rogers MD [address] [place] [address] [address] [place] [address] PCP - General 04/18/08 documented as of this encounter
--- OUTSIDE RECORDS SUMMARY | 2025-10-08 14:14 | XMS_ITS | Clinical Summary ---
Author Organization Healthcare Address [address] [place] [address] Care Team Providers Care Sap Mobility Architect Name Role Phone Unavailable Primary Care Provider [...]
--- OUTSIDE RECORDS SUMMARY | 2025-10-08 14:14 | XMS_ITS | Encounter Summary ---
Author Organization [facility] Address [address] [place] [address] Care Team Providers Care Educational Administration Teacher Name Role Phone Juan Rogers MD Primary Care Provider [phone] Encounter Details Date Type Department Care Team (Latest Contact Info) Description 01/12/2019 Anticoag Therapy [facility] Division of Cardiology [address] [place] [phone] Carly Moore RN Anticoagulated on warfarin; [...] Info) Description 11/12/2025 9:00 AM EST Appointment [facility] Division of Cardiology [address] [place] [phone] Ulises Marr MD/MPH Cardiology [address] [place] [address] 11/12/2025 10:10 AM EST Cardiology Testing [facility] Division of Cardiology [address] [place] [phone] Ulises Marr MD/MPH Cardiology [address] [place] [address] Discharge Disposition: Home or Self Care 11/12/2025 10:45 AM EST Appointment [facility] Division Cardiology [address] [place] [phone] Ulises Marr MD/MPH Cardiology [address] [place] [address] Discharge Disposition: Home or Self Care documented [...] disorders documented in this encounter Care Teams Educational Administration Teacher Relationship Specialty Start Date End Date Juan Rogers MD [facility] [address] [place] [address] PCP - General 04/18/08 documented as of this encounter
--- OUTSIDE RECORDS SUMMARY | 2025-10-08 14:14 | XMS_ITS | Encounter Summary ---
Author Organization [facility] Address [address] [place] [address] Care Team Providers Care Golf Ball Inspector Name Role Phone Juan Rogers MD Primary Care Provider [phone] Reason for Visit * Reason Comments Medication Refill Encounter Details Date Type Department Care Team (Late st Contact Info) Description 09/11/2025 Refill [facility] Division of Cardiology [address] [place] [phone] Ulises Marr MD/MPH Cardiology [address] [place] [address] [address] [place] [address] Medication Refill Social History Tobacco Use Types [...] 11/12/2025 9:00 AM EST Appointment [facility] Division of Cardiology [address] [place] [phone] Ulises Marr MD/MPH Cardiology NATALIE Alexandra [address] [place] [address] 11/12/2025 10:10 AM EST Cardiology Testing [facility] Division of Cardiology [address] [place] [phone] Ulises Marr MD/MPH Cardiology NATALIE Alexandra [address] [place] [address] Discharge Disposition: Home or Self Care 11/12/2025 10:45 AM EST Appointment [facility] Division of Cardiology [address] [place] [phone] Ulises Marr MD/MPH Cardiology NATALIE Alexandra [address] [place] [address] Discharge Disposition: Home or Self Care documented as of this encounter Visit Diagnoses Diagnosis Aortic valve disorder Aortic valve disorders S/P aortic valve replacement Heart valve replaced by other means Anticoagulated on warfarin Encounter for long-term (current) use of anticoagulants documented in this encounter Care Teams Golf Ball Inspector Relationship Specialty Start Date End Date Juan Rogers MD Replaced by [facility] [address] [address] [place] [address] PCP - General 04/18/08 documented as of this encounter
--- OUTSIDE RECORDS SUMMARY | 2025-10-08 14:14 | XMS_ITS | Encounter Summary ---
Author Organization [facility] Address [address] [place] [address] Care Team Providers Care Actuary Clerk Name Role Phone Juan Rogers MD Primary Care Provider [phone] Encounter Details Date Type Department Care Team (Late st Contact Info) Description 08/16/2025 Anticoag Therapy [facility] Division of Cardiology [address] [place] [phone] Carly Moore RN S/P aortic valve [...] Arnold Bryan Indication: On-X Aortic Valve Replacement Perfusionist: Dr. Marr Lab Location: [facility] Current Dose: 7.5 mg [...] Info) Description 11/12/2025 9:00 AM EST Appointment [facility] Division of Cardiology [address] [place] [phone] Ulises Marr MD/MPH Cardiology [facility] Roni Christine [address] [place] [address] 11/12/2025 10:10 AM EST Cardiology Testing [facility] Division of Cardiology [address] [place] [phone] Ulises Marr MD/MPH Cardiology [facility] Roni Christine [address] [place] [address] Discharge Disposition: Home or Self Care 11/12/2025 10:45 AM EST Appointment [facility] Division Cardiology [address] [place] [phone] Ulises Marr MD/MPH Cardiology [facility] Roni Christine [address] [place] [address] Discharge Disposition: Home or Self Care documented [...] anticoagulants documented in this encounter Care Teams Actuary Clerk Relationship Specialty Start Date End Date Juan Rogers MD [address] [facility] [address] [place] [address] PCP - General 04/18/08 documented as of this encounter
--- OUTSIDE RECORDS SUMMARY | 2025-10-08 14:14 | XMS_ITS | Encounter Summary ---
Author Organization [facility] Address [address] [place] [address] Care Team Providers Care Wearing Apparel Shaker Name Role Phone Juan Rogers MD Primary Care Provider [phone] Encounter Details Date Type Department Care Team (Late st Contact Info) Description 10/04/2025 Anticoag Therapy [facility] Division of Cardiology [address] [place] [phone] Carly Moore RN Aortic valve disorder; S/P aortic valve replacement; Anticoagulated on warfarin Social History Tobacco Use [...] Progress Notes * Roselia Poe, PHARMD - 10/04/2025 9:55 AM EST Warfarin Management - Arnold Bryan Indication: On-X Aortic Valve Replacement Chief Business Officer: Dr. Marr Lab Location: [facility] Current Dose: 7.5 mg PO Tue/Makayla and 10 mg PO AOD's Goal INR: 1.5 to 2.5 (goal changed 09/23/23) Previous INR: 3.40 (09/26/25) Current INR: 4.13 (10/03/25) Assessment: No changes in diet Arnold denies recent cranberry or alcohol consumption. No recent illness. No signs of bleeding. Confirmed current dose of warfarin and that he took 7.5 mg on 09/26 as advised. Plan: INR is above goal range. Per Roeslia Poe PharmD, 2.5 mg of warfarin tonight then change warfarin dose to 7.5 mg PO on and 10 mg PO AODS. Repeat INR on Wednesday, 10/08. Arnold agreed with the plan via text message. I have discussed and reviewed the nurse's note for Arnold Bryan and agree with the assessment and plan as documented. Roselia Poe PHARMD documented in this encounter Plan of Treatment Upcoming Encounters Date Type Department Care Team (Late st Contact Info) Description 11/12/2025 9:00 AM EST Appointment [facility] Division of Cardiology [address] [place] [phone] Ulises Marr MD/MPH Cardiology [facility] [address] [place] [address] 11/12/2025 10:10 AM EST Cardiology Testing [facility] Division of Cardiology [address] [place] [phone] Ulises Marr MD/MPH Cardiology [facility] [address] [place] [address] Discharge Disposition: Home or Self Care 11/12/2025 10:45 AM EST Appointment [facility] Division of Cardiology [address] [place] [phone] Ulises Marr MD/MPH Cardiology [facility] [address] [place] [address] Discharge Disposition: Home or Self Care documented as of this encounter Procedures Procedure Name Priority Date/Time Associated Diagnosis Comments PT & INR (PATIENT ON WARFARIN THERAPY) Routine 10/03/2025 documented in this encounter Results * PT & INR (Patient on Warfarin Therapy) (10/03/2025) INR EXT 4.13 Blood 10/03/2025 [facility] Provider HEMATOLOGY ORDERABLES Final Result documented in this encounter Visit Diagnoses Diagnosis Aortic valve disorder Aortic valve disorders S/P aortic valve replacement Heart valve replaced by other means Anticoagulated on warfarin Encounter for long-term (current) use of anticoagulants documented in this encounter Care Teams Wearing Apparel Shaker Relationship Specialty Start Date End Date Juan Rogers MD [address] [address] [address] [place] [address] PCP - General 04/18/08 documented as of this encounter
--- OUTSIDE RECORDS SUMMARY | 2025-10-08 14:14 | XMS_ITS | Encounter Summary ---
Author Organization [facility] Address [address] [place] [address] Care Team Providers Care Director Public Name Role Phone Juan Rogers MD Primary Care Provider [phone] Encounter Details Date Type Department Care Team (Late st Contact Info) Description 07/19/2019 Anticoag Therapy [facility] Division of Cardiology [address] [place] [phone] Roselia Poe, PHARMD Cardiology [address] [place] [phone] Social History Tobacco Use Types Packs/Day [...] Medical [facility] Division of Cardiology [address] [place] [phone] Ulises Marr MD/MPH Cardiology [facility], [address] [place] [address] 11/12/2025 10:10 AM EST Cardiology Testing [facility] Division of Cardiology [address] [place] [phone] Ulises Marr MD/MPH Cardiology [facility] [place] [address] Discharge Disposition: Home or Self Care 11/12/2025 10:45 AM EST Appointment [facility] Division of Cardiology [address] [place] [phone] Ulises Marr MD/MPH Cardiology [address], [address] [place] [address] Discharge Disposition: Home or Self Care documented as of this encounter Visit Diagnoses Not on filedocumented in this encounter Care Teams Director Public Relationship Specialty Start Date End Date Juan Rogers MD [address] [facility] [address] [place] [address] PCP - General 04/18/08 documented as of this encounter
--- OUTSIDE RECORDS SUMMARY | 2025-10-08 14:14 | XMS_ITS | Encounter Summary ---
Author Organization [facility] Address [address] [place] [address] Care Team Providers Care Power Plant Electrician Name Role Phone Juan Rogers MD Primary Care Provider [phone] Encounter Details Date Type Department Care Team (Late st Contact Info) Description 09/19/2025 Anticoag Therapy [facility] [place] [facility] Division of Cardiology [address] [place] [phone] Khushi Johnson RN S/P aortic valve [...] Progress Notes * Roselia Poe, PHARMD - 09/19/2025 11:28 AM EST Warfarin Management - Arnold Bryan Indication: On-X Aortic Valve Replacement Lace Burn Out Tender: Dr. Marr Lab Location: [facility] Current Dose: 7.5 mg PO Tue/Makayla and 10 mg PO AOD's Goal INR: 1.5 to 2.5 (goal changed 09/23/23) Previous INR: 2.79 (09/11/25) Current INR: 1.26 (09/18/25) Assessment: No changes in diet or medications reported. Confirmed current dose of warfarin and thathe took the reduced dose last Wednesday as advised. Plan: INR is below goal range. Per Roselia Poe PharmD, take 12.5 mg today and 10 mg tomorrow then resume normal dose on Wednesday. Repeat INR in one week on 09/25. Plan sent to Arnold via text message. I have discussed and reviewed the nurse's note for Arnold Bryan and agree with the assessment and plan as documented. Roselia Adkins O'Tam, PHARMD documented in this encounter Plan of Treatment Upcoming Encounters Date Type Department Care Team (Late st Contact Info) Description 11/12/2025 9:00 AM EST Appointment [facility] Division of Cardiology [address] [place] [phone] Ulises Marr MD/MPH Cardiology [address], [address] [place] [address] 11/12/2025 10:10 AM EST Cardiology Testing [facility] Division of Cardiology [address] [place] [phone] Ulises Marr MD/MPH Cardiology [address], [address] [place] [address] Discharge Disposition: Home or Self Care 11/12/2025 10:45 AM EST Appointment [facility] Division of Cardiology [address] [place] [phone] Ulises Marr MD/MPH Cardiology [address], [address] [place] [address] Discharge Disposition: Home or Self Care documented as of this encounter Procedures Procedure Name Priority Date/Time Associated Diagnosis Comments PT & INR (PATIENT ON WARFARIN THERAPY) Routine 09/18/2025 documented in this encounter Results * PT & INR (Patient on Warfarin Therapy) (09/18/2025) INR EXT 1.26 Blood Historical Provider HEMATOLOGY ORDERABLES Final Result documented in this encounter Visit Diagnoses Diagnosis S/P aortic valve replacement- Primary Heart valve replaced by other means Anticoagulated on warfarin Encounter for long-term (current) use of anticoagulants documented in this encounter Care Teams Power Plant Electrician Relationship Specialty Start Date End Date Juan Rogers MD 12[address] [facility] [address] [place] [address] PCP - General 04/18/08 documented as of this encounter
--- OUTSIDE RECORDS SUMMARY | 2025-10-08 14:14 | XMS_ITS | Clinical Summary ---
Author Organization [facility] Address [address] [place] [address] Care Team Providers Care A R Specialist Name Role Phone Juan Rogers MD Primary Care Provider Source Comments [facility] is fully rolled out with thefollowing exceptions:General Clinical Research [facility] Allergies Active Allergy Reactions Criticality Noted Date Comments Acetic Acid Blisters 09/23/2023 Medications aspirin (ASA) 81 MG tablet Take 1 tablet by mouth 1 time a day. 04/16/20 15 Active amoxicillin (AMOXIL) 500 MG capsule Take 1 capsule by mouth. Take 4 capsules by mouth 06/08/20 24 Active warfarin (COUMADIN) 5 MG tabletIndicati ons:Aortic valve disorder,S/P aortic valve replacement,An ticoagulated on warfarin Take 7.5 mg (1.5 x 5 mg tab) PO Mon/Wed/Fri and take 10 mg (2 x 5 mg tab) PO all other days of the week 60 tablet 11 10/04/20 25 Active warfarin (COUMADIN) 5 MG tabletIndicati ons:Aortic valve disorder,S/P aortic valve replacement,An ticoagulated on warfarin Take 7.5 mg (1.5 x 5 mg tab) PO Wed/Wed and take 10 mg (2 x 5 mg tab) PO all other days of the week 60 tablet 11 08/09/20 24 025 Discontinued(Ph ysician to reorder) warfarin (COUMADIN) 5 MG tabletIndicati ons:Aortic valve disorder,S/P aortic valve replacement,An ticoagulated on warfarin Take 7.5 mg (1.5 x 5 mg tab) PO Tue/Makayla and take 10 mg (2 x 5 mg tab) PO all other days of the week 60 tablet 11 09/11/20 25 025 Discontinued Active Problems Problem Noted Date Diagnosed Date [...] Encounters Date Type Department Care Team Description 10/04/2025 Anticoag Therapy [facility] Division of Cardiology [address] [place] [phone] Carly Moore RN Aortic valve disorder; S/P aortic valve replacement; Anticoagulated on warfarin 09/26/2025 Anticoag Therapy [facility] Division of Cardiology [address] [place] [phone] Khushi Johnson RN S/P aortic valve replacement (Primary Dx); Anticoagulated on warfarin 09/20/2025 Clinical Note [facility] Division of Cardiology [address] [place] [phone] Carly Moore, ANOOP Anticoagulation Management 09/19/2025 Anticoag Therapy [facility] Division of Cardiology [address] [place] [phone] Khushi Johnson RN S/P aortic valve replacement (Primary Dx); Anticoagulated on warfarin 09/12/2025 Anticoag Therapy [facility] Division of Cardiology [address] [place] [phone] Khushi Johnson RN S/P aortic valve replacement (Primary Dx); Anticoagulated on warfarin 09/11/2025 Refill [facility] Division of Cardiology [address] [place] [phone] Khushi Johnson RN Medication Refill 09/11/2025 Refill [facility] Division of Cardiology [address] [place] [phone] Ulises Marr MD/MPH Medication Refill 08/29/2025 Anticoag Therapy [facility] Division of Cardiology [address] [place] [phone] Khushi Johnson RN S/P aortic valve replacement (Primary Dx); Anticoagulated on warfarin 08/16/2025 Anticoag Therapy [facility] Division of Cardiology [address] [place] [phone] Carly Moore, ANOOP S/P aortic valve replacement (Primary Dx); Anticoagulated on warfarin 08/09/2025 Anticoag Therapy [facility] Division of Cardiology [address] [place] [phone] Carly Moore RN 08/03/2025 Anticoag Therapy [facility] Division of Cardiology [address] [place] [phone] Carly Moore RN 07/27/2025 Telephone [facility] Division of Cardiology [address] [place] [phone] Ulises Marr MD/MPH Scheduling Appointment (Spoke withFran and Transferred call to complete scheduling request ) 07/13/2025 Anticoag Therapy [facility] Division of Cardiology [address] [place] [phone] Maureen Rodas, ANOOP S/P aortic valve [...] Info) Description 11/12/2025 9:00 AM EST Appointment [facility] Division of Cardiology [address] [place] [phone] Ulises Marr MD/MPH Cardiology [address] [place] [address] 11/12/2025 10:10 AM EST Cardiology Testing [facility] Division of Cardiology [address] [place] [phone] Ulises Marr MD/MPH Cardiology [address] [place] [address] Discharge Disposition: Home or Self Care 11/12/2025 10:45 AM EST Appointment [facility] Division of Cardiology [address] [place] [phone] Ulises Marr MD/MPH Cardiology [address] [place] [address] Discharge Disposition: Home or Self Care Health Maintenance Due Date Last Done Comments MMR IMMUNIZATION (1 of 1 - Standard series) 1999 DTAP/Tdap/Td IMMUNIZATION (1 - Tdap) 2005 Yearly Physical Ages 3-18+ 2009 VARICELLA IMMUNIZATION (1 of 2 - 13+ 2-dose series) 2011 HEPATITIS B IMMUNIZATION (1 of 3 - 19+ 3-dose series) 2017 AMB SEASONAL FLU VACCINE (#1) 06/18/2025 07/20/2011 COVID-19 Vaccine ( - 2024-2 6 season) 2025 HIB IMMUNIZATION Aged Out No longer e ligible based on patient's age to complete this topic HPV IMMUNIZATION (No Doses Required) Completed IPV IMMUNIZATION Aged Out No longer e [...] this topic Medical Devices Implanted Type Area Certified Midwife Device Identifier Shelf Expiration Date Model / Serial / Lot Valve 21mm Ao W/Ext Hldr Cmft-X - [id number] Implanted:Qt y: 1 on 06/06/2013 by Patrick Garza III, MD at [facility] Cardiovascular N/A: Heart 10/06/2017 / [id number] / N/A Clip Hemo Lg [place] - [id number] Implanted:Qt y: 1 on 06/06/2013 at [facility] Cardiovascular [facility] [employer] [facility] [id number] / / Procedures Procedure Name Priority Date/Time Associated Diagnosis Comments PT & INR (PATIENT ON WARFARIN THERAPY) Routine 10/03/2025 PT & INR (PATIENT ON WARFARIN THERAPY) Routine 09/26/2025 PT & INR (PATIENT ON WARFARIN THERAPY) Routine 09/18/2025 PT & INR (PATIENT ON WARFARIN THERAPY) Routine 09/11/2025 PT & INR (PATIENT ON WARFARIN THERAPY) Routine 08/28/2025 PT & INR (PATIENT ON WARFARIN THERAPY) Routine 08/16/2025 PT & INR (PATIENT ON WARFARIN THERAPY) Routine 08/08/2025 PT & INR (PATIENT ON WARFARIN THERAPY) Routine 08/03/2025 PT & INR (PATIENT ON WARFARIN THERAPY) Routine 07/12/2025 from Last 3 Months Results * PT & INR (Patient on Warfarin Therapy) (10/03/2025) Only the most recent of9 resultswithin the time period is included. INR EXT 4.13 Blood 10/03/2025 Historical Provider HEMATOLOGY ORDERABLES Final Result from Last 3 Months Insurance [employer] [place]AD[place] [facility] [id number] Care Teams A R Specialist Relationship Specialty Start Date End Date Juan Rogers MD [address] [address] [address] [place] [address] PCP - General 04/18/08
--- OUTSIDE RECORDS SUMMARY | 2025-10-08 14:14 | XMS_ITS | Patient Health Record ---
Author Organization [facility] Address [address] [place] [id number] Care Team Providers Care Pie Cutter Name Role Phone Freddy Reid Primary Care Provider [phone] Medications Medication SIG (Take, Route, Frequency, Duration) [...] Coverage End Date [employer] [address] [address] [place] [address] [id number] COTY VERAS Child - Insured has Financial Responsibility Medications Administered Medication Instructions Date of Administration Dosage Notes Bicillin LA 1,200,000 12/31/2005 0.5 mL Medical (General) History Medical History History ICD Code heart murmur Aortic Valve Stenosis Surgical History Surgery Date(Month/Year) Stent placed in heart for aortic valve s tenosis 11/2006 Hospitalization History Reason Date(Month/Year) none
[2025-10-08 15:16] LABS: INR 2.62 (0.9-1.1); Prothrombin Time 27.1 seconds (10.1-12.5)
== END 2025-10-08 23:59 | disposition home or self-care (01) ==
LOC: LAB 14:03
PROVIDERS: PCP Internal Medicine Adolescent Medicine; Visit Provider Internal Medicine
DX: Z79.01 Long term (current) use of anticoagulants (principal); Z95.2 Presence of prosthetic heart valve; Z51.81 Encounter for therapeutic drug level monitoring
CPT/HCPCS: 36415; 85610

== ENCOUNTER 2025-10-15 12:44 | Outpatient (CLI) | payer BC, SELFPAY ==
--- OUTSIDE RECORDS SUMMARY | 2005-06-24 23:00 | XMS_ITS | Encounter Summary ---
Author Organization [facility] Address [address] [place] [address] Care Team Providers Care Electrician Crane Maintenance Name Role Phone Unavailable Primary Care Provider Unavailabl e Encounter Details Date Type Department Care Team (Late st Contact Info) Description 06/25/2005 Hospital Encounter [facility] Division of Cardiology [address] [place] [phone] Social History Tobacco Use Types Packs/Day [...] Info) Description 11/12/2025 9:00 AM EST Appointment [facility] Division of Cardiology [address] [place] [phone] Ulises Marr MD/MPH Cardiology [facility] Roni Christine [address] [place] [address] 11/12/2025 10:10 AM EST Cardiology Testing [facility] Division of Cardiology [address] [place] [phone] Ulises Marr MD/MPH Cardiology [facility] Roni Christine [address] [place] [address] Discharge Disposition: Home or Self Care 11/12/2025 10:45 AM EST Appointment [facility] Division of Cardiology [address] [place] [phone] Ulises Marr MD/MPH Cardiology [facility] Roni Christine [address] [place] [address] Discharge Disposition: Home or Self Care documented as of this encounter Visit Diagnoses Not on filedocumented in this encounter
--- OUTSIDE RECORDS SUMMARY | 2006-03-30 23:00 | XMS_ITS | Encounter Summary ---
Author Organization [facility] Address [address] [place] [address] Care Team Providers Care Sports Agent Name Role Phone Unavailable Primary Care Provider Unavailabl e Encounter Details Date Type Department Care Team (Late st Contact Info) Description 03/31/2006 Hospital Encounter [facility] Division of Cardiology [address] [place] [phone] Social History Tobacco Use Types Packs/Day [...] Info) Description 11/12/2025 9:00 AM EST Appointment [facility] Division of Cardiology [address] [place] [phone] Ulises Marr MD/MPH Cardiology [facility] Roni Christine [address] [place] [address] 11/12/2025 10:10 AM EST Cardiology Testing [facility] Division of Cardiology [address] [place] [phone] Ulises Marr MD/MPH Cardiology [facility] Roni Christine [address] [place] [address] Discharge Disposition: Home or Self Care 11/12/2025 10:45 AM EST Appointment [facility] Division of Cardiology [address] [place] [phone] Ulises Marr MD/MPH Cardiology [facility] Roni Christine [address] [place] [address] Discharge Disposition: Home or Self Care documented as of this encounter Visit Diagnoses Not on filedocumented in this encounter
--- OUTSIDE RECORDS SUMMARY | 2006-09-15 | XMS_ITS | Encounter Summary ---
Author Organization [facility] Address [address] [place] [address] Care Team Providers Care Paediatric Thoracic Physician Name Role Phone Unavailable Primary Care Provider Unavailabl e Encounter Details Date Type Department Care Team (Late st Contact Info) Description 09/15/2006 Hospital Encounter [facility] Division of Cardiology [address] [place] [phone] Social History Tobacco Use Types Packs/Day [...] on file documented as of this encounter Procedure Notes * Edt, Audit Laura - 01/28/2009 8:12 AM EDT documented in this encounter Plan of Treatment Upcoming Encounters Date Type Department Care Team (Late st Contact Info) Description 11/12/2025 9:00 AM EST Appointment [facility] Division of Cardiology [address] [place] [phone] Ulises Marr MD/MPH Cardiology [facility] Roni Christine [address] [place] [address] 11/12/2025 10:10 AM EST Cardiology Testing [facility] Division of Cardiology [address] [place] [phone] Ulises Marr MD/MPH Cardiology [facility] Roni Christine [address] [place] [address] Discharge Disposition: Home or Self Care 11/12/2025 10:45 AM EST Appointment [facility] Division of Cardiology [address] [place] [phone] Ulises Marr MD/MPH Cardiology [facility] Roni Christine [address] [place] [address] Discharge Disposition: Home or Self Care documented as of this encounter Visit Diagnoses Not on filedocumented in this encounter
--- OUTSIDE RECORDS SUMMARY | 2006-11-18 | XMS_ITS | Encounter Summary ---
Author Organization [facility] Address [address] [place] [address] Care Team Providers Care Ground Service Equipment Mechanic Name Role Phone Unavailable Primary Care Provider Unavailabl e Encounter Details Date Type Department Care Team (Late st Contact Info) Description 11/18/2006 Hospital Encounter [facility] Division of Cardiology [address] [place] [phone] Social History Tobacco Use Types Packs/Day [...] Info) Description 11/12/2025 9:00 AM EST Appointment [facility] Division of Cardiology [address] [place] [phone] Ulises Marr MD/MPH Cardiology [facility] Roni Christine [address] [place] [address] 11/12/2025 10:10 AM EST Cardiology Testing [facility] Division of Cardiology [address] [place] [phone] Ulises Marr MD/MPH Cardiology [facility] Roni Christine [address] [place] [address] Discharge Disposition: Home or Self Care 11/12/2025 10:45 AM EST Appointment [facility] Division of Cardiology [address] [place] [phone] Ulises Marr MD/MPH Cardiology [facility] Roni Christine [address] [place] [address] Discharge Disposition: Home or Self Care documented as of this encounter Visit Diagnoses Not on filedocumented in this encounter
--- OUTSIDE RECORDS SUMMARY | 2006-11-18 | XMS_ITS | Encounter Summary ---
Author Organization [facility] Address [address] [place] [address] Care Team Providers Care Paver Installer Name Role Phone Unavailable Primary Care Provider Unavailabl e Encounter Details Date Type Department Care Team (Late st Contact Info) Description 11/18/2006 Hospital Encounter [facility] Department of Radiology [address] [place] [phone] Social History Tobacco Use Types Packs/Day [...] Notes * Consent Other - Edt, Audit [place] - 05/02/2008 11:16 AM EDT documented in this encounter Plan of Treatment Upcoming Encounters Date Type Department Care Team (Late st Contact Info) Description 11/12/2025 9:00 AM EST Appointment [facility] Division of Cardiology [address] [place] [phone] Ulises Marr MD/MPH Cardiology [address] [place] [address] 11/12/2025 10:10 AM EST Cardiology Testing [facility] Division of Cardiology [address] [place] [phone] Ulises Marr MD/MPH Cardiology [address] [place] [address] Discharge Disposition: Home or Self Care 11/12/2025 10:45 AM EST Appointment [facility] Division of Cardiology [address] [place] [phone] Ulises Marr MD/MPH Cardiology [address] [place] [address] Discharge Disposition: Home or Self Care documented as of this encounter Visit Diagnoses Not on filedocumented in this encounter
--- OUTSIDE RECORDS SUMMARY | 2006-11-19 | XMS_ITS | Encounter Summary ---
Author Organization [facility] Address [address] [place] [address] Care Team Providers Care Rayon Tester Name Role Phone Unavailable Primary Care Provider Unavailabl e Encounter Details Date Type Department Care Team (Late st Contact Info) Description 11/19/2006 Hospital Encounter [facility] Division of Cardiology [address] [place] [phone] Social History Tobacco Use Types Packs/Day [...] Info) Description 11/12/2025 9:00 AM EST Appointment [facility] Division of Cardiology [address] [place] [phone] Ulises Marr MD/MPH Cardiology [facility] Roni Christine [address] [place] [address] 11/12/2025 10:10 AM EST Cardiology Testing [facility] Division of Cardiology [address] [place] [phone] Ulises Marr MD/MPH Cardiology [facility] Roni Christine [address] [place] [address] Discharge Disposition: Home or Self Care 11/12/2025 10:45 AM EST Appointment [facility] Division of Cardiology [address] [place] [phone] Ulises Marr MD/MPH Cardiology [facility] Roni Christine [address] [place] [address] Discharge Disposition: Home or Self Care documented as of this encounter Visit Diagnoses Not on filedocumented in this encounter
--- OUTSIDE RECORDS SUMMARY | 2007-03-15 23:00 | XMS_ITS | Encounter Summary ---
Author Organization [facility] Address [address] [place] [address] Care Team Providers Care Intelligence Operations Name Role Phone Unavailable Primary Care Provider Unavailabl e Encounter Details Date Type Department Care Team (Late st Contact Info) Description 03/16/2007 Hospital Encounter [facility] Division of Cardiology [address] [place] [phone] Social History Tobacco Use Types Packs/Day [...] as of this encounter Miscellaneous Notes * Orders - Edt, Audit [place] - 08/16/2011 5:45 PM EDT documented in this encounter Plan of Treatment Upcoming Encounters Date Type Department Care Team (Late st Contact Info) Description 11/12/2025 9:00 AM EST Appointment [facility] Division of Cardiology [address] [place] [phone] Ulises Marr MD/MPH Cardiology [address] [place] [address] 11/12/2025 10:10 AM EST Cardiology Testing [facility] Division of Cardiology [address] [place] [phone] Ulises Marr MD/MPH Cardiology [address] [place] [address] Discharge Disposition: Home or Self Care 11/12/2025 10:45 AM EST Appointment [facility] Division of Cardiology [address] [place] [phone] Ulises Marr MD/MPH Cardiology [address] [place] [address] Discharge Disposition: Home or Self Care documented as of this encounter Visit Diagnoses Not on filedocumented in this encounter
--- OUTSIDE RECORDS SUMMARY | 2025-10-15 12:50 | XMS_ITS | Clinical Summary ---
Author Organization [facility] Address [address] [place] [address] Care Team Providers Care Actor Understudy Name Role Phone Unavailable Primary Care Provider [...]
--- OUTSIDE RECORDS SUMMARY | 2025-10-15 12:50 | XMS_ITS | Encounter Summary ---
Author Organization [facility] Address [address] [place] [address] Care Team Providers Care Classified Advertising Clerk Name Role Phone Juan Rogers MD Primary Care Provider [phone] [phone] Encounter Details Date Type Department Care Team (Late st Contact Info) Description 08/16/2025 Anticoag Therapy [facility] Division of Cardiology [address] [place] [phone] Carly Moore RN S/P aortic valve [...] Arnold Bryan Indication: On-X Aortic Valve Replacement Tanner Rotary Drum Continuous Process: Dr. Marr Lab Location: [facility] Current Dose: 7.5 mg PO Tue/Makayla [...] [facility] Division of Cardiology [address] [place] [phone] Ulises Marr MD/MPH Cardiology [facility] [address] [place] [address] 11/12/2025 10:10 AM EST Cardiology Testing [facility] Division of Cardiology [address] [place] [phone] Ulises Marr MD/MPH Cardiology [facility] [address] [place] [address] Discharge Disposition: Home or Self Care 11/12/2025 10:45 AM EST Appointment [facility] Division Cardiology [address] [place] [phone] Ulises Marr MD/MPH Cardiology [facility] [address] [place] [address] Discharge Disposition: Home or Self Care documented [...] anticoagulants documented in this encounter Care Teams Classified Advertising Clerk Relationship Specialty Start Date End Date Juan Rogers MD [address] [facility] [address] [place] [address] PCP - General 04/18/08 documented as of this encounter
--- OUTSIDE RECORDS SUMMARY | 2025-10-15 12:50 | XMS_ITS | Encounter Summary ---
Author Organization [facility] Address [address] [place] [address] Care Team Providers Care Webbing Seamer Pound Net Name Role Phone Juan Rogers MD Primary Care Provider [phone] Encounter Details Date Type Department Care Team (Latest Contact Info) Description 01/12/2019 Anticoag Therapy [facility] Division of Cardiology [address] [place] [phone] Carly Moore RN Anticoagulated on warfarin; [...] Info) Description 11/12/2025 9:00 AM EST Appointment [facility] Division of Cardiology [address] [place] [phone] Ulises Marr MD/MPH Cardiology [address] [place] [address] 11/12/2025 10:10 AM EST Cardiology Testing [facility] Division of Cardiology [address] [place] [phone] Ulises Marr MD/MPH Cardiology [address], [address] [place] [address] Discharge Disposition: Home or Self Care 11/12/2025 10:45 AM EST Appointment [facility] Division Cardiology [address] [place] [phone] Ulises Marr MD/MPH Cardiology [address], [address] [place] [address] Discharge Disposition: Home or Self Care documented [...] disorders documented in this encounter Care Teams Webbing Seamer Pound Net Relationship Specialty Start Date End Date Juan Rogers MD [facility] [address] [place] [address] PCP - General 04/18/08 documented as of this encounter
--- OUTSIDE RECORDS SUMMARY | 2025-10-15 12:50 | XMS_ITS | Encounter Summary ---
Author Organization [facility] Address [address] [place] [address] Care Team Providers Care Turnaround Planner Name Role Phone Juan Rogers MD Primary Care Provider Reason for Visit * Reason Comments Medication Refill Encounter Details Date Type Department Care Team (Late st Contact Info) Description 10/12/2016 Refill [facility] Division of Cardiology [address] [place] [phone] Timbo Last II, MD Cardiology [address] [place] [address] [address] [place] [address] Medication Refill Social History Tobacco Use Types [...] Description 11/12/2025 9:00 AM EST Appointment [facility] Division of Cardiology [address] [place] [phone] Ulises Marr MD/MPH Cardiology [address], [address] [place] [address] 11/12/2025 10:10 AM EST Cardiology Testing [facility] Division of Cardiology [address] [place] [phone] Ulises Marr MD/MPH Cardiology [facility] [address], [address] [place] [address] Discharge Disposition: Home or Self Care 11/12/2025 10:45 AM EST Appointment [facility] Division of Cardiology [address] [place] [phone] Ulises Marr MD/MPH Cardiology [facility] [address] [place] [address] Discharge Disposition: Home or Self Care documented as of this encounter Visit Diagnoses Diagnosis Anticoagulated on warfarin Encounter for long-term (current) use of anticoagulants S/P aortic valve replacement Heart valve replaced by other means Aortic valve disorder Aortic valve disorders documented in this encounter Care Teams Turnaround Planner Relationship Specialty Start Date End Date Juan Rogers MD [address] [place] [address] [address] [place] [address] PCP - General 04/18/08 documented as of this encounter
--- OUTSIDE RECORDS SUMMARY | 2025-10-15 12:50 | XMS_ITS | Encounter Summary ---
Author Organization [facility] Address [address] [place] [address] Care Team Providers Care Safe And Vault Mechanic Name Role Phone Juan Rogers MD Primary Care Provider Reason for Visit * Reason Onset Date Comments Medication Refill 09/11/2025 Encounter Details Date Type Department Care Team (Late st Contact Info) Description 09/11/2025 Refill [facility] Division of Cardiology [address] [place] [phone] Khushi Johnson RN Medication Refill Social [...] Appointment [facility] Division of Cardiology [address] [place] [phone] Ulises Marr MD/MPH [facility] [address] [place] [address] 11/12/2025 10:10 AM EST Cardiology Testing [facility] Division of Cardiology [address] [place] [phone] Ulises Marr MD/MPH [facility] [address] [place] [address] Discharge Disposition: Home or Self Care 11/12/2025 10:45 AM EST Appointment [facility] Division of Cardiology [address] [place] [address] Ulises Marr MD/MPH Cardiology [address] [place] [address] Discharge Disposition: Home or Self Care documented as of this encounter Visit Diagnoses Diagnosis Aortic valve disorder Aortic valve disorders S/P aortic valve replacement Heart valve replaced by other means Anticoagulated on warfarin Encounter for long-term (current) use of anticoagulants documented in this encounter Care Teams Safe And Vault Mechanic Relationship Specialty Start Date End Date Juan Rogers MD Pending sale to [facility] [address] [address] [place] [address] PCP - General 04/18/08 documented as of this encounter
--- OUTSIDE RECORDS SUMMARY | 2025-10-15 12:50 | XMS_ITS | Encounter Summary ---
Author Organization [facility] Address [address] [place] [address] Care Team Providers Care Rope Laying Machine Operator Name Role Phone Juan Rogers MD Primary Care Provider [phone] Encounter Details Date Type Department Care Team (Late st Contact Info) Description 08/29/2025 Anticoag Therapy [facility] Division of Cardiology [address] [place] [phone] Khushi Johnson RN S/P aortic valve [...] Arnold Bryan Indication: On-X Aortic Valve Replacement Wedding Day Coordinator: Dr. Marr Lab Location: [facility] [...] Appointment [facility] Cardiology [address] [place] [phone] Ulises Marr MD/MPH Cardiology [address] [place] [address] [address] [place] [address] 11/12/2025 10:10 AM EST Cardiology Testing [facility] Division of Cardiology [address] [place] [phone] Ulises Marr MD/MPH Cardiology [address] [place] [address] Nanci [address] [place] [address] Discharge Disposition: Home or Self Care 11/12/2025 10:45 AM EST Appointment [facility] Division of Cardiology [address] [place] [phone] Ulises Marr MD/MPH Cardiology [address] [place] [address] Nanci [address] [place] [address] Discharge Disposition: Home or Self Care documented [...] anticoagulants documented in this encounter Care Teams Rope Laying Machine Operator Relationship Specialty Start Date End Date Juan Rogers MD [address] [facility] [address] [place] [address] PCP - General 04/18/08 documented as of this encounter
--- OUTSIDE RECORDS SUMMARY | 2025-10-15 12:50 | XMS_ITS | Encounter Summary ---
Author Organization [facility] Address [address] [place] [address] Care Team Providers Care Stone Driller Name Role Phone Juan Rogers MD Primary Care Provider [phone] Encounter Details Date Type Department Care Team (Late st Contact Info) Description 07/19/2019 Anticoag Therapy [facility] Division of Cardiology [address] [place] [phone] Roselia Poe, PHARMD Cardiology [address] [place] [phone] Social History Tobacco Use Types Packs/Day [...] 9:00 AM EST Appointment [facility] Division of Cardiology [address] [place] [phone] Ulises Marr MD/MPH Cardiology [facility], [address] [place] [address] 11/12/2025 10:10 AM EST Cardiology Testing [facility] Division of Cardiology [address] [place] [phone] Ulises Marr MD/MPH Cardiology [facility] [place] [address] Discharge Disposition: Home or Self Care 11/12/2025 10:45 AM EST Appointment [facility] Division of Cardiology [address] [place] [phone] Ulises Marr MD/MPH Cardiology [address] [place] [address] Discharge Disposition: Home or Self Care documented as of this encounter Visit Diagnoses Not on filedocumented in this encounter Care Teams Stone Driller Relationship Specialty Start Date End Date Juan Rogers MD [address] [facility] [address] [place] [address] PCP - General 04/18/08 documented as of this encounter
--- OUTSIDE RECORDS SUMMARY | 2025-10-15 12:50 | XMS_ITS | Patient Health Record ---
Author Organization [facility] Address [address] [place] [id number] Care Team Providers Care Soaker Meat Name Role Phone Freddy Reid Primary Care Provider Medications Medication SIG (Take, Route, Frequency, Duration) Notes Start Date End Date Status predniSONE 5 MG 1 tab(s) orally tid 05/21/2007 Active Childrens Chewable Multi Vits MULTIPLE VITAMINS 1 TAB(S) CHEWED ONCE A DAY *Please review and pick correct strength-formulation from [employer]ky[employer] Playerspan options. If intended option is not shown, discontinue and re-order from Quick Search* Active Plan Of Treatment No Information Insurance Providers Payer Name Payer Address Payer Phone Subscriber Number Group Number Insured Name Patient Relationship to Insured Coverage Start Date Coverage End Date [employer] [address] [address] [place] [address] [phone] [id number] COTY VERAS Child - Insured has Financial Responsibility Medications Administered Medication Instructions Date of Administration Dosage Notes Bicillin LA 1,200,000 12/31/2005 0.5 mL Medical (General) History Medical History History ICD Code heart murmur Aortic Valve Stenosis Surgical History Surgery Date(Month/Year) Stent placed in heart for aortic valve s tenosis 11/2006 Hospitalization History Reason Date(Month/Year) none
--- OUTSIDE RECORDS SUMMARY | 2025-10-15 12:50 | XMS_ITS | Encounter Summary ---
Author Organization [facility] Address [address] [place] [address] Care Team Providers Care Tool Crib Attendant Name Role Phone Juan Rogers MD Primary Care Provider [phone] Encounter Details Date Type Department Care Team (Late st Contact Info) Description 09/26/2025 Anticoag Therapy [facility] Division of Cardiology [address] [place] [phone] Khushi Johnson RN S/P aortic valve [...] Arnold Bryan Indication: On-X Aortic Valve Replacement Legal Arbitrator: Dr. Marr Lab Location: [facility] Current Dose: 7.5 mg PO e/Makayla and [...] Info) Description 11/12/2025 9:00 AM EST Appointment [facility] Division of Cardiology [address] [place] [phone] Ulises Marr MD/MPH Cardiology [facility] [address] [place] [address] 11/12/2025 10:10 AM EST Cardiology Testing [facility] Division of Cardiology [address] [place] [phone] Ulises Marr MD/MPH Cardiology [facility] [address], [address] [place] [address] Discharge Disposition: Home or Self Care 11/12/2025 10:45 AM EST Appointment [facility] Division Cardiology [address] [place] [phone] Ulises Marr MD/MPH Cardiology [facility] Roni Christine [address] [place] [address] Discharge Disposition: Home or Self Care documented [...] anticoagulants documented in this encounter Care Teams Tool Crib Attendant Relationship Specialty Start Date End Date Juan Rogers MD [address] [facility] [address] [place] [address] PCP - General 04/18/08 documented as of this encounter
--- OUTSIDE RECORDS SUMMARY | 2025-10-15 12:50 | XMS_ITS | Encounter Summary ---
Author Organization [facility] Address [address] [place] [address] Care Team Providers Care Architectural Project Captain Name Role Phone Juan Rogers MD Primary Care Provider [phone] Reason for Visit * Reason Comments Medication Refill Encounter Details Date Type Department Care Team (Late st Contact Info) Description 09/11/2025 Refill [facility] Division of Cardiology [address] [place] [phone] Ulises Marr MD/MPH Cardiology [address] [place] [address] [address] [place] [address] Medication Refill Social History Tobacco Use Types [...] Info) Description 11/12/2025 9:00 AM EST Appointment [facility] Division of Cardiology [address] [place] [phone] Ulises Marr MD/MPH Cardiology NATALIE Alexandra [address] [place] [address] 11/12/2025 10:10 AM EST Cardiology Testing [facility] Division of Cardiology [address] [place] [phone] Ulises Marr MD/MPH Cardiology NATALIE Alexandra [address] [place] [address] Discharge Disposition: Home or Self Care 11/12/2025 10:45 AM EST Appointment [facility] Division of Cardiology [address] [place] [phone] Ulises Marr MD/MPH Cardiology NATALIE Alexandra [address] [place] [address] Discharge Disposition: Home or Self Care documented as of this encounter Visit Diagnoses Diagnosis Aortic valve disorder Aortic valve disorders S/P aortic valve replacement Heart valve replaced by other means Anticoagulated on warfarin Encounter for long-term (current) use of anticoagulants documented in this encounter Care Teams Architectural Project Captain Relationship Specialty Start Date End Date Juan Rogers MD [facility] [place] [address] PCP - General 04/18/08 documented as of this encounter
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
--- OUTSIDE RECORDS SUMMARY | 2025-10-15 12:50 | XMS_ITS | Encounter Summary ---
Author Organization [facility] Address [address] [place] [address] Care Team Providers Care Gas And Oil Servicer Name Role Phone Juan Rogers MD Primary Care Provider [phone] Encounter Details Date Type Department Care Team (Late st Contact Info) Description 10/04/2025 Anticoag Therapy [facility] Division of Cardiology [address] [place] [phone] Carly Moore RN Aortic valve disorder; [...] Arnold Bryan Indication: On-X Aortic Valve Replacement Water Tanker Driver: Dr. Marr Lab Location: [facility] [...] above goal range. Per Roselia Poe PharmD, 2.5 mg of warfarin tonight [...] Description 11/12/2025 9:[address] [facility] Division of Cardiology [address] [place] [phone] Ulises Marr MD/MPH Cardiology [facility] [address] [place] [address] 11/12/2025 10:10 AM EST Cardiology Testing [facility] Division of Cardiology [address] [place] [phone] Ulises Marr MD/MPH Cardiology [facility] [address] [place] [address] Discharge Disposition: Home or Self Care 11/12/2025 10:[address] [facility] Division of Cardiology [address] [place] [phone] Ulises Marr MD/MPH Cardiology [facility] Roni Christine [address] [place] [address] Discharge Disposition: Home or Self Care documented as of this encounter Procedures Procedure Name Priority Date/Time Associated Diagnosis Comments PT & INR (PATIENT ON WARFARIN THERAPY) Routine 10/03/2025 documented in this encounter Results * PT & INR (Patient on Warfarin Therapy) (10/03/2025) INR EXT 4.13 Blood 10/03/2025 [facility] Provider HEMATOLOGY ORDERABLES Final Result documented in this encounter Visit Diagnoses Diagnosis Aortic valve disorder Aortic valve disorders S/P aortic valve replacement Heart valve replaced by other means Anticoagulated on warfarin Encounter for long-term (current) use of anticoagulants documented in this encounter Care Teams Gas And Oil Servicer Relationship Specialty Start Date End Date Juan Rogers MD [address] [address] [address] [place] [address] PCP - General 04/18/08 documented as of this encounter
--- OUTSIDE RECORDS SUMMARY | 2025-10-15 12:50 | XMS_ITS | Encounter Summary ---
Author Organization [facility] Address [address] [place] [address] Care Team Providers Care Aquatics Lifeguard Name Role Phone Juan Rogesr MD Primary Care Provider [phone] Encounter Details Date Type Department Care Team (Late st Contact Info) Description 09/19/2025 Anticoag Therapy [facility] Division of Cardiology [address] [place] [phone] Khushi Johnson RN S/P aortic valve [...] Arnold Bryan Indication: On-X Aortic Valve Replacement Geospatial Specialist: Dr. Marr Lab Location: [facility] [...] Description 11/12/2025 9:00 AM EST Appointment [facility] Division of Cardiology [address] [place] [phone] Ulises Marr MD/MPH Cardiology [address] [place] [address] 11/12/2025 10:10 AM EST Cardiology Testing [facility] Division of Cardiology [address] [place] [phone] Ulises Marr MD/MPH Cardiology [address] [place] [address] Discharge Disposition: Home or Self Care 11/12/2025 10:45 AM EST Appointment [facility] Division of Cardiology [address] [place] [phone] Ulises Marr MD/MPH Cardiology [address] [place] [address] Discharge Disposition: Home or Self Care documented [...] anticoagulants documented in this encounter Care Teams Aquatics Lifeguard Relationship Specialty Start Date End Date Juan Rogers MD [address] [facility] [address] [place] [address] PCP - General 04/18/08 documented as of this encounter
--- OUTSIDE RECORDS SUMMARY | 2025-10-15 12:50 | XMS_ITS | Encounter Summary ---
Author Organization [facility] Address [address] [place] [address] Care Team Providers Care Rod Puller And Coiler Name Role Phone Juan Rogers MD Primary Care Provider Reason for Visit * Reason Onset Date Comments Anticoagulation Management 09/20/2025 Encounter Details Date Type Department Care Team (Latest Contact Info) Description 09/20/2025 Clinical Note [facility] Division of Cardiology [address] [place] [phone] Carly Moore RN Anticoagulation Management Social [...] anticoagulation team that he was unable to fruit picker machine operator his warfarin prescription last night and that [...] EST Appointment [facility] Division of Cardiology [address] [place] [phone] Ulises Marr MD/MPH [facility]iology [facility] [address] [place] [address] 11/12/2025 10:10 AM EST Cardiology Testing [facility] Division of Cardiology [address] [place] [phone] Ulises Marr MD/MPH Cardiology [address] [place] [address] Discharge Disposition: Home or Self Care 11/12/2025 10:45 AM EST Appointment [facility] Division of Cardiology [address] [place] [phone] Ulises Marr MD/MPH Cardiology [facility] NATAL[address]ega [address] [place] [address] Discharge Disposition: Home or Self Care documented as of this encounter Visit Diagnoses Not on filedocumented in this encounter Care Teams Rod Puller And Coiler Relationship Specialty Start Date End Date Juan Rogers MD [address] [place] [address] [address] [place] [address] PCP - General 04/18/08 documented as of this encounter
--- OUTSIDE RECORDS SUMMARY | 2025-10-15 12:50 | XMS_ITS | Clinical Summary ---
Author Organization [facility] Address [address] [place] [address] Care Team Providers Care Senior Front End Web Developer Name Role Phone Juan Rogers MD Primary Care Provider [phone] Source Comments [facility] is fully rolled out with thefollowing exceptions:General Clinical Research [facility] Allergies Active Allergy Reactions Criticality Noted Date Comments Acetic Acid Blisters 09/23/2023 Medications aspirin (ASA) 81 MG tablet Take 1 tablet by mouth 1 time a day. 5 Active amoxicillin (AMOXIL) 500 MG capsule Take 1 capsule by mouth. Take 4 capsules by mouth 4 Active warfarin (COUMADIN) 5 MG tabletIndicati ons:Aortic valve disorder,S/P aortic valve replacement,An ticoagulated on warfarin Take 7.5 mg (1.5 x 5 mg tab) PO Mon/Wed/Fri and take 10 mg (2 x 5 mg tab) PO all other days of the week 60 tablet 11 5 Active warfarin (COUMADIN) 5 MG tabletIndicati ons:Aortic valve disorder,S/P aortic valve replacement,An ticoagulated on warfarin Take 7.5 mg (1.5 x 5 mg tab) PO Wed/Wed and take 10 mg (2 x 5 mg tab) PO all other days of the week 60 tablet 11 5 025 Discontinued Active Problems Problem Noted Date [...] Encounters Date Type Department Care Team Description 10/09/2025 Anticoag Therapy [facility] Division of Cardiology [address] [place] [phone] Khushi Johnson RN S/P aortic valve replacement (Primary Dx); Anticoagulated on warfarin 10/04/2025 [address]ticoag [address] [facility] Division of Cardiology [address] [place] [phone] Carly Moore RN Aortic valve disorder; S/P aortic valve replacement; Anticoagulated on warfarin 09/26/2025 Anticoag Therapy [facility] Division of Cardiology [address] [place] [phone] Khushi Johnson RN S/P aortic valve replacement (Primary Dx); Anticoagulated on warfarin 09/20/[address] [facility] Division of Cardiology [address] [place] [phone] Carly Moore, ANOOP Anticoagulation Management 09/19/2025 [address]ticoag [address] [facility] Division of Cardiology [address] [place] [phone] Khushi Johnson RN S/P aortic valve replacement (Primary Dx); Anticoagulated on warfarin 09/12/2025 [address]ticoag [address] [facility] Division of Cardiology [address] [place] [phone] Khushi Johnson RN S/P aortic valve replacement (Primary Dx); Anticoagulated on warfarin 09/11/[address] [facility] Division of Cardiology [address] [place] [phone] Khushi Johnson, maori liaison adviser Refill 09/11/[address] [facility] Division of Cardiology [address] [place] [phone] Ulises Marr MD/MPH Medication Refill 08/29/2025 Anticoag Therapy [facility] Division of Cardiology [address] [place] [phone] Khushi Johnson RN S/P aortic valve replacement (Primary Dx); Anticoagulated on warfarin 08/16/2025 Anticoag Therapy [facility] Division of Cardiology [address] [place] [phone] Carly Moore, ANOOP S/P aortic valve replacement (Primary Dx); Anticoagulated on warfarin 08/09/2025 Anticoag Therapy [facility] Division of Cardiology [address] [place] [phone] Carly Moore RN 08/03/2025 Anticoag Therapy [facility] Division of Cardiology [address] [place] [phone] Carly Moore RN 07/27/[address] [facility] Division of Cardiology [address] [place] [phone] Ulises Marr MD/MPH Scheduling Appointment (Spoke withFran and Transferred call to complete scheduling request ) from Last 3 Months Immunizations Immunization Administration [...] Appointment [facility] Division of Cardiology [address] [place] [phone] Ulises Marr MD/MPH Cardiology [address] [place] [address] 11/12/2025 10:10 AM EST Cardiology Testing [facility] Division of Cardiology [address] [place] [phone] Ulises Marr MD/MPH Cardiology [address] [place] [address] Discharge Disposition: Home or Self Care 11/12/2025 10:45 AM EST Appointment [facility] Division of Cardiology [address] [place] [phone] Ulises Marr MD/MPH Cardiology [address] [place] [address] Discharge Disposition: Home or Self Care Health [...] (#1) 06/18/2025 07/20/2011 COVID-19 Vaccine (1 - 2024-2 6 season) 2025 HIB IMMUNIZATION [...] this topic Medical Devices Implanted Type Area Post Tronic Machine Operator Device Identifier Shelf Expiration Date Model / Serial / Lot Valve 21mm Ao W/Ext Hldr Cmft-X - [id number] Implanted:Qt y: 1 on 06/06/2013 by Patrick Garza III, MD at [facility] Cardiovascular N/A: Heart 10/06/2017 / [id number] / N/A Clip Hemo Lg [place] - [id number] Implanted:Qt y: 1 on 06/06/2013 at [facility] Cardiovascular [facility] Base[employer] [facility] [id number] / / Procedures Procedure Name Priority Date/Time Associated Diagnosis Comments PT & INR (PATIENT ON WARFARIN THERAPY) Routine 10/08/2025 PT & INR (PATIENT ON WARFARIN THERAPY) [...] INR (PATIENT ON WARFARIN THERAPY) Routine 08/03/2025 from Last 3 Months Results * PT & INR (Patient on Warfarin Therapy) (10/08/2025) Only the most recent of9 resultswithin the time period is included. INR EXT 2.62 Blood Historical Provider HEMATOLOGY ORDERABLES Final Result from Last 3 Months Insurance FRANCO JANE NON-TRADITIONAL Care Teams Senior Front End Web Developer Relationship Specialty Start Date End Date Juan Rogers MD [facility] [address] [place] [address] [facility] - General 04/18/08
--- OUTSIDE RECORDS SUMMARY | 2025-10-15 12:50 | XMS_ITS | Encounter Summary ---
Author Organization [facility] Address [address] [place] [id number] Care Team Providers Care Mainstreaming Facilitator Name Role Phone Juan Rogers MD Primary Care Provider [phone] Encounter Details Date Type Department Care Team (Late st Contact Info) Description 09/12/2025 Anticoag Therapy [facility] Division of Cardiology [address] [place] [phone] Khushi Johnson RN S/P aortic valve [...] Arnold Bryan Indication: On-X Aortic Valve Replacement Electronics Specialist: Dr. Marr Lab Location: [facility] Current Dose: 7.5 mg PO Tue/Makayla [...] Info) Description 11/12/2025 9:00 AM EST Appointment [facility] Division of Cardiology [address] [place] [phone] Ulises Marr MD/MPH Cardiology [facility] [address] [place] [address] 11/12/2025 10:10 AM EST Cardiology Testing [facility] Division of Cardiology [address] [place] [phone] Ulises Marr MD/MPH Cardiology [facility] [address] [place] [address] Discharge Disposition: Home or Self Care 11/12/2025 10:45 AM EST Appointment [facility] Division of Cardiology [address] [place] [phone] Ulises Marr MD/MPH Cardiology [facility] [address] [place] [address] Discharge Disposition: Home or Self Care documented [...] anticoagulants documented in this encounter Care Teams Mainstreaming Facilitator Relationship Specialty Start Date End Date Juan Rogers MD [address] [facility] [address] [place] [address] PCP - General 04/18/08 documented as of this encounter
[2025-10-15 13:07] LABS: INR 1.98 (0.9-1.1); Prothrombin Time 20.9 seconds (10.1-12.5)
== END 2025-10-15 23:59 | disposition home or self-care (01) ==
LOC: LAB 12:44
PROVIDERS: PCP Internal Medicine Adolescent Medicine; Visit Provider Internal Medicine
DX: Z79.01 Long term (current) use of anticoagulants (principal)
CPT/HCPCS: 36415; 85610